=== PATIENT | male | born 1960 | race Caucasian/White ===

== ENCOUNTER 2024-02-26 15:08 | Inpatient (IN) ==
--- NOTE | 2024-02-26 15:24 | Emergency Department Note ---
Impression & Plan Back pain ADMIT ED Provider Note HPI: History obtained from patient. The patient is a 63-year-old gentleman who presents the emergency department with a chief complaint of left lower back pain that radiates down his left leg. Patient states he has had this issue intermittently for years. Patient states that over the past 10 days he has had worsening left lower back pain with some pain that radiates down his left leg and at times he has left leg weakness. Patient states it has become difficult to ambulate. Patient states he was seen in the outpatient setting about 3 days ago and placed on a Medrol Dosepak without much improvement. On arrival here to the ED the patient is mildly tachycardic but otherwise hemodynamically stable. He appears to be in no acute distress on my initial assessment. ROS: - Per HPI Differential Diagnosis: Degenerative disease of the lumbar spine with sciatica, herniated lumbar disc with sciatica, spinal stenosis, neuroforaminal stenosis, cauda equina syndrome, amongst other potential pathologies. *Outpatient medications and allergy history reviewed. PE: General: Alert HEENT: Normocephalic, trachea midline Eyes: Extraocular eye movement is intact, no scleral erythema Pulmonary: Clear to auscultation bilaterally, no wheezing Cardio: Regular rate and rhythm GI: Abdomen is soft to palpation : No suprapubic tenderness MSK: No evidence of trauma or malformation of the extremities, no edema Skin: No evidence of rash Neuro: Alert, no focal deficits, 5 out of 5 strength with dorsiflexion and plantarflexion of the bilateral lower extremities, there is some limitation of flexion at the hip on the left side secondary to pain Psychiatric: Cooperative INDEPENDENT INTERPRETATIONS: monitoring analyst: (As interpreted by myself): - An order was placed for continuous cardiac monitoring - Patient was noted to be in sinus rhythm with a rate of 80 Interventions provided in ED: -IV Toradol, IV morphine, IV Zofran, IV fluid bolus Medical Decision Making: IV was established and lab work obtained, patient was placed on shelter monitor. Lab work shows no leukocytosis, hemoglobin is normal, platelet count is normal, CMP does not show any evidence of any critical findings. CT imaging of the cervical spine was obtained that shows evidence of spinal stenosis as well as neuroforaminal stenosis correlating with the patient's pain. Patient does not have any red flag findings for cauda equina syndrome therefore emergent MRI imaging of the lumbar spine in the ED was not obtained. Patient states he has had these issues chronically, he was with good pain control on my reassessment following IV Toradol and IV morphine however the patient was not able to ambulate and had more pain with movement following my reassessment. Given this, I did discuss the patient's case with on-call spinal surgery, Dr. Leach, who states he would be in agreement for routine consultation to discuss the patient's imaging with him tomorrow and make possible arrangements for surgery if indicated. On my reassessment patient states he would prefer to be admitted to the hospital at this time. Given his ambulatory dysfunction I think this is reasonable. I discussed the patient's presentation with the on-call hospitalist for [facility], Dr. Garrison, and the patient was placed for admission in stable condition. Consultants/Discussions held with other healthcare providers: -Spinal surgery, Dr. Leach -Hospitalist, Dr. Garrison Disposition discussion held by myself with: -Patient Diagnosis: 1. Left lower back pain, acute on chronic, with sciatica, intractable 2. Ambulatory dysfunction, acute 3. Spinal stenosis on CT imaging Disposition: Admission Daniel Phipps DO Emergency Medicine Past Med/Surg History Problem List (Updated 02/26/24 @ 19:48 by Daniel Phipps DO) Back pain (Acute) Dysphagia Hiatal hernia History of PSVT (paroxysmal supraventricular tachycardia) Dyslipidemia Ambulatory dysfunction Lumbosacral radiculopathy Surgical History History of colonoscopy History of esophagogastroduodenoscopy (EGD) Family History Grandmother (Maternal) Stroke Father Heart disease Social History Smoking Status: Never smoker Preferred Language: Indonesian Feels Safe at Home: Yes Allergies Allergies Allergy/AdvReac Type Severity Reaction Status Date / Time No Known Allergies Allergy Unverified 02/26/24 17:01 Home Meds Home Medications Medication Instructions Recorded Confirmed acetaminophen 500 mg tablet 500 - 1,000 mg PO DIRECTED PRN 02/26/24 02/26/24 Pain atorvastatin 40 mg tablet 40 mg PO QAM 02/26/24 02/26/24 diclofenac sodium 50 mg 50 mg PO TID 02/26/24 02/26/24 tablet,delayed release duloxetine 60 mg capsule,delayed 60 mg PO QAM 02/26/24 02/26/24 release famotidine 20 mg tablet 20 mg PO BID 02/26/24 02/26/24 gabapentin 300 mg capsule 300 mg PO DAILY 02/26/24 02/26/24 gabapentin 300 mg capsule 600 mg PO HS 02/26/24 02/26/24 methylprednisolone 4 mg tablets in 4 mg PO DIRECTED 02/26/24 02/26/24 a dose pack metoprolol succinate 25 mg 25 mg PO QAM 02/26/24 02/26/24 tablet,extended release 24 hr omeprazole 40 mg capsule,delayed 40 mg PO QAM 02/26/24 02/26/24 release Results & Data (ED) Vital Signs Vital Signs - 24 hr 02/26/24 15:08 02/26/24 15:21 02/26/24 16:24 Temperature 36.6 C Temperature Source Temporal Artery Scan Pulse Rate 111 H 75 Pulse Rate [Apical] Pulse Rate from SpO2 Sensor 76 Pulse Rhythm Regular Pulse Rhythm [Apical] Pulse Strength [Apical] Respiratory Rate 18 18 8 L Respiratory Effort / Characteristics Respiratory Depth Respiratory Pattern Blood Pressure 132/81 Blood Pressure [Right Arm] Blood Pressure Mean 98 Blood Pressure Mean [Right Arm] Blood Pressure Position [Right Arm] Pulse Oximetry 93 95 91 Oxygen Delivery Method Room Air Sepsis Recent Fever Within 48 Hours No Sepsis New/Unexplained Change in Mental Status N/A Sepsis Action Taken by Nursing No Action Required 02/26/24 16:34 02/26/24 16:51 02/26/24 16:57 Temperature Temperature Source Pulse Rate 75 72 83 Pulse Rate [Apical] Pulse Rate from SpO2 Sensor 73 84 Pulse Rhythm Pulse Rhythm [Apical] Pulse Strength [Apical] Respiratory Rate 14 16 Respiratory Effort / Characteristics Respiratory Depth Respiratory Pattern Blood Pressure Blood Pressure [Right Arm] Blood Pressure Mean Blood Pressure Mean [Right Arm] Blood Pressure Position [Right Arm] Pulse Oximetry 91 92 Oxygen Delivery Method Sepsis Recent Fever Within 48 Hours Sepsis New/Unexplained Change in Mental Status Sepsis Action Taken by Nursing 02/26/24 17:00 02/26/24 17:03 02/26/24 17:30 Temperature Temperature Source Pulse Rate 80 71 Pulse Rate [Apical] Pulse Rate from SpO2 Sensor 82 74 Pulse Rhythm Pulse Rhythm [Apical] Pulse Strength [Apical] Respiratory Rate 13 15 Respiratory Effort / Characteristics Respiratory Depth Respiratory Pattern Blood Pressure 127/76 Blood Pressure [Right Arm] Blood Pressure Mean 92 Blood Pressure Mean [Right Arm] Blood Pressure Position [Right Arm] Pulse Oximetry 95 94 Oxygen Delivery Method Sepsis Recent Fever Within 48 Hours Sepsis New/Unexplained Change in Mental Status Sepsis Action Taken by Nursing 02/26/24 17:30 02/26/24 19:00 Temperature Temperature Source Pulse Rate Pulse Rate [Apical] 78 Pulse Rate from SpO2 Sensor Pulse Rhythm Pulse Rhythm [Apical] Regular Pulse Strength [Apical] Normal Respiratory Rate 18 Respiratory Effort / Characteristics Non-Labored Spontaneous Respiratory Depth Normal Respiratory Pattern Regular Blood Pressure 125/82 Blood Pressure [Right Arm] 134/90 Blood Pressure Mean 96 Blood Pressure Mean [Right Arm] 104 Blood Pressure Position [Right Arm] Lying Pulse Oximetry 98 Oxygen Delivery Method Room Air Sepsis Recent Fever Within 48 Hours Sepsis New/Unexplained Change in Mental Status Sepsis Action Taken by Nursing Laboratory Data 02/26/24 15:30 02/26/24 15:30 Lab Results 02/26/24 Range/Units 15:30 WBC 9.76 (4.8-10.8) K/ul RBC 5.26 (4.70-6.10) M/uL Hgb 16.4 (14.0-18.0) g/dl Hct 46.8 (42.0-52.0) % MCV 89.0 (80.0-100.0) fL MCH 31.2 (25.0-34.0) pg MCHC 35.0 (32.0-36.0) g/dL RDW Std Deviation 39.7 (36.4-46.3) fL RDW Coeff of Marvin 12.2 (11.5-14.5) % Plt Count 291 (130-400) K/uL MPV 8.6 L (9.4-12.4) fL Immature Gran % (Auto) 0.4 % Neut % (Auto) 69.7 % Lymph % (Auto) 21.2 % [place] % (Auto) 7.9 % Eos % (Auto) 0.6 % Baso % (Auto) 0.2 % Neut # (Auto) 6.80 H (1.40-6.50) K/uL Lymph # (Auto) 2.07 (1.20-3.40) K/uL [place] # (Auto) 0.77 H (0.11-0.59) K/uL Eos # (Auto) 0.06 (0.00-0.50) K/uL Baso # (Auto) 0.02 (0.00-0.20) K/uL Immature Gran # (Auto) 0.04 (0.01-0.20) K/uL Sodium 142 (136-145) mmol/L Potassium 3.4 L (3.5-5.1) mmol/L Chloride 108 H (98-107) mmol/L Carbon Dioxide 26 (21-32) mmol/L Anion Gap 8 (3-11) BUN 18 (6-23) mg/dl Creatinine 1.02 (0.6-1.4) mg/dl Est Cr Clr Drug Dosing 84.3 ml/min Est GFR ( Amer) 89.0 ml/min Est GFR (Non-Af Amer) 76.8 ml/min BUN/Creatinine Ratio 17.6 (10-20) Glucose 152 H (70-99(Fasting)) mg/dl Calcium 8.9 (8.6-10.3) mg/dl Total Bilirubin 0.8 (0.2-1.0) mg/dl AST 31 (13-39) U/L ALT 81 H (7-52) U/L Alkaline Phosphatase 52 (34-104) U/L Total Protein 6.9 (6.0-8.3) gm/dl Albumin 4.4 (3.4-5.0) gm/dl Globulin 2.5 (2.5-4.0) gm/dl Albumin/Globulin Ratio 1.8 (0.9-2) Administered Medications Discontinued Medications Sodium Chloride (Nss) 500 mls @ 999 mls/hr IV .Q31M STA Stop: 02/26/24 15:51 Last Infusion: 02/26/24 17:53 Dose: Infused Documented By: Admin: 02/26/24 15:39 Dose: 999 mls/hr Documented By: CATRACHITA Ketorolac Tromethamine (Ketorolac Tromethamine 15 Mg/Ml Vial) 10 mg IV NOW STA Stop: 02/26/24 15:22 Last Admin: 02/26/24 15:37 Dose: 10 mg Documented By: CATRACHITA Morphine Sulfate (Morphine Sulfate 4 Mg/Ml 1 Ml Carp\Vial) 4 mg IV NOW STA Stop: 02/26/24 15:22 Last Admin: 02/26/24 15:36 Dose: 4 mg Documented By: CATRACHITA Ondansetron HCl (Ondansetron Inj 2 Mg/Ml 2 Ml Vial) 4 mg IV NOW STA Stop: 02/26/24 15:22 Last Admin: 02/26/24 15:36 Dose: 4 mg Documented By: CATRACHITA Potassium Chloride (Potassium Chloride Crtab 20 Meq Tabcr) 20 meq PO NOW ONE Stop: 02/26/24 19:28 Last Admin: 02/26/24 19:52 Dose: 20 meq Documented By: IDD Imaging Data Radiologist's Impression: Lumbar Spine CT 02/26/24 15:[address] WITHOUT CONTRAST CLINICAL HISTORY: L sided back pain w/ L leg pain COMPARISON STUDY: Lumbar spine radiographs May 24, 2020. TECHNIQUE: Axial images of the lumbar spine were obtained without IV contrast. Sagittal and coronal reconstructions were viewed. Automated exposure control was utilized for the study. A dose lowering technique was utilized adhering to the principles of ALARA. FINDINGS: For purposes of numbering on this exam, the L5-S1 disc space is assigned to axial image 285 of 362. Moderate dextroscoliosis of the lumbar spine is unchanged. There is slight anterolisthesis of L4 and L5 due to facet arthrosis. There are no acute lumbar spine fractures. There are no osseous lesions within the lumbar spine. There are mild degenerative changes of the sacroiliac joints. Paravertebral soft tissues are unremarkable. Central canal and neural foramen are suboptimally assessed given CT technique. However, there is severe central canal stenosis at L4-L5 due to facet arthrosis, ligamentous hypertrophy and disc bulge. There is suspected moderate central canal stenosis at L3-L4. There is moderate to severe multilevel neural foraminal stenosis. There is severe multilevel facet arthrosis and moderate multilevel degenerative disc disease within the lumbar spine IMPRESSION: 1. No acute lumbar spine fracture or subluxation. 2. Severe multilevel facet arthrosis and moderate degenerative disc disease within the lumbar spine. Severe central canal stenosis at L4-L5. Moderate to severe multilevel neural foraminal stenosis, suboptimally evaluated by CT. 3. Moderate lumbar spine dextroscoliosis. ACT 112: Negative or not required by law. Electronically signed by: Heber Garcia M.D. 02/26/2024 4:20 PM Discharge Plan Visit Data Chief Complaint: Back Injury/Pain Stated Complaint: SCIATICA BACK ED Provider: Daniel Phipps Discharge Problem: Back pain Forms Stand Alone Forms: My [facility] Prescriptions Prescriptions: No Action atorvastatin 40 mg tablet 40 mg PO QAM omeprazole 40 mg capsule,delayed release(DR/EC) 40 mg PO QAM famotidine 20 mg tablet 20 mg PO BID gabapentin 300 mg capsule 300 mg PO DAILY diclofenac sodium 50 mg tablet,delayed release (DR/EC) 50 mg PO TID metoprolol succinate 25 mg tablet extended release 24 hr 25 mg PO QAM methylprednisolone 4 mg tablets,dose pack 4 mg PO DIRECTED Rx Instructions: has 2 more days left directions on package duloxetine 60 mg capsule,delayed release(DR/EC) 60 mg PO QAM acetaminophen [Tylenol Ex Str Rapid Release] 500 mg Tablet 500 - 1,000 mg PO DIRECTED PRN (Reason: Pain) Rx Instructions: per patient, he may do 1 to 2 tablets three times daily. gabapentin 300 mg capsule 600 mg PO HS Referrals Referrals: Tash Maharaj DO [Physician] - Discharge Problem: Back pain Qualifiers: Back pain location: low back pain Chronicity: acute Back pain laterality: left Sciatica presence: with sciatica Sciatica laterality: sciatica of left side Q ualified Code(s): M54.42 - Lumbago with sciatica, left side
[2024-02-26] MEDS: MoRPHine SULFATE 4 MG/ML 1 ML CARP\\VIAL IV STA (15:36)
[2024-02-26] MEDS: ONDANSETRON INJ 2 MG/ML 2 ML VIAL IV STA (15:36)
[2024-02-26] MEDS: KETOROLAC TROMETHAMINE 15 MG/ML VIAL IV STA (15:37)
[2024-02-26] MEDS: SODIUM CHLORIDE 0.9% 500 ML IV STA (15:39)
[2024-02-26 15:57] LABS: Basophils # (auto) 0.02 K/uL (0.00-0.20); Basophils % (auto) 0.2 %; Eosinophils # (auto) 0.06 K/uL (0.00-0.50); Eosinophils % (auto) 0.6 %; Hematocrit (blood only) 46.8 % (42.0-52.0); Hemoglobin 16.4 g/dl (14.0-18.0); Immature Granulocytes # (auto) 0.04 K/uL (0.01-0.20); Immature Granulocytes % (auto) 0.4 %; Lymphocytes # (auto) 2.07 K/uL (1.20-3.40); Lymphocytes % (auto) 21.2 %; Mean Corpuscular Hemoglobin 31.2 pg (25.0-34.0); Mean Platelet Volume 8.6 fL (9.4-12.4); Monocytes # (auto) 0.77 K/uL (0.11-0.59); Monocytes % (auto) 7.9 %; Neutrophils % (auto) 69.7 %; Platelet Count 291 K/uL (130-400); RDW Coefficient of Variation 12.2 % (11.5-14.5); RDW Standard Deviation 39.7 fL (36.4-46.3); Red Blood Count 5.26 M/uL (4.70-6.10); White Blood Count 9.76 K/ul (4.8-10.8)
[2024-02-26 16:14] LABS: Albumin Globulin Ratio 1.8 (0.9-2); Albumin Level 4.4 gm/dl (3.4-5.0); BUN Creatinine Ratio 17.6 (10-20); Bilirubin,Total 0.8 mg/dl (0.2-1.0); Calcium 8.9 mg/dl (8.6-10.3); Creatinine Clr Calc Pharmacy 84.3 ml/min; Est GFR (Non-African American) 76.8 ml/min; Globulin 2.5 gm/dl (2.5-4.0); Potassium 3.4 mmol/L (3.5-5.1); Total Protein 6.9 gm/dl (6.0-8.3)
--- NOTE | 2024-02-26 16:22 | CT Scan Report ---
LUMBAR SPINE CT WITHOUT CONTRAST CLINICAL HISTORY: L sided back pain w/ L leg pain COMPARISON STUDY: Lumbar spine radiographs May 24, 2020. TECHNIQUE: Axial images of the lumbar spine were obtained without IV contrast. Sagittal and coronal r econstructions were viewed. Automated exposure control was utilized for the study. A dose lowering t echnique was utilized adhering to the principles of ALARA. FINDINGS: For purposes of numbering on this exam, the L5-S1 disc space is assigned to axial image 285 of 362. Moderate dextroscoliosis of the lumbar spine is unchanged. There is slight anterolisthesis o f L4 and L5 due to facet arthrosis. There are no acute lumbar spine fractures. There are no osseous l esions within the lumbar spine. There are mild degenerative changes of the sacroiliac joints. Paraver tebral soft tissues are unremarkable. Central canal and neural foramen are suboptimally assessed give n CT technique. However, there is severe central canal stenosis at L4-L5 due to facet arthrosis, liga mentous hypertrophy and disc bulge. There is suspected moderate central canal stenosis at L3-L4. Ther e is moderate to severe multilevel neural foraminal stenosis. There is severe multilevel facet arthro sis and moderate multilevel degenerative disc disease within the lumbar spine IMPRESSION: 1. No acute lumbar spine fracture or subluxation. 2. Severe multilevel facet arthrosis and moderate degenerative disc disease within the lumbar spine. Severe central canal stenosis at L4-L5. Moderate to severe multilevel neural foraminal stenosis, subo ptimally evaluated by CT. 3. Moderate lumbar spine dextroscoliosis. ACT 112: Negative or not required by law. Electronically signed by: Heber Garcia M.D. 02/26/2024 4:20 PM
--- NOTE | 2024-02-26 19:17 | History & Physical Report ---
<Statement entered by Arnold Garrison, - 02/26/24 20:11> I have seen and examined the patient and have discussed the case with the provider above. I have reviewed the advanced practitioner's documentation, and I agree with, and take responsibility for that plan of care. 15 minutes spent in coordination of care with ARTURO Patient seen and examined while still in the ED. Resting comfortably on litter. Significant discomfort with any movement. Patient reports 25 to 30 pound weight gain over the past year. Suspect this may be contributing to some of the increased strain and stress on his lumbar spine exacerbating his symptoms. Plan of care as outlined below Date of Service February 26, 2024 Assessment & Plan (1) Lumbosacral radiculopathy: (2) Ambulatory dysfunction: Plan: Patient is 63 year old male with PMH PSVT, hiatal hernia, dysphagia, dyslipidemia, chronic low back pain presented to ER with complaint of low back pain x 1.5 weeks, now with radiation to LLE aggravated with ambulation. In ER vitals stable. CT Lumbar Spine: No acute lumbar spine fracture or subluxation. Severe multilevel facet arthrosis and moderate degenerative disc disease within the lumbar spine. Severe central canal stenosis at L4-L5. Moderate to severe multilevel neural foraminal stenosis, suboptimally evaluated by CT. Moderate lumbar spine dextroscoliosis. In ER given Toradol, morphine with moderate relief MRI lumbar spine PT/OT eval Fall precautions Ortho spine consult Pain control with scheduled Tylenol, Lidocaine patch, Toradol as needed mild pain, oxycodone as needed moderate-severe pain Decadron IV Plan to continue patient's home gabapentin. Considered increasing home dose of gabapentin however patient reports gets very drowsy with gabapentin. Continue home duloxetine CBC, BMP in a.m. (3) Dyslipidemia: Plan: Continue atorvastatin (4) History of PSVT (paroxysmal supraventricular tachycardia): Plan: Continue metoprolol (5) Hiatal hernia: (6) Dysphagia: Plan: Follows with GI Denies food bolus sensation recently Continue PPI and H2 josh DVT Prophylaxis Lovenox SQ Admit med surg Full Code as per discussion with pt Follows with Dr Brigette Bennett for routine care Pt was seen and care coordinated with Dr Garrison. See addendum I spent a total of 75 minutes reviewing notes, outpatient records, labs, medication, coordinating, documenting and providing care for this patient excluding time spent in the performance of separately billed services. History of Present Illness Chief Complaint: back pain Primary Care Provider: Brigette Bennett MD Patient is 63 year old male with PMH PSVT, hiatal hernia, dysphagia, dyslipidemia, chronic low back pain presented to ER with complaint of low back pain x 1.5 weeks. Patient reports history of chronic intermittent low back pain. States many years ago received steroid injections with temporary relief. Reports considered surgery several years ago. Patient states had been doing fairly well until 1 and half weeks ago when started with low back pain, initially with pain radiating down bilateral legs. States past several days pain now across to low back more to left side radiates down left buttock, down posterior leg to foot. Reports some numbness tingling sensation to left leg. Saw urgent care several days ago and was started on Medrol Dosepak. Patient states today pain is more severe and any attempted weightbearing to left leg and walking causing severe pain. Patient thinks left leg a little weaker today as well. Denies any falls. Taking Tylenol with limited relief. Denies loss of control of bowel or bladder, fever/chills, N/V/D/C, MEDINA, dizziness, syncope, neck pain, CP, SOB, palpitations, cough, sore throat, recent choking, otalgia, rhinorrhea, abdominal pain, extremity edema, rashes, hematuria, dysuria. Allergies Allergy/AdvReac Type Severity Reaction Status Date / Time No Known Allergies Allergy Unverified 02/26/24 17:01 Home Medications Medication Instructions Recorded Confirmed Type acetaminophen 500 mg tablet 500 - 1,000 mg PO DIRECTED PRN 02/26/24 02/26/24 History Pain atorvastatin 40 mg tablet 40 mg PO QAM 02/26/24 02/26/24 History diclofenac sodium 50 mg 50 mg PO TID 02/26/24 02/26/24 History tablet,delayed release duloxetine 60 mg capsule,delayed 60 mg PO QAM 02/26/24 02/26/24 History release famotidine 20 mg tablet 20 mg PO BID 02/26/24 02/26/24 History gabapentin 300 mg capsule 300 mg PO DAILY 02/26/24 02/26/24 History gabapentin 300 mg capsule 600 mg PO HS 02/26/24 02/26/24 History methylprednisolone 4 mg tablets in 4 mg PO DIRECTED 02/26/24 02/26/24 History a dose pack metoprolol succinate 25 mg 25 mg PO QAM 02/26/24 02/26/24 History tablet,extended release 24 hr omeprazole 40 mg capsule,delayed 40 mg PO QAM 02/26/24 02/26/24 History release Past Med/Surg History Problem List (Updated 02/26/24 @ 19:48 by Daniel Phipps DO) Back pain (Acute) Dysphagia Hiatal hernia History of PSVT (paroxysmal supraventricular tachycardia) Dyslipidemia Ambulatory dysfunction Lumbosacral radiculopathy Surgical History History of colonoscopy History of esophagogastroduodenoscopy (EGD) Family History Grandmother (Maternal) Stroke Father Heart disease Social History Smoking Status: Never smoker Preferred Language: Tongan Feels Safe at Home: Yes Review of Systems Review of Systems: All systems reviewed & are unremarkable except as noted in HPI & below Physical Exam Physical Exam: General: no distress, WDWN Head: normocephalic, atraumatic Eyes: conjunctiva non-injected, anicteric ENT: normal inspection external ears, nose, mucous membranes moist Neck: supple, trachea midline Lungs: clear, no respiratory distress, no wheezing/rhonchi/rales CV: RRR, no murmur, no pretibial edema Abd: normal BS, soft, non-tender Back: no discoloration, +tenderness to palpation left lateral lower back into left gluteus, +left straight leg raise to approximately 30 degrees. +sensation to light touch intact with reported slightly decreased sensation to left foot compared to right, pedal pushes and pulls intact, distal pulses intact Ext: no cyanosis, no calf tenderness Neuro: A&O x 3, no focal deficits noted, normal affect Skin: warm, dry Results & Data Results & Data Vital Signs (Past 12 Hours) Vital Signs Temp Pulse Resp BP Pulse Ox O2 Del Method 02/26/24 17:30 125/82 02/26/24 17:30 71 15 94 02/26/24 17:03 80 13 95 02/26/24 17:00 127/76 02/26/24 16:57 83 16 92 02/26/24 16:51 72 14 91 02/26/24 16:34 75 02/26/24 16:24 75 8 L 91 02/26/24 15:21 18 95 Room Air 02/26/24 15:08 36.6 C 111 H 18 132/81 93 Laboratory Results Short CBC 02/26/24 Range/Units 15:30 WBC 9.76 (4.8-10.8) K/ul Hgb 16.4 (14.0-18.0) g/dl Hct 46.8 (42.0-52.0) % Plt Count 291 (130-400) K/uL BMP 02/26/24 15:30 Sodium 142 Potassium 3.4 L Chloride 108 H Carbon Dioxide 26 BUN 18 Creatinine 1.02 Glucose 152 H Calcium 8.9 Liver Function 02/26/24 Range/Units 15:30 Total Bilirubin 0.8 (0.2-1.0) mg/dl AST 31 (13-39) U/L ALT 81 H (7-52) U/L Alkaline Phosphatase 52 (34-104) U/L Albumin 4.4 (3.4-5.0) gm/dl Diagnostic Findings Lumbar Spine CT 02/26/24 15:[address] WITHOUT CONTRAST CLINICAL HISTORY: L sided back pain w/ L leg pain COMPARISON STUDY: Lumbar spine radiographs May 24, 2020. TECHNIQUE: Axial images of the lumbar spine were obtained without IV contrast. Sagittal and coronal reconstructions were viewed. Automated exposure control was utilized for the study. A dose lowering technique was utilized adhering to the principles of ALARA. FINDINGS: For purposes of numbering on this exam, the L5-S1 disc space is assigned to axial image 285 of 362. Moderate dextroscoliosis of the lumbar spine is unchanged. There is slight anterolisthesis of L4 and L5 due to facet arthrosis. There are no acute lumbar spine fractures. There are no osseous lesions within the lumbar spine. There are mild degenerative changes of the sacroiliac joints. Paravertebral soft tissues are unremarkable. Central canal and neural foramen are suboptimally assessed given CT technique. However, there is severe central canal stenosis at L4-L5 due to facet arthrosis, ligamentous hypertrophy and disc bulge. There is suspected moderate central canal stenosis at L3-L4. There is moderate to severe multilevel neural foraminal stenosis. There is severe multilevel facet arthrosis and moderate multilevel degenerative disc disease within the lumbar spine IMPRESSION: 1. No acute lumbar spine fracture or subluxation. 2. Severe multilevel facet arthrosis and moderate degenerative disc disease within the lumbar spine. Severe central canal stenosis at L4-L5. Moderate to severe multilevel neural foraminal stenosis, suboptimally evaluated by CT. 3. Moderate lumbar spine dextroscoliosis. ACT 112: Negative or not required by law. Electronically signed by: Heber Garcia M.D. 02/26/2024 4:20 PM Code Status & VTE Plan VTE Prophylaxis Plan VTE Prophylaxis will be ordered: Yes
[2024-02-26] MEDS: POTASSIUM CHLORIDE CRTAB 20 MEQ TABCR PO ONE (19:52)
[2024-02-26] MEDS ORDERED: DEXAMETHASONE SOD INJ 4 MG/ML VIAL IV SCH (21:01)
--- NOTE | 2024-02-26 21:31 | Magnetic Resonance Report ---
Exam(s): MRI L SPINE Without Contrast EXAM: MR Lumbar Spine Without Intravenous Contrast CLINICAL HISTORY: Reason for exam: radicular pain. TECHNIQUE: Magnetic resonance images of the lumbar spine without intravenous contrast in multiple planes. COMPARISON: CT 02/26/2024 FINDINGS: Vertebrae: No acute fracture. Trace anterolisthesis at L4-5. No suspicious lesion. Degenerative related endplate marrow signal changes at multiple levels. Spinal cord: Terminates at T12. Normal signal. Soft tissues: Unremarkable. DISCS/SPINAL CANAL/NEURAL FORAMINA: T12-L1: Diffuse disc bulge. Mild canal stenosis. Mild right and no left foraminal stenosis. L1-L2: Diffuse disc bulge and mild facet arthropathy. Mild canal stenosis. Mild right and mild left foraminal stenosis. L2-3: Trace diffuse disc bulge and facet arthropathy. Mild to moderate canal stenosis. Mild bilateral foraminal stenosis. L3-4: Diffuse disc bulge and facet arthropathy left greater than right. Moderate stenosis of the left lateral recess. Moderate left and no significant right foraminal stenosis. L4-5: Anterolisthesis with diffuse disc bulge and severe facet hypertrophy. Severe spinal canal stenosis. Moderate bilateral foraminal stenosis. L5-S1: Trace diffuse disc bulge. Facet arthropathy on the right. No canal stenosis. Severe right and no left foraminal stenosis. IMPRESSION: 1. Degenerative spondylosis as described most pronounced at L4-5 and L5- S1. 2. Severe spinal canal stenosis at L4-5. 3. Foraminal stenosis most pronounced on the right at L5-S1 where it is severe. Electronically signed by: Ajay Gerber MD 02/26/24 21:30 PM
[2024-02-26] MEDS: ACETAMINOPHEN 500 MG TAB PO SCH (21:49)
[2024-02-26] MEDS: DOCUSATE SODIUM 100 MG CAP PO SCH (21:49)
[2024-02-26] MEDS: KETOROLAC TROMETHAMINE 15 MG/ML VIAL IV PRN (21:49)
[2024-02-26] MEDS: dexAMETHasone 8 MG in SYRINGE 0 ML IV SCH (21:50)
[2024-02-26] MEDS: LIDOCAINE 5% 1 PATCH TD STA (21:51)
[2024-02-26] MEDS: FAMOTIDINE 20 MG TAB PO SCH (21:51)
[2024-02-26] MEDS: ENOXAPARIN INJ 40 MG/0.4 ML SYR SQ SCH (21:51)
[2024-02-26] MEDS: GABAPENTIN 300 MG CAP PO SCH (21:51)
--- OUTSIDE RECORDS SUMMARY | 2024-02-26 23:54 | External Medical Summary | Summary of Care ---
Author Name Unknown Organization [facility] Address [address] [place] [address] Phone [phone] Care Team Providers Care Esthetician Permanent Makeup Artist Name Role Phone Brigette Bennett MD Primary Care Provider [phone] Reason for Visit * Reason Comments Esophageal Manometry Encounter Details Date Type Department Care Team (Late st Contact Info) Description 01/06/2024 9:00 AM EDT Nurse Only Gastroenterology, [place] [address] [place], [place] [id number] [place], Nurse Gastroenterology [address] [place], [place] [id number] Esophageal Manometry Allergies No known active allergiesdocumented as of this encounter (statuses as of 01/06/2024) Medications Medication Sig Dispensed Refills Start Date End Date Status Acetaminophen 500 MG Oral Tablet (Tylenol Extra Strength) Take 1 Tablet by mouth every 6 hours as needed. Active Atorvastatin Calcium 40 MG Oral Tablet (Lipitor) Take 1 Tablet by mouth in the morning. 90 Tablet 3 06/30/2023 Active Gabapentin 300 MG Oral Capsule (Neurontin) Take 1 Capsule by mouth in the morning and 1 Capsule at noon and 1 Capsule before bedtime. 270 Capsule 3 08/10/2023 Active Metoprolol Succinate ER 25 MG Oral Tablet Extended Release 24 Hour (Toprol XL) Take 1 Tablet by mouth in the morning. 34 Tablet 6 09/21/2023 Active DULoxetine HCl 60 MG Oral Capsule Delayed Release Particles (Cymbalta) Take 1 Capsule by mouth in the morning. 60 Capsule 11 11/13/2023 Active Diclofenac Sodium 50 MG Oral Tablet Delayed Release (Voltaren) TAKE 1 TABLET BY MOUTH THREE TIMES DAILY MORNING NOON AND BEDTIME 90 Tablet 2 11/28/2023 Active Famotidine 20 MG Oral Tablet (Pepcid)Indications :Gastroesophageal reflux disease, unspecified whether esophagitis present TAKE 1 TABLET BY MOUTH IN THE MORNING AND AT BEDTIME 60 Tablet 12/12/2023 Active Terbinafine HCl 250 MG Oral Tablet (Lamisil)Indication s:Onychomycosis Take 1 Tablet by mouth in the morning. For 12 weeks for toenail fungus. 84 Tablet 12/28/2023 03/21/2024 Active documented as of this encounter (statuses as of 01/06/2024) Active Problems Problem Noted Date Diagnosed Date Hiatal hernia 12/28/2023 Food insecurity 07/20/2023 Overview: Per [facility] Protocol documented as of this encounter (statuses as of 01/06/2024) Immunizations Name Administration Dates Next Due Seasonal Influenza Virus Vac cine, Unspecified Formulation 05/29/2023 Seasonal Influenza, Quadrivalent, No Preserve, I M 03/15/2020 TDAP, Age 7 and older, IM (Adacel) 04/05/2020 Zoster Vaccine Recombinant (Shingrix) 03/31/2020 documented as of this encounter Social History Tobacco Use Types Packs/Day Years Used Date Smoking Tobacco: Never Passive Smoke Exposure: Past Smokeless Tobacco: Never Alcohol Use Standard Drinks/Week Comments Yes 0 (1 standard drink = 0.6 oz pur e alcohol) rarely Hunger Vital Sign Answer Date Recorded Within the past 12 months, y ou worried that your food would run out before you got the money to buy more. Sometimes true Within the past 12 months, t he food you bought just didn't last and you didn't have money to get more. Often true Childcare Answer Date Recorded Do you feel overwhelmed with taking care of a child, family member or friend? No 06/24/2023 Does your family need help f inding childcare? (Household - for ages 0-17 years) Not on file 06/24/2023 Clothing Answer Date Recorded Have you been unable to get clothing when it was really needed? No 06/24/2023 Is your family able to get c lothes or diapers when needed? (Household - for ages 0-17 years) Not on file 06/24/2023 Personal Safety Answer Date Recorded Do you feel unsafe or have concerns for your saf ety? No 06/24/2023 Do you have concerns for you r family's safety? (Household - for ages 0-17 years) Not on file 06/24/2023 Utilities Answer Date Recorded Do you have trouble paying y our heating, water, or electric bill? No 06/24/2023 Is your family able to pay t he heat, water, or electric bill? (Household - for ages 0-17 years) Not on file 06/24/2023 Does your family have access to good internet? (Household - for ages 0-17 years) Not on file 06/24/2023 Employment Status Answer Date Recorded Are you unemployed or without regular income? No 06/24/2023 Does the household have a re lar source of income? (Household - for ages 0-17 years) Not on file 06/24/2023 Social Connections Answer Date Recorded How often do you feel lonely or isolated from those around you? Sometimes 06/24/2023 Financial Resource Strain Answer Date R ecorded Do you have any trouble payi ng for your medications, or do you think you might in the future? No 06/24/2023 Does your family have troubl e paying for medicine? (Household - for ages 0-17 years) Not on file 06/24/2023 Transportation Needs Answer Date Record ed READ ONLY Do you have troubl e getting a ride to medical visits or work? Never True 06/24/2023 Does your family have a hard time getting a ride to doctors visits? (Household - for ages 0-17 years) Not on file 06/24/2023 Has lack of transportation k ept you from medical appointments, meetings, work, or from getting things needed for daily living? Check all that apply. (Adult - for ages 18 years and over) Not on file 06/24/2023 Do you (or your family) have trouble finding or paying for a ride (transportation)? (Household - for ages 0-17 years) Not on file 06/24/2023 Housing Stability Answer Date Recorded Do you currently live in a s helter or have no steady place to sleep at night? No 06/24/2023 READ ONLY Do you think you a re at risk of becoming homeless? No 06/24/2023 Does your family worry about paying for your home or becoming homeless? (Household - for ages 0-17 years) Not on file 1 08/25/2022 Are you homeless or worried that you might be in the future? (Adult - for ages 18 years and over) Not on file Are you (or your family) darci eless or worried that you might be in the future? (Household - for ages 0-17 years) Not on file Food Insecurity Answer Date Recorded Do you need food for this week? No 06/24/2023 Are you able to get enough f ood for your family? (Household - for ages 0-17 years) Not on file 06/24/2023 Does your family need food t his week? (Household - for ages 0-17 years) Not on file 06/24/2023 Do you always have enough fo od for your family? (Household - for ages 0-17 years) Not on file 06/24/2023 Sex and Gender Information Value Date Recorded Sex Assigned at Male 06/24/2023 11:54 AM EST Gender Identity Male 06/24/2023 11:54 AM EST Sexual Orientation Straight 06/24/2023 11 :54 AM EST Job Start Date Occupation Industry Not on file Not on file Not on file documented as of this encounter Nursing Notes * Gabriela Li RN - 01/06/2024 9:56 AM EDT Patient referred by [facility] Hooper for manometry because of dysphagia, hiatal hernia, and GERD. Patient followed pre-procedure instructions of [facility]. Procedure, risks and benefits were fully explained and time was given for questions. Informed consent was obtained. Procedure was performed by Gabriela Li RN. Patient tolerated the procedure well. Instructions for post-procedure mild sore throat were given: ice chips, tylenol. Catheter placed in left nares. No blood noted upon removal of catheter. Catheter was not able to be advanced all the way in to the appropriate position. Was meeting resistance, likely patient's hiatal hernia. Multiple attempts were made to advance the catheter all the way in, patient experienced no pain during these attempts. Advanced catheter as fas as I could and completed the study. documented in this encounter Plan of Treatment Upcoming Encounters Date Type Department Care Team (Latest Contact Info) Description 01/19/2024 3:00 PM EDT Office Visit Cardiology, [facility] [address] [place] [address] Lana Sarmiento CRNP [address] [place] [address] 01/21/2024 12:30 PM EDT Office Visit General Surgery, [facility] [address] [facility] [place] [address] Stephon Pollard MD [address] [place] [address] 03/22/2024 8:45 AM EDT Hospital Encounter ENDO [facility], Endoscopy [address] [phone] Nedra Adan, DO [address] [place] [address] 03/22/2024 8:45 AM EDT - 03/22/2024 9:15 AM EDT Surgery ENDO [facility], Endoscopy [address] [phone] Nedra Adan, DO [address] [place] [address] ESOPHAGOGASTRODUODENOSCOPY (EGD), FLEXIBLE, TRANSORAL, DIAGNOSTIC 04/29/2024 1:00 PM EDT [facility] [address] Brigette Bennett MD 200 [facility] [place] [address] 05/06/2024 1:20 PM EDT Office Visit Hepatology, [facility] [place] [address] [place] [address] Lana Braun DO [address] [place] [address] Scheduled Procedures Name Priority Associated Diagnoses Date/Ti me ESOPHAGOGASTRODUODENOSCOPY ( EGD), FLEXIBLE, TRANSORAL, DIAGNOSTIC GERD (gastroesophageal reflux disease) 03/22/2024 8:45 AM EDT GASTRO REFLUX TEST WITH MUCO RAFAELA TELEMETRY PH ELECTRODE GERD (gastroesophageal reflux disease) 03/22/2024 8:45 AM EDT COLONOSCOPY FLEXIBLE PROXIMA L DIAGNOSTIC Recall History of colonic polyps Health Maintenance Due Date Last Done Comments Depression Screening 1970 HIV Screening 1973 Cologuard 2003 Fecal Occult Blood Test 2003 Zoster Vaccines (2 of 2) 05/26/2020 03/31/2020 COVID-19 Vaccine (1 - 2022-2 4 season) 2023 Pneumococcal Vaccine: 65+ Years (1 of 1 - PCV) 2023 Colonoscopy 06/12/2024 06/12/2023, 06/12/2023 Colorectal Cancer Screening 06/12/2024 Diabetes Screening 07/27/2026 07/27/2023, 06/05/2023 Lipid Panel 06/05/2028 06/05/2023 Sigmoidoscopy 07/27/2028 07/27/2023 DTaP,Tdap,and Td Vaccines (2 - Td or Tdap) 04/05/2030 04/05/2020 Influenza Vaccine (FLU shot) Completed , 03/15/2020 RETIRED - COLONOSCOPY-ANNUAL AGES 18-100 Discontinued 07/27/2023, 06/12/2023, 06/12/2023 GARDASIL-HPV IMMUNIZATION SERIES Aged Out No longer eligible based on patient's age to complete this topic Hepatitis B Aged Out No longer eligi ble based on patient's age to complete this topic MENINGOCOCCAL (MENACTRA/MENVEO) Aged Out No longer eligible based on patient's age to complete this topic documented as of this encounter Medical Devices Not on filedocumented as of this encounter Care Teams Esthetician Permanent Makeup Artist Relationship Specialty Start Date End Date Brigette Bennett MD [address] [place] [address] PCP - General Family Medicine 06/05/23 documented as of this encounter
--- OUTSIDE RECORDS SUMMARY | 2024-02-26 23:54 | External Medical Summary | Summary of Care ---
Author Name Unknown Organization [facility] Address [address] [place] [address] Phone [phone] Care Team Providers Care Rubber Compounder Formulator Name Role Phone Brigette Bennett MD Primary Care Provider [phone] Reason for Visit * Reason Comments Outpatient Testing Encounter Details Date Type Department Care Team (Late st Contact Info) Description 01/05/2024 4:10 PM EDT Laboratory Laboratory [facility] [place] [address] [place] [phone] [place], Lab Sc[facility] [address] [place], [place] [address] Onychomycosis; Elevated LFTs Allergies No known active allergiesdocumented as of this encounter (statuses as of 01/05/2024) Medications Medication Sig Dispensed Refills Start Date [...] as of this encounter (statuses as of 01/05/2024) Active Problems Problem Noted Date Diagnosed Date Hiatal hernia 12/28/2023 Food insecurity 07/20/2023 Overview: Per [facility] Protocol documented as of this encounter (statuses as of 01/05/2024) Immunizations Name Administration Dates Next Due Seasonal Influenza Virus Vac cine, Unspecified Formulation 05/29/2023 Seasonal Influenza, Quadrivalent, No Preserve, I M 03/15/2020 TDAP, Age 7 and older, IM (Adacel) 04/05/2020 Zoster Vaccine Recombinant (Shingrix) 03/31/2020 documented as of this encounter Social History Tobacco Use Types Packs/Day Years Used Date Smoking Tobacco: Never Smokeless Tobacco: Never Alcohol Use Standard Drinks/Week [...] No 06/24/2023 Does the household have a [facility] source of income? (Household - for ages [...] on file documented as of this encounter Plan of Treatment Upcoming Encounters Date Type Department Care Team (Latest Contact Info) Description 01/06/2024 9:00 AM EDT Nurse Only Gastroenterology , [place] [address] [place] [address] [place], [facility]ol [facility]gy [address] [facility] [place] [address] 01/19/2024 3:00 PM EDT Office Visit Cardiology, [facility] 132 [facility] [place] [address] Lana Sarmiento CRNP [address] [facility] [place] [address] 01/21/2024 12:30 PM EDT Office Visit General Surgery, [facility] [address] [place] [address] Stephon Pollard MD [address] [place] [address] 03/22/2024 8:45 AM EDT Hospital Encounter ENDO [facility], Endoscopy [address] [phone] Nedra Adan, DO [address] [place] [address] 03/22/2024 8:45 AM EDT - 03/22/2024 9:15 AM EDT Surgery ENDO [facility], Endoscopy [address] [phone] Nedra Adan, DO [address] [place] [address] ESOPHAGOGASTRODUODENOSCOPY (EGD), FLEXIBLE, TRANSORAL, DIAGNOSTIC 04/29/2024 1:00 PM EDT Office Visit [facility] 200 [facility] [place] [address] Brigette Bennett MD 200 [facility], [place] [address] 05/06/2024 1:20 PM EDT Office Visit Hepatology, [facility] [address] [place] [address] Lana Braun, [address] [place] [address] Pending Results Name Type Priority Associated Diagnoses Date /Time HEPATIC FUNCTION PANEL Lab Routine Onychomycosis 01/05/2024 4:10 PM EDT FERRITIN Lab Routine Elevated LFTs 01/05/2024 4:10 PM EDT ANTINUCLEAR ANTIBODY (MINNIE) EIA SCREEN WITH REFLEX AB QUANT Lab Routine Elevated LFTs 01/05/2024 4:10 PM EDT MITOCHONDRIAL ANTIBODY Lab Routine Elevated LFTs 01/05/2024 4:10 PM EDT ANCA REFLEX PANEL Lab Routine Elevated LFTs 01/05/2024 4:10 PM EDT CERULOPLASMIN Lab Routine Elevated LFTs 01/05/2024 4:10 PM EDT ANTINUCLEAR ANTIBODY (MINNIE) SCREEN, SADIQ Lab Routine Elevated LFTs 01/05/2024 4:10 PM EDT ANCA, IFA Lab Routine Elevated LFTs 01/05/2024 4:10 PM EDT Scheduled Procedures Name Priority Associated Diagnoses Date/Ti [...] Not on filedocumented as of this encounter Visit Diagnoses Diagnosis Onychomycosis Dermatophytosis of nail Elevated LFTs Other abnormal blood chemistry GERD (gastroesophageal reflux disease) Esophageal reflux documented in this encounter Care Teams Rubber Compounder Formulator Relationship Specialty Start Date End Date Brigette Bennett MD [address] [place] [address] PCP - General Family Medicine 06/05/23 documented as of this encounter
--- OUTSIDE RECORDS SUMMARY | 2024-02-26 23:54 | External Medical Summary ---
Author Name Unknown Address Unknown Organization [facility] [address] [place] [address] Laboratory Report Ordering Provider Test Date Status EDD PERDOMO 12/29/2023 12:10:25 Final Observation Date Value Abnormality Reference (Units ) Status Hep B surface Ag 12/29/2023 12:10:25 Negative Neg ative Final Performing Location [facility] [address] [place] [address]
--- OUTSIDE RECORDS SUMMARY | 2024-02-26 23:54 | External Medical Summary | Summary of Care ---
Author Name Unknown Organization [facility] Address [address] [place] [address] Phone [phone] Care Team Providers Care City Attorney Name Role Phone Leanne Bennett MD Primary Care Provider [phone] Reason for Visit * Reason Onset Date Comments Medication Refill 01/20/2024 Encounter Details Date Type Department Care Team (Late st Contact Info) Description 01/20/2024 Refill Family Practice [facility] 200 [facility] [place] [address] Leanne Bennett MD [address] [place] [address] Allergies No known active allergiesdocumented as of this encounter (statuses as of 01/21/2024) Medications Medication Sig Dispensed Refills Start Date [...] the morning. 60 Capsule 11 11/13/2023 Active Terbinafine HCl 250 MG Oral Tablet (Lamisil)Indicati ons:Onychomycosis Take 1 Tablet by mouth in the morning. For 12 weeks for toenail fungus. 84 Tablet 12/28/2023 03/21/2024 Active Diclofenac Sodium 50 MG Oral Tablet Delayed Release (Voltaren) Take 1 Tablet by mouth in the morning and 1 Tablet at noon and 1 Tablet before bedtime. 90 Tablet 2 01/21/2024 Active Diclofenac Sodium 50 MG Oral Tablet Delayed Release (Voltaren) TAKE 1 TABLET BY MOUTH THREE TIMES DAILY MORNING NOON AND BEDTIME 90 Tablet 2 11/28/2023 01/20/2024 Discontinued (Refill) documented as of this encounter (statuses as of 01/21/2024) Active Problems Problem Noted Date Diagnosed Date Hiatal hernia 12/28/2023 Food insecurity 07/20/2023 Overview: Per [facility] Protocol documented as of this encounter (statuses as of 01/21/2024) Immunizations Name Administration Dates Next Due Seasonal [...] No 06/24/2023 Does the household have a [facility] source of income? (Household - for ages [...] on file documented as of this encounter Miscellaneous Notes * Telephone Encounter - Leanne Bennett MD - 01/21/2024 4:15 PM EDTSigned Prescriptions: Disp Refills Diclofenac Sodium 50 MG Oral Tablet Delaye*90 Tab*2 Sig: Take 1 Tablet by mouth in the morning and 1 Tablet at noon and 1 Tablet before bedtime. Authorizing Provider: LEANNE BENNETT * Telephone Encounter - Kevin Casanova, [facility] - 01/21/2024 4:08 PM EDT Pending Prescriptions: Disp Refills Diclofenac Sodium 50 MG Oral Tablet Delaye*90 Tab*2 Sig: Take 1 Tablet by mouth in the morning and 1 Tablet at noon and 1 Tablet before bedtime. * Telephone Encounter - Kevin Casanova [facility] - 01/21/2024 4:06 PM EDT Unable to authorize medication refills for pended medication(s) at this time. Part of the protocol criteria used for refill authorization was not satisfied. Patient needs ALT and HGB with in normal limits. Please approve if appropriate. Thank You, Kevin Casanova, Pharm-D Clinical Pharmacist [facility] [phone] 01/21/2024, 4:06 PM Did you pend patient's preferred pharmacy and medication before forwarding?yes Pharmacy: [facility] [address] [place] [address] Pending Prescriptions: Disp Refills Diclofenac Sodium 50 MG Oral Tablet Delay*90 Tab*2 Sig: Take 1 Tablet by mouth in the morning and 1 Tablet at noon and 1 Tablet before bedtime. Last Visit: 12/28/2023 (in office), Visit date not found (telemedicine) Next Visit: 04/29/2024 If no future appointments scheduled, and last appointment is greater than a year ago, please schedule patient for a follow-up appointment Last date the medication was ordered: 11/28/2023 Is this request for a controlled substance?No Urine Drug Screen:No results found for this or any previous visit. Patient Phone Numbers Labs: Lab Results Component Value Date/Time CREAT 1.2 06/05/2023 02:59 PM POTASSIUM 4.3 06/05/2023 02:59 PM TSH 1.24 06/05/2023 02:59 PM LDLCALC 142 (H) 06/05/2023 02:59 PM ALT 185 (H) 01/05/2024 04:10 PM documented in this encounter Plan of Treatment Upcoming Encounters Date Type Department Care Team (Latest Contact Info) Description 02/11/2024 9:00 AM EDT Office Visit [facility] [address] [place] [phone] Lacey Aparicio CRNP [address] [place] [address] 03/22/2024 8:45 AM EDT Hospital Encounter [facility]O [facility] [phone] Nedra [place]an, [address] [place] [address] 03/22/2024 8:45 AM EDT - 03/22/2024 9:15 AM EDT Surgery ENDO [facility], [address] [phone] Nedra [place]an, [address] [place] [address] ESOPHAGOGASTRODUODENOSCOPY (EGD), FLEXIBLE, TRANSORAL, DIAGNOSTIC 04/28/2024 1:15 PM EDT Office Visit General Surgery, [facility] [address] [place] [address] Stephon Pollard MD [address] [place] [address] 04/29/2024 1:00 PM EDT Office Visit [facility] [address] [facility] [place], [place] [address] Leanne Bennett MD [address] [place] [address] 05/06/2024 1:20 PM EDT Office Visit Hepatology, [facility] [address] [facility] [place] [address] Lana Braun DO 132 [facility] [place] [address] 07/22/2024 2:30 PM EST Office Visit Cardiology, [facility] [address] [facility] [place] [address] Lana Sarmiento CRNP [address] [place] [address] Scheduled Procedures Name Priority Associated Diagnoses Date/Ti [...] Years (1 of 1 - PCV) 2023 Influenza Vaccine (FLU shot) (#1) 2024 05/29/2023, 03/15/2020 Colonoscopy 06/12/2024 06/12/2023, 06/12/2023 Colorectal Cancer Screening 06/12/2024 Diabetes Screening 07/27/2026 07/27/2023, 06/05/2023 Lipid Panel 06/05/2028 06/05/2023 Sigmoidoscopy 07/27/2028 07/27/2023 DTaP,Tdap,and Td Vaccines (2 - Td or Tdap) 04/05/2030 04/05/2020 RETIRED - COLONOSCOPY-ANNUAL AGES 18-100 Discontinued 07/27/2023, 06/12/2023, 06/12/2023 HPV (Gardasil) Vaccine Aged Out No lo nger eligible based on patient's age to complete this topic Hepatitis B Vaccine Aged Out No longe r eligible based on patient's age to complete this topic MENINGOCOCCAL (MENACTRA/MENVEO) Aged Out No longer eligible based on patient's age to complete this topic documented as of this encounter Medical Devices Not on filedocumented as of this encounter Care Teams City Attorney Relationship Specialty Start Date End Date Leanne Bennett MD [address] [place] [address] PCP - General Family Medicine 06/05/23 documented as of this encounter
--- OUTSIDE RECORDS SUMMARY | 2024-02-26 23:54 | External Medical Summary ---
Author Name Unknown Address Unknown Organization K01:[facility] - [address] [place] [address] Laboratory Report Ordering Provider Test Date Status EDD PERDOMO 12/29/2023 12:10:25 Final Observation Date Value Abnormality Reference (Units ) Status Hep C Ab 12/29/2023 12:10:25 Negative Negative Final Further HCV quantitative valentin ting not performed per protocol. Performing Location [facility] - [address] [place] [address]
--- OUTSIDE RECORDS SUMMARY | 2024-02-26 23:54 | External Medical Summary | Summary of Care ---
Author Name Unknown Organization [facility] Address [address] [place] [address] Phone [phone] Care Team Providers Care Hearing Screen Coordinator Name Role Phone Brigette Bennett MD Primary Care Provider [phone] Reason for Visit * Reason Comments Esophageal Manometry Encounter Details Date Type Department Care Team (Late st Contact Info) Description 01/06/2024 9:00 AM EDT Nurse Only Gastroenterology, [place] [address] [place], [place] [id number] [place], Nurse Gastroenterology [address] [place], [place] [id number] Esophageal Manometry Allergies No known active allergiesdocumented as of this encounter (statuses as of 01/26/2024) Medications Medication Sig Dispensed Refills Start Date [...] 90 Tablet 2 11/28/2023 01/20/2024 Discontinued (Refill) Famotidine 20 MG Oral Tablet (Pepcid)Indicatio ns:Gastroesophage al reflux disease, unspecified whether esophagitis present TAKE 1 TABLET BY MOUTH IN THE MORNING AND AT BEDTIME 60 Tablet 12/12/2023 01/18/2024 Discontinued (Refill) documented as of this encounter (statuses as of 01/26/2024) Active Problems Problem Noted Date Diagnosed Date Hiatal hernia 12/28/2023 Food insecurity 07/20/2023 Overview: Per [facility] Protocol documented as of this encounter (statuses as of 01/26/2024) Immunizations Name Administration Dates Next Due Seasonal [...] No 06/24/2023 Does the household have a [facility] [employer] source of income? (Household - for [...] on file documented as of this encounter Progress Notes * River De Guzman, DO - 01/26/2024 12:42 PM EDT Images from the original note were not included. Patient: Keshav Varghese [id number] Gender: Male Physician: Dr. River De Guzman / Age: 10 1960 [employer]: Gabriela Li RN Height: 5 ft 11 in Referring Physician: VEE Mejia Procedure: esophageal manometry / Z Examination Date: 01/06/2024 Swallow Composite (mean of 10 swallows) Resting Pressure Profile & Anatomy Basal Pressures* LES, respiratory mean(mmHg) 0.0 (13-43) UES mean(mmHg) 65.0 (34-104) Anatomy* LES proximal(cm) 43.0 LES intraabdominal(cm) 0.0 Esophageal length(cm) 18.9 Hiatal hernia No Motility* LES percent relaxation(%) 100 (>40.0%) Distal contr. integral(mmHg-cm-s) 1251.8 (500-5000) Incomplete bolus clearance(%) 70 Residual Pressures* LES (mean)(mmHg) 0.0 LES (median)(mmHg) 0.0 (<15.0) LES (highest)(mmHg) 0.0 UES (mean)(mmHg) 12.2 (<12.0) *Notes. Motility values are mean among swallows; Normal values in (xxx.x): Simultaneous contractions: Velocity > 8.0 cm/s; eSlv: eSleeve; 3SN, IRP, DCI, IBP - See manual definitions Lower Esophageal Sphincter Region Normal Esophageal Motility Normal Landmarks Number of swallows evaluated 10 Proximal LES (from nares)(cm) 43.0 [place] Classification LES length(cm) 0.0 2.7-4.8 % failed 30 Esophageal length (LES-UES centers)(cm) 18.9 % panesophageal pressurization 0 Intraabdominal LES length(cm) 0.0 % premature contraction 0 Hiatal hernia? No % rapid contraction 0 LES Pressures Additional High Resolution Parameters Pressure heather. method eSleeve,IRP Distal latency 5.7 Basal (respiratory min.)(mmHg) -5.0 4.8-32.0 Distal contractile integral(mean)(mmHg-cm-s) 1251.8 500-5000 Basal (respiratory mean)(mmHg) 0.0 13-43 Contractile front velocity(cm/s) 3.3 <9.0 Residual (mean)(mmHg) 0.0 Impedance analysis Residual (median)(mmHg) 0.0 <15.0 Incomplete bolus clearance(%) 70 Residual (highest)(mmHg) 0.0 Percent relaxation(%) 100 >40.0% Upper Esophageal Sphincter Normal Pharyngeal / UES Motility Normal Mean basal pressure(mmHg) 65.0 34-104 No. swallows evaluated 10 Mean residual pressure(mmHg) 12.2 <12.0 Evaluated @ 3.0 & N/A above UES Mean peak pressure(mmHg) 16.5 [place] Classification Findings* No [place] Classification abnormality found * Findings are based on published [place] Classification scheme and are only intended to serve as aguide for patient diagnosis Procedure After confirmation of potential allergies, a topical analgesic was used to numb the nares followed by trans-nasal insertion of a High Resolution Manometry Catheter. Pressure bands of both UES and LESwere observed on the color contour. Patient instructed to take deep breath to verify placement of catheter; diaphragmatic pinch noted on inspiration. Patient was assisted to supine position and catheter was stabilized by taping at the nares. Patient was encouraged to relax while acclimating to catheter for approximately 5 minutes. A 30 second baseline pressure was obtained to identify the UES andLES followed by a series of wet swallows using 5 ccs room temperature normal saline to assess esophageal motility and bolus transit. At the conclusion of the procedure; the catheter was removed. Indications Dysphagia, hiatal hernia, GERD Interpretation / Findings Upper esophageal sphincter relaxes in response to wet swallows. Esophageal body with peristalsis in response to wet swallows 6/10, 1/10 weak, 3/10 failed. LIMITED STUDY as lower esophageal sphincter could not be assessed. Consider endoscopic placement ofesophageal motility catheter vs endoflip. documented in this encounter Nursing Notes * Gabriela Li RN - 01/06/2024 9:56 AM EDT Patient referred by VEE Hooper for manometry because of dysphagia, hiatal hernia, and GERD. Patient followed pre-procedure instructions of [facility]. Procedure, risks and benefits were fully explained [...] AM EDT Office Visit [facility] [address] [place] [phone] Lacey Aparicio CRNP [address] [place] [address] 03/22/2024 8:45 AM EDT Hospital Encounter ENDO [facility], Endoscopy [address] [phone] Nedra Adan, [address] [place] [address] 03/22/2024 8:45 AM EDT - 03/22/2024 9:15 AM EDT Surgery ENDO [facility], Endoscopy [address] [phone] Nedra Adan, [address] [place] [address] ESOPHAGOGASTRODUODENOSCOPY (EGD), FLEXIBLE, TRANSORAL, DIAGNOSTIC 04/28/2024 1:15 PM EDT Office Visit General Surgery, [facility] [address] [place] [address] Stephon Pollard MD [address] [place] [address] 04/29/2024 1:00 PM EDT [facility] [address] [place] [address] Brigette Bennett MD [address] [place] [address] 05/06/2024 1:20 PM EDT Office Visit Hepatology, [facility] [address] [place] [address] Lana Braun DO [address] [place] [address] 07/22/2024 2:30 PM EST Office Visit Cardiology, [facility] [address] [place] [address] Lana Sarmiento, VEE [address] [facility] [place] [address] Scheduled Procedures Name Priority Associated Diagnoses Date/Ti [...] as of this encounter Visit Diagnoses Diagnosis Esophageal dysphagia [R13.19]- Primary Dysphagia, pharyngoesophageal phase GERD (gastroesophageal reflux disease) Esophageal reflux documented in this encounter Care Teams Hearing Screen Coordinator Relationship Specialty Start Date End Date Brigette Bennett MD 200 [place] [address] PCP - General Family Medicine 06/05/23 documented as of this encounter
--- OUTSIDE RECORDS SUMMARY | 2024-02-26 23:54 | External Medical Summary | Summary of Care ---
Author Name Unknown Organization [facility] Address [address] [place] [address] Phone [phone] Care Team Providers Care Offshore Wind Turbine Technician Name Role Phone Brigette Bennett MD Primary Care Provider Reason for Visit * Reason Comments Esophageal Manometry Encounter Details Date Type Department Care Team (Late st Contact Info) Description 01/06/2024 9:00 AM EDT Nurse Only Gastroenterology, [place] [address] [place], [place] [phone] [place], Nurse Gastroenterology [address] [place], [place] [phone] Esophageal Manometry Allergies No known active allergiesdocumented [...] hernia 12/28/2023 Food insecurity 07/20/2023 Overview: Per [facility] Protocol documented as of this [...] 01/19/2024 3:00 PM EDT Office Visit Cardiology, [facility] [address] [place] [address] Lana Sarmiento CRNP [address] [place] [address] 01/21/2024 12:30 PM EDT Office Visit General Surgery, [facility] [place] [address] Stephon Pollard MD [address] [place] [address] 03/22/2024 8:45 AM EDT Hospital Encounter ENDO [facility], Endoscopy [address] [phone] Nedra Adan, DO [address] [place] [address] 03/22/2024 8:45 AM EDT - 03/22/2024 9:15 AM EDT Surgery ENDO [facility], Endoscopy [address] [phone] Nedra Adan, DO [address] [place] [address] ESOPHAGOGASTRODUODENOSCOPY (EGD), FLEXIBLE, TRANSORAL, DIAGNOSTIC 04/29/2024 1:00 PM EDT [facility] [address] Brigette Bennett MD 200 [facility] [place] [address] 05/06/2024 1:20 PM EDT Office Visit Hepatology, [facility] [place] [address] [place] [address] Lana Braun DO [address] [place] [address] Scheduled Procedures Name Priority Associated Diagnoses Date/Ti [...] filedocumented as of this encounter Care Teams Offshore Wind Turbine Technician Relationship Specialty Start Date End Date Brigette Bennett MD [address] [place] [address] PCP - General Family Medicine 06/05/23 documented as of this encounter
--- OUTSIDE RECORDS SUMMARY | 2024-02-26 23:54 | External Medical Summary ---
Author Name Unknown Address Unknown Organization : Laboratory Report Ordering Provider Test Date Status EDD PERDOMO 01/05/2024 16:10:52 Final Observation Date Value Abnormality Reference (Units ) Status Ceruloplasmin 01/05/2024 16:10:52 24 14-30 (mg/dL) Final
Test Performed at:
[facility]
[address] [facility]
[place] [address]
Lewis Mcnamara M.D., Ph.D.,Director of Laboratories Performing Location
--- OUTSIDE RECORDS SUMMARY | 2024-02-26 23:54 | External Medical Summary | Summary of Care ---
Author Name Unknown Organization [facility] Address [address] [place] [address] Phone [phone] Care Team Providers Care Lay Brother Name Role Phone Brigette Bennett MD Primary Care Provider [phone] Reason for Visit * Reason Comments Outpatient Testing Encounter Details Date Type Department Care Team (Late st Contact Info) Description 12/29/2023 12:10 PM EDT Laboratory Laboratory [facility] [place] [address] [place] [address] [facility] [place], Lab Scenery [address] [place], [place] [address] Elevated LFTs; Encounter for screening for other viral diseases Allergies No known active allergiesdocumented as of this encounter (statuses as of 12/29/2023) Medications Medication Sig Dispensed Refills Start Date [...] as of this encounter (statuses as of 12/29/2023) Active Problems Problem Noted Date Diagnosed Date Hiatal hernia 12/28/2023 Food insecurity 07/20/2023 Overview: Per [facility] Protocol documented as of this encounter (statuses as of 12/29/2023) Immunizations Name Administration Dates Next Due Seasonal [...] No 06/24/2023 Does the household have a [facility] source of income? (Household - for ages [...] Nurse Only Gastroenterology , [place] [address] [facility] [place] [address] [place], Nurse [facility]ol ogy [address] [facility] [place] [address] 01/19/2024 3:00 PM EDT Office Visit Cardiology, [facility] [address] [facility] [place] [address] Lana Sarmiento CRNP [address] [place], [place] [address] [id number] 01/21/2024 12:30 PM EDT Office Visit General Surgery, [facility] [address] [place] [address] Stephon Pollard MD [address] [place] [address] 03/22/2024 8:45 AM EDT Hospital Encounter ENDO [facility], Endoscopy [address] [phone] Nedra Adan, DO [address] [place] [address] 03/22/2024 8:45 AM EDT - 03/22/2024 9:15 AM EDT Surgery ENDO [facility], Endoscopy [address] [phone] Nedra Adan, DO [address] [place] [address] ESOPHAGOGASTRODUODENOSCOPY (EGD), FLEXIBLE, TRANSORAL, DIAGNOSTIC 04/29/2024 1:00 PM EDT Office Visit [facility] [address] [facility], [place] [address] Brigette Bennett MD [address] [facility], [place] [address] Pending Results Name Type Priority Associated Diagnoses Date /Time HEPATITIS C ANTIBODY SCREEN WITH PROGRESSION TO HEPATITIS C RNA QUANTITATIVE Lab Routine Elevated LFTs Encounter for screening for other viral diseases 12/29/2023 12:10 PM EDT HEPATITIS B SURFACE ANTIGEN Lab Routine Elevated LFTs Encounter for screening for other viral diseases 12/29/2023 12:10 PM EDT HEPATITIS B SURFACE ANTIBODY Lab Routine Elevated LFTs Encounter for screening for other viral diseases 12/29/2023 12:10 PM EDT HEPATITIS B CORE ANTIBODIES IGG AND IGM Lab Routine Elevated LFTs Encounter for screening for other viral diseases 12/29/2023 12:10 PM EDT IRON SCREEN, INCLUDING TIBC Lab Routine Elevated LFTs 12/29/2023 12:10 PM EDT HEPATITIS C ANTIBODY Lab Routine Elevated LFTs Encounter for screening for other viral diseases 12/29/2023 12:10 PM EDT HEPATITIS C RNA ADD ON Lab Routine Elevated LFTs Encounter for screening for other viral diseases 12/29/2023 12:10 PM EDT Scheduled Procedures Name Priority Associated [...] Comments Depression Screening 1970 HIV Screening 1973 Hepatitis C Screening 1976 Cologuard 2003 Fecal Occult Blood Test 2003 [...] as of this encounter Visit Diagnoses Diagnosis Elevated LFTs Other abnormal blood chemistry Encounter for screening for other viral diseases GERD (gastroesophageal reflux disease) Esophageal reflux documented in this encounter Care Teams Lay Brother Relationship Specialty Start Date End Date Brigette Bennett MD [address] [place] [address] PCP - General Family Medicine 06/05/23 documented as of this encounter
--- OUTSIDE RECORDS SUMMARY | 2024-02-26 23:54 | External Medical Summary ---
Author Name Unknown Address Unknown Organization K01:[facility] [place] [address] [place] [address] Laboratory Report Ordering Provider Test Date Status EDD PERDOMO 01/05/2024 16:10:52 Final Observation Date Value Abnormality Reference (Units ) Status Nuclear IgG Ab [Ratio] in Serum by Immunoassay 01/05/2024 16:10:52 Negative Negative Final DNA double strand Ab [Presence] in Serum 01/05/2024 16:10:52 Negative Negative Final DOUBLE STRANDED DNA VALUE - [facility] 01/05/2024 16:10:52 1.0 <20 (IU/mL) Final Extractable nuclear Ab [Presence] in Serum 01/05/2024 16:10:52 Negative Negative Final Nuclear IgG Ab [Ratio] in Serum by Immunoassay 01/05/2024 16:10:52 0.2 <0.7 (Ratio) Final Screening is based on detect ion of the following antibodies: dsDNA, U1-VISUAL C DEVELOPER (RNP70, A, C), SS-A/Ro, SS-B / La, Cathy-1, Scl-70, Centromere B proteins and Sm proteins. In conjunction with clinical findings, this can aid in the diagnosis of systemic lupus erythematosous (SLE), mixed connective tissue disease (MCTD), Sjogren's syndrome, scleroderma and polymyositis/dermatomyositis.
However, a negative result does not rule out systemic rheumatic or other autoimmune disease. If clinically suspected, further evaluation and testing may be necessary. Please consult with Rheumatology Department.
Methodology: Fluorescent Enzyme Immunoassay. Performing Location LABORATORY [address] [place] [address]
--- OUTSIDE RECORDS SUMMARY | 2024-02-26 23:54 | External Medical Summary | Summary of Care ---
Author Name Unknown Organization [facility] Address [address] [place] [address] Phone [phone] Care Team Providers Care Brush Hand Name Role Phone Brigette Bennett MD Primary Care Provider [phone] Reason for Visit * Reason Comments eRx-Medication Refill Encounter Details Date Type Department Care Team (Late st Contact Info) Description 01/16/2024 Refill Family Practice [facility] [address] [facility] [place] [address] Brigette Bennett MD [address] [place] [address] Gastroesophageal reflux disease, unspecified whether esophagitis present Allergies No known active allergiesdocumented as of this encounter (statuses as of 01/18/2024) Medications Medication Sig Dispensed Refills Start Date [...] AND BEDTIME 90 Tablet 2 11/28/2023 Active Terbinafine HCl 250 MG Oral Tablet (Lamisil)Indicati ons:Onychomycosis Take 1 Tablet by mouth in the morning. For 12 weeks for toenail fungus. 84 Tablet 12/28/2023 03/21/2024 Active Famotidine 20 MG Oral Tablet (Pepcid)Indicatio ns:Gastroesophage al reflux disease, unspecified whether esophagitis present TAKE 1 TABLET BY MOUTH IN THE MORNING AND AT BEDTIME 60 Tablet 12/12/2023 01/18/2024 Discontinued (Refill) documented as of this encounter (statuses as of 01/18/2024) Active Problems Problem Noted Date Diagnosed Date Hiatal hernia 12/28/2023 Food insecurity 07/20/2023 Overview: Per [facility] Protocol documented as of this encounter (statuses as of 01/18/2024) Immunizations Name Administration Dates Next Due Seasonal [...] No 06/24/2023 Does the [facility] have [facility] source [facility]? (Household - for [...] encounter Miscellaneous Notes * [facility] 11:30 AM EDTRefused Prescriptions: Disp Refills Famotidine 20 MG Oral Tablet (Pepcid) 60 Tab*0 Sig: TAKE 1 TABLET BY MOUTH IN THE MORNING AND AT BEDTIMERefused By: ABISAI BRANTLEY for Refusal: Duplicate Request documented in this encounter Plan of Treatment Upcoming Encounters Date Type Department Care Team (Latest Contact Info) Description 01/19/2024 3:00 PM EDT Office Visit Cardiology, [facility] [address] [place] [address] Lana Sarmiento CRNP [address] [place] [address] 01/21/2024 12:30 PM EDT Office Visit General Surgery, [facility] [address] [place] [address] Stephon Pollard MD [address] [place] [address] 03/22/2024 8:45 AM EDT Hospital Encounter [facility]O [facility], Endoscopy [address] [phone] Nedra Adan, DO [address] [place] [address] 03/22/2024 8:45 AM EDT - 03/22/2024 9:15 AM EDT Surgery ENDO [facility], Endoscopy [address] [phone] Nedra Adan, DO [address] [place] [address] ESOPHAGOGASTRODUODENOSCOPY (EGD), FLEXIBLE, TRANSORAL, DIAGNOSTIC 04/29/2024 1:00 PM EDT Office Visit [facility] [address] [place] [address] [place] [address] Brigette Bennett MD [address] [place] [address] [address] 05/06/2024 1:20 PM EDT Office Visit Hepatology, [facility] [place] [address] [place] [address] Lana Braun, [address] [place] [address] Scheduled Procedures Name Priority Associated Diagnoses Date/Ti [...] as of this encounter Visit Diagnoses Diagnosis Gastroesophageal reflux disease, unspecified whether esophagitis present GERD (gastroesophageal reflux disease) Esophageal reflux documented in this encounter Care Teams Brush Hand Relationship Specialty Start Date End Date Brigette Bennett MD [address] [place] [address] PCP - General Family Medicine 06/05/23 documented as of this encounter
--- OUTSIDE RECORDS SUMMARY | 2024-02-26 23:54 | External Medical Summary | Summary of Care ---
Author Name Unknown Organization [facility] Address [address] [place] [address] Phone [phone] Care Team Providers Care Sand Conditioner Machine Name Role Phone Brigette Bennett MD Primary Care Provider [phone] Reason for Referral * Evaluate & Treat - Unlimited Visits (Within 30 days (routine)) - Authorized Specialty Diagnoses / Procedures Referred By Jose R coello Referred To Contact Sleep Medicine / Sleep Disorders Diagnoses Obstructive sleep apnea syndrome Stephon Pollard MD [address] [place] [address] Referral ID Status Reason Start Date Expiration Date Visits Requested Visits Authorized [id number] Authorized Specialty Services Required 01/21/2024 2 2 Question Answer Referral Priority Within 30 days (routine) Where should this appointment be scheduled? [facility] SLEEP MED ADULT REFERRAL Sleep Apnea Testing and Management Does the patient snore and/or gasp at night or has been told they stop breathing at night? Yes, document patient's symptoms in progress note Reason for Visit * Reason Comments NEW PATIENT HIATAL HERNIA * Evaluate & Treat - Unlimited Visits (Within 30 days (routine)) - Authorized Specialty Diagnoses / Procedures Referred By Jose R coello Referred To Contact General Surgery Diagnoses Hiatal hernia Barb Kc CRNP [address] [place] [address] Referral ID Status Reason Start Date Expiration Date Visits Requested Visits Authorized [id number] Authorized Specialty Services Required 12/04/[phone] Encounter Details Date Type Department Care Team (Latest Contact Info) Description 01/21/2024 12:30 PM EDT Office Visit General Surgery, [facility] [address] [facility] [place] [address] Stephon Pollard MD [address], [place] [id number] Paraesophageal hiatal hernia*; Obstructive sleep apnea syndrome; Gastroesophageal reflux disease without esophagitis Allergies No known active allergiesdocumented as of [...] toenail fungus. 84 Tablet 12/28/2023 03/21/2024 Active Omeprazole 40 MG Oral Capsule Delayed Release (PriLOSEC)Indicat ions:Gastroesopha geal reflux disease without esophagitis Take 1 Capsule by mouth in the morning. 90 Capsule 3 01/21/2024 Active Famotidine 20 MG Oral Tablet (Pepcid)Indicatio ns:Gastroesophage al reflux disease, unspecified whether esophagitis present TAKE 1 TABLET BY MOUTH IN THE MORNING AND AT BEDTIME 60 Tablet 5 01/18/2024 01/21/2024 Discontinued (Discharged) documented as of this encounter (statuses as [...] Passive Smoke Exposure: Past Smokeless Tobacco: Never Tobacco Cessation:Counseling Given: Not Answered Alcohol Use Standard Drinks/Week Comments Yes 0 [...] 06/24/2023 Does the household have a re gular source of income? (Household - for ages [...] on file documented as of this encounter Last Filed Vital Signs Vital Sign Reading Time Taken Comments Blood Pressure 118/70 01/21/2024 12:31 PM EDT Pulse 83 01/21/2024 12:31 PM EDT Temperature 36.4 C (97.6 F) 01/21/2024 1 2:31 PM EDT Respiratory Rate - - Oxygen Saturation - - Inhaled Oxygen Concentration - - Weight 90.1 kg (198 lb 11.2 oz) 024 12:31 PM EDT Height - - Body Mass Index 27.71 11/30/2023 3:24 PM EDT documented in this encounter Progress Notes * Stephon Pollard MD - 01/21/2024 12:30 PM EDT Images from the original note were not included. [facility]" AT [facility] CLINIC VISIT 01/21/2024 Keshav Varghese [id number] 63 year old PCP: Brigette Bennett MD Consult requested by: Barb BAXTER CC: Keshav Varghese comes to see me in [facility] ("[facility]") complaining of refractory gastroesophageal reflux disease. HPI: This patient has suffered from (Associated Signs and Symptoms) Heartburn up to cervical esophagus, Nocturnal heartburn with gagging and/or choking, Dysphagia, Gas bloating, and Regurgitation. These have been present for about 2- 3 years (Duration). Symptoms also include: Heartburn Score: 2 - Moderate - reasonably well controlled with ongoing treatment Gas Bloat Score: 3 - severe - interferes with daily activity Dysphagia Score: 3 - severe, preventing ingestion of solid food Regurgitation Score: 3 - severe - contant regurgitation without or with aspiration Nausea/Vomiting Score: 3 - interferes with daily activity Diarrhea: 0 - none Extra-esophageal Manifestations: Chronic sore throat or mouth: 3 - severe symptoms - interferes with daily life Ear pain: 0 - no symptoms Sinusitis: 1 - mild symptoms Hallitosis: 3 - severe symptoms - interferes with daily life Poor dentition: 1 - mild symptoms Reflux Symptom Index Evaluation (0-5): Hoarseness or problem with voice: 2 Throat Clearin Excess throat mucus/post-nasal drip: 2 Difficulty swallowing food, liquid, pills: 5 Coughing after eating or lying down: 2 Breathing difficulties or choking episodes: 3 Troublesome or annoying cough: 1 Globus sensation: 3 Heartburn, chest pain, indigestion, or stomach acid coming up: 4 RSI Total Score: 24 GERD-HRQL Evaluation (0-5) Global heartburn severity: 4 Supine heartburn: 2 Upright heartburn: 3 Post-parandial heartburn: 5 Does heartburn require dietary modification? 5 Does heartburn awaken from sleep? 2 Difficulty swallowin Pain with swallowin Feelings of gassiness or bloatin Impact of taking medication on daily life:3 GERD-HRQL score: 35 QOLRAD completed: yes Does this patient have a suspected or established diagnosis of Achalasia? NO, Eckardt Score Dysphagia: -3-Every Meal Regurgitation: -3-Every Meal Chest Pain: -2-Daily Weight Loss: -0 None Total Score: 8 Burping or belching YES, Normally Additionally, he experiences Dry cough, Dyspnea at rest, Dyspnea with exertion, Fatigue, and constipation. Most recently, He has been taking (Modifying Factor) Pepcid for 6 months. These medications have resulted in improvement in GERD. Is this patient on PPI therapy and using supplemental Calcium citrate? NO; The symptoms improve when he laying down Risk factors for GERD include Alcohol use Hiatal hernia DIETARY HISTORY: Soft diet. Avoids all meats This patient denies any history of Jaundice, Melena, Manjit colored or light stools, Tea colored or dark urine, Productive cough, Sputum, Wheezing, Pain in the, diarrhea, unexpected weight loss, anorexia, early satiety, exertional chest pain, and chest pain at rest. Previous DIAGNOSTIC TESTS include the followin12/03/23: FLUORO ESOPHAGRAM ENTIREESOPH Lungs well-expanded with mild right hemidiaphragm elevation. There is no pneumothorax or pleural effusion. There is no focal parenchymal consolidation or pulmonary vascular congestion. Mild linear parenchymal density is seen at left lung base suspect for linear atelectasis or scarring. Radiographic appearance cardiomediastinal silhouette within normal limits. Thoracic aorta atherosclerotic and tortuous. There is deformity of left ribs compatible with remote trauma. Probable linear artifact overlies supraclavicular soft tissues and upper lung viera bilaterally Patient swallows the oral contrast materials without difficulty or delay. Occasion patient does swallow in 2 separate swallows. In the cervical esophagus there is no mass or obstructive lesion. Occasional small transient ovoid filling defects are seen in cervical and thoracic portions of the esophagus nonspecific but could reflect oral contrast material artifact. There is slight impression upon posterior cervical esophagus by presumably adjacent cervical vertebral body osteophytes. There is no penetration into laryngeal ventricle or leslie aspiration. There is no significant retention of material in vallecula or piriform sinuses. There is a large hiatal hernia present. There is narrowing of the distal thoracic esophagus just superior or cephalad to the hiatal hernia. There is some mild stasis of the contrast material within the distal aspect of the thoracic esophagus. There is an element of dysmotility with some disruption of primary and secondary peristaltic waves. Course, caliber and contour of thoracic esophagus otherwise maintained. There is no mass or obstructive lesion. IMPRESSION IMPRESSION: Significant finding is large hiatal hernia. There is narrowing of the distal thoracic esophagus just cephalad to the level of hiatal hernia with some transient stasis of contrast material and dysmotility. US ABDOMEN LIMITED-12/29/2023 11:59 am FINDINGS LIVER: Normal echogenicity. Cysts measure 2.1 cm and 2.3 cm. BILE DUCTS: No intrahepatic or extrahepatic duct dilatation. The common bile duct measures 3 mm. GALLBLADDER: No cholelithiasis, gallbladder wall thickening, or pericholecystic fluid. There is a 7mm polyp, as well as additional small polyps. PANCREAS: Limited visualization. RIGHT KIDNEY: 10.2 cm in length. No hydronephrosis, shadowing calculi, or focal lesion. OTHER: No ascites. IMPRESSION IMPRESSION 1. Gallbladder polyps. 2. Hepatic cysts. Patient Name: Keshav Varghese Procedure Date: 06/12/2023 2:12 PM Procedure: Upper GI endoscopy Findings & Specimens: The Z-line was regular and was found 38 cm from the incisors. A medium-sized hiatal hernia was present. The exam of the esophagus was otherwise normal. The entire examined stomach was normal. The duodenal bulb and second portion of the duodenum were normal. Impression: - Z-line regular, 38 cm from the incisors. - Medium-sized hiatal hernia. - Normal stomach. - Normal duodenal bulb and second portion of the duodenum. - No specimens collected. Current Outpatient Medications Medication Sig Dispense Refill Atorvastatin Calcium 40 MG Oral Tablet (Lipitor) Take 1 Tablet by mouth in the morning. 90 Tablet 3 Gabapentin 300 MG Oral Capsule (Neurontin) Take 1 Capsule by mouth in the morning and 1 Capsule at noon and 1 Capsule before bedtime. 270 Capsule 3 Metoprolol Succinate ER 25 MG Oral Tablet Extended Release 24 Hour (Toprol XL) Take 1 Tablet by mouth in the morning. 34 Tablet 6 DULoxetine HCl 60 MG Oral Capsule Delayed Release Particles (Cymbalta) Take 1 Capsule by mouth in the morning. 60 Capsule 11 Diclofenac Sodium 50 MG Oral Tablet Delayed Release (Voltaren) TAKE 1 TABLET BY MOUTH THREE TIMES DAILY MORNING NOON AND BEDTIME 90 Tablet 2 Famotidine 20 MG Oral Tablet (Pepcid) TAKE 1 TABLET BY MOUTH IN THE MORNING AND AT BEDTIME 60 Tablet 5 Acetaminophen 500 MG Oral Tablet (Tylenol Extra Strength) Take 1 Tablet by mouth every 6 hours as needed. Terbinafine HCl 250 MG Oral Tablet (Lamisil) Take 1 Tablet by mouth in the morning. For 12 weeks for toenail fungus. 84 Tablet 0 No current facility-administered medications for this visit. Allergies as of 01/21/2024 (No Known Allergies) No past medical history on file. Past Surgical History: Procedure Laterality Date COLONOSCOPY, DIAGNOSTIC (RECTUM) 06/12/2023 hemorrhoids/biopsies show hypertophied anal papillae/COLONOSCOPY FLEXIBLE PROXIMAL DIAGNOSTIC performed by Lana Braun DO at ENDOSCOPY [facility] EGD, FLEXIBLE, DIAGNOSTIC 06/12/2023 normal/ESOPHAGOGASTRODUODENOSCOPY (EGD), FLEXIBLE, TRANSORAL, DIAGNOSTIC performed by Lana Braun DO at ENDOSCOPY [facility] SIGMOIDOSCOPY, DIAGNOSTIC N/A 07/27/2023 one 25mm polyp anorectum area/hemorrhoids/biopsies show cellular fibroepithelial polyp/recall 1 year/SIGMOIDOSCOPY FLEXIBLE DIAGNOSTIC performed by Sonido Fagan MD at OR [facility] Psychosocial Psychosocial Impairment NO History Depression Moderate, accompanied by some impairment, may require treatment Confirmed Mental Health Diagnosis NO History EtOH Use currently less than 2 drinks per month Tobacco Use Non-smoker Substance Abuse None EMPLOYMENT; Retired.; Family History Problem Relation Name Age of Onset Heart disease Father Stroke Grandmother (Maternal) REVIEW OF SYSTEMS: Complains of ... chronic sore throat, heart racing/arrhythmia, shortness of breath, dyspnea on exertion, productive cough, and depression Does not experience ... hives or skin sensitivity, fevers, chills, rashes/itching, change in hair or nails, changes in vision/double vision, change in hearing or ear pain, dizziness, frequent nosebleeds, postnasal drip, dysarthria, TIA/Stroke, temporary blindness, extremity paresthesia, weakness or paralysis, significant headaches, seizures, chest pain at rest, exertional chest pain, hemoptysis, melanic stool, hematechezia, change in stool caliber, hematemesis, hematuria, dysuria, musculoskeletal pain, anxiety, memory problems, change in mood, diabetes mellitus, thryoid disorders, adrenal disorders, increased appetite or thirst, excessive sweating, blood clotting abnormalities, h/o deep venous thrombosis or pulmonary embolism, and easy bruising or bleeding PHYSICAL EXAM: Blood pressure 118/70, pulse 83, temperature 36.4 C (97.6 F), weight 90.1 kg (198 lb 11.2 oz).,Body mass index is 27.71 kg/m. General: Alert and appropriate. Well-appearing and in no distress Skin: Warm, dry, anicteric Lymphatics: No neither Axillary nor Supraclavicular nor Cervical nor Infraclavicular nor Inguinal nor Umbilical adenopathy HEENT: PERRLA, EOMI, Sclera clear, anicteric, Oropharynx clear, no lesions, Neck supple with midline trachea, and Thyroid without masses Chest/Lungs: Clear Auscultation, No Wheezes, No dullness to percussions, and Chest Wall without masses Scars include None Breast: No Not examined Cardiovascular: Cor RRR and No murmurs Abdomen: No Distention, No Hernias, No Masses, No Organomegaly, No Tenderness, and Wounds well healed Scars include None Rectal/Genital: Not examined Neurologic: No motor abnormalities, No sensory abnormalities, and Cranial Nerves intact Musculoskeletal: Normal ROM and Normal strength and tone Extremities: Warm and well perfused, No cyanosis, No clubbing, and No edema ECOG Performance Status (0) Fully active, able to carry on all predisease performance without restriction Currently lives independently at home Impression: 1) Symptomatic paraesophageal hernia The primary symptoms that this patient would like to see resolution or improvement of are Heartburn, Nocturnal heartburn with gagging and/or choking, Dysphagia, Regurgitation, Water brash, Gas bloating, Chronic cough, Dyspnea, Hoarseness, Excess mucus/post nasal drip, Globus sensation, and Nausea/vomiting Our PLAN is to Recommend the following ... Refrain from ... Alcohol use Caffeine use Medications should include ... Prilosec Do not eat within two hours of bedtime or sleeping Schedule to following diagnostic tests Esophageal manometry- Pending report CARR study- 03/22/24 Path Review: None The following surgical procedure(s)which has/have been scheduled for Laparoscopy, Esophageal Fundoplication; Laparoscopy; Repair Paraesophageal Hernia; for hiatal hernia repair; The following, risks, complications, have been discussed with the patient who seems to understand and agrees to proceed. They are contingent on the safety of the primary surgery as listed above. Allie/Paraesophageal Hernia: Relevant treatment options (medical, endoscopic, and surgical) have been discussed with the patient. The purpose, potential benefits and risks of anti-reflux/hiatal hernia surgery have been extensively discussed with the patient no promises or guarantees have been given regarding improvement or resolution of the patient's symptoms. The following risks have all been addressed with the patient and all questions have been answered at this time: Potential for conversion to open operation Bleeding possibly requiring tranfusion or return to the operating room Infections of the: wounds, bloodstream, abdominal cavity, or pneumonias Esophageal, gastric injury, injury to adjacent structures including spleen (including remote potential for splenectomy) due to trocar placement or surgical manipulation, possibly requiring return to the operating room Vagal nerve injury potentially leading to various gastrointestinal symptoms including nausea, poor stomach emptying, diarrhea, and bloating Potential need for complex procedures in the event that complicated pathology is encountered (i.e. gastroplasty) Post-fundoplication side effects including bloating, diarrhea, inability to vomit, inability to belch or decreased ability to belch, dysphagia requiring endoscopic or surgical treatment. In rare circumstances, post-operative symptoms do not have a readily identifiable cause and can thus be difficult to manage Acute gastric distention after surgery potentially requiring naso-gastric tube placement or gastrostomy tube placement Failure to resolve symptoms and potential for future recurrence of symptoms possibly requiring re-operation Recurrence of Hiatal Hernia/Para-esophageal Hernia, or development of a new hiatal hernia Indication for use and risks associated with prosthetics (biological and non- biologic) including erosion and infection Potential life threatening complications including deep vein thrombosis, pulmonary embolism, myocardial infarction or other serious heart related complication, serious pulmonary complications including pneumothorax, stroke, up to and including related to surgery. The patient voices understanding and all questions have been answered to the patient's satisfaction. Preoperative PROVEN RECOVERY Pathway Instructions and Plan: 1) Diet: Patient should drink a 20-24 oz sports drink the evening before surgery. 2) Medications: Follow instruction from preadmission testing visit. 3) Following prescriptions will be given at preop visit. Acetaminophen Zofran 4) Neela-operative multi-modal pain Control to include: Order APAP (Tylenol) 975mg PO once Celecoxib (Celebrex) 400mg PO once (Do not use if GFR less than 60, ASA Allergy, or if using Ketorolac) Gabapentin as indicated 5) Hold anticoagulants: N/A. 6) PreOp EKG? Yes age >45 7) VTE Risk: Does the patient have any of the following contraindications to VTE Prophylaxis? No contraindications to VTE prophylaxis 8) DVT/PE Risk; The patient has each of the following risk factors: Surgery (anticipated equal to or greater than 2 hours). How many VTE risk factors are present? 0-2 VTE Risk Factors (No indication for extended VTE prophylaxis) 9) If NO contraindications to VTE Prophylaxis then will plan on Lovenox 30 mg prior to Surgery and Knee High SCD's 10) Order Preop DVT Prophylaxis: Knee high teds, SCD Stockings with teds, and Enoxaparin 30 mg subcutaneously on arrival to hospital 11) Order Preop Antibiotics: Ancef 2 gm IV to be infused within one hour of incision time. 12) Is the patient on a Beta Kenrick? Yes metoprolol tartrate (Lopressor). Will plan to have patient take their last scheduled dose prior to surgery. 13) Order Perioperative Stress Dose Steroids: NO 14) Order Perioperative SBE prophylaxis (See Smart Set #[id number]): NO 15) Pacemaker clinic evaluation perioperatively: NO 16) Bring own CPAP/BiPAP mask and tubing from home if desired: NO 17) Clip and prep surgical site: NO 18) Preop orders placed in EPIC with H&P: NO 19) Pre-anesthesia orders placed: NO 20) Consent completed: YES; Date 01/21/2024 21) Patient instruction sheet completed: YES 22) Is the patient being considered for Ambulatory Surgery (Same Day Discharge)? No. Stephon Pollard MD, FACS, [facility] Health And Safety Inspector [facility] Minimally Invasive/ Bariatric Surgery Fellowship documented in this encounter Nursing Notes * Yari Iraheta LPN - 01/21/2024 12:32 PM EDT Chief Complaint Patient presents with NEW PATIENT HIATAL HERNIA Patient has had days that he can get liquids down but not food, it will come right back up. He feels a pain in his chest. He had test where it went up his nose and down and they said they could not get a good reading due to the fact that the tube would not go down the whole way, the hernia was blocking it. documented in this encounter Plan of Treatment Upcoming Encounters Date Type Department Care Team (Latest Contact Info) Description 02/11/2024 9:00 AM EDT Office Visit Sleep Disorders Ctr [facility] [address] [facility] [place] [phone] Lacey Aparicio CRNP [address] [facility] [place] [address] 03/22/2024 8:45 AM EDT Hospital Encounter [facility], Endoscopy [address], [place] [phone] Nedar Adan, DO [address] [place] [address] 03/22/2024 8:45 AM EDT - 03/22/2024 9:15 AM EDT Surgery [facility]O [facility], Endoscopy [address], [place] [phone] Nedra Adan, DO [address] [place] [address] ESOPHAGOGASTRODUODENOSCOPY (EGD), FLEXIBLE, TRANSORAL, DIAGNOSTIC 04/28/2024 1:15 PM EDT Office Visit General Surgery, [facility] [address] [place] [address] Stephon Pollard MD [address] [place] [address] 04/29/2024 1:00 PM EDT Office Visit [facility] [address] [facility] [place] [address] Brigette Bennett MD [address] [facility] [place] [address] 05/06/2024 1:20 PM EDT Office Visit Hepatology, [facility] [address] [place] [address] Lana Braun, [address] [place] [address] 07/22/2024 2:30 PM EST Office Visit Cardiology, [facility] [address] [place] [address] Lana Sarmiento CRNP [address] [place] [id number] Scheduled Procedures Name Priority Associated Diagnoses Date/Ti me ESOPHAGOGASTRODUODENOSCOPY ( EGD), FLEXIBLE, TRANSORAL, DIAGNOSTIC GERD (gastroesophageal reflux disease) 03/22/2024 8:45 AM EDT GASTRO REFLUX TEST WITH MUCO RAFAELA TELEMETRY PH ELECTRODE GERD (gastroesophageal reflux disease) 03/22/2024 8:45 AM EDT COLONOSCOPY FLEXIBLE PROXIMA L DIAGNOSTIC Recall History of colonic polyps Scheduled Referrals Name Type Priority Associated Diagnoses Orde r Schedule SLEEP MEDICINE REFERRAL OP Referral Within 30 days (routine) Obstructive sleep apnea syndrome Ordered: 01/21/2024 Health Maintenance Due Date Last Done Comments [...] as of this encounter Visit Diagnoses Diagnosis Paraesophageal hiatal hernia- Primary Diaphragmatic hernia without mention of obstruction or gangrene Obstructive sleep apnea syndrome Obstructive sleep apnea (adult) (pediatric) Gastroesophageal reflux disease without esophagitis Esophageal reflux GERD (gastroesophageal reflux disease) Esophageal reflux documented in this encounter Care Teams Sand Conditioner Machine Relationship Specialty Start Date End Date Brigette Bennett MD [address] [place] [address] PCP - General Family Medicine 06/05/23 documented as of this encounter
--- OUTSIDE RECORDS SUMMARY | 2024-02-26 23:54 | External Medical Summary | Summary of Care ---
Author Name Unknown Organization [facility] Address [address] [place] [address] Phone [phone] Care Team Providers Care Second Helper Name Role Phone Brigette Bennett MD Primary Care Provider [phone] Reason for Visit * Reason Onset Date Comments Medication Refill 01/18/2024 Encounter Details Date Type Department Care Team (Late st Contact Info) Description 01/18/2024 Refill Family Practice [facility] [address] [place] [address] Brigette Bennett MD [address] [place] [address] Gastroesophageal reflux disease, unspecified whether esophagitis present [...] AND AT BEDTIME 60 Tablet 5 01/18/2024 Active Famotidine 20 MG Oral Tablet (Pepcid)Indicatio ns:Gastroesophage al reflux disease, unspecified whether esophagitis present TAKE 1 TABLET BY MOUTH IN THE MORNING AND AT BEDTIME 60 Tablet 12/12/2023 01/18/2024 Discontinued (Refill) documented as of this encounter (statuses as of 01/18/2024) Active Problems Problem Noted Date Diagnosed Date Hiatal hernia 12/28/2023 Food insecurity 07/20/2023 Overview: Per [facility] Protocol documented as of this encounter [...] Miscellaneous Notes * Telephone Encounter - Abisai Brantley, [facility] - 01/18/2024 11:33 AM EDTSigned Prescriptions: Disp Refills Famotidine 20 MG Oral Tablet (Pepcid) 60 Tab*5 Sig: TAKE 1 TABLET BY MOUTH IN THE MORNING AND AT BEDTIMEAuthorizing Provider: Lloyd BENNETT User: ABISAI BRANTLEY Electronically signed by Abisai Brantley [facility] at 01/18/2024 11:33 AM EDT documented in this encounter Plan of Treatment Upcoming Encounters Date Type Department Care Team (Latest Contact Info) Description 01/19/2024 3:00 PM EDT Office Visit Cardiology, [facility] [address] [place] [address] Lana Sarmiento CRNP [address] [place] [address] 01/21/2024 12:30 PM EDT Office Visit General Surgery, [facility] [address] [place] [address] Stephon Pollard MD [address] [place] [address] 03/22/2024 8:45 AM EDT Hospital Encounter ENDO [facility], Endoscopy [address] [phone] Nedra Adan, DO [address] [place] [address] 03/22/2024 8:45 AM EDT - 03/22/2024 9:15 AM EDT Surgery ENDO [facility], Endoscopy [address] [phone] Nedra Adan, DO [address] [place] [address] ESOPHAGOGASTRODUODENOSCOPY (EGD), FLEXIBLE, TRANSORAL, DIAGNOSTIC 04/29/2024 1:00 PM EDT Office Visit Family Practice [facility] [address] [place] [address] Brigette Bennett MD [address] [facility] [place] [address] 05/06/2024 1:20 PM EDT Office Visit Hepatology, [facility] [address] [place] [address] Lana Braun DO [address] [place] [address] Scheduled Procedures Name Priority Associated Diagnoses Date/Ti [...] reflux documented in this encounter Care Teams Second Helper Relationship Specialty Start Date End Date Brigette Bennett MD [address] [place] [address] PCP - General Family Medicine 06/05/23 documented as of this encounter
--- OUTSIDE RECORDS SUMMARY | 2024-02-26 23:54 | External Medical Summary ---
Author Name Unknown Address Unknown Organization K01:[facility] - [address] [place] [address] [place] [address] Laboratory Report Ordering Provider Test Date Status LASHANDA PERDOMOOLLY 01/05/2024 16:10:52 Final Observation Date Value Abnormality Reference (Units ) Status Mitochondria M2 Ab [Presence] in Serum 01/05/2024 16:10:52 Negative Negative Final Mitochondria M2 Ab [Units/volume] in Serum by Immunoassay 01/05/2024 16:10:52 0.6 <4 (U/mL) Final Performing Location [facility] - [address] [place] [address]
--- OUTSIDE RECORDS SUMMARY | 2024-02-26 23:54 | External Medical Summary | Summary of Care ---
Author Name Unknown Organization [facility] Address [address] [place] [address] Phone [phone] Care Team Providers Care Civilian Jail Officer Name Role Phone Brigette Bennett MD Primary Care Provider [phone] Reason for Visit * Reason Comments NEW PATIENT * Evaluate & Treat - Unlimited Visits (Within 30 days (routine)) - Authorized Specialty Diagnoses / Procedures Referred By Jose R coello Referred To Contact Sleep Medicine / Sleep Disorders Diagnoses Obstructive sleep apnea syndrome Stephon Pollard MD [address] [place] [address] Referral ID Status Reason Start Date Expiration Date Visits Requested Visits Authorized [id number] Authorized Specialty Services Required 01/21/2024 2 2 Encounter Details Date Type Department Care Team (Latest Contact Info) Description 02/11/2024 9:00 AM EDT Office Visit [facility] [address] [facility] [place] [phone] Lacey Aparicio CRNP [address] [facility] [address] Excessive daytime sleepiness*; Loud snoring; Non-restorative sleep; Sleep related headaches; Sleep related gastroesophageal reflux disease; Frequent nocturnal awakening; Nocturia Allergies No known active allergiesdocumented as of this encounter (statuses as of 02/11/2024) Medications Medication Sig Dispensed Refills Start Date [...] before bedtime. 90 Tablet 2 01/21/2024 Active Omeprazole 40 MG Oral Capsule Delayed Release (PriLOSEC)Indicatio ns:Gastroesophageal reflux disease without esophagitis Take 1 Capsule by mouth in the morning. 90 Capsule 3 01/21/2024 Active documented as of this encounter (statuses as of 02/11/2024) Active Problems Problem Noted Date Diagnosed Date Hiatal hernia 12/28/2023 Food insecurity 07/20/2023 Overview: Per [facility] Protocol documented as of this encounter (statuses as of 02/11/2024) Immunizations Name Administration Dates Next Due Seasonal [...] Sign Reading Time Taken Comments Blood Pressure 122/8 02/11/2024 9:09 AM EDT Pulse 83 02/11/2024 9:09 AM EDT Temperature 36 C (96.8 F) 02/11/2024 9:09 AM EDT Respiratory Rate 18 02/11/2024 9:09 AM EDT Oxygen Saturation 92% 02/11/2024 9:09 AM EDT ra, rest Inhaled Oxygen Concentration - - Weight 91.8 kg (202 lb 6.4 oz) 02/11/2024 9:09 A M EDT Height 180.3 cm (5' 11") 02/11/2024 9:09 AM EDT Body Mass Index 28.23 02/11/2024 9:09 AM EDT documented in this encounter Patient Instructions * Patient Instructions* Lacey Aparicio CRNP - 02/11/2024 10:10 AM EDT OBSTRUCTIVE SLEEP APNEA You are being evaluated for obstructive sleep apnea. Obstructive sleep apnea is when someone has difficulties with breathing only during sleep. This typically happens without the individual being aware they are having breathing issues. Obstructive sleep apnea is very common. It can be seen in kids and adults. It can cause symptoms of excessive daytime sleepiness, fatigue, morning headaches, and poor memory and cognition. It can also lead to difficulties at work or school and motor vehicle accidents. If left untreated, it puts people at risk for heart attacks, strokes, and diabetes, among other things. Obstructive sleep apnea is diagnosed through either an in-lab sleep study or a home sleep test. If a home sleep test is done and shows inconclusive results, an in-lab study may be recommended. At [facility], a trained photographic equipment technician will be present to administer and monitor the test. They willbe putting sensors on you that monitor your brain waves, breathing, movements, and respiratory effort. None of the sensors should be painful, though they may be annoying or uncomfortable to some patients when they are trying to sleep. [facility] are accredited by the [place] [employer] (AASM), as they meet or exceed all standards for professional quality sleep medicine care. - Plan to get enough sleep at night. Most adults do best with 7-8 hours a night. - Exercise daily! Aim for 30 minutes per day of moderate-intensity exercise (enough to get your heart rate up and break out into a light sweat). - Losing even a little bit of weight can reduce the severity of sleep apnea and helps overall sleep. - Don't drive when you are sleepy/drowsy. If you become drowsy while driving, pick pulling machine tender, take a quick nap, get some caffeine, or get someone else to drive. More information can be obtained at: SleepEducation.org It may take 2-4 weeks to get the results. Please arrange a follow-up appointment to discuss your test results. documented in this encounter Progress Notes * Lacey Aparicio CRNP - 02/11/2024 9:17 AM EDT [facility] Mr. Keshav Varghese is a 63 year old male with history of hiatal hernia, GERD, DDD, dyslipidemia, SVT seen at the request of Stephon Pollard MD for evaluation of possible sleep disordered breathing. He reports witnessed snoring and has had increased daytime sleepiness since last fall around the time he had covid19 for the second time. No prior sleep testing completed previously. Review of sleep symptoms ("+" indicates reports, "-" indicates denies): (+) Snoring (-) Witnessed apneas (+) Nocturnal choking or gasping (+) Nocturnal gastroesophageal reflux (+) Dry mouth/throat on waking (+) Morning headaches (+) Nocturia, 2-3x/night (+) Non-restorative sleep (+) Daytime sleepiness or fatigue (+) Symptoms of restless legs syndrome- gabapentin 300 mg qam and 600 mg qhs (+) Leg movements of sleep (-) Abnormal sleep behaviors including dream enactment or sleep walking (-) Difficulty with memory or concentration Bedroom environment: Lives alone. Sleeps in bed. Sleeps back to right side. Routine prior to bed: read or watch tv Electronics: none Clock checking: yes Climate: cool and comfortable Lighting: dark Noise: street noise Pets: none Sleep Schedule: Work: retired Hypnotics: gabapentin for back/nerve issues In bed 7579-1059 with lights out, can be as early as 1900 Time to fall asleep 30-60 minutes Nighttime awakenings/ Reason 3-4x Wake after sleep onset unknown Awake Time/Alarm Perceived total sleep time 4556-2960 9-10 hours Naps 2-3x/day 30-60 minutes Cantwell Sleepiness Scale Question 02/10/2024 10:16 AM EDT - Filed by Patient What is the chance you will doze off in the following situation? Sitting and reading Slight chance of dozing Watching TV Moderate chance of dozing Sitting inactive in a public place, such as a theater or meeting No chance of dozing As a passenger in a car for an hour without a break Moderate chance of dozing Lying down to rest in the afternoon when circumstances permit High chance of dozing When sitting and talking to someone No chance of dozing When sitting quietly after lunch without alcohol Moderate chance of dozing In a car, while stopped for a few minutes in traffic No chance of dozing Score (range: 0 - 24) 10 Functional Outcomes Of Sleep Question 02/10/2024 10:18 AM EDT - Filed by Patient Please complete the following questions. Do you have difficulty concentrating because you are sleepy or tired? Yes, moderate Do you have difficulty remembering things because you are sleepy or tired? Yes, extreme Do you have difficulty operating a motor vehicle for short distances (less than 100 miles) because you become sleepy? No Do you have difficulty operating a motor vehicle for long distances (more than 100 miles) because you become sleepy? Yes, a little Do you have difficulty visiting family or friends in their home because you become sleepy or tired?Yes, a little Has your relationship with family, friends, or work colleagues been affected because you are sleepyor tired? Yes, moderate Do you have difficulty watching a movie or video because you become sleepy or tired? Yes, moderate Do you have difficulty being as active as you want to be in the evening because you are tired or sleepy? Yes, moderate Do you have difficulty being as active as you want to be in the morning because you are tired or sleepy? Yes, moderate Has your mood been affected because you are sleepy or tired? Yes, moderate Score (range: 10 - 40) 23 Medical History: Patient Active Problem List Diagnosis Food insecurity Hiatal hernia SVT Dyslipidemia Chronic back pain DDD Surgical History: Past Surgical History: Procedure Laterality Date COLONOSCOPY, DIAGNOSTIC (RECTUM) 06/12/2023 hemorrhoids/biopsies show hypertophied anal papillae/COLONOSCOPY FLEXIBLE PROXIMAL DIAGNOSTIC performed by Lana Braun DO at ENDOSCOPY [facility] EGD, FLEXIBLE, DIAGNOSTIC 06/12/2023 normal/ESOPHAGOGASTRODUODENOSCOPY (EGD), FLEXIBLE, TRANSORAL, DIAGNOSTIC performed by Lana Braun DO at ENDOSCOPY [facility] SIGMOIDOSCOPY, DIAGNOSTIC N/A 07/27/2023 one 25mm polyp anorectum area/hemorrhoids/biopsies show cellular fibroepithelial polyp/recall 1 year/SIGMOIDOSCOPY FLEXIBLE DIAGNOSTIC performed by Sonido Fagan MD at OR [facility] Denies history of upper airway, palate or jaw surgery Current Medications: Current Outpatient Medications Medication Sig Dispense Refill Diclofenac Sodium 50 MG Oral Tablet Delayed Release (Voltaren) Take 1 Tablet by mouth in the morning and 1 Tablet at noon and 1 Tablet before bedtime. 90 Tablet 2 Omeprazole 40 MG Oral Capsule Delayed Release (PriLOSEC) Take 1 Capsule by mouth in the morning. 90Capsule 3 Terbinafine HCl 250 MG Oral Tablet (Lamisil) Take 1 Tablet by mouth in the morning. For 12 weeks for toenail fungus. 84 Tablet 0 DULoxetine HCl 60 MG Oral Capsule Delayed Release Particles (Cymbalta) Take 1 Capsule by mouth in the morning. 60 Capsule 11 Metoprolol Succinate ER 25 MG Oral Tablet Extended Release 24 Hour (Toprol XL) Take 1 Tablet by mouth in the morning. 34 Tablet 6 Gabapentin 300 MG Oral Capsule (Neurontin) Take 1 Capsule by mouth in the morning and 1 Capsule at noon and 1 Capsule before bedtime. 270 Capsule 3 Atorvastatin Calcium 40 MG Oral Tablet (Lipitor) Take 1 Tablet by mouth in the morning. 90 Tablet 3 Acetaminophen 500 MG Oral Tablet (Tylenol Extra Strength) Take 1 Tablet by mouth every 6 hours as needed. No current facility-administered medications for this visit. Social History: Caffeine: occasional ice tea, avoids as impacts sleep Alcohol use: 1 drink on rare social occasions Nicotine use: denies Illicit drug use: denies Routine exercise: stair climbing at apartment Family History: Denies family history of sleep related disorders - paternal grandmother, father and brother snore loudly Review of Systems Constitutional: Positive for fatigue. 175 lb 1 year ago, slowly increasing HENT: Positive for congestion (on waking) and trouble swallowing. Respiratory: Positive for shortness of breath. Cardiovascular: Negative for chest pain. Chest discomfort related to hiatal hernia Musculoskeletal: Positive for back pain. Physical Exam: BP 122/8 | Pulse 83 | Temp 36 C (96.8 F) (Tympanic) | Resp 18 | Ht 1.803 m (5' 11") | Wt 91.8 kg (202 lb 6.4 oz) | SpO2 92% Comment: ra, rest | BMI 28.23 kg/m | BSA 2.14 m Constitutional: No acute distress, accompanied by self Nose: Normal external appearance. Oral: good dentition, tongue with scalloping, hard palate normal, low lying soft palate, Mallampati4, unable to visualize uvula or tonsils Mandible: No retrognathia Neck: Circumference 15 inches Chest: Normal respiratory effort at rest Cardiac: Regular rate and rhythm Neuro: Alert, oriented, fluent/clear speech Psych: Appropriate mood and affect. Component Latest Ref Rng 12/29/2023 01/05/2024 Transferrin Saturation Percent 15 - 55 % 43 Ferritin 30 - 400 ng/mL 121 Impression/Recommendations: 63 year old male with history of hiatal hernia, GERD, DDD, dyslipidemia, SVT who presents with reported loud snoring, choking/gasping arousals, nocturnal SHARDA, difficulty initiating sleep, frequent awakenings, nocturia, morning headaches, non-restorative sleep, excessive daytime sleepiness (Cantwell 10, 2-3 naps per day), RLS and leg movements of sleep. Suspect ALLA, STOP-Bang 4 (snoring, tired, age > 50, and male) -Discussed the pathophysiology, implications on short- and long-term health, diagnostic evaluation,and likely treatment options of ALLA -Schedule a home sleep apnea test to evaluate for ALLA. Discussed that if the HSAT does not show ALLA, an in-lab PSG is recommended. -Discussed the relationship between weight and sleep apnea. Symptoms escalated with weight gain over the past year. Sleep apnea may improve with weight loss. -Iron stores adequate in the setting of RLS/leg movements of sleep -Medications/substances that can induce or worsen RLS include: nicotine, caffeine, alcohol, SSRIs, SNRIs, tricyclic antidepressants, lithium, first degree antihistamines and dopamine D2 receptor antagonists (e.g. neuroleptics and antipsychotics). -Non pharmacological measures for RLS include warm baths, massage, light exercise, elevating extremities, compression stockings, or weighted blanket. -Avoid driving or engaging in any activity that requires full alertness if feeling sleepy, drowsy or otherwise impaired. Return following testing in order to review test results and next steps. [facility] I spent a total of Greater than 55 mins (exact time 60 mins) on the date of service in preparation,delivery, and documentation of the care provided to Keshav Varghese excluding any time spent in the performance of separately billed services or time spent by another provider/QHP. documented in this encounter Nursing Notes * Jeanine Clark LPN - 02/11/2024 9:05 AM EDT New pt referred for sleep evaluation. Neck - 15" Cantwell Sleepiness Scale Question 02/10/2024 10:16 AM EDT - Filed by Patient What is the chance you will doze off in the following situation? Sitting and reading Slight chance of dozing Watching TV Moderate chance of dozing Sitting inactive in a public place, such as a theater or meeting No chance of dozing As a passenger in a car for an hour without a break Moderate chance of dozing Lying down to rest in the afternoon when circumstances permit High chance of dozing When sitting and talking to someone No chance of dozing When sitting quietly after lunch without alcohol Moderate chance of dozing In a car, while stopped for a few minutes in traffic No chance of dozing Score (range: 0 - 24) 10 Functional Outcomes Of Sleep Question 02/10/2024 10:18 AM EDT - Filed by Patient Please complete the following questions. Do you have difficulty concentrating because you are sleepy or tired? Yes, moderate Do you have difficulty remembering things because you are sleepy or tired? Yes, extreme Do you have difficulty operating a motor vehicle for short distances (less than 100 miles) because you become sleepy? No Do you have difficulty operating a motor vehicle for long distances (more than 100 miles) because you become sleepy? Yes, a little Do you have difficulty visiting family or friends in their home because you become sleepy or tired?Yes, a little Has your relationship with family, friends, or work colleagues been affected because you are sleepyor tired? Yes, moderate Do you have difficulty watching a movie or video because you become sleepy or tired? Yes, moderate Do you have difficulty being as active as you want to be in the evening because you are tired or sleepy? Yes, moderate Do you have difficulty being as active as you want to be in the morning because you are tired or sleepy? Yes, moderate Has your mood been affected because you are sleepy or tired? Yes, moderate Score (range: 10 - 40) 23 documented in this encounter Plan of Treatment Upcoming Encounters Date Type Department Care Team (Latest Contact Info) Description 4 1:30 PM EDT PulmDiagnostic Sleep Lab, [facility] [address] [facility] [place] [address] [facility], Sleep Med Home Study [address] [place] [address] 4 8:45 AM EDT Hospital Encounter ENDO [facility], Endoscopy [address] [place] [phone] Nedra Adan, DO [address] [place] [address] 4 8:45 AM EDT - 4 9:15 AM EDT Surgery ENDO [facility] [phone] Nedra Adan, DO [address] [place] [address] ESOPHAGOGASTRODUODENOSCOPY (EGD), FLEXIBLE, TRANSORAL, DIAGNOSTIC 4 1:15 PM EDT Office Visit General Surgery, [facility] [address] [place] [address] Stephon Pollard MD [address] [place] [address] 4 1:00 PM EDT Office Visit Family Practice [facility] [address] [place] [address] Brigette Bennett MD [address] [place] [address] 5 2:30 PM EST Office Visit Cardiology, [facility] [address] [place] [address] Lana Sarmiento CRNP [address] [place], [place] [phone] 5 1:00 PM EST Office Visit [facility] [address] [place] [phone] Lacey Aparicio CRNP [address] [place] [address] Scheduled Orders Name Type Priority Associated Diagnoses Orde r Schedule TIMED SLEEP STUDY, UNATTEND, HR/O2 SAT/RESP Procedures Routine Excessive daytime sleepiness Loud snoring Non-restorative sleep Sleep related headaches Sleep related gastroesophageal reflux disease Frequent nocturnal awakening Nocturia Ordered: 02/11/2024 Scheduled Procedures Name Priority Associated Diagnoses Date/Ti [...] as of this encounter Visit Diagnoses Diagnosis Excessive daytime sleepiness- Primary Loud snoring Non-restorative sleep Other sleep disturbances Sleep related headaches Headache Sleep related gastroesophageal reflux disease Esophageal reflux Frequent nocturnal awakening Other sleep disturbances Nocturia GERD (gastroesophageal reflux disease) Esophageal reflux documented in this encounter Care Teams Civilian Jail Officer Relationship Specialty Start Date End Date Brigette Bennett MD [address] [place] [address] PCP - General Family Medicine 06/05/23 documented as of this encounter
--- OUTSIDE RECORDS SUMMARY | 2024-02-26 23:54 | External Medical Summary | Summary of Care ---
Author Name Unknown Organization [facility] Address [address] [place] [address] Phone [phone] Care Team Providers Care Stapler Coil Unit Name Role Phone Brigette Bennett MD Primary Care Provider [phone] Reason for Visit * Reason Comments Re-Check Encounter Details Date Type Department Care Team (Late st Contact Info) Description 12/28/2023 1:00 PM EDT Office Visit [facility] [address] [place] [address] Brigette Bennett MD [address] [place] [address] Hiatal hernia*; Gastroesophageal reflux disease without esophagitis; Gallbladder polyp; Chronic midline low back pain with bilateral sciatica; Onychomycosis Allergies No known active allergiesdocumented as of [...] Active Terbinafine HCl 250 MG Oral Tablet (Lamisil)Indicat ions:Onychomycos is Take 1 Tablet by mouth in the morning. For 12 weeks for toenail fungus. 84 Tablet 12/28/2023 Active Ibuprofen 200 MG Oral Capsule Take 1 Capsule by mouth every 4 hours as needed. 4 Discontinued Diclofenac Sodium 50 MG Oral Tablet Delayed Release (Voltaren) TAKE 1 TABLET BY MOUTH THREE TIMES DAILY MORNING NOON AND BEDTIME 90 Tablet 2 11/28/2023 4 Discontinued(Ref ill) Famotidine 20 MG Oral Tablet (Pepcid)Indicati ons:Gastroesopha geal reflux disease, unspecified whether esophagitis present TAKE 1 TABLET BY MOUTH IN THE MORNING AND AT BEDTIME 60 Tablet 12/12/2023 4 Discontinued(Ref ill) documented as of this encounter (statuses as of 01/26/2024) Active Problems Problem Noted Date Diagnosed Date Hiatal hernia 12/28/2023 Food insecurity 07/20/2023 Overview: Per [facility] Protocol documented as of this encounter [...] Sign Reading Time Taken Comments Blood Pressure 120/76 12/28/2023 1:06 PM EDT Pulse 84 12/28/2023 1:06 PM EDT Temperature 36.1 C (97 F) 12/28/2023 1:06 PM EDT Respiratory Rate 18 12/28/2023 1:06 PM EDT Oxygen Saturation 98% 12/28/2023 1:06 PM EDT Inhaled Oxygen Concentration - - Weight 90.7 kg (200 lb 0.6 oz) 12/28/2023 1:06 P M EDT Height - - Body Mass Index 27.9 11/30/2023 3:24 PM EDT documented in this encounter Progress Notes * Brigette Bennett MD - 12/28/2023 1:28 PM EDT Subjective Chief Complaint Patient presents with Re-Check HPI: Keshav Varghese is a 63 year old male. Patient is unaccompanied. The following issues were addressed today: Patient presents today for follow-up. Has been having difficulty swallowing and shortness of breath. Waking him up at night. He had a barium swallow 12/03/23 that showed a large hiatal hernia and narrowing of the distal thoracic esophaguswith some transient stasis of contrast material. We reviewed his esophagram images together. Had anendoscopy 06/12/23 that revealed a medium-sized hiatal hernia. He is scheduled to have esophageal manometry with GI. Continues to have severe GERD symptoms. He is also having worsening lower back pain. Taking gabapentin 300mg in the morning and 600mg HS. Has had fungal infection on his toenails for years and would like treated. Due for follow-up ultrasound for surveillance of gallbladder polyp. Review of Systems: See HPI Objective BP 120/76 | Pulse 84 | Temp 36.1 C (97 F) (Tympanic) | Resp 18 | Wt 90.7 kg (200 lb 0.6 oz) | SpO2 98% | BMI 27.90 kg/m | BSA 2.13 m General: Well-appearing, no acute distress Cardiovascular: Regular rate and rhythm, no murmur Respiratory: Good respiratory effort, breath sounds equal and clear to auscultation bilaterally Extremities: No edema, yellow and thickened toenails bilaterally Neurological: Alert and oriented, no focal deficits noted Psychiatric: Appropriate mood and affect Assessment & Plan 1. Hiatal hernia 2. Gastroesophageal reflux disease without esophagitis Images personally reviewed with patient. Suspect this is causing his refractory GERD as well as difficulty swallowing and shortness of breath. He has been referred to general surgery. 3. Gallbladder polyp - US ABDOMEN LIMITED; Future 4. Chronic midline low back pain with bilateral sciatica Continue gabapentin. Will check lumbar spine x-ray. - XR L SPINE AP AND LATERAL 4. Onychomycosis Extensive involvement of toenails. Recommend PO treatment. Will check LFTs, if stable can start 12 week course of Lamisil. Check LFTs 6 weeks into treatment. - Terbinafine HCl 250 MG Oral Tablet (Lamisil); Take 1 Tablet by mouth in the morning. For 12 weeksfor toenail fungus. Dispense: 84 Tablet; Refill: 0 - HEPATIC FUNCTION PANEL; Future - HEPATIC FUNCTION PANEL; Future Return in about 4 months (around 04/28/2024) for routine follow-up. This note was electronically signed by Brigette Bennett MD documented in this encounter Nursing Notes * Sultana Bermudez LPN - 12/28/2023 1:04 PM EDT Keshav Varghese presents for 6 month recheck. Medications & HM reviewed. Still having SOB. Wakes him up at night seeing cardiology Still having difficulty with swallowing but seeing GI States he has a fungus on his toenails that needs treated and wondering if he needs to see podiatry Lower back inflamed and painful documented in this encounter Plan of Treatment Upcoming Encounters Date Type Department Care Team (Latest Contact Info) Description 02/11/2024 9:00 AM EDT Office Visit Sleep Disorders Ctr [facility] [address] [place] [phone] Lacey Aparicio CRNP [address] [place] [address] 03/22/2024 8:45 AM EDT Hospital Encounter ENDO [facility], Endoscopy [address] [place] [phone] Nedra Adan DO [address] [place] [address] 03/22/2024 8:45 AM EDT - 03/22/2024 9:15 AM EDT Surgery ENDO GE, [address]oscopy [address] [phone] Nedra Adan, DO [address] [place] [address] ESOPHAGOGASTRODUODENOSCOPY (EGD), FLEXIBLE, TRANSORAL, DIAGNOSTIC 04/28/2024 1:15 PM EDT Office Visit General Surgery, [facility] 132 [facility] [place] [address] Stephon Pollard MD [address] [place] [address] 04/29/2024 1:00 PM EDT Office Visit Family Practice [facility] [address] [facility] [place] [address] Brigette Bennett MD 200 [facility] [place] [address] 05/06/2024 1:20 PM EDT Office Visit [facility], [facility] [place] [address] Lana Braun, [address] [place] [address] 07/22/2024 2:30 PM EST Office Visit Cardiology, [facility] [address] [facility] [place] [address] Lana Sarmiento CRNP [address] [facility] [place], [place] [phone] Scheduled Procedures Name Priority Associated Diagnoses Date/Ti la ESOPHAGOGASTRODUODENOSCOPY ( EGD), FLEXIBLE, TRANSORAL, DIAGNOSTIC GERD [...] Not on filedocumented as of this encounter Procedures Procedure Name Priority Date/Time Associated Diagnosis Comments XR L SPINE AP AND LATERAL Routine 12/28/2023 2:34 PM EDT Chronic midline low back pain with bilateral sciatica documented in this encounter Results * (ABNORMAL) HEPATIC FUNCTION PANEL (01/05/2024 4:10 PM EDT) Albumin 4.4 3.8 - 5.0 g/dL 01/05/2024 11:16 PM EDT [facility] AST 41 10 - 50 U/L 01/05/2024 11:16 PM EDT [facility] Comment:Result may be falsel y elevated due to hemolysis. Alkaline Phosphatase 69 35 - 130 U/L 01/05/2024 11:16 PM EDT LAB[facility]ORY C ALT 185(H) 10 - 50 U/L 01/05/2024 11:16 PM EDT [facility] Bilirubin, Total 0.6 <=1.2 mg/dL 01/05/2024 11:16 PM EDT [facility] Bilirubin, Direct <0.2 0.0 - 0.3 mg/dL 01/05/2024 11:16 PM EDT [facility] Protein 7.0 6.0 - 8.3 g/dL 01/05/2024 11:16 PM EDT [facility] Blood Venous blood specimen / Unknown Venipuncture / Unknown 01/05/2024 4:10 PM EDT 01/05/2024 4:10 PM EDT Brigette Bennett MD LAB BLOOD ORDERABLES Performing Organization Address City/State/[facility] Co de Phone Number [facility] [address] [place] [address] * US ABDOMEN LIMITED (12/29/2023 11:59 AM EDT) Anatomical Region Laterality Modality Abdomen, Body Ultrasound 12/31/2023 5:31 AM EDT Impressions 12/31/2023 5:29 AM EDT IMPRESSION 1. Gallbladder polyps. 2. Hepatic cysts. Narrative 12/31/2023 5:29 AM EDT EXAM US ABDOMEN LIMITED-12/29/2023 11:59 am HISTORY Surveillance gallbladder polyps TECHNIQUE Sonogram of the right upper quadrant. COMPARISON 07/02/2023 FINDINGS LIVER: Normal echogenicity. Cysts measure 2.1 cm and 2.3 cm. BILE DUCTS: No intrahepatic or extrahepatic duct dilatation. The common bile duct measures 3 mm. GALLBLADDER: No cholelithiasis, gallbladder wall thickening, or pericholecystic fluid. There is a 7 mm polyp, as well as additional small polyps. PANCREAS: Limited visualization. RIGHT KIDNEY: 10.2 cm in length. No hydronephrosis, shadowing calculi, or focal lesion. OTHER: No ascites. Procedure Note Lucas Deutsch MD - 12/31/2023 EXAM US ABDOMEN LIMITED-12/29/2023 11:59 am HISTORY Surveillance gallbladder polyps TECHNIQUE Sonogram of the right upper quadrant. COMPARISON 07/02/2023 FINDINGS LIVER: Normal echogenicity. Cysts measure 2.1 cm and 2.3 cm. BILE DUCTS: No intrahepatic or extrahepatic duct dilatation. The commonbile duct measures 3 mm. GALLBLADDER: No cholelithiasis, gallbladder wall thickening, orpericholecystic fluid. There is a 7 mm polyp, as well as additional smallpolyps. PANCREAS: Limited visualization. RIGHT KIDNEY: 10.2 cm in length. No hydronephrosis, shadowing calculi, orfocal lesion. OTHER: No ascites. IMPRESSION IMPRESSION 1. Gallbladder polyps. 2. Hepatic cysts. Brigette Bennett MD RAD ULTRASOUND * XR L SPINE AP AND LATERAL (12/28/2023 2:34 PM EDT) Anatomical Region Laterality Modality Vertebra, Lspine Computed Radiog sandro 12/30/2023 8:44 AM EDT Impressions 12/30/2023 8:42 AM EDT IMPRESSION 1. No acute findings. 2. Scoliosis and degenerative changes as above. Narrative 12/30/2023 8:42 AM EDT EXAM XR L SPINE AP AND LATERAL,12/28/2023 2:34 pm HISTORY 63 y/owithchronic low back pain, had x-rays with [facility] in 2019. COMPARISON None. TECHNIQUE AP and lateral views of the lumbar spine. FINDINGS No visible fracture. AP alignment is normal. There is moderate rotary dextroscoliosis. Mild rightward transition L4 on L5. Severe multilevel degenerative disc disease with disc space narrowing, subchondral sclerosis and marginal osteophyte formation. Grade 1 anterolisthesis L4 on L5 noted. There is a large amount of stool throughout the colon. Procedure Note Nitin Conner MD - 12/30/2023 EXAM XR L SPINE AP AND LATERAL,12/28/2023 2:34 pm HISTORY 63 y/owithchronic low back pain, had x-rays with [facility] in 2019. COMPARISON None. TECHNIQUE AP and lateral views of the lumbar spine. FINDINGS No visible fracture. AP alignment is normal. There is moderate rotarydextroscoliosis. Mild rightward transition L4 on L5. Severe multileveldegenerative disc disease with disc space narrowing, subchondral sclerosisand marginal osteophyte formation. Grade 1 anterolisthesis L4 on [id number]. There is a large amount of stool throughout the colon. IMPRESSION IMPRESSION 1. No acute findings. 2. Scoliosis and degenerative changes as above. Brigette Bennett MD RADIOLOGY (RAD GENER AL) * (ABNORMAL) HEPATIC FUNCTION PANEL (12/28/2023 2:23 PM EDT) Albumin 4.5 3.8 - 5.0 g/dL 12/28/2023 4:10 PM EDT [facility]- AST 55(H) 10 - 50 U/L 12/28/2023 4:10 PM EDT [facility]- Alkaline Phosphatase 72 35 - 130 U/L 12/28/2023 4:10 PM EDT [facility]- ALT 182(H) 10 - 50 U/L 12/28/2023 4:10 PM EDT [facility]- Bilirubin, Total 0.6 <=1.2 mg/dL 12/28/2023 4:10 PM EDT [facility]- Bilirubin, Direct <0.2 0.0 - 0.3 mg/dL 12/28/2023 4:10 PM EDT [facility]- Protein 7.0 6.0 - 8.3 g/dL 12/28/2023 4:10 PM EDT [facility]- Blood Venous blood specimen / Unknown Venipuncture / Unknown 12/28/2023 2:23 PM EDT 12/28/2023 2:23 PM EDT Brigette Bennett MD LAB BLOOD ORDERABLES [facility]- [address] [place] [address] documented in this encounter Visit Diagnoses Diagnosis Hiatal hernia- Primary Diaphragmatic hernia without mention of obstruction or gangrene Gastroesophageal reflux disease without esophagitis Esophageal reflux Gallbladder polyp Cholesterolosis of 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
--- OUTSIDE RECORDS SUMMARY | 2024-02-26 23:54 | External Medical Summary ---
Author Name Unknown Address Unknown Organization K01:[facility] [address] [place] [address] Laboratory Report Ordering Provider Test Date Status EDD PERDOMO 01/05/2024 16:10:52 Final Observation Date Value Abnormality Reference (Units ) Status Albumin 01/05/2024 16:10:52 4.4 3.8-5.0 (g/dL) Final AST (Aspartate aminotransferase) 01/05/2024 16:10:52 41 10-50 (U/L) Final Result may be falsely elevat ed due to hemolysis. Alk Phos 01/05/2024 16:10:52 69 35-130 (U/ L) Final ALT (Alanine aminotransferase) 01/05/2024 16:10:52 185 Above high normal 10-50 (U/L) Final Bilirubin, Total 01/05/2024 16:10:52 0.6 <=1 .2 (mg/dL) Final Bilirubin, Direct 01/05/2024 16:10:52 <0.2 0. 0-0.3 (mg/dL) Final Protein 01/05/2024 16:10:52 7.0 6.0-8.3 (g /dL) Final Performing Location LABORATORY C - [address] [place] [address]
--- OUTSIDE RECORDS SUMMARY | 2024-02-26 23:54 | External Medical Summary | Summary of Care ---
Author Name Unknown Organization [facility] Address [address] [place] [address] Phone [phone] Care Team Providers Care Special Day Class Teacher Name Role Phone Brigette Bennett MD Primary Care Provider [phone] Reason for Visit * Reason Comments Follow Up Encounter Details Date Type Department Care Team (Late st Contact Info) Description 01/19/2024 3:00 PM EDT Office Visit Cardiology, [facility] 132 [facility] [place] [address] Lana Sarmiento CRNP [address] [place] [address] SVT (supraventricular tachycardia) (HCC)*; Sinus tachycardia; Hiatal hernia; Preoperative cardiovascular examination Allergies No known active allergiesdocumented as of this encounter (statuses as of 02/05/2024) Medications Medication Sig Dispensed Refills Start Date [...] as of this encounter (statuses as of 02/05/2024) Active Problems Problem Noted Date Diagnosed Date Hiatal hernia 12/28/2023 Food insecurity 07/20/2023 Overview: Per [facility] Protocol documented as of this encounter (statuses as of 02/05/2024) Immunizations Name Administration Dates Next Due Seasonal [...] No 06/24/2023 Does the household have a [facility] source of income? (Household - for ages [...] Sign Reading Time Taken Comments Blood Pressure 128/84 01/19/2024 3:07 PM EDT Pulse 76 01/19/2024 3:07 PM EDT Temperature - - Respiratory Rate 16 01/19/2024 3:07 PM EDT Oxygen Saturation - - Inhaled Oxygen Concentration - - Weight 90.3 kg (199 lb 1.6 oz) 01/19/2024 3:07 P M EDT Height - - Body Mass Index 27.77 11/30/2023 3:24 PM EDT documented in this encounter Progress Notes * Natasha Carolina DO - 02/05/2024 5:23 PM EDT I have reviewed the advanced practitioner's documentation on the date of service referenced in note, and I agree with, and take responsibility for the plan of care. Pt seen in 2 month EP f/u due to SVT Pt continues to report palpitations but not very bothersome His hiatal hernia is bother him No change in cardiac medications Unsure reason for elevated LFTs but can stop lipitor and repeat labs in a few months EP f/u 6 months Natasha Carolina DO Department of Cardiology [facility] [place] [address] documented in this encounter Procedure Notes * De Bacon DO - 01/19/2024 3:16 PM EDTAssociated Order(s): EKG REASON FOR STUDY: SVT;SVT CONCLUSIONS: Normal sinus rhythm Normal ECG When compared with ECG of 05-Jun-2023 14:16, Vent. rate has decreased by 50 bpm Ventricular Rate: 72 Atrial Rate: 72 HI Interval: 158 QRS Duration: 84 QT/QTc: 368/402 ms P-R-T [place]: 38 : 39 : 13 degrees documented in this encounter Nursing Notes * Vickie Fraga CMA - 01/19/2024 3:05 PM EDT Examination Room: 17 Name: Keshav Varghese Date of : (1960). Reason for Visit: follow up Interim Hospitalization(s): denies Problems/Concerns: denies Chest Pain/SOB: denies [facility] Discussed: Not applicable [facility] is a way you can talk to your provider online through e-mail. Would you like to sign up? I can activate it for you? ALREADY ACTIVE Patient was instructed to not get up on the exam table until directed and assisted by their provider; patient is to remain seated in the chair/ wheelchair/ exam table for fall prevention and safety reasons. Patient is aware to have assistance to step down off exam table with personnel. Patient voiced full comprehension of instructions. documented in this encounter Plan of Treatment Upcoming Encounters Date Type Department Care Team (Latest Contact Info) Description 02/11/2024 9:00 AM EDT Office Visit Sleep Disorders Ctr [facility] [address] [place] [phone] Lacey Aparicio CRNP [address] [place] [address] 03/22/2024 8:45 AM EDT Hospital Encounter ENDO [facility], Endoscopy [address] [phone] Nedra Adan, DO [address] [place] [address] 03/22/2024 8:45 AM EDT - 03/22/2024 9:15 AM EDT Surgery ENDO [facility], Endoscopy [address] [phone] Nedra Adan, DO [address] [place] [address] ESOPHAGOGASTRODUODENOSCOPY (EGD), FLEXIBLE, TRANSORAL, DIAGNOSTIC 04/28/2024 1:15 PM EDT Office Visit General Surgery, [facility] [address] [place] [address] Stephon Pollard MD [address] [place] [address] 04/29/2024 1:00 PM EDT [facility] [address] [facility] [place] [address] Brigette Bennett MD 200 [facility] [place] [address] 07/22/2024 2:30 PM EST Office Visit Cardiology, [facility] [address] [facility] [place] [address] Lana Sarmiento CRNP [address] [facility] [place] [id number] Scheduled Procedures Name Priority Associated Diagnoses Date/Ti [...] Procedure Name Priority Date/Time Associated Diagnosis Comments HI ECG ROUTINE ECG W/LEAST 12 LDS W/I&R Routine 01/19/2024 3:16 PM EDT SVT (supraventricular tachycardia) (HCC) documented in this encounter Results * EKG (01/19/2024 3:16 PM EDT) 01/19/2024 3:16 PM EDT Narrative Procedure Note De Bacon DO - 01/19/2024 3:16 PM EDT REASON FOR STUDY: SVT;SVT CONCLUSIONS: Normal sinus rhythm Normal ECG When compared with ECG of 05-Jun-2023 14:16, Vent. rate has decreased by 50 bpm Ventricular Rate: 72 Atrial Rate: 72 HI Interval: 158 QRS Duration: 84 QT/QTc: 368/402 ms P-R-T [place]: 38 : 39 : 13 degrees Lana Coronaella Guillermina BAXTER EKG Performing Organization Address City/State/[facility] Co de Phone Number [facility] documented in this encounter Visit Diagnoses Diagnosis SVT (supraventricular tachycardia) (HCC)- Primary Other specified cardiac dysrhythmias Sinus tachycardia Other specified cardiac dysrhythmias Hiatal hernia Diaphragmatic hernia without mention of obstruction or gangrene Preoperative cardiovascular examination Pre-operative cardiovascular examination GERD (gastroesophageal reflux disease) Esophageal reflux documented in this encounter Care Teams Special Day Class Teacher Relationship Specialty Start Date End Date Brigette Bennett MD [address] [facility] [place] [address] PCP - General Family Medicine 06/05/23 documented as of this encounter
--- OUTSIDE RECORDS SUMMARY | 2024-02-26 23:54 | External Medical Summary ---
Author Name Unknown Address Unknown Organization K01:LAB[facility]ATORY [facility] - [address] [place] [address] Laboratory Report Ordering Provider Test Date Status EDD PERDOMO 01/05/2024 16:10:52 Final Observation Date Value Abnormality Reference (Units ) Status Neutrophil cytoplasmic Ab [Presence] in Serum by Immunofluorescence 01/05/2024 16:10:52 Negative Negative Final Neutrophil cytoplasmic Ab [Presence] in Serum by Immunofluorescence 01/05/2024 16:10:52 Negative Negative Final Negative for ANCA. Performing Location [facility] - [address] [place] [address]
--- OUTSIDE RECORDS SUMMARY | 2024-02-26 23:55 | External Medical Summary | Summary of Care ---
Author Name Unknown Organization [facility] Address [address] [place] [address] Phone [phone] Care Team Providers Care Sales Architect Name Role Phone Brigette Bennett MD Primary Care Provider Reason for Visit * Reason Onset Date Comments Scheduling 12/01/2023 EGD w/ Self Encounter Details Date Type Department Care Team (Late st Contact Info) Description 12/01/2023 Telephone Gastroenterology, [facility] [address] [place] [address] Barb Kc CRNP [address] [facility] [place] [place] [address] Scheduling (EGD w/ Self) Allergies No known active allergiesdocumented as of this encounter (statuses as of 12/01/2023) Medications Medication Sig Dispensed Refills Start Date End Date Status Ibuprofen 200 MG Oral Capsule Take 1 Capsule by mouth every 4 hours as needed. Active Acetaminophen 500 MG Oral Tablet (Tylenol Extra [...] before bedtime. 270 Capsule 3 08/10/2023 Active Famotidine 20 MG Oral Tablet (Pepcid)Indications: Gastroesophageal reflux disease, unspecified whether esophagitis present TAKE 1 TABLET BY MOUTH IN THE MORNING AND 1 AT BEDTIME 60 Tablet 3 08/21/2023 Active Metoprolol Succinate ER 25 MG Oral [...] AND BEDTIME 90 Tablet 2 11/28/2023 Active documented as of this encounter (statuses as of 12/01/2023) Active Problems Problem Noted Date Diagnosed Date Food insecurity 07/20/2023 Overview: Per [facility] Protocol documented as of this encounter (statuses as of 12/01/2023) Immunizations Name Administration Dates Next Due Seasonal Influenza Virus Vac cine, Unspecified Formulation 05/29/2023 Seasonal Influenza, Quadrivalent, No Preserve, I M 03/15/2020 TDAP (age 11 and older)(Adacel) 04/05/2020 Zoster Vaccine Recombinant (Shingrix) 03/31/2020 documented [...] have money to get more. Often true Sex and Gender Information Value Date Recorded Sex Assigned at Male 06/24/2023 11:54 AM EST Gender Identity Male 06/24/2023 11:54 AM EST Sexual Orientation Straight 06/24/2023 11 :54 AM EST Job Start Date Occupation Industry Not on file Not on file Not on file documented as of this encounter Miscellaneous Notes * Telephone Encounter - Justine Garcia OSA - 12/01/2023 2:15 PM EDT Patient had a appointment 11/29. Follow up instructions: EGD w/ [facility] ([place]) Please and thank you. 12/01/2023 2:15 PM documented in this encounter Plan of Treatment Upcoming Encounters Date Type Department Care Team (Late st Contact Info) Description 12/03/2023 10:30 AM EDT Appointment Radiology, [facility] [address] [facility] [place] [phone] 12/28/2023 1:00 PM EDT Office Visit Family Practice [facility] 200 [facility] [place] [address] Brigette Bennett MD [address] [facility] [place] [address] 01/19/2024 3:00 PM EDT Office Visit Cardiology, [facility] 132 [facility] [place] [address] Lana Sarmiento CRNP [address] [facility] [place] [address] Scheduled Procedures Name Priority Associated Diagnoses Date/Ti me COLONOSCOPY FLEXIBLE PROXIMA L DIAGNOSTIC Recall History [...] filedocumented as of this encounter Care Teams Sales Architect Relationship Specialty Start Date End Date Brigette Bennett MD [address] [place] [address] PCP - General Family Medicine 06/05/23 documented as of this encounter
--- OUTSIDE RECORDS SUMMARY | 2024-02-26 23:55 | External Medical Summary | Summary of Care ---
Author Name Unknown Organization [facility] Address [address] [place] [address] Phone [phone] Care Team Providers Care Child Care Sitter Name Role Phone Brigette Bennett MD Primary Care Provider [phone] Reason for Visit * Reason Onset Date Comments Scheduling 12/01/2023 EGD w/ [place] Encounter Details Date Type Department Care Team (Late st Contact Info) Description 12/01/2023 Telephone Gastroenterology, [facility] [address] [place] [address] Barb Kc CRNP [address] [facility] [address] Scheduling (EGD w/ [place]) Allergies No known active allergiesdocumented as of this encounter (statuses as of 12/03/2023) Medications Medication Sig Dispensed Refills Start Date [...] as of this encounter (statuses as of 12/03/2023) Active Problems Problem Noted Date Diagnosed Date Food insecurity 07/20/2023 Overview: Per [facility] Protocol documented as of this encounter (statuses as of 12/03/2023) Immunizations Name Administration Dates Next Due Seasonal [...] encounter Miscellaneous Notes * Telephone Encounter - Khadra Barrios OSA - 12/03/2023 11:19 AM EDT Egd w/ [place] keny'd 03/22 * Telephone Encounter - Justine Garcia OSA - 12/01/2023 2:15 PM EDT Patient had a appointment 11/29. Follow up instructions: EGD w/ [place] ([place]) Please and thank you. 12/01/2023 2:15 PM documented in this encounter Plan of Treatment Upcoming Encounters Date Type Department Care Team (Latest Contact Info) Description 12/28/2023 1:00 PM EDT Office Visit [facility] [address] [facility] [place] [address] Brigette Bennett MD [address] [facility] [place] [address] 01/19/2024 3:00 PM EDT Office Visit Cardiology, [facility] [address] [place] [address] Lana Sarmiento CRNP [address] [facility] [place] [address] 03/22/2024 8:45 AM EDT Hospital Encounter ENDO [facility], [address]oscopy [address] [phone] Nedra Adan, DO [address] [place] [address] 03/22/2024 8:45 AM EDT - 03/22/2024 9:15 AM EDT Surgery ENDO [facility], [address]oscopy [address] [place] [phone] Nedra Adan, DO [address] [place] [address] ESOPHAGOGASTRODUODENOSCOPY (EGD), FLEXIBLE, TRANSORAL, DIAGNOSTIC Scheduled Procedures Name Priority Associated Diagnoses Date/Ti [...] filedocumented as of this encounter Care Teams Child Care Sitter Relationship Specialty Start Date End Date Brigette Bennett MD [address] [place] [address] PCP - General Family Medicine 06/05/23 documented as of this encounter
--- OUTSIDE RECORDS SUMMARY | 2024-02-26 23:55 | External Medical Summary ---
Author Name Unknown Address Unknown Organization K01:[facility] [address] [facility] [address] [place] [address] Laboratory Report Ordering Provider Test Date Status LASHANDA PERDOMOOLLY 12/29/2023 12:10:25 Final Observation Date Value Abnormality Reference (Units ) Status Hepatitis B virus core Ab [Presence] in Serum 12/29/2023 12:10:25 Negative Negative Final Performing Location [facility] [address] [place] [address]
--- OUTSIDE RECORDS SUMMARY | 2024-02-26 23:55 | External Medical Summary | Summary of Care ---
Author Name Unknown Organization [facility] Address [address] [place] [address] Phone [phone] Care Team Providers Care Shirt Sewer Name Role Phone Brigette Bennett MD Primary Care Provider [phone] Reason for Visit * Reason Onset Date Comments Scheduling 12/01/2023 EGD w/ Self Encounter Details Date Type Department Care Team (Late st Contact Info) Description 12/01/2023 Telephone Gastroenterology, [facility] [address] [place] [address] Barb Kc CRNP [address] [facility] [place] [address] Scheduling (EGD w/ Self) Allergies No known active allergiesdocumented as of this encounter (statuses as of 12/02/2023) Medications Medication Sig Dispensed Refills Start Date [...] as of this encounter (statuses as of 12/02/2023) Active Problems Problem Noted Date Diagnosed Date Food insecurity 07/20/2023 Overview: Per [facility] Protocol documented as of this encounter (statuses as of 12/02/2023) Immunizations Name Administration Dates Next Due Seasonal [...] 11/29. Follow up instructions: EGD w/ [place] ([place]) Please and thank you. 12/01/2023 2:15 PM documented in this encounter Plan of Treatment Upcoming Encounters Date Type Department Care Team (Late st Contact Info) Description 12/03/2023 10:30 AM EDT Appointment Radiology, [facility] [address] [facility] [place] [address] 12/28/2023 1:00 PM EDT Office Visit Family Practice [facility] [address] [facility] [place] [address] Brigette Bennett MD 200 [facility] [place] [address] 01/19/2024 3:00 PM EDT Office Visit Cardiology, [facility] 132 [facility] [place] [address] Lana Sarmiento CRNP [address] [facility] [place] [address] Scheduled Procedures Name Priority Associated Diagnoses Date/Ti [...] filedocumented as of this encounter Care Teams Shirt Sewer Relationship Specialty Start Date End Date Brigette Bennett MD [address] [place] [address] PCP - General Family Medicine 06/05/23 documented as of this encounter
--- OUTSIDE RECORDS SUMMARY | 2024-02-26 23:55 | External Medical Summary | Summary of Care ---
Author Name Unknown Organization [facility] Address [address] [place] [address] Phone [phone] Care Team Providers Care Utility Bill Complaints Investigator Name Role Phone Brigette Bennett MD Primary Care Provider [phone] Encounter Details Date Type Department Care Team (Latest Contact Info) Description 12/03/2023 10:16 AM EDT - 12/03/2023 11:59 PM EDT Hospital Encounter Radiology, [facility] [address] [place] [phone] Arrived Discharge Disposition: Home - Self Care Allergies No known active allergiesdocumented as of this encounter (statuses as of 12/04/2023) Medications Medication Sig Dispensed Refills Start Date [...] as of this encounter (statuses as of 12/04/2023) Active Problems Problem Noted Date Diagnosed Date Food insecurity 07/20/2023 Overview: Per [facility] Protocol documented as of this encounter (statuses as of 12/04/2023) Immunizations Name Administration Dates Next Due Seasonal [...] 1:00 PM EDT Office Visit [facility] [address] [place], [place] [id number] Brigette Bennett MD [address] [place] [address] 01/19/2024 3:00 PM EDT Office Visit Cardiology, [facility] [address] [place] [address] Lana Sarmiento CRNP [address] [facility] [address] 03/22/2024 8:45 AM EDT Hospital Encounter ENDO [facility], Endoscopy [address], [place] [phone] Nedra Adan, DO [address] [place] [address] 03/22/2024 8:45 AM EDT - 03/22/2024 9:15 AM EDT Surgery ENDO [facility], [address]oscopy [address] [phone] Nedra Adan, [address] [place] [address] ESOPHAGOGASTRODUODENOSCOPY (EGD), FLEXIBLE, TRANSORAL, DIAGNOSTIC Scheduled Procedures [...] (2 of 2) 05/26/2020 03/31/2020 COVID-19 Vaccine (2022-2 4 season) 2023 Pneumococcal Vaccine: 65+ Years [...] Procedure Name Priority Date/Time Associated Diagnosis Comments FLUORO ESOPHAGRAM ENTIRE WO VIDEO Routine 12/03/2023 10:54 AM EDT Dysphagia, unspecified type Hiatal hernia Gastroesophageal reflux disease without esophagitis documented in this encounter Administered Medications Inactive Administered Medications - up to 3 most recent administrations Medication Order MAR Action Action Date Dose Rate Site barium sulfate 60% (Ez Paque) oral susp 355 mL 355 mL, Oral, ONCE, On Lisa 12/03/23 at 1058, For 1 dose, Radiology Medication Routing (Non-IR) Given 12/03/2023 10:58 AM EDT 355 mL barium sulfate 98% (E-Z HD) oral susp 165 mL 165 mL, Oral, ONCE, On Lisa 12/03/23 at 1058, For 1 dose, Radiology Medication Routing (Non-IR) Given 12/03/2023 10:58 AM EDT 140 mL Sod bicarb-citric ac-simeth (E-Z-Gas) oral granules 1 Packet 1 Packet, Oral, ONCE, On Lisa 12/03/23 at 1058, For 1 dose, Radiology Medication Routing (Non-IR) Given 12/03/2023 10:58 AM EDT 1 Packet documented in this encounter Care Teams Utility Bill Complaints Investigator Relationship Specialty Start Date End Date Brigette Bennett MD [address] [facility] [place] [address] PCP - General Family Medicine 06/05/23 documented as of this encounter
--- OUTSIDE RECORDS SUMMARY | 2024-02-26 23:55 | External Medical Summary | Summary of Care ---
Author Name Unknown Organization [facility] Address [address] [place] [address] Phone [phone] Care Team Providers Care French Teacher Name Role Phone Brigette Bennett MD Primary Care Provider [phone] Reason for Referral * Precert (Within 10 days (routine)) - Authorized Specialty Diagnoses / Procedures Referred By Jose R coello Referred To Contact Diagnoses Dysphagia, unspecified type Hiatal hernia Gastroesophageal reflux disease without esophagitis Procedures ESOPHAGEAL MOTILITY STUDY Barb Kc CRNP [address] [place] [address] Referral ID Status Reason Start Date Expiration Date V isits Requested Visits Authorized [id number] Authorized 11/30/2023 1 1 Reason for Visit * Reason Comments NEW PATIENT Pt ref by Dr Winsome wagner for dysphagia. Pt states he has trouble with liquids and solids. Fm hx of esophageal strictures. * Evaluate & Treat - Unlimited Visits (Within 3 days (urgent)) - Authorized Specialty Diagnoses / Procedures Referred By Jose R coello Referred To Contact Gastroenterology Diagnoses Dysphagia, unspecified type Brigette Bennett MD [address] [place] [address] Referral ID Status Reason Start Date Expiration Date Visits Requested Visits Authorized [id number] Authorized Specialty Services Required 11/19/2023 999 [id number] Encounter Details Date Type Department Care Team (Late st Contact Info) Description 11/30/2023 3:30 PM EDT Office Visit Gastroenterology, [facility] [address] [place] [address] Barb Kc CRNP [address] [place] [address] Dysphagia, unspecified type*; Hiatal hernia; Gastroesophageal reflux disease without esophagitis Allergies No known active allergiesdocumented as of this encounter (statuses as of 11/30/2023) Medications Medication Sig Dispensed Refills Start Date [...] as of this encounter (statuses as of 11/30/2023) Active Problems Problem Noted Date Diagnosed Date Food insecurity 07/20/2023 Overview: Per [facility] Protocol documented as of this encounter (statuses as of 11/30/2023) Immunizations Name Administration Dates Next Due Seasonal [...] Sign Reading Time Taken Comments Blood Pressure 133/84 11/30/2023 3:24 PM EDT Pulse 94 11/30/2023 3:24 PM EDT Temperature 36.6 C (97.9 F) 11/30/2023 3:24 PM ED T Respiratory Rate - - Oxygen Saturation - - Inhaled Oxygen Concentration - - Weight 89.4 kg (197 lb) 11/30/2023 3:24 PM EDT Height 180.3 cm (5' 11") 11/30/2023 3:24 PM EDT Body Mass Index 27.48 11/30/2023 3:24 PM EDT documented in this encounter Patient Instructions * Patient Instructions* Barb Kc CRNP - 11/30/2023 3:52 PM EDT Testing: - FLUORO ESOPHAGRAM ENTIRE (barium swallow) - EGD, FLEXIBLE, DIAGNOSTIC (upper scope - had in June this time with [facility] to measure for relux) - ESOPHAGEAL MOTILITY STUDY in [place] (small cathetor down the nose to the stomach that measures how the esophagus muscles Recheck in GI in June 2024 to consider further testing/treatment. I will be in touch w pt w above testing and further recommendations in the interim. If feeling of food being stuck and unable to swallow saliva for more than a few hours -> ED. documented in this encounter Progress Notes * Barb Kc CRNP - 11/30/2023 3:26 PM EDT Consult requested by Ref: BRIGETTE BENNETT[[id number]] [address] [place] [address] (office) [phone] (fax) CC: Dysphagia HPI: 63 year old male pt of Brigette Bennett MD with a hx of presents today for dysphagia. For 10 - 15 yrs, has felt like foods get stuck but was rare a few times a week, now occurring about once a week. Feels like it "gets stuck" in the lower chest. Triggers are chicken, rice, some other foods. If tries to eat or drink when present involuntarily regurgitates that foods w a lot of clear liquid or just the clear liquid. Sometimes able to stretch his torso and it may resolve symptoms. Sometimes lasts for hours and unable to swallow water or saliva then. Had symptoms prior to normal EGD but symptoms are now much more frequent and severe. 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 - Medium- sized hiatal hernia. - Normal stomach. - Normal duodenal bulb and second portion of the duodenum. - No specimens collected. Flex sig Jul 2023 w EMR: - One 25 mm polyp in the anorectum area, removed with mucosal resection. Resected and retrieved. Non-bleeding internal hemorrhoids. Path: Cellular fibroepithelial polyp Colonoscopy Jun 2023: - Hemorrhoids found on perianal exam. - There was a lesion in the rectum. Possibly polyp but unclear at this time. Biopsied. Rec surveillance one year 06/2023: Multiple gallbladder polyps. Hepatic cysts. Meds: Famotidine 20mg BID. ROS: + palpitations/races feels more when resting - worked up by [facility] + as per HPI A total of 12 systems were reviewed, all others (-). ALLERGIES: Review of patient's allergies indicates: No Known Allergies PMH/PSH/Soc Hx reviewed, significant for: No past medical history on file. Past Surgical History: Procedure Laterality Date COLONOSCOPY, DIAGNOSTIC (RECTUM) 06/12/2023 hemorrhoids/biopsies show hypertophied anal papillae/COLONOSCOPY FLEXIBLE PROXIMAL DIAGNOSTIC performed by Lana Braun DO at ENDOSCOPY [facility] EGD, FLEXIBLE, DIAGNOSTIC 06/12/2023 normal/ESOPHAGOGASTRODUODENOSCOPY (EGD), FLEXIBLE, TRANSORAL, DIAGNOSTIC performed by Lana Braun DO at ENDOSCOPY [facility] SIGMOIDOSCOPY, DIAGNOSTIC N/A 07/27/2023 one 25mm polyp anorectum area/hemorrhoids/biopsies show cellular fibroepithelial polyp/recall 1 year/SIGMOIDOSCOPY FLEXIBLE DIAGNOSTIC performed by Sonido Fagan MD at OR [facility] Social History Socioeconomic History Marital status: Single Tobacco Use Smoking status: Never Smokeless tobacco: Never Vaping Use Vaping status: Never Used Substance and Sexual Activity Alcohol use: Yes Comment: rarely Drug use: Never Social Determinants of Health Food Insecurity: Food Insecurity Present (06/24/2023) Hunger Vital Sign Worried About Running Out of Food in the Last Year: Sometimes true Ran Out of Food in the Last Year: Often true Family history reviewed and significant for: Family History Problem Relation Name Age of Onset Heart disease Father Stroke Grandmother (Maternal) Current Outpatient Medications Medication Sig Dispense Refill Diclofenac Sodium 50 MG Oral Tablet Delayed Release (Voltaren) TAKE 1 TABLET BY MOUTH THREE TIMES DAILY MORNING NOON AND BEDTIME 90 Tablet 2 DULoxetine HCl 60 MG Oral Capsule Delayed Release Particles (Cymbalta) Take 1 Capsule by mouth in the morning. 60 Capsule 11 Metoprolol Succinate ER 25 MG Oral Tablet Extended Release 24 Hour (Toprol XL) Take 1 Tablet by mouth in the morning. 34 Tablet 6 Famotidine 20 MG Oral Tablet (Pepcid) TAKE 1 TABLET BY MOUTH IN THE MORNING AND 1 AT BEDTIME 60 Tablet 3 Gabapentin 300 MG Oral Capsule [...] by mouth every 6 hours as needed. Ibuprofen 200 MG Oral Capsule Take 1 Capsule by mouth every 4 hours as needed. No current facility-administered medications for this visit. EXAM: BP 133/84 | Pulse 94 | Temp 36.6 C (97.9 F) | Ht 1.803 m (5' 11") | Wt 89.4 kg (197 lb) | BMI 27.48 kg/m | BSA 2.12 m GENERAL: 63 year old male well developed and well nourished in no acute distress SKIN: no rashes, ulcers, or spider angiomata HEENT: normocephalic, sclera clear, pharynx normal NECK: supple, no lymphadenopathy, no masses or thyroid enlargement LUNGS: clear to auscultation anterior and posterior HEART: regular rate & rhythm, no murmurs and no gallops ABDOMEN: normo-active bowel sounds, soft, non-tender, non-distended no masses, no hepatosplenomegaly, no rebound or guarding, no bruits EXTREMITIES: no palmar erythema, no edema, no skin discoloration, no clubbing, no cyanosis NEURO: no lateralizing findings, Sensory/Motor grossly normal IMPRESSION/RECOMMENDATIONS: 63 year old male with Dysphagia, unspecified type (Primary)/Hiatal Hernia/GERD suspect esophageal dysmotility/spasm - FLUORO ESOPHAGRAM ENTIRE - EGD, FLEXIBLE, DIAGNOSTIC w [facility] - ESOPHAGEAL MOTILITY STUDY (Staff message sent to [facility] to arrange for pt) Continue Famotidine 20mg BID but hold for 5 days prior to EGD w [facility] Recheck in GI in June 2024. I will be in touch w pt w results of above testing withfurther recommendations in the interim. If feeling of food being stuck and unable to swallow saliva for more than a few hours -> ED. I spent a total of 60 minutes on the date of service in review of patient's record, and previously obtained information in person and appropriate medical visit, discussion and education of plan, withpatient and/or caregiver, placing orders for tests/referral/procedures as medically necessary and documentation of pertinent clinical information in patient's medical records for their visit today. VEE [facility] Gastroenterology documented in this encounter Nursing Notes * Arlin Magaña CMA - 11/30/2023 3:24 PM EDT Chief Complaint Patient presents with NEW PATIENT Pt ref by Dr Bennett for dysphagia. Pt states he has trouble with liquids and solids. Fm hx of esophageal strictures. documented in this encounter Plan of Treatment Upcoming Encounters Date Type Department Care Team (Late st Contact Info) Description 12/28/2023 1:00 PM EDT Office Visit [facility] [place] [address] Brigette Bennett MD [address] [facility] [address] 01/19/2024 3:00 PM EDT Office Visit Cardiology, [facility] 132 [facility] [place] [address] Lana Sarmiento CRNP 400 [place] [address] Scheduled Orders Name Type Priority Associated Diagnoses Orde r Schedule FLUORO ESOPHAGRAM ENTIRE Medical Imaging Routine Dysphagia, unspecified type Hiatal hernia Gastroesophageal reflux disease without esophagitis Ordered: 11/30/2023 EGD, FLEXIBLE, DIAGNOSTIC Procedures Routine Dysphagia, unspecified type Hiatal hernia Gastroesophageal reflux disease without esophagitis Ordered: 11/30/2023 ESOPHAGEAL MOTILITY STUDY Procedures Routine Dysphagia, unspecified type Hiatal hernia Gastroesophageal reflux disease without esophagitis Ordered: 11/30/2023 ESOPH FUNCT/REFLUX TEST,MUCOSAL PH Procedures Routine Gastroesophageal reflux disease without esophagitis Ordered: 11/30/2023 Scheduled Procedures Name Priority Associated Diagnoses Date/Ti [...] as of this encounter Visit Diagnoses Diagnosis Dysphagia, unspecified type- Primary Hiatal hernia Diaphragmatic hernia without mention of obstruction or gangrene Gastroesophageal reflux disease without esophagitis Esophageal reflux documented in this encounter Care Teams French Teacher Relationship Specialty Start Date End Date Brigette Bennett MD [address] [place] [address] PCP - General Family Medicine 06/05/23 documented as of this encounter
--- OUTSIDE RECORDS SUMMARY | 2024-02-26 23:55 | External Medical Summary | Summary of Care ---
Author Name Unknown Organization [facility] Address [address] [place] [address] Phone [phone] Care Team Providers Care Assistant Principal Name Role Phone Brigette Bennett MD Primary Care Provider [phone] Reason for Visit * Reason Onset Date Comments Appointment 12/15/2023 Esophageal Manom etry Encounter Details Date Type Department Care Team (Late st Contact Info) Description 12/15/2023 Telephone Gastroenterology, [place] [address] [place] [address] Nurse Appointment (Esophageal Manometry) Allergies No known active allergiesdocumented as of this encounter (statuses as of 12/15/2023) Medications Medication Sig Dispensed Refills Start Date [...] 11/28/2023 Active Famotidine 20 MG Oral Tablet (Pepcid)Indications: Gastroesophageal reflux disease, unspecified whether esophagitis present TAKE 1 TABLET BY MOUTH IN THE MORNING AND AT BEDTIME 60 Tablet 12/12/2023 Active documented as of this encounter (statuses as of 12/15/2023) Active Problems Problem Noted Date Diagnosed Date Food insecurity 07/20/2023 Overview: Per [facility] Protocol documented as of this encounter (statuses as of 12/15/2023) Immunizations Name Administration Dates Next Due Seasonal [...] encounter Miscellaneous Notes * Telephone Encounter - Gabriela Li RN - 12/15/2023 2:02 PM EDT Spoke with patient to review esophageal manometry preparation and date. Reviewed with patient that the preparation is NPO after midnight the night before and no use of muscle relaxers or sleeping pills/sedative medications for 24 hours prior. Reviewed procedure with patient. Patient verbalized understanding and any questions were answered at this time. Verified with patient that he uses MyChart and a [employer] message was sent with the above information. documented in this encounter Plan of Treatment Upcoming Encounters Date Type Department Care Team (Latest Contact Info) Description 12/24/2023 12:30 PM EDT Office Visit General Surgery, [facility] 132 [place] [address] Stephon Pollard MD [address] [place] [address] 12/28/2023 1:00 PM EDT Office Visit [facility] 200 [facility] [place] [address] Brigette Bennett MD 200 [facility] [place] [address] 01/19/2024 3:00 PM EDT Office Visit Cardiology, [facility] [address] [place] [place] [address] Lana Sarmiento CRNP [address] [place] [address] 03/22/2024 8:45 AM EDT Hospital Encounter ENDO [facility], Endoscopy [address] [phone] Nedra Adan, DO [facility] [place] [address] 03/22/2024 8:45 AM EDT - 03/22/2024 9:15 AM EDT Surgery ENDO [facility], Endoscopy [address] [phone] Nedra Adan, DO [address] [place] [address] ESOPHAGOGASTRODUODENOSCOPY (EGD), FLEXIBLE, TRANSORAL, DIAGNOSTIC Scheduled Procedures [...] filedocumented as of this encounter Care Teams Assistant Principal Relationship Specialty Start Date End Date Brigette Bennett MD [address] [place] [address] PCP - General Family Medicine 06/05/23 documented as of this encounter
--- OUTSIDE RECORDS SUMMARY | 2024-02-26 23:55 | External Medical Summary | Summary of Care ---
Author Name Unknown Organization [facility] Address [address] [place] [address] Phone [phone] Care Team Providers Care Ocean Transportation Intermediary Name Role Phone Brigette Bennett MD Primary Care Provider Reason for Visit * Reason Comments eRx-Medication Refill Encounter Details Date Type Department Care Team (Late st Contact Info) Description 12/11/2023 Refill Family Practice [facility] [address] [place] [address] Brigette Bennett MD [address] [place] [address] Gastroesophageal reflux disease, unspecified whether esophagitis present Allergies No known active allergiesdocumented as of this encounter (statuses as of 12/12/2023) Medications Medication Sig Dispensed Refills Start Date [...] 11/28/2023 Active Famotidine 20 MG Oral Tablet (Pepcid)Indicatio ns:Gastroesophage al reflux disease, unspecified whether esophagitis present TAKE 1 TABLET BY MOUTH IN THE MORNING AND AT BEDTIME 60 Tablet 12/12/2023 Active Famotidine 20 MG Oral Tablet (Pepcid)Indicatio ns:Gastroesophage al reflux disease, unspecified whether esophagitis present TAKE 1 TABLET BY MOUTH IN THE MORNING AND 1 AT BEDTIME 60 Tablet 3 08/21/2023 4 Discontinued documented as of this encounter (statuses as of 12/12/2023) Active Problems Problem Noted Date Diagnosed Date Food insecurity 07/20/2023 Overview: Per [facility] Protocol documented as of this encounter (statuses as of 12/12/2023) Immunizations Name Administration Dates Next Due Seasonal [...] encounter Miscellaneous Notes * Telephone Encounter - Therese Olson [facility] - 12/12/2023 9:56 AM EDTSigned Prescriptions: Disp Refills Famotidine 20 MG Oral Tablet (Pepcid) 60 Tab*0 Sig: TAKE 1 TABLET BY MOUTH IN THE MORNING AND AT BEDTIMEAuthorizing Provider: Lloyd BENNETT User: RADHA OLSON documented in this encounter Plan of Treatment Upcoming Encounters Date Type Department Care Team (Latest Contact Info) Description 12/24/2023 12:30 PM EDT Office Visit General Surgery, [facility] [address] [place] [address] Stephon Pollard MD [address] [place] [address] 12/28/2023 1:00 PM EDT Office Visit Family Practice [facility] 200 [facility] [place] [address] Brigette Bennett MD [address] [place] [address] 01/19/2024 3:00 PM EDT Office Visit Cardiology, [facility] 132 [facility] [place] [address] Lana Sarmiento CRNP [address] [place] [address] 03/22/2024 8:45 AM EDT Hospital Encounter ENDO [facility], Endoscopy [address] [place] [place] [address] [phone] Nedra Adan, DO [address] [place] [address] 03/22/2024 8:45 AM EDT - 03/22/2024 9:15 AM EDT Surgery ENDO [facility], Endoscopy [address] [phone] Nedra Adan, DO [address] [place] [address] ESOPHAGOGASTRODUODENOSCOPY (EGD), FLEXIBLE, TRANSORAL, DIAGNOSTIC Scheduled Procedures [...] reflux documented in this encounter Care Teams Ocean Transportation Intermediary Relationship Specialty Start Date End Date Brigette Bennett MD [address] [place] [address] PCP - General Family Medicine 06/05/23 documented as of this encounter
--- OUTSIDE RECORDS SUMMARY | 2024-02-26 23:55 | External Medical Summary | Summary of Care ---
Author Name Unknown Organization [facility] Address [address] [place] [address] Phone [phone] Care Team Providers Care Technical Services Coordinator Name Role Phone Brigette Bennett MD Primary Care Provider [phone] Reason for Visit * Reason Comments Consultation * Evaluate & Treat - Unlimited Visits (Within 10 days (routine)) - Authorized Specialty Diagnoses / Procedures Referred By Contact Referred To Contact Cardiac Electrophysiology / Cardiology Diagnoses PSVT (paroxysmal supraventricular tachycardia) (HCC) De Bacon DO [address] [facility] [place] [address] Natasha Carolina DO [address] [facility] [place] [address] Referral ID Status Reason Start Date Expiration Date Visits Requested Visits Authorized [id number] Authorized Specialty Services Required 09/21/[phone] Encounter Details Date Type Department Care Team (Late st Contact Info) Description 11/13/2023 8:45 AM EDT Office Visit Cardiology, [facility] [address] [place] [address] Natasha Carolina DO 400 [facility] [place] [address] SVT (supraventricular tachycardia) (HCC)*; Sinus tachycardia; Other fatigue Allergies No known active allergiesdocumented as of this encounter (statuses as of 11/22/2023) Medications Medication Sig Dispensed Refills Start Date End Date Status Ibuprofen 200 MG Oral Capsule Take 1 Capsule by mouth every 4 hours as needed. 0 Active Acetaminophen 500 MG Oral Tablet (Tylenol Extra Strength) Take 1 Tablet by mouth every 6 hours as needed. 0 Active Atorvastatin Calcium 40 MG Oral Tablet (Lipitor) Take 1 Tablet by mouth in the morning. 90 Tablet 3 06/30/2023 Active Gabapentin 300 MG Oral Capsule (Neurontin) Take 1 Capsule by mouth in the morning and 1 Capsule at noon and 1 Capsule before bedtime. 270 Capsule 3 08/10/2023 Active Famotidine 20 MG Oral Tablet (Pepcid)Indicatio ns:Gastroesophage al reflux disease, unspecified whether esophagitis present TAKE 1 TABLET BY MOUTH IN THE MORNING AND 1 AT BEDTIME 60 Tablet 3 08/21/2023 Active Diclofenac Sodium 50 MG Oral Tablet Delayed Release (Voltaren) TAKE 1 TABLET BY MOUTH IN THE MORNING, 1 TABLET AT NOON, AND 1 TABLET AT BEDTIME 90 Tablet 2 08/28/2023 Active Metoprolol Succinate ER 25 MG Oral Tablet Extended Release 24 Hour (Toprol XL) Take 1 Tablet by mouth in the morning. 34 Tablet 6 09/21/2023 Active DULoxetine HCl 60 MG Oral Capsule Delayed Release Particles (Cymbalta) Take 1 Capsule by mouth in the morning. 60 Capsule 11 11/13/2023 Active DULoxetine HCl 30 MG Oral Capsule Delayed Release Particles (Cymbalta) Take 1 capsule by mouth once daily in the morning 90 Capsule 1 08/28/2023 4 Discontinued documented as of this encounter (statuses as of 11/22/2023) Active Problems Problem Noted Date Diagnosed Date Food insecurity 07/20/2023 Overview: Per [facility] Protocol documented as of this encounter (statuses as of 11/22/2023) Immunizations Name Administration Dates Next Due Seasonal [...] Sign Reading Time Taken Comments Blood Pressure 128/82 11/13/2023 9:03 AM EDT Pulse 68 11/13/2023 9:03 AM EDT Temperature - - Respiratory Rate 16 11/13/2023 9:03 AM EDT Oxygen Saturation - - Inhaled Oxygen Concentration - - Weight 89.8 kg (198 lb) 11/13/2023 9:03 AM EDT Height - - Body Mass Index 29.24 07/16/2023 10:18 AM EST documented in this encounter Patient Instructions * Patient Instructions* Natasha Carolina DO - 11/13/2023 9:48 AM EDT Try taking higher dose of cymbalta daily 60mg Try decreasing the gabapentin to 1-2 tabs at bed time rather than 3x a day For now continue the metoprolol 25mg daily (either in the morning or bedtime) and you could always take an extra tab daily as needed for a bad day of faster heart rates See if the change in the gabapentin improves some of your fatigue If so yeah:)) Your follow up appointment might be with an Lana del cid she is my nurse practitioner seeing myfollow ups but as long as I am not in the OR or off for the day I will pop in to see you as well documented in this encounter Progress Notes * Natasha Carolina, DO - 11/13/2023 9:21 AM EDT Subjective Keshav Varghese is a 63 year old male. Chief Complaint Patient presents with Consultation Pt referred to EP due to SVT Referring Provider: Dr. Bacon Cardiac Problems: SVT HLD HPI: Pt started noticing sudden onset of palpitations since the fall time for about 6 months now; he gets associated SOB, some chest discomfort, duration of an episode minutes to rare but at times longer longest was in Dec was for an hour. Frequency slightly better since being on metoprolol; but he getsit daily with varying degree of severity. He has been on the metoprolol for about a month He wore a zio patch monitor and tells me he did feel symptoms when wearing it but he did not reportsymptoms on the monitor He reports swallowing problems and often has vomits up some of the food he has eaten-this seems to run in the family-his father and sister had/have similar issues; his sister just had esophageal dilatation but he has not. Daily warm green tea at night decaf Rare caffeine otherwise He feels he might need to drink more than he does He has occasional shingle outbreak on his nose PMH: Patient Active Problem List Diagnosis Code Food insecurity Z59.41 Current Outpatient Medications Medication Sig Dispense Refill Ibuprofen 200 MG Oral Capsule Take 1 Capsule by mouth every 4 hours as needed. Acetaminophen 500 MG Oral Tablet (Tylenol Extra Strength) Take 1 Tablet by mouth every 6 hours as needed. Atorvastatin Calcium 40 MG Oral Tablet (Lipitor) Take 1 Tablet by mouth in the morning. 90 Tablet 3 Gabapentin 300 MG Oral Capsule (Neurontin) Take 1 Capsule by mouth in the morning and 1 Capsule at noon and 1 Capsule before bedtime. 270 Capsule 3 Famotidine 20 MG Oral Tablet (Pepcid) TAKE 1 TABLET BY MOUTH IN THE MORNING AND 1 AT BEDTIME 60 Tablet 3 DULoxetine HCl 30 MG Oral Capsule Delayed Release Particles (Cymbalta) Take 1 capsule by mouth oncedaily in the morning 90 Capsule 1 Diclofenac Sodium 50 MG Oral Tablet Delayed Release (Voltaren) TAKE 1 TABLET BY MOUTH IN THE MORNING, 1 TABLET AT NOON, AND 1 TABLET AT BEDTIME 90 Tablet 2 Metoprolol Succinate ER 25 MG Oral Tablet Extended Release 24 Hour (Toprol XL) Take 1 Tablet by mouth in the morning. 34 Tablet 6 No current facility-administered medications for this visit. No past medical history on file. Past Surgical History: Procedure Laterality Date COLONOSCOPY, DIAGNOSTIC (RECTUM) 06/12/2023 hemorrhoids/biopsies show hypertophied anal papillae/COLONOSCOPY FLEXIBLE PROXIMAL DIAGNOSTIC performed by Lana Braun DO at ENDOSCOPY [facility] EGD, FLEXIBLE, DIAGNOSTIC 06/12/2023 normal/ESOPHAGOGASTRODUODENOSCOPY (EGD), FLEXIBLE, TRANSORAL, DIAGNOSTIC performed by Lana Braun DO at ENDOSCOPY [facility] SIGMOIDOSCOPY, DIAGNOSTIC N/A 07/27/2023 one 25mm polyp anorectum area/hemorrhoids/biopsies show cellular fibroepithelial polyp/recall 1 year/SIGMOIDOSCOPY FLEXIBLE DIAGNOSTIC performed by Sonido Fagan MD at OR [facility] Review of patient's allergies indicates: No Known Allergies Family History Problem Relation Age of Onset Heart disease Father Stroke Grandmother (Maternal) Family Status Relation Status Fa Alive MGMA Social History Socioeconomic History Marital status: Single Spouse name: Not on file Number of children: Not on file Years of education: Not on file Highest education level: Not on file Occupational History Not on file Tobacco Use Smoking status: Never Smokeless tobacco: Never Vaping Use Vaping Use: Never used Substance and Sexual Activity Alcohol use: Yes Comment: rarely Drug use: Never Sexual activity: Not on file Other Topics Concern Not on file Social History Narrative Not on file Social Determinants of Health Financial Resource Strain: Not on file Food Insecurity: Food Insecurity Present (06/24/2023) Hunger Vital Sign Worried About Running Out of Food in the Last Year: Sometimes true Ran Out of Food in the Last Year: Often true Transportation Needs: Not on file Physical Activity: Not on file Stress: Not on file Social Connections: Not on file Intimate Partner Violence: Not on file Housing Stability: Not on file Review of Systems Constitutional: Positive for fatigue. Negative for activity change, chills, fever and unexpected weight change. HENT: Negative for postnasal drip, rhinorrhea and sinus pressure. Eyes: Negative for visual disturbance. +glasses Respiratory: Positive for shortness of breath. Cardiovascular: Positive for chest pain and palpitations. Negative for leg swelling. Gastrointestinal: Positive for nausea and vomiting. Negative for blood in stool, constipation and diarrhea. Genitourinary: Negative for dysuria and hematuria. Musculoskeletal: Negative for gait problem. Skin: Negative for rash. Neurological: Positive for numbness. Negative for dizziness, syncope and light-headedness. Objective BP 128/82 | Pulse 68 | Resp 16 | Wt 89.8 kg (198 lb) | BMI 29.24 kg/m | BSA 2.09 m Physical Exam Vitals and nursing note reviewed. Constitutional: General: He is awake. Appearance: Normal appearance. He is well-developed. HENT: Head: Normocephalic and atraumatic. Eyes: General: No scleral icterus. Extraocular Movements: Extraocular movements intact. Neck: Vascular: Normal carotid pulses. No carotid bruit or JVD. Cardiovascular: Rate and Rhythm: Normal rate and regular rhythm. Pulses: Carotid pulses are 2+ on the right side and 2+ on the left side. Radial pulses are 2+ on the right side and 2+ on the left side. Posterior tibial pulses are 2+ on the right side and 2+ on the left side. Heart sounds: S1 normal and S2 normal. No murmur heard. Pulmonary: Effort: Pulmonary effort is normal. Breath sounds: Normal breath sounds. No decreased breath sounds, wheezing, rhonchi or rales. Abdominal: Palpations: Abdomen is soft. Musculoskeletal: Cervical back: Neck supple. Right lower leg: No edema. Left lower leg: No edema. Skin: General: Skin is warm and dry. Neurological: General: No focal deficit present. Mental Status: He is alert and oriented to person, place, and time. Psychiatric: Attention and Perception: Attention normal. Mood and Affect: Mood normal. Speech: Speech normal. Behavior: Behavior normal. Behavior is cooperative. Thought Content: Thought content normal. Cognition and Memory: Cognition normal. Judgment: Judgment normal. RESULTS: Exercise Echo Stress: 08/21/2023: The echocardiographic images were of excellent technical quality. There is no echocardiographic evidence of inducible ischemia. Equivocal symptoms and equivocal EKG changes observed as described below. Sinus tachycardia noted at rest/baseline, heart rate 133 beats per minute prior to initiating exercise. The exercise capacity is below average having completed 2 minutes 40 seconds on a Jone protocol, 4.6 METs. No significant valvular heart disease is present on the resting study. EC06/05/2023: ST 122bpm Zio Patch: 06/26/2023: CONCLUSIONS: Duration: 11 days, 13 hours. Patient had a min HR of 48 bpm, max HR of 231 bpm, and avg HR of 84 bpm. Predominant underlying rhythm was Sinus Rhythm. 16 Supraventricular Tachycardia runs occurred, the run with the fastest interval lasting 7.7 secs with a max rate of 231 bpm, the longest lasting 1 hour 3 mins with an avg rate of 169 bpm. Isolated SVEs were rare (<1.0%), SVE Couplets were rare (<1.0%), and SVE Triplets were rare (<1.0%). Isolated VEs were rare (<1.0%), VE Couplets were rare (<1.0%), and no VE Triplets were present. MD notification criteria for Supraventricular Tachycardia met - report posted prior to notification per account request (BCR). 16 runs of supraventricular tachycardia recorded including a sustained episode lasting 1 hour and 3minutes. Consider cardiology consultation for further evaluation. No symptoms reported. Lab Work Reviewed: Component Latest Ref Rng 06/05/2023 BUN 6 - 20 mg/dL 15 Creatinine 0.6 - 1.2 mg/dL 1.2 Estimated Glomerular Filtration Rate >=60 mL/min 70 Sodium 135 - 146 mmol/L 143 Potassium 3.5 - 5.1 mmol/L 4.3 Chloride 98 - 107 mmol/L 105 CO2 22 - 32 mmol/L 28 Anion Gap 7 - 15 mmol/L 10 Glucose 70 - 120 mg/dL 95 Albumin 3.8 - 5.0 g/dL 4.4 AST 10 - 50 U/L 43 Alkaline Phosphatase 35 - 130 U/L 62 Bilirubin, Total <=1.2 mg/dL 0.7 Calcium 8.4 - 10.2 mg/dL 9.9 Protein 6.0 - 8.3 g/dL 7.8 ALT 10 - 50 U/L 127 (H) WBC 4.00 - 10.80 K/uL 7.39 Neutrophils % 40.0 - 75.0 % 58.8 Lymphocytes % 18.0 - 42.0 % 26.7 Monocytes % 1.0 - 11.0 % 12.7 (H) Eosinophils % 0.0 - 6.0 % 1.4 Basophils % 0.0 - 2.0 % 0.4 Absolute Neutrophils 1.80 - 7.70 K/uL 4.35 Absolute Lymphocytes 1.00 - 4.80 K/ul 1.97 Absolute Monocytes 0.00 - 1.10 K/uL 0.94 Absolute Eosinophils 0.00 - 0.70 K/uL 0.10 Absolute Basophils 0.00 - 0.20 K/uL 0.03 WBC 4.00 - 10.80 K/uL 7.39 RBC 4.50 - 5.25 M/uL 5.52 HGB 14.0 - 16.8 g/dL 17.3 (H) HCT 40.0 - 48.4 % 51.4 (H) MCV 82.0 - 99.5 fL 93.1 MCH 27.0 - 34.0 pg 31.3 MCHC 32.0 - 36.0 g/dL 33.7 RDW 11.5 - 15.5 % 13.0 PLT 140 - 400 K/uL 293 MPV 6.6 - 11.1 fL 8.6 Triglycerides <=174 mg/dL 229 (H) Cholesterol <200 mg/dL 219 (H) HDL Cholesterol >39 mg/dL 31 (L) Non-HDL Cholesterol <=159 mg/dL 188 (H) LDL Cholesterol <=129 mg/dL 142 (H) TSH 0.27 - 4.20 uIU/mL 1.24 ASSESSMENT: SVT ST HLD Fatigue PLAN: -I reviewed the cardiac conduction system with the patient and how it relates to his condition of SVT -Svt seems to be possibly AT but he does have underlying faster heart rates so could be all ST -given the fatigue I think it is multfactorial we discussed about talking with his PCP to possibly increase cymbalta to 60mg and decrease the gabapentin to maybe night time only with 1 to 2 tabs-and see if this improves his fatigue -We could continue current dose of toprol or take an extra tab as needed vs changing it to verapamil -He will continue the current dose of toprol and take an extra tab as needed for those bad days -I do not think an EPS and possible ablation at this juncture -EP f/u 2 months Natasha Carolina DO documented in this encounter Nursing Notes * Juliette Sanders LPN - 11/13/2023 9:03 AM EDT Examination Room: 11 Name: Keshav Varghese Date of : 1960 Reason for Visit: New pt Problems/Concerns: Here to discuss SVT/Symptoms Interim Hosp(s): denies Chest Pain/SOB: denies MyChart Discussed: ALREADY ACTIVE Patient was instructed to not get up on the exam table until directed and assisted by their provider; patient is to remain seated in the chair/ wheelchair/ exam table for fall prevention and safety reasons. Patient is aware staff will assist stepping down off exam table with personnel. documented in this encounter Plan of Treatment Upcoming Encounters Date Type Department Care Team (Late st Contact Info) Description 11/30/2023 3:30 PM EDT Office Visit Gastroenterology, [facility] 132 [facility] [place] [address] Barb Kc CRNP 132 [facility] [place] [address] 12/28/2023 1:00 PM EDT Office Visit Family Practice [facility] 200 [facility] [place] [address] Brigette Bennett MD 200 [facility] [place] [address] 01/19/2024 3:00 PM EDT Office Visit Cardiology, [facility] [place] [address] Lana Sarmiento CRNP [address] [place] [address] Scheduled Procedures Name Priority Associated Diagnoses Date/Ti [...] as of this encounter Visit Diagnoses Diagnosis SVT (supraventricular tachycardia) (HCC)- Primary Other specified cardiac dysrhythmias Sinus tachycardia Other specified cardiac dysrhythmias Other fatigue documented in this encounter Care Teams Technical Services Coordinator Relationship Specialty Start Date End Date Brigette Bennett MD 200 [place] [address] PCP - General Family Medicine 06/05/23 documented as of this encounter"
--- OUTSIDE RECORDS SUMMARY | 2024-02-26 23:55 | External Medical Summary | Summary of Care ---
Author Name Unknown Organization [facility] Address [address] [place] [address] Phone [phone] Care Team Providers Care Cartographic Drafter Name Role Phone Brigette Bennett MD Primary Care Provider [phone] Reason for Visit * Reason Comments eRx-Medication Refill Encounter Details Date Type Department Care Team (Late st Contact Info) Description 11/27/2023 Refill Family Practice [facility] 200 [facility] [place] [address] Brigette Bennett MD 200 [place] [address] Allergies No known active allergiesdocumented as of this encounter (statuses as of 11/28/2023) Medications Medication Sig Dispensed Refills Start Date [...] AND BEDTIME 90 Tablet 2 11/28/2023 Active Diclofenac Sodium 50 MG Oral Tablet Delayed Release (Voltaren) TAKE 1 TABLET BY MOUTH IN THE MORNING, 1 TABLET AT NOON, AND 1 TABLET AT BEDTIME 90 Tablet 2 08/28/2023 11/28/2023 Discontinued (Refill) documented as of this encounter (statuses as of 11/28/2023) Active Problems Problem Noted Date Diagnosed Date Food insecurity 07/20/2023 Overview: Per [facility] Protocol documented as of this encounter (statuses as of 11/28/2023) Immunizations Name Administration Dates Next Due Seasonal [...] encounter Miscellaneous Notes * Telephone Encounter - Brigette Bennett MD - 11/28/2023 12:16 PM EDTSigned Prescriptions: Disp Refills Diclofenac Sodium 50 MG Oral Tablet Delaye*90 Tab*2 Sig: TAKE 1 TABLET BY MOUTH THREE TIMES DAILY MORNING NOON AND BEDTIME Authorizing Provider: BRIGETTE BENNETT * Telephone Encounter - Adalgisa Hart RP - 11/28/2023 11:56 AM EDTPending Prescriptions: Disp Refills Diclofenac Sodium 50 MG Oral Tablet Delaye*90 Tab*2 Sig: TAKE 1 TABLET BY MOUTH THREE TIMES DAILY MORNING NOON AND BEDTIME * Telephone Encounter - Adalgisa Hart RP - 11/28/2023 11:56 AM EDT Unable to authorize medication refills for pended medication(s) at this time. Part of the protocol criteria used for refill authorization was not satisfied. Patient needs ALT within normal limits. Please approve if appropriate. ALT Date Value Ref Range Status 06/05/2023 127 (H) 10 - 50 U/L Final Thanks, Adalgisa Hart, PharmD Clinical Pharmacist [facility] ([facility]) (formerly [facility]) [phone] 11/28/2023 11:56 AM * Telephone Encounter - Adalgisa Hart RPh - 11/28/2023 11:55 AM EDT Pending Prescriptions: Disp Refills Diclofenac Sodium 50 MG Oral Tablet Delay*90 Tab*2 Sig: TAKE 1 TABLET BY MOUTH THREE TIMES DAILY MORNING NOON AND BEDTIME Last Visit: 06/26/2023 (in office), Visit date not found (telemedicine) Next Visit: 12/28/2023 If no future appointments scheduled, and last appointment is greater than a year ago, please schedule patient for a follow-up appointment Last date the medication was ordered: 08/28/23 [facility] [address] [place] [address] Is this request for a controlled substance? No Urine Drug Screen:No results found for this or any previous visit. Patient Phone Numbers Labs: Lab Results Component Value Date/Time CREAT 1.2 06/05/2023 02:59 PM POTASSIUM 4.3 06/05/2023 02:59 PM TSH 1.24 06/05/2023 02:59 PM LDLCALC 142 (H) 06/05/2023 02:59 PM ALT 127 (H) 06/05/2023 02:59 PM documented in this encounter Plan of Treatment Upcoming Encounters Date Type Department Care Team (Late st Contact Info) Description 11/30/2023 3:30 PM EDT Office Visit Gastroenterology, [facility] [address] [place] [address] Barb Kc CRNP [address] [place] [address] 12/28/2023 1:00 PM EDT Office Visit [facility] [place] [address] [place] [address] Brigette Bennett MD [address] [place] [address] 01/19/2024 3:00 PM EDT Office Visit Cardiology, [facility] [address] [place] [address] Lana Sarmiento CRNP [address] [place] [id number] Scheduled Procedures Name Priority Associated Diagnoses Date/Ti [...] filedocumented as of this encounter Care Teams Cartographic Drafter Relationship Specialty Start Date End Date Brigette Bennett MD [address] [place] [address] PCP - General Family Medicine 06/05/23 documented as of this encounter
--- OUTSIDE RECORDS SUMMARY | 2024-02-26 23:55 | External Medical Summary ---
Author Name Unknown Address Unknown Organization [id number]:[facility] [place] [address] Laboratory Report Ordering Provider Test Date Status EDD PERDOMO 12/28/2023 14:23:18 Final Observation Date Value Abnormality Reference (Units ) Status Albumin 12/28/2023 14:23:18 4.5 3.8-5.0 (g/dL) Final AST (Aspartate aminotransferase) 12/28/2023 14:23:18 55 Above high normal 10-50 (U/L) Final Alk Phos 12/28/2023 14:23:18 72 35-130 (U/L) Final ALT (Alanine aminotransferase) 12/28/2023 14:23:18 182 Above high normal 10-50 (U/L) Final Bilirubin, Total 12/28/2023 14:23:18 0.6 <=1.2 (mg/dL) Final Bilirubin, Direct 12/28/2023 14:23:18 <0.2 0.0-0.3 (mg/dL) Final Protein 12/28/2023 14:23:18 7.0 6.0-8.3 (g/dL) Final Performing Location [facility] [place] [address]
--- OUTSIDE RECORDS SUMMARY | 2024-02-26 23:55 | External Medical Summary | Summary of Care ---
Author Name Unknown Organization [facility] Address [address] [place] [address] Phone [phone] Care Team Providers Care Tube Test Technician Name Role Phone Brigette Bennett MD Primary Care Provider [phone] Reason for Visit * Reason Comments Outpatient Testing Encounter Details Date Type Department Care Team (Late st Contact Info) Description 12/28/2023 2:20 PM EDT Laboratory Laboratory [facility] [place] [address] [place] [id number] [place], [facility] Sc[facility] [place], [place] [address] Onychomycosis Allergies No known active allergiesdocumented as of this encounter (statuses as of 12/28/2023) Medications Medication Sig Dispensed Refills Start Date [...] as of this encounter (statuses as of 12/28/2023) Active Problems Problem Noted Date Diagnosed Date Hiatal hernia 12/28/2023 Food insecurity 07/20/2023 Overview: Per [facility] Protocol documented as of this encounter (statuses as of 12/28/2023) Immunizations Name Administration Dates Next Due Seasonal [...] Department Care Team (Latest Contact Info) Description 12/29/2023 10:45 AM EDT Imaging Radiology [facility] [address] [facility] [place] [address] 01/06/2024 9:00 AM EDT Nurse Only Gastroenterology , [facility] [address] [place] [address] Person, Nurse Gastroenterol ogy [address] [place] [address] 01/19/2024 3:00 PM EDT Office Visit Cardiology, [facility] [address] [facility] [place] [address] Lana Sarimento CRNP [address] [place] [address] 01/21/2024 12:30 PM EDT Office Visit General Surgery, [facility] [address] [facility] [place] [address] Stephon Pollard MD [address] [place] [address] 03/22/2024 8:45 AM EDT Hospital Encounter [facility], Endoscopy [address] [place] [phone] Nedra Adan, DO [address] [place] [address] 03/22/2024 8:45 AM EDT - 03/22/2024 9:15 AM EDT Surgery [facility]O [facility], Endoscopy [address] [id number] Nedra Adan, DO [address] [place] [address] ESOPHAGOGASTRODUODENOSCOPY (EGD), FLEXIBLE, TRANSORAL, DIAGNOSTIC 04/29/2024 1:00 PM EDT Office Visit Family Practice [facility] [address] [place], [place] [address] Brigette Bennett MD [address] [place] [address] [address] Pending Results Name Type Priority Associated Diagnoses Date /Time HEPATIC FUNCTION PANEL Lab Routine Onychomycosis 12/28/2023 2:23 PM EDT Scheduled Procedures Name Priority Associated [...] Visit Diagnoses Diagnosis Onychomycosis Dermatophytosis of nail GERD (gastroesophageal reflux disease) Esophageal reflux documented in this encounter Care Teams Tube Test Technician Relationship Specialty Start Date End Date Brigette Bennett MD [address] [place] [address] PCP - General Family Medicine 06/05/23 documented as of this encounter
--- OUTSIDE RECORDS SUMMARY | 2024-02-26 23:55 | External Medical Summary ---
Author Name Unknown Address Unknown Organization K01:[facility] [address] [place] [address] Laboratory Report Ordering Provider Test Date Status EDD PERDOMO 12/29/2023 12:10:25 Final Observation Date Value Abnormality Reference (Units) Status Hepatitis B virus surface Ab [Units/volume] in Serum or Plasma by Immunoassay 12/29/2023 12:10:25 <3.5 (mIU/mL) Final Hepatitis B virus surface Ab [Presence] in Serum by Immunoassay 12/29/2023 12:10:25 Negative Final HEPATITIS B SURFACE ANTIBODY, INTERPRETATION 12/29/2023 12:10:25 NOT immune to Hepatitis B Virus Final POSITIVE: >=11.5 mIU/mL
INDETERMINATE: 8.5-<11.5 mIU/mL
NEGATIVE: <8.5 mIU/mL Performing Location [facility] [place] [facility][note 3] [place] [address]
--- OUTSIDE RECORDS SUMMARY | 2024-02-26 23:55 | External Medical Summary | Summary of Care ---
Author Name Unknown Organization [facility] Address [address] [place] [address] Phone [phone] Care Team Providers Care Toll Testboard Worker Name Role Phone Brigette Bennett MD Primary Care Provider Reason for Referral * Precert (Within 10 days (routine)) - Authorized Specialty Diagnoses / Procedures Referred By Jose R coello Referred To Contact Diagnoses Dysphagia, unspecified type Hiatal hernia Gastroesophageal reflux disease without esophagitis Procedures ESOPHAGEAL MOTILITY STUDY Barb Kc CRNP [address] [place] [address] Referral ID Status Reason Start Date Expiration Date V isits Requested Visits Authorized [id number] Authorized 11/30/2023 1 1 Reason for Visit [...] unspecified type Brigette Bennett MD [address] [place] [address] Referral ID Status Reason Start Date Expiration Date Visits Requested Visits Authorized [id number] Authorized Specialty Services Required 11/19/[phone] Encounter Details Date Type Department Care Team (Late st Contact Info) Description 11/30/2023 3:30 PM EDT Office Visit Gastroenterology, [facility] [address] [place] [address] Barb Kc CRNP [address] [place] [address] Dysphagia, unspecified type*; Hiatal hernia; Gastroesophageal reflux [...] for relux) - ESOPHAGEAL MOTILITY STUDY in [place] (small cathetor down the nose to the [...] PM EDT Consult requested by Ref: BRIGETTE BENNETT[[id number]] [address] [place] [address] (office) [phone] (fax) CC: Dysphagia HPI: 63 year old [...] 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 Fam hx: father, cousins, sister have needed [...] performed by Lana Braun DO at ENDOSCOPY [facility] EGD, FLEXIBLE, DIAGNOSTIC 06/12/2023 normal/ESOPHAGOGASTRODUODENOSCOPY (EGD), FLEXIBLE, TRANSORAL, DIAGNOSTIC performed by Lana Braun DO at ENDOSCOPY [facility] SIGMOIDOSCOPY, DIAGNOSTIC N/A 07/27/2023 one 25mm polyp anorectum area/hemorrhoids/biopsies show cellular fibroepithelial polyp/recall 1 year/SIGMOIDOSCOPY FLEXIBLE DIAGNOSTIC performed by Sonido Fagan MD at OR [facility] Social History Socioeconomic History Marital status: Single [...] DIAGNOSTIC w CARR - ESOPHAGEAL MOTILITY STUDY Continue Famotidine 20mg BID but hold for [...] records for their visit today. [facility] documented in this encounter Nursing Notes [...] Description 12/28/2023 1:00 PM EDT Office Visit [facility] [address] [facility] [place] [address] Brigette Bennett MD [address] [facility] [place] [address] 01/19/2024 3:00 PM EDT Office Visit Cardiology, [facility] [address] [facility] [place] [address] Lana Sarmiento CRNP [address] [facility] [place] [address] Scheduled Orders Name Type Priority Associated Diagnoses [...] reflux documented in this encounter Care Teams Toll Testboard Worker Relationship Specialty Start Date End Date Brigette Bennett MD [address] [facility] [place] [address] PCP - General Family Medicine 06/05/23 documented as of this encounter
--- OUTSIDE RECORDS SUMMARY | 2024-02-26 23:55 | External Medical Summary | Summary of Care ---
Author Name Unknown Organization [facility] Address [address] [place] [address] Phone [phone] Care Team Providers Care Air Value Tester Name Role Phone Brigette Bennett MD Primary Care Provider [phone] Reason for Referral * Evaluate & Treat - Unlimited Visits (Within 10 days (routine)) - Authorized Specialty Diagnoses / Procedures Referred By Contact Referred To Contact Cardiac Electrophysiology / Cardiology Diagnoses PSVT (paroxysmal supraventricular tachycardia) De Bacon DO [address] [place] [address] Natasha Carolina DO [address] [place] [address] Referral ID Status Reason Start Date Expiration Date Visits Requested Visits Authorized [id number] Authorized Specialty Services Required 09/21/[phone] Question Answer Referral Priority Within 10 days (routine) Where should this appointment be scheduled? Leanne Comments PSVT Reason for Visit * Reason Comments NEW PATIENT Occasional L-sided C P, comes and goes, and often related to laying on L side. Worsening SOB with inclines, steps, talking. Intermittent palpitations, usually after eating. Reports issues with swallowing and GERD, sometimes has to vomit to "clear" esophagus. Reports sister and niece with similar GI issues. * Evaluate & Treat - Unlimited Visits (Within 30 days (routine)) - Pending Review Specialty Diagnoses / Procedures Referred By Contact Referred To Contact Cardiovascular Medicine / Cardiology Diagnoses SVT (supraventricular tachycardia) Brigette Bennett MD [address] [facility] [place] [address] Referral ID Status Reason Start Date Expiration Date Visits Requested Visits Authorized [id number] Pending Review Specialty Services Required 07/16/[phone] Encounter Details Date Type Department Care Team (Latest Contact Info) Description 09/21/2023 11:00 AM EDT Office Visit Cardiology, [facility] [address] [place] [address] De Bacon DO [address] [place] [address] PSVT (paroxysmal supraventricular tachycardia)*; SOB (shortness of breath) Allergies No known active allergiesdocumented as of this encounter (statuses as of 09/21/2023) Medications Medication Sig Dispensed Refills Start Date [...] AT BEDTIME 60 Tablet 3 08/21/2023 Active DULoxetine HCl 30 MG Oral Capsule Delayed Release Particles (Cymbalta) Take 1 capsule by mouth once daily in the morning 90 Capsule 1 08/28/2023 Active Diclofenac Sodium 50 MG Oral Tablet Delayed Release (Voltaren) TAKE 1 TABLET BY MOUTH IN THE MORNING, 1 TABLET AT NOON, AND 1 TABLET AT BEDTIME 90 Tablet 2 08/28/2023 Active Metoprolol Succinate ER 25 MG Oral Tablet Extended Release 24 Hour (Toprol XL) Take 1 Tablet by mouth in the morning. 34 Tablet 6 09/21/2023 Active documented as of this encounter (statuses as of 09/21/2023) Active Problems Problem Noted Date Diagnosed Date Food insecurity 07/20/2023 Overview: Per [facility] Protocol documented as of this encounter (statuses as of 09/21/2023) Immunizations Name Administration Dates Next Due Seasonal Influenza Virus Vac cine, Unspecified Formulation 05/29/2023 Seasonal Influenza, Quadrivalent, No Preserve, I M 03/15/2020 TDAP (age 11 and older)(Adacel) 04/05/2020 Zoster Vaccine Recombinant (Shingrix) 03/31/2020 documented as of this encounter Social History Tobacco Use Types Packs/Day Years Used Date Smoking Tobacco: Never Smokeless Tobacco: Never Tobacco Cessation:Counseling Given: Not [...] Sign Reading Time Taken Comments Blood Pressure 136/88 09/21/2023 10:59 AM EDT Pulse 78 09/21/2023 10:59 AM EDT Temperature - - Respiratory Rate 16 09/21/2023 10:59 AM EDT Oxygen Saturation - - Inhaled Oxygen Concentration - - Weight 89.4 kg (197 lb 3.2 oz) 09/21/2023 10:59 AM EDT Height - - Body Mass Index 29.12 07/16/2023 10:18 AM EST documented in this encounter Progress Notes * De Bacon DO - 09/21/2023 11:06 AM EDT Cardiology Consultation Reason for consult: Supraventricular tachycardia Referring physician: Dr. Brigette Bennett History of Present Illness: 63 year old male presents for evaluation of abnormal Zio monitor noted below. Sixteen runs of supraventricular tachycardia recorded. The longest episode lasting 1 hour and3 minutes. Symptoms have improved somewhat over the past 2 months. He was not prescribed any AV sagar blocking agents. Notes dyspnea on exertion primarily when climbing stairs. Exercise stress echo performed without evidence of inducible ischemia, however, significantly elevated resting heart rate (sinus tachycardia) as well as a accelerated heart rate response to exercise noted. Denies orthopnea, PND, or lower extremity edema. Palpitations occur on a weekly basis without associated lightheadedness, dizziness, syncope, or near syncope. Denies exertional chest discomfort. ECG 06/05/2023: Sinus tachycardia, possible left atrial enlargement Cardiac Studies: Exercise stress echo report August 21, 2023: The echocardiographic images were of excellent technical [...] disease is present on the resting study. ZIO monitor (rhythm strips personally reviewed) 07/16/2023: Patient had a min HR of 48 [...] 1 hour and 3minutes. Consider cardiology consultation fo further evaluation. No symptoms reported. Past Medical History: Patient Active Problem List Diagnosis Code Food insecurity Z59.41 Past Surgical History: Procedure Laterality Date COLONOSCOPY, DIAGNOSTIC (RECTUM) 06/12/2023 hemorrhoids/biopsies show hypertophied anal papillae/COLONOSCOPY FLEXIBLE PROXIMAL DIAGNOSTIC performed by Lana Braun DO at ENDOSCOPY [facility] EGD, FLEXIBLE, DIAGNOSTIC 06/12/2023 normal/ESOPHAGOGASTRODUODENOSCOPY (EGD), FLEXIBLE, TRANSORAL, DIAGNOSTIC performed by Lana Braun DO at ENDOSCOPY [facility] SIGMOIDOSCOPY, DIAGNOSTIC N/A 07/27/2023 one 25mm polyp anorectum area/hemorrhoids/biopsies show cellular fibroepithelial polyp/recall 1 year/SIGMOIDOSCOPY FLEXIBLE DIAGNOSTIC performed by Sonido Fagan MD at OR [facility] Family History: Father living in his 90s. Grandfather lived to [facility]. Denies family history of premature coronary disease or sudden cardiac . Family History Problem Relation Age of Onset Heart disease Father Stroke Grandmother (Maternal) Family Status Relation Status Fa Alive MGMA Social History: Lifelong nonsmoker. Recently retired from working at [employer]. Social History Socioeconomic History Marital status: Single [...] on file Housing Stability: Not on file Social History Social History Narrative Not on file ROS: All others negative other than those noted in the HPI. Review of patient's allergies indicates: No Known Allergies Current Outpatient Medications Medication Sig Dispense Refill [...] 1 TABLET AT BEDTIME 90 Tablet 2 No current facility-administered medications for this visit. OBJECTIVE/PHYSICAL EXAMINATION: BP 136/88 (BP Site: Left Arm, BP Position: Sitting, BP Cuff Size: Large) | Pulse 78 | Resp 16 | Wt 89.4 kg (197 lb 3.2 oz) | BMI 29.12 kg/m | BSA 2.09 m General: NAD, AAO x3, well nourished. HEENT: Normocephalic. Atraumatic. Conjunctiva pink, no scleral icterus. No carotid bruits, the carotid upstrokes are brisk. No JVD. No HJR Heart: Regular normal S-1 and S-2 no S-3 or S-4 gallop. No murmurs or rubs appreciated. PMI is not displaced. No RV heave.Lungs: Clear bilateral without rales , rhonchi, or wheeze. Abdomen: Normal bowel sounds. Soft. Nontender. No masses or organomegaly. No abdominal bruits. Extremities: No clubbing, cyanosis, or edema.Pulses: radial=2/4, Dorsalis pedis =2/4, posterior tibial=2/4. Neuro: No focal deficits. IMPRESSION: 1. Paroxysmal supraventricular tachycardia -mechanism not well defined per Zio 2. Sinus tachycardia with accelerated heart rate response to exercise 3. Borderline elevated blood pressure with a situational component 4. Dyslipidemia - tolerating high-intensity statin therapy RECOMMENDATIONS/PLAN: Electrophysiology referral op Results of Zio monitor and exercise stress echo reviewed. Recommend addition of beta-josh therapy, Toprol-XL 25 mg daily. Consider titration to 50 mg daily pending clinical response. Patient agreeable to electrophysiology consultation. Appropriate use of Valsalva maneuver reviewed. Instructed to maintain adequate hydration and electrolyte replacement. Discontinue all caffeine intake at this time. Thank you for allowing me to participate in the care of your patient. Follow Up: Return in about 6 weeks (around 11/02/2023). De Bacon DO, FACC Associate Cardiology - [facility] Foster documented in this encounter Nursing Notes * Gaby Ritter CMA - 09/21/2023 10:58 AM EDT Chief Complaint Patient presents with NEW PATIENT Occasional L-sided CP, comes and goes, and often related to laying on L side. Worsening SOB with inclines, steps, talking. Intermittent palpitations, usually after eating. Reports issues with swallowing and GERD, sometimes has to vomit to "clear" esophagus. Reports sister and niece with similar GI issues. Examination Room: 11 Name: Keshav Varghese Date of : (1960). Reason for Visit: New patient Interim Hospitalization(s): none Problems/Concerns: see chief complaint Chest Pain/SOB: see chief complaint [facility] Discussed: Not applicable [...] 11/13/2023 8:45 AM EDT [facility] [address] [facility] [place] [address] Natasha Carolina DO [address] [place], [place] [address], [place] [address] 12/28/2023 1:00 PM EDT Office Visit Family Practice [facility] [address] [facility] [place] [address] Brigette Bennett MD 200 [facility] [place] [address] Scheduled Procedures Name Priority Associated Diagnoses Date/Ti me COLONOSCOPY FLEXIBLE PROXIMA L DIAGNOSTIC Recall History of colonic polyps Scheduled Referrals Name Type Priority Associated Diagnoses Orde r Schedule ELECTROPHYSIOLOGY REFERRAL OP Referral Within 10 days (routine) PSVT (paroxysmal supraventricular tachycardia) Ordered: 09/21/2023 Health Maintenance Due Date Last Done Comments Depression Screening 1970 HIV Screening 1973 Hepatitis C Screening 1976 Zoster Vaccines (2 of 2) 05/26/2020 03/31/2020 COVID-19 Vaccine (1 - 2022-2 4 season) 2023 Pneumococcal Vaccine: 65+ Years (1 of 1 - PCV) 2023 COLONOSCOPY-ANNUAL AGES 18-100 07/27/2024 07/27/2023, 06/12/2023, 06/12/2023 Diabetes Screening 07/27/2026 07/27/2023, 06/05/2023 Lipid Panel 06/05/2028 06/05/2023 DTaP,Tdap,and Td Vaccines (2 - Td or Tdap) 04/05/2030 04/05/2020 Influenza Vaccine (FLU shot) Completed , 03/15/2020 Colonoscopy Discontinued 06/12/2023, 06/12/2023 Colorectal Cancer Screening Discontinued Sigmoidoscopy Discontinued 07/27/2023 Cologuard Discontinued Fecal Occult Blood Test Discontinued GARDASIL-HPV IMMUNIZATION SERIES Aged Out No longer [...] as of this encounter Visit Diagnoses Diagnosis PSVT (paroxysmal supraventricular tachycardia)- Primary Paroxysmal supraventricular tachycardia SOB (shortness of breath) Shortness of breath documented in this encounter Care Teams Air Value Tester Relationship Specialty Start Date End Date Brigette Bennett MD [address] [place] [address] PCP - General Family Medicine 06/05/23 documented as of this encounter
[2024-02-27] MEDS: MELATONIN 3 MG TAB PO PRN ×2 (01:00→21:46)
[2024-02-27] MEDS: oxyCODONE HCL IR 5 MG TAB (IMMEDIATE RELEASE) PO PRN ×2 (05:49→05:50)
[2024-02-27 07:00] LABS: Hematocrit (blood only) 44.4 % (42.0-52.0); Mean Corpuscular Hemoglobin 30.6 pg (25.0-34.0); Mean Corpuscular Hgb Conc 33.8 g/dL (32.0-36.0); Mean Corpuscular Volume 90.6 fL (80.0-100.0); Mean Platelet Volume 8.6 fL (9.4-12.4); Platelet Count 272 K/uL (130-400); RDW Coefficient of Variation 11.9 % (11.5-14.5); RDW Standard Deviation 39.3 fL (36.4-46.3); White Blood Count 10.62 K/ul (4.8-10.8)
[2024-02-27 07:35] LABS: BUN Creatinine Ratio 25.6 (10-20); Calcium 8.5 mg/dl (8.6-10.3); Creatinine Clr Calc Pharmacy 95.7 ml/min; Est GFR (African American) 107.6 ml/min; Est GFR (Non-African American) 92.8 ml/min
[2024-02-27] MEDS: DULoxetine HCL 60 MG CAP PO SCH (07:56)
[2024-02-27] MEDS: METOPROLOL SUCC 25MG EXT REL TAB PO SCH (07:57)
[2024-02-27] MEDS: ATORVASTATIN 40 MG TAB PO SCH (07:57)
[2024-02-27] MEDS: PANTOprazole 40 MG TAB PO SCH (07:57)
[2024-02-27] MEDS: GABAPENTIN 300 MG CAP PO SCH (07:58)
--- NOTE | 2024-02-27 10:09 | Orthopedic Consultation ---
Date of Service February 27, 2024 Assessment & Plan (1) Scoliosis of lumbar region due to degenerative disease of spine in adult: (2) Degenerative spondylolisthesis: (3) Low back pain radiating to left lower extremity: (4) Degenerative lumbar spinal stenosis: History of Present Illness Reason for Consultation: Low back pain left leg radicular pain. Requesting Physician: . Attending Physician: Eric Massey MD 63 year old male with PMH PSVT, hiatal hernia, dysphagia, dyslipidemia, chronic low back pain presented to ER with complaint of low back pain x 1.5 weeks. Patient reports history of chronic intermittent low back pain. States many years ago received steroid injections with temporary relief. Reports considered surgery several years ago. Patient states had been doing fairly well until 1 and half weeks ago when started with low back pain, initially with pain radiating down bilateral legs. States past several days pain now across to low back more to left side radiates down left buttock, down posterior leg to foot. Reports some numbness tingling sensation to left leg. Saw urgent care several days ago and was started on Medrol Dosepak. Patient states today pain is more severe and any attempted weightbearing to left leg and walking causing severe pain. Patient thinks left leg a little weaker today as well. Denies any falls. Taking Tylenol with limited relief. Denies loss of control of bowel or bladder, fever/chills, N/V/D/C, MEDINA, dizziness, syncope, neck pain, CP, SOB, palpitations, cough, sore throat, recent choking, otalgia, rhinorrhea, abdominal pain, extremity edema, rashes, hematuria. In talking with the patient, he reports he has had intermittent low back pain problems for a number of years, he has had prior spine evaluations with recommendations of surgery but improved and was doing reasonably well for a couple of years. He does not recall any specific inciting incident with the symptoms really worsening over the past week especially in the last day or 2 with pain in the lumbosacral spine rating to the left buttock with transitions. It is mechanical in nature, and he will get symptoms rating down the posterolateral thigh and into the calf on the left side, only occasionally right leg symptoms. Patient reports that he has been taking acetaminophen as his main medication when the symptoms flareup but he also takes diclofenac at 50 mg twice a day and also gabapentin 300 mg during the day and 600 at nighttime. Exam reveals the patient indicate pain in the areas as noted, he can raise up on toes and heels but it causes pain in the left leg when doing so. No focal motor weakness, ankle extension on the left with worsening of pain, right with just low back pain. LUMBAR SPINE CT WITHOUT CONTRAS February 26, 2024 CLINICAL HISTORY: L sided back pain w/ L leg pain COMPARISON STUDY: Lumbar spine radiographs May 24, 2020. FINDINGS: For purposes of numbering on this exam, the L5-S1 disc space is assigned to axial image 285 of 362. Moderate dextroscoliosis of the lumbar spine is unchanged. There is slight anterolisthesis of L4 and L5 due to facet ar throsis. There are no acute lumbar spine fractures. There are no osseous lesions within the lumbar spine. There are mild degenerative changes of the sacroiliac joints. Paravertebral soft tissues are unremarkable. Central canal and neural foramen are suboptimally assessed given CT technique. However, there is severe central canal stenosis at L4-L5 due to facet arthrosis, ligamentous hypertrophy and disc bulge. There is suspected moderate central canal stenosis at L3-L4. There is moderate to severe multilevel neural foraminal stenosis. There is severe multilevel facet arthrosis and moderate multilevel degenerative disc disease within the lumbar spine IMPRESSION: 1. No acute lumbar spine fracture or subluxation. 2. Severe multilevel facet arthrosis and moderate degenerative disc disease wi thin the lumbar spine. Severe central canal stenosis at L4-L5. Moderate to severe multilevel neural foraminal stenosis, suboptimally evaluated by CT. 3. Moderate lumbar spine dextroscoliosis. EXAM: MR Lumbar Spine Without Intravenous Contrast February 26, 2024 COMPARISON: CT 02/26/2024 FINDINGS: Vertebrae: No acute fracture. Trace anterolisthesis at L4-5. No suspicious lesion. Degenerative related endplate marrow signal changes at multiple levels. Spinal cord: Terminates at T12. Normal signal. Soft tissues: Unremarkable. DISCS/SPINAL CANAL/NEURAL FORAMINA: T12-L1: Diffuse disc bulge. Mild canal stenosis. Mild right and no left foraminal stenosis. L1-L2: Diffuse disc bulge and mild facet arthropathy. Mild canal stenosis. Mild right and mild left foraminal stenosis. L2-3: Trace diffuse disc bulge and facet arthropathy. Mild to moderate canal stenosis. Mild bilateral foraminal stenosis. L3-4: Diffuse disc bulge and facet arthropathy left greater than right.Moderate stenosis of the left lateral recess. Moderate left and no significant right foraminal stenosis. L4-5: Anterolisthesis with diffuse disc bulge and severe facet hypertrophy. Severe spinal canal stenosis. Moderate bilateral foraminal stenosis. L5-S1: Trace diffuse disc bulge. Facet arthropathy on the right. No canal stenosis. Severe right and no left foraminal stenosis. IMPRESSION: 1. Degenerative spondylosis as described most pronounced at L4-5 and L5-S1. 2. Severe spinal canal stenosis at L4-5. 3. Foraminal stenosis most pronounced on the right at L5-S1 where it is severe. Above listed studies, MRI and CT scan of the lumbar spine from February 26, 2024 was reviewed, is my separate interpretation, this reveals the patient to have degenerative changes throughout the lumbar spine, most notably is severe central stenosis at L4-5 along with findings suggestive of degenerative spondylolisthesis, and also foraminal stenosis more so involving the lower 2 lumbar levels. Impression: Multilevel degenerative changes of the lumbar spine along with degenerative scoliosis and findings to suggest degenerative spondylolisthesis at L4-5, high-grade stenosis. Plan: Today at this time in talking with the patient, a week ago he was doing reasonably well taking his usual medications of acetaminophen, diclofenac and gabapentin. The recent flareup is for 1 specific reason, and is improved this morning with the pain medication but still causes severe pain and spasms in the low back and left leg left buttock region and transitions from sitting to standing. Recommend combination of taper dose steroids, appropriate pain medication and to include a muscle relaxer such as tizanidine 4 mg 3 times daily and mobilization with therapy. I related to the patient that once we get his symptoms under control, we can at least discuss options which could include pain management but I did mention to him that I do think he is going to need operative intervention due to the findings as noted on the studies. I have asked him to follow-up my office in the next 2 weeks or so and will have additional discussions about treatment options and he was in agreement this plan. Allergies Allergy/AdvReac Type Severity Reaction Status Date / Time No Known Allergies Allergy Unverified 02/26/24 17:01 Home Medications Medication Instructions Recorded Confirmed Type acetaminophen 500 mg tablet 500 - 1,000 mg PO DIRECTED PRN 02/26/24 02/26/24 History Pain atorvastatin 40 mg tablet 40 mg PO QAM 02/26/24 02/26/24 History diclofenac sodium 50 mg 50 mg PO TID 02/26/24 02/26/24 History tablet,delayed release duloxetine 60 mg capsule,delayed 60 mg PO QAM 02/26/24 02/26/24 History release famotidine 20 mg tablet 20 mg PO BID 02/26/24 02/26/24 History gabapentin 300 mg capsule 300 mg PO DAILY 02/26/24 02/26/24 History gabapentin 300 mg capsule 600 mg PO HS 02/26/24 02/26/24 History methylprednisolone 4 mg tablets in 4 mg PO DIRECTED 02/26/24 02/26/24 History a dose pack metoprolol succinate 25 mg 25 mg PO QAM 02/26/24 02/26/24 History tablet,extended release 24 hr omeprazole 40 mg capsule,delayed 40 mg PO QAM 02/26/24 02/26/24 History release Past Med/Surg History Problem List (Updated 02/27/24 @ 10:28 by Rodriguez Leach MD) Degenerative lumbar spinal stenosis Low back pain radiating to left lower extremity Degenerative spondylolisthesis Scoliosis of lumbar region due to degenerative disease of spine in adult Back pain (Acute) Dysphagia Hiatal hernia History of PSVT (paroxysmal supraventricular tachycardia) Dyslipidemia Ambulatory dysfunction Lumbosacral radiculopathy Surgical History History of colonoscopy History of esophagogastroduodenoscopy (EGD) Family History Grandmother (Maternal) Stroke Father Heart disease Social History Smoking Status: Never smoker Hx Alcohol Use: Yes Alcohol type: beer Hx Substance Use: No Preferred Language: Danish Communication Ability: Effective Medical Technologist Clinical Required: No Beliefs That Will Affect Care: Zoroastrianism Zoroastrianism Beliefs: Religion Current Living Situation: Alone Other Information That Helps Us Care for You: No Feels Safe at Home: Yes Safety Concerns: Feels Safe At This Time Assistive Devices: Walker Review of Systems All systems reviewed & are unremarkable except as noted in HPI & below. Physical Exam . Results & Data Results & Data Laboratory Results . Diagnostic Findings . PG Care Time/CCT Total # of Minutes Spent Total Time Spent with Patient: Total time spent is greater than 50% in coordination of care (as documented) at patient's floor/unit and/or counseling patient: Coding Level of Care Code 06817 IN/OBS CONSULT LVL 3,45M Diagnoses Scoliosis of lumbar region due to degenerative disease of spine in adult M41.56 Degenerative spondylolisthesis M43.10 Low back pain radiating to left lower extremity M54.50; M79.605 Degenerative lumbar spinal stenosis M48.061
--- NOTE | 2024-02-27 14:38 | Hospitalist Progress Note ---
Date of Service February 27, 2024 Assessment & Plan (1) Lumbosacral radiculopathy: (2) Ambulatory dysfunction: Plan: Patient is 63 year old male with PMH PSVT, hiatal hernia, dysphagia, dyslipidemia, chronic low back pain presented to ER with complaint of low back pain x 1.5 weeks, now with radiation to LLE aggravated with ambulation. Lumbosacral radiculopathy Severe spinal canal stenosis --Lumbar Spine MRI:Degenerative spondylosis as described most pronounced at L4-5 and L5-S1. Severe spinal canal stenosis at L4-5. Foraminal stenosis most pronounced on the right at L5-S1 where it is severe. --Continue IV Solu-Medrol Continue gabapentin Pain control Appreciate orthopedics input Continue PT OT (3) Dyslipidemia: Plan: Continue atorvastatin (4) History of PSVT (paroxysmal supraventricular tachycardia): Plan: Continue metoprolol (5) Hiatal hernia: Plan: Continue PPI (6) Dysphagia: Plan: Follows with GI Denies food bolus sensation recently Continue PPI and famotidine Planned for outpatient esophagogastroduodenoscopy and reflux study as outpatient Mood disorder Continue home medications DVT Px Lovenox SQ CODE STATUS Full code Admission and Anticipated Discharge Date Admission Date: February 26, 2024 Subjective Patient is seen and examined at bedside States having neck pain radiating to leg Denies any bowel or bladder incontinence Also denies any chest pain, dyspnea Reports chronic dysphagia No other complaints today Review of Systems Review of Systems: All systems reviewed & are unremarkable except as noted in Subjective Physical Exam Physical Exam: Physical Exam: Vitals signs as noted above General Appearance:Moderately built and nourished, no apparent distress Head: normocephalic, Atraumatic Eyes: normal inspection, EOMI Neck: supple, Trachea midline Respiratory/Chest: Normal breath sounds, CTA, No accessory muscle use Cardiovascular: S1, S2, No murmur Abdomen/GI:Soft, Non tender, Bowel sounds present Back: Lower tempering kiln tender, + straight leg test Extremities/Musculoskeletal:normal inspection, no edema Neurologic/Psych:AAOX3, grossly no focal neurological deficits Skin: normal color, warm Results & Data Results & Data Vital Signs (Past 12 Hours) Vital Signs Temp Pulse Resp BP Pulse Ox O2 Del Method 02/27/24 07:33 36.3 C L 69 16 116/72 97 Room Air Laboratory Results Short CBC 02/26/24 02/27/24 Range/Units 15:30 06:33 WBC 9.76 10.62 (4.8-10.8) K/ul Hgb 16.4 15.0 (14.0-18.0) g/dl Hct 46.8 44.4 (42.0-52.0) % Plt Count 291 272 (130-400) K/uL BMP 02/26/24 02/27/24 15:30 06:33 Sodium 142 140 Potassium 3.4 L 4.0 Chloride 108 H 107 Carbon Dioxide 26 25 BUN 18 21 Creatinine 1.02 0.82 Glucose 152 H 126 H Calcium 8.9 8.5 L Liver Function 02/26/24 Range/Units 15:30 Total Bilirubin 0.8 (0.2-1.0) mg/dl AST 31 (13-39) U/L ALT 81 H (7-52) U/L Alkaline Phosphatase 52 (34-104) U/L Albumin 4.4 (3.4-5.0) gm/dl
[2024-02-27] MEDS: ONDANSETRON INJ 2 MG/ML 2 ML VIAL IV PRN (17:09)
[2024-02-27] MEDS: LIDOCAINE 5% 1 PATCH TD SCH (20:46)
[2024-02-27] MEDS: HYDROmorphone INJ 0.5 MG/0.5 ML SYR IV STA (21:45)
[2024-02-28 06:18] LABS: Hematocrit (blood only) 42.5 % (42.0-52.0); Hemoglobin 14.5 g/dl (14.0-18.0); Mean Corpuscular Hemoglobin 30.8 pg (25.0-34.0); Mean Corpuscular Hgb Conc 34.1 g/dL (32.0-36.0); Mean Corpuscular Volume 90.2 fL (80.0-100.0); Mean Platelet Volume 8.7 fL (9.4-12.4); Platelet Count 296 K/uL (130-400); RDW Coefficient of Variation 11.9 % (11.5-14.5); Red Blood Count 4.71 M/uL (4.70-6.10); White Blood Count 16.74 K/ul (4.8-10.8)
[2024-02-28 06:37] LABS: BUN Creatinine Ratio 31.3 (10-20); Calcium 8.8 mg/dl (8.6-10.3); Est GFR (African American) 108.7 ml/min; Est GFR (Non-African American) 93.7 ml/min; Magnesium 2.1 mg/dl (1.7-2.4); Potassium 4.4 mmol/L (3.5-5.1)
[2024-02-28 07:16] LABS: Estimated Average Glucose 123 mg/dl; Hemoglobin A1C 5.9 % (4.5-5.6)
--- NOTE | 2024-02-28 12:57 | Hospitalist Progress Note ---
Date of Service February 28, 2024 Assessment & Plan (1) Lumbosacral radiculopathy: Plan: Patient is 63 year old male with PMH PSVT, hiatal hernia, dysphagia, dyslipidemia, chronic low back pain presented to ER with complaint of low back pain x 1.5 weeks, now with radiation to LLE aggravated with ambulation. Lumbosacral radiculopathy Severe spinal canal stenosis --Lumbar Spine MRI:Degenerative spondylosis as described most pronounced at L4-5 and L5-S1. Severe spinal canal stenosis at L4-5. Foraminal stenosis most pronounced on the right at L5-S1 where it is severe. --Continue IV Solu-Medrol Continue gabapentin Pain control Appreciate orthopedics input Pain is not relieved with current pain regimen He has been complaining of more pain and cannot participate in physical therapy due to ongoing pain Denies any urinary and/or bowel problem as of yet Sensory impairment and weakness involving the left lower extremity compared to the right Will need reevaluation by spine surgery (2) Ambulatory dysfunction: Plan: Secondary to ongoing back pain and radiculopathy (3) Dyslipidemia: Plan: Continue atorvastatin (4) History of PSVT (paroxysmal supraventricular tachycardia): Plan: Continue metoprolol (5) Hiatal hernia: Plan: Continue PPI (6) Dysphagia: Plan: Follows with GI Denies food bolus sensation recently Continue PPI and famotidine Planned for outpatient esophagogastroduodenoscopy and reflux study as outpatient Has been followed up by outpatient GI for ongoing problem with swallowing Mood disorder Continue home medications DVT Px Lovenox SQ CODE STATUS Full code Admission and Anticipated Discharge Date Admission Date: February 26, 2024 Subjective 02/28/2024 The patient was seen and examined in medical floor He has been complaining of lower back pain with radiation to both the legs down to the feet He denies any bladder and/or bowel problem Has been having difficulty in participating physical therapy Review of Systems Review of Systems: All systems reviewed and are unremarkable except as noted below Physical Exam Physical Exam: Lying in bed without any apparent distress Constitutional: well developed, well nourished and + ill appearing Eyes: PERRL, conjunctivae normal, anicteric sclerae ENMT: external ear and nose normal, oropharynx normal Neck: trachea midline, no thyromegaly Respiratory: no respiratory distress Auscultation: + lungs not clear to auscultation Cardiovascular: Rate/Rhythm: regular rate and regular rhythm; not tachycardic Heart Sounds: normal S1 and normal S2; no murmur Extremities: no edema Gastrointestinal (Abdomen): Inspection/Auscultation: normal bowel sounds; abdomen not distended Percussion/Palpation: abdomen soft; abdomen nontender Musculoskeletal: .No acute arthritis involving any of the joint Has back pain with tenderness Neurologic: Alert, awake and oriented x 3. Impaired sensation on the left lower extremity. Straight leg raising is painful mainly on the left side Psychiatric: A+Ox3, euthymic affect Lymphatic: no cervical or axillary lymphadenopathy Results & Data Results & Data Vital Signs (Past 12 Hours) Vital Signs Temp Pulse Resp BP Pulse Ox O2 Del Method 02/28/24 07:13 36.5 C 79 14 120/72 93 Room Air Laboratory Results Short CBC 02/28/24 Range/Units 05:58 WBC 16.74 H (4.8-10.8) K/ul Hgb 14.5 (14.0-18.0) g/dl Hct 42.5 (42.0-52.0) % Plt Count 296 (130-400) K/uL BMP 02/28/24 05:58 Sodium 138 Potassium 4.4 Chloride 107 Carbon Dioxide 25 BUN 25 H Creatinine 0.80 Glucose 141 H Calcium 8.8 Medications Administered Current Inpatient Medications Acetaminophen (Acetaminophen 500 Mg Tab) 1,000 mg PO BID MARIELY Stop: 03/27/24 21:00 Last Admin: 02/28/24 07:58 Dose: 1,000 mg Atorvastatin Calcium (Atorvastatin 40 Mg Tab) 40 mg PO QAM MARIELY Stop: 03/28/24 08:59 Last Admin: 02/28/24 08:00 Dose: 40 mg Docusate Sodium (Docusate Sodium 100 Mg Cap) 100 mg PO BID MARIELY Stop: 03/27/24 21:00 Last Admin: 02/28/24 07:59 Dose: 100 mg Duloxetine HCl (Duloxetine Hcl 60 Mg Cap) 60 mg PO QAM MARIELY Stop: 03/28/24 08:59 Last Admin: 02/28/24 07:59 Dose: 60 mg Enoxaparin Sodium (Enoxaparin Inj 40 Mg/0.4 Ml Syr) 40 mg SQ Q24H MARIELY Stop: 03/27/24 21:00 Last Admin: 02/27/24 20:46 Dose: 40 mg Famotidine (Famotidine 20 Mg Tab) 20 mg PO BID [facility] Stop: 03/27/24 21:00 Last Admin: 02/28/24 07:58 Dose: 20 mg Gabapentin (Gabapentin 300 Mg Cap) 600 mg PO HS MARIELY Stop: 03/27/24 21:00 Last Admin: 02/27/24 20:41 Dose: 600 mg Gabapentin (Gabapentin 300 Mg Cap) 300 mg PO DAILY MARIELY Stop: 03/28/24 08:59 Last Admin: 02/28/24 08:00 Dose: 300 mg Dexamethasone 8 mg/ Syringe 2 mls @ 1 mls/min IV BID MARIELY Stop: 03/27/24 20:59 Last Admin: 02/28/24 08:00 Dose: 1 mls/min Lidocaine (Lidocaine 5% 1 Patch) 1 patch TD 2100 [facility] Stop: 03/28/24 20:59 Last Admin: 02/27/24 20:46 Dose: 1 patch Magnesium Hydroxide (Magnesium Hydroxide Susp 30 Ml Udc) 30 ml PO Q6H PRN PRN Reason: Constipation Stop: 03/27/24 21:00 Melatonin (Melatonin 3 Mg Tab) 6 mg PO HS PRN PRN Reason: Sleep Stop: 03/28/24 00:45 Last Admin: 02/27/24 21:46 Dose: 6 mg Metoprolol Succinate (Metoprolol Succ 25mg Ext Rel Tab) 25 mg PO QAM [facility] Stop: 03/28/24 08:59 Last Admin: 02/28/24 07:59 Dose: 25 mg Miscellaneous (Remove Lidoderm Patch) 1 each N/A DAILY@0900 [facility] Stop: 03/28/24 08:59 Last Admin: 02/28/24 09:04 Dose: 1 each Ondansetron HCl (Ondansetron Inj 2 Mg/Ml 2 Ml Vial) 4 mg IV Q6H PRN PRN Reason: Nausea Stop: 03/27/24 21:00 Last Admin: 02/27/24 17:09 Dose: 4 mg Oxycodone HCl (Oxycodone Hcl Ir 5 Mg Tab (Immediate Release)) 5 mg PO Q4H PRN PRN Reason: Moderate Pain (Scale 4, 5, 6) Stop: 03/11/24 21:00 Last Admin: 02/28/24 04:38 Dose: 5 mg Oxycodone HCl (Oxycodone Hcl Ir 5 Mg Tab (Immediate Release)) 10 mg PO Q6H PRN PRN Reason: Severe Pain (Scale 7, 8, 9,10) Stop: 03/11/24 21:00 Last Admin: 02/28/24 09:17 Dose: 10 mg Pantoprazole Sodium (Pantoprazole 40 Mg Tab) 40 mg PO QAM [facility]; Protocol Stop: 03/28/24 08:59 Last Admin: 02/28/24 07:59 Dose: 40 mg Polyethylene Glycol (Polyethylene (Miralax) 17 Gm Pack) 17 gm PO DAILY PRN PRN Reason: Constipation Stop: 03/27/24 21:00
[2024-02-28] MEDS: HYDROmorphone INJ 0.5 MG/0.5 ML SYR IV PRN (19:54)
[2024-02-29] MEDS: MAGNESIUM HYDROXIDE SUSP 30 ML UDC PO PRN (06:08)
--- NOTE | 2024-02-29 08:09 | Orthopedic Progress Note ---
Date of Service February 29, 2024 Subjective Patient seen and examined, he notes still pain when doing transitions from lying to standing or sitting to standing. No other new changes. Impression: Degenerative scoliosis with stenosis and degenerative spondylolisthesis. Plan: I discussed with the patient that I do think he will eventually need operative intervention, I recommending continued efforts at pain management mobilization with therapy, the patient will follow-up in the office where further evaluation will then be able to reveal a operative plan on an elective basis in the future. Review of Systems All systems reviewed & are unremarkable except as noted in HPI & below. Physical Exam . Results & Data Results & Data Laboratory Results . Diagnostic Findings . PG Care Time/CCT Total # of Minutes Spent Total Time Spent with Patient: Total time spent is greater than 50% in coordination of care (as documented) at patient's floor/unit and/or counseling patient: Coding Level of Care Code 78567 SUB INP/OBS CARE 235MIN
--- NOTE | 2024-02-29 13:46 | Hospitalist Progress Note ---
Date of Service February 29, 2024 Assessment & Plan (1) Lumbosacral radiculopathy: Plan: Patient is 63 year old male with PMH PSVT, hiatal hernia, dysphagia, dyslipidemia, chronic low back pain presented to ER with complaint of low back pain x 1.5 weeks, now with radiation to LLE aggravated with ambulation. Lumbosacral radiculopathy Severe spinal canal stenosis --Lumbar Spine MRI:Degenerative spondylosis as described most pronounced at L4-5 and L5-S1. Severe spinal canal stenosis at L4-5. Foraminal stenosis most pronounced on the right at L5-S1 where it is severe. --Continue IV Solu-Medrol Continue gabapentin Pain control Appreciate orthopedics input Pain is not relieved with current pain regimen He has been complaining of more pain and cannot participate in physical therapy due to ongoing pain Denies any urinary and/or bowel problem as of yet Sensory impairment and weakness involving the left lower extremity compared to the right Will need reevaluation by spine surgery -appreciate orthospine reevaluation early this morning on 02/29/2024 He remains very apprehensive with increasing pain at the back and radiation of the pain to the legs without any evidence of bowel and/or bladder symptoms His gabapentin will be increased to 600 mg 3 times daily and current oral narcotic pain medication wiil continue as 10 mg Q's 4 hourly as needed If the pain is reasonably controlled we will discharge him to [facility] tomorrow (2) Ambulatory dysfunction: Plan: Secondary to ongoing back pain and radiculopathy (3) Dyslipidemia: Plan: Continue atorvastatin (4) History of PSVT (paroxysmal supraventricular tachycardia): Plan: Continue metoprolol (5) Hiatal hernia: Plan: Continue PPI (6) Dysphagia: Plan: Follows with GI Denies food bolus sensation recently Continue PPI and famotidine Planned for outpatient esophagogastroduodenoscopy and reflux study as outpatient Has been followed up by outpatient GI for ongoing problem with swallowing Mood disorder Continue home medications DVT Px Lovenox SQ CODE STATUS Full code Admission and Anticipated Discharge Date Admission Date: February 26, 2024 Subjective 02/28/2024 The patient was seen and examined in medical floor He has been complaining of lower back pain with radiation to both the legs down to the feet He denies any bladder and/or bowel problem Has been having difficulty in participating physical therapy 02/29/2024 The patient was seen and examined in medical floor He has been complaining of more back pain with radiation down the legs and the condition has been getting worse He was seen by orthospine this morning and was advised to go home with pain medications and see him as an outpatient for possible surgery down the line The patient remains very apprehensive Will adjust pain medications continue PT and OT prior to discharge Review of Systems Review of Systems: All systems reviewed and are unremarkable except as noted below Physical Exam Physical Exam: Lying in bed without any apparent distress Constitutional: well developed, well nourished and + ill appearing Eyes: PERRL, conjunctivae normal, anicteric sclerae ENMT: external ear and nose normal, oropharynx normal Neck: trachea midline, no thyromegaly Respiratory: no respiratory distress Auscultation: + lungs not clear to auscultation Cardiovascular: Rate/Rhythm: regular rate and regular rhythm; not tachycardic Heart Sounds: normal S1 and normal S2; no murmur Extremities: no edema Gastrointestinal (Abdomen): Inspection/Auscultation: normal bowel sounds; abdomen not distended Percussion/Palpation: abdomen soft; abdomen nontender Psychiatric: A+Ox3, euthymic affect Lymphatic: no cervical or axillary lymphadenopathy Results & Data Results & Data Vital Signs (Past 12 Hours) Vital Signs Temp Pulse Resp BP Pulse Ox O2 Del Method 02/29/24 11:42 36.5 C 72 17 116/76 92 Room Air 02/29/24 08:54 Room Air 02/29/24 07:58 36.4 C L 69 18 126/86 93 Room Air Medications Administered Current Inpatient Medications Acetaminophen (Acetaminophen 500 Mg Tab) 1,000 mg PO BID [facility] Stop: 03/27/24 21:00 Last Admin: 02/29/24 08:42 Dose: 1,000 mg Atorvastatin Calcium (Atorvastatin 40 Mg Tab) 40 mg PO QAM [facility] Stop: 03/28/24 08:59 Last Admin: 02/29/24 08:42 Dose: 40 mg Docusate Sodium (Docusate Sodium 100 Mg Cap) 100 mg PO BID [facility] Stop: 03/27/24 21:00 Last Admin: 02/29/24 08:41 Dose: 100 mg Duloxetine HCl (Duloxetine Hcl 60 Mg Cap) 60 mg PO QAM [facility] Stop: 03/28/24 08:59 Last Admin: 02/29/24 08:42 Dose: 60 mg Enoxaparin Sodium (Enoxaparin Inj 40 Mg/0.4 Ml Syr) 40 mg SQ Q24H [facility] Stop: 03/27/24 21:00 Last Admin: 02/28/24 20:08 Dose: 40 mg Famotidine (Famotidine 20 Mg Tab) 20 mg PO BID [facility] Stop: 03/27/24 21:00 Last Admin: 02/29/24 08:41 Dose: 20 mg Gabapentin (Gabapentin 600 Mg Tab) 600 mg PO TID [facility] Stop: 03/30/24 13:59 Hydromorphone HCl (Hydromorphone Inj 0.5 Mg/0.5 Ml Syr) 0.5 mg IV Q3H PRN PRN Reason: Breakthrough Pain Stop: 03/13/24 19:33 Last Admin: 02/29/24 13:42 Dose: 0.5 mg Dexamethasone 8 mg/ Syringe 2 mls @ 1 mls/min IV BID [facility] Stop: 03/27/24 20:59 Last Admin: 02/29/24 08:41 Dose: 1 mls/min Lidocaine (Lidocaine 5% 1 Patch) 1 patch TD 2100 [facility] Stop: 03/28/24 20:59 Last Admin: 02/28/24 20:08 Dose: 1 patch Magnesium Hydroxide (Magnesium Hydroxide Susp 30 Ml Udc) 30 ml PO Q6H PRN PRN Reason: Constipation Stop: 03/27/24 21:00 Last Admin: 02/29/24 06:08 Dose: 30 ml Melatonin (Melatonin 3 Mg Tab) 6 mg PO HS PRN PRN Reason: Sleep Stop: 03/28/24 00:45 Last Admin: 02/28/24 21:04 Dose: 6 mg Metoprolol Succinate (Metoprolol Succ 25mg Ext Rel Tab) 25 mg PO QAM [facility] Stop: 03/28/24 08:59 Last Admin: 02/29/24 08:40 Dose: 25 mg Miscellaneous (Remove Lidoderm Patch) 1 each N/A DAILY@0900 [facility] Stop: 03/28/24 08:59 Last Admin: 02/29/24 09:47 Dose: 1 each Ondansetron HCl (Ondansetron Inj 2 Mg/Ml 2 Ml Vial) 4 mg IV Q6H PRN PRN Reason: Nausea Stop: 03/27/24 21:00 Last Admin: 02/27/24 17:09 Dose: 4 mg Oxycodone HCl (Oxycodone Hcl Ir 5 Mg Tab (Immediate Release)) 5 mg PO Q4H PRN PRN Reason: Moderate Pain (Scale 4, 5, 6) Stop: 03/11/24 21:00 Last Admin: 02/28/24 21:03 Dose: 5 mg Oxycodone HCl (Oxycodone Hcl Ir 5 Mg Tab (Immediate Release)) 10 mg PO Q6H PRN PRN Reason: Severe Pain (Scale 7, 8, 9,10) Stop: 03/11/24 21:00 Last Admin: 02/29/24 07:56 Dose: 10 mg Pantoprazole Sodium (Pantoprazole 40 Mg Tab) 40 mg PO [facility]; Protocol Stop: 03/28/24 08:59 Last Admin: 02/29/24 08:40 Dose: 40 mg Polyethylene Glycol (Polyethylene (Miralax) 17 Gm Pack) 17 gm PO DAILY PRN PRN Reason: Constipation Stop: 03/27/24 21:00
[2024-02-29] MEDS: GABAPENTIN 600 MG TAB PO SCH (14:44)
[2024-03-01] MEDS: POLYETHYLENE (MIRALAX) 17 GM PACK PO PRN (07:48)
[2024-03-01] MEDS: PNEUMOCOCCAL VACCINE (PCV20) 20-VAL CONJ-DIP CRM/PF 0.5 ML SYR IM ONE (09:48)
--- NOTE | 2024-03-01 13:23 | Hospitalist Progress Note ---
Date of Service March 01, 2024 Assessment & Plan (1) Lumbosacral radiculopathy: Plan: Patient is 63 year old male with PMH PSVT, hiatal hernia, dysphagia, dyslipidemia, chronic low back pain presented to ER with complaint of low back pain x 1.5 weeks, now with radiation to LLE aggravated with ambulation. Lumbosacral radiculopathy Severe spinal canal stenosis --Lumbar Spine MRI:Degenerative spondylosis as described most pronounced at L4-5 and L5-S1. Severe spinal canal stenosis at L4-5. Foraminal stenosis most pronounced on the right at L5-S1 where it is severe. --Continue IV Solu-Medrol Continue gabapentin Pain control Appreciate orthopedics input Pain is not relieved with current pain regimen He has been complaining of more pain and cannot participate in physical therapy due to ongoing pain Denies any urinary and/or bowel problem as of yet Sensory impairment and weakness involving the left lower extremity compared to the right Will need reevaluation by spine surgery -appreciate orthospine reevaluation early this morning on 02/29/2024 He remains very apprehensive with increasing pain at the back and radiation of the pain to the legs without any evidence of bowel and/or bladder symptoms His gabapentin will be increased to 600 mg 3 times daily and current oral narcotic pain medication wiil continue as 10 mg Q's 4 hourly as needed His pain seems to be reasonably controlled today Has had physical therapy and did very well Does not have a bed at [facility] today and he will be discharged tomorrow Will need to have an appointment with orthospine as an outpatient as soon as possible (2) Ambulatory dysfunction: Plan: Secondary to ongoing back pain and radiculopathy Has been having difficulty with ambulation due to ongoing back pain and radiation of pain down to the legs No bladder and/or bowel problem (3) Dyslipidemia: Plan: Continue atorvastatin (4) History of PSVT (paroxysmal supraventricular tachycardia): Plan: Continue metoprolol (5) Hiatal hernia: Plan: Continue PPI (6) Dysphagia: Plan: Follows with GI Denies food bolus sensation recently Continue PPI and famotidine Planned for outpatient esophagogastroduodenoscopy and reflux study as outpatient Has been followed up by outpatient GI for ongoing problem with swallowing Mood disorder Continue home medications DVT Px Lovenox SQ CODE STATUS Full code Admission and Anticipated Discharge Date Admission Date: February 26, 2024 Subjective 02/28/2024 The patient was seen and examined in medical floor He has been complaining of lower back pain with radiation to both the legs down to the feet He denies any bladder and/or bowel problem Has been having difficulty in participating physical therapy 02/29/2024 The patient was seen and examined in medical floor He has been complaining of more back pain with radiation down the legs and the condition has been getting worse He was seen by orthospine this morning and was advised to go home with pain medications and see him as an outpatient for possible surgery down the line The patient remains very apprehensive Will adjust pain medications continue PT and OT prior to discharge 03/01/2024 The patient was seen and examined in medical floor He has had physical therapy today and did very well Pain seems to be reasonably controlled and at least decreased the intensity that he can move without it he would more He will go to [facility] tomorrow as there is no bed today Review of Systems Review of Systems: All systems reviewed and are unremarkable except as noted below Physical Exam Physical Exam: Lying in bed without any apparent distress Constitutional: well developed, well nourished and + ill appearing Eyes: PERRL, conjunctivae normal, anicteric sclerae ENMT: external ear and nose normal, oropharynx normal Neck: trachea midline, no thyromegaly Respiratory: no respiratory distress Auscultation: + lungs not clear to auscultation Cardiovascular: Rate/Rhythm: regular rate and regular rhythm; not tachycardic Heart Sounds: normal S1 and normal S2; no murmur Extremities: no edema Gastrointestinal (Abdomen): Inspection/Auscultation: normal bowel sounds; abdomen not distended Percussion/Palpation: abdomen soft; abdomen nontender Psychiatric: A+Ox3, euthymic affect Lymphatic: no cervical or axillary lymphadenopathy Results & Data Results & Data Vital Signs (Past 12 Hours) Vital Signs Temp Pulse Resp BP Pulse Ox O2 Del Method 03/01/24 07:29 36.5 C 69 18 126/85 93 Room Air Medications Administered Current Inpatient Medications Acetaminophen (Acetaminophen 500 Mg Tab) 1,000 mg PO BID [facility] Stop: 03/27/24 21:00 Last Admin: 03/01/24 07:49 Dose: 1,000 mg Atorvastatin Calcium (Atorvastatin 40 Mg Tab) 40 mg PO QAM [facility] Stop: 03/28/24 08:59 Last Admin: 03/01/24 07:50 Dose: 40 mg Docusate Sodium (Docusate Sodium 100 Mg Cap) 100 mg PO BID [facility] Stop: 03/27/24 21:00 Last Admin: 03/01/24 07:50 Dose: 100 mg Duloxetine HCl (Duloxetine Hcl 60 Mg Cap) 60 mg PO QAM [facility] Stop: 03/28/24 08:59 Last Admin: 03/01/24 07:51 Dose: 60 mg Enoxaparin Sodium (Enoxaparin Inj 40 Mg/0.4 Ml Syr) 40 mg SQ Q24H [facility] Stop: 03/27/24 21:00 Last Admin: 02/29/24 21:04 Dose: 40 mg Famotidine (Famotidine 20 Mg Tab) 20 mg PO BID [facility] Stop: 03/27/24 21:00 Last Admin: 03/01/24 07:50 Dose: 20 mg Gabapentin (Gabapentin 600 Mg Tab) 600 mg PO TID [facility] Stop: 03/30/24 13:59 Last Admin: 03/01/24 07:51 Dose: 600 mg Hydromorphone HCl (Hydromorphone Inj 0.5 Mg/0.5 Ml Syr) 0.5 mg IV Q3H PRN PRN Reason: Breakthrough Pain Stop: 03/13/24 19:33 Last Admin: 02/29/24 18:46 Dose: 0.5 mg Dexamethasone 8 mg/ Syringe 2 mls @ 1 mls/min IV BID [facility] Stop: 03/27/24 20:59 Last Admin: 03/01/24 07:49 Dose: 1 mls/min Lidocaine (Lidocaine 5% 1 Patch) 1 patch TD 2100 [facility] Stop: 03/28/24 20:59 Last Admin: 02/29/24 21:03 Dose: 1 patch Magnesium Hydroxide (Magnesium Hydroxide Susp 30 Ml Udc) 30 ml PO Q6H PRN PRN Reason: Constipation Stop: 03/27/24 21:00 Last Admin: 02/29/24 06:08 Dose: 30 ml Melatonin (Melatonin 3 Mg Tab) 6 mg PO HS PRN PRN Reason: Sleep Stop: 03/28/24 00:45 Last Admin: 02/28/24 21:04 Dose: 6 mg Metoprolol Succinate (Metoprolol Succ 25mg Ext Rel Tab) 25 mg PO QAM [facility] Stop: 03/28/24 08:59 Last Admin: 03/01/24 07:50 Dose: 25 mg Miscellaneous (Remove Lidoderm Patch) 1 each N/A DAILY@0900 [facility] Stop: 03/28/24 08:59 Last Admin: 03/01/24 10:15 Dose: 1 each Ondansetron HCl (Ondansetron Inj 2 Mg/Ml 2 Ml Vial) 4 mg IV Q6H PRN PRN Reason: Nausea Stop: 03/27/24 21:00 Last Admin: 02/27/24 17:09 Dose: 4 mg Oxycodone HCl (Oxycodone Hcl Ir 5 Mg Tab (Immediate Release)) 5 mg PO Q4H PRN PRN Reason: Moderate Pain (Scale 4, 5, 6) Stop: 03/11/24 21:00 Last Admin: 02/28/24 21:03 Dose: 5 mg Oxycodone HCl (Oxycodone Hcl Ir 5 Mg Tab (Immediate Release)) 10 mg PO Q6H PRN PRN Reason: Severe Pain (Scale 7, 8, 9,10) Stop: 03/11/24 21:00 Last Admin: 03/01/24 07:40 Dose: 10 mg Pantoprazole Sodium (Pantoprazole 40 Mg Tab) 40 mg PO [facility]; Protocol Stop: 03/28/24 08:59 Last Admin: 03/01/24 07:51 Dose: 40 mg Polyethylene Glycol (Polyethylene (Miralax) 17 Gm Pack) 17 gm PO DAILY PRN PRN Reason: Constipation Stop: 03/27/24 21:00 Last Admin: 03/01/24 07:48 Dose: 17 gm
[2024-03-01 19:51] VITALS: RESP 16; O2SAT 94
[2024-03-02 07:39] VITALS: BP 120/72; PULSE 68; TEMP 97.7
--- NOTE | 2024-03-02 11:17 | Hospitalist Progress Note ---
Date of Service March 02, 2024 Assessment & Plan (1) Lumbosacral radiculopathy: Plan: Patient is 63 year old male with PMH PSVT, hiatal hernia, dysphagia, dyslipidemia, chronic low back pain presented to ER with complaint of low back pain x 1.5 weeks, now with radiation to LLE aggravated with ambulation. Lumbosacral radiculopathy Severe spinal canal stenosis --Lumbar Spine MRI:Degenerative spondylosis as described most pronounced at L4-5 and L5-S1. Severe spinal canal stenosis at L4-5. Foraminal stenosis most pronounced on the right at L5-S1 where it is severe. --Continue IV Solu-Medrol Continue gabapentin Pain control Appreciate orthopedics input Reevaluation by spine surgery -appreciate orthospine reevaluation on 02/29/2024 Continue gabapentin, other pain medications as needed Bowel regimen to prevent constipation Plan to be discharged to Rehab facility today Needs follow-up with orthopedic spine upon discharge (2) Ambulatory dysfunction: Plan: Secondary to ongoing back pain and radiculopathy Has been having difficulty with ambulation due to ongoing back pain and radiation of pain down to the legs No bladder and/or bowel problem Continue PT OT, fall precautions (3) Dyslipidemia: Plan: Continue atorvastatin (4) History of PSVT (paroxysmal supraventricular tachycardia): Plan: Continue metoprolol (5) Hiatal hernia: Plan: Continue PPI (6) Dysphagia: Plan: Follows with GI Denies food bolus sensation recently Continue PPI and famotidine Planned for outpatient esophagogastroduodenoscopy and reflux study as outpatient Has been followed up by outpatient GI for ongoing problem with swallowing Currently tolerating diet with no issues Mood disorder Continue home medications DVT Px Lovenox SQ CODE STATUS Full code Disposition SNF Admission and Anticipated Discharge Date Admission Date: February 26, 2024 Subjective Patient is seen and examined at bedside States having back pain especially with activity Also reports constipation Denies any nausea, vomiting, abdominal pain Also denies any chest pain, dyspnea Plan to be discharged to rehab facility today Review of Systems Review of Systems: All systems reviewed & are unremarkable except as noted in Subjective Physical Exam Physical Exam: Physical Exam: Vitals signs as noted above General Appearance:Moderately built and nourished, no apparent distress Head: normocephalic, Atraumatic Eyes: normal inspection, EOMI Neck: supple, Trachea midline Respiratory/Chest: Normal breath sounds, CTA, No accessory muscle use Cardiovascular: S1, S2, No murmur Abdomen/GI:Soft, Non tender, Bowel sounds present Back: Lower mattress filling machine tender, + straight leg test Extremities/Musculoskeletal:normal inspection, no edema Neurologic/Psych:AAOX3, grossly no focal neurological deficits Skin: normal color, warm Results & Data Results & Data Vital Signs (Past 12 Hours) Vital Signs Temp Pulse Resp BP Pulse Ox O2 Del Method 03/02/24 07:36 36.5 C 68 16 120/72 94 Room Air
--- NOTE | 2024-03-02 11:31 | Discharge Summary ---
Date of Service March 02, 2024 Admission HPI Per Admitting Provider Patient is 63 year old male with PMH PSVT, hiatal hernia, dysphagia, dyslipidemia, chronic low back pain presented to ER with complaint of low back pain x 1.5 weeks. Patient reports history of chronic intermittent low back pain. States many years ago received steroid injections with temporary relief. Reports considered surgery several years ago. Patient states had been doing fairly well until 1 and half weeks ago when started with low back pain, initially with pain radiating down bilateral legs. States past several days pain now across to low back more to left side radiates down left buttock, down posterior leg to foot. Reports some numbness tingling sensation to left leg. Saw urgent care several days ago and was started on Medrol Dosepak. Patient states today pain is more severe and any attempted weightbearing to left leg and walking causing severe pain. Patient thinks left leg a little weaker today as well. Denies any falls. Taking Tylenol with limited relief. Denies loss of control of bowel or bladder, fever/chills, N/V/D/C, MEDINA, dizziness, syncope, neck pain, CP, SOB, palpitations, cough, sore throat, recent choking, otalgia, rhinorrhea, abdominal pain, extremity edema, rashes, hematuria, dysuria. Admission Exam Per Admitting Provider General: no distress, WDWN Head: normocephalic, atraumatic Eyes: conjunctiva non-injected, anicteric ENT: normal inspection external ears, nose, mucous membranes moist Neck: supple, trachea midline Lungs: clear, no respiratory distress, no wheezing/rhonchi/rales CV: RRR, no murmur, no pretibial edema Abd: normal BS, soft, non-tender Back: no discoloration, +tenderness to palpation left lateral lower back into left gluteus, +left straight leg raise to approximately 30 degrees. +sensation to light touch intact with reported slightly decreased sensation to left foot compared to right, pedal pushes and pulls intact, distal pulses intact Ext: no cyanosis, no calf tenderness Neuro: A&O x 3, no focal deficits noted, normal affect Skin: warm, dry Principal Diagnosis Lumbosacral radiculopathy Severe spinal canal stenosis Ambulatory dysfunction Chronic dysphagia Discharge Data Allergies Allergy/AdvReac Type Severity Reaction Status Date / Time No Known Allergies Allergy Unverified 02/26/24 17:01 Consultations 02/26/24 18:16 Consult Orthopedic Spine Surgery Routine 02/26/24 18:25 ED Decision to Admit Stat 02/27/24 08:00 Consult Orthopedic Spine Surgery Routine Procedures Performed Laboratory Results WBC 16.74 K/ul (4.8-10.8) H 02/28/24 05:58 RBC 4.71 M/uL (4.70-6.10) 02/28/24 05:58 Hgb 14.5 g/dl (14.0-18.0) 02/28/24 05:58 Hct 42.5 % (42.0-52.0) 02/28/24 05:58 MCV 90.2 fL (80.0-100.0) 02/28/24 05:58 MCH 30.8 pg (25.0-34.0) 02/28/24 05:58 MCHC 34.1 g/dL (32.0-36.0) 02/28/24 05:58 RDW Std Deviation 39.0 fL (36.4-46.3) 02/28/24 05:58 RDW Coeff of Marvin 11.9 % (11.5-14.5) 02/28/24 05:58 Plt Count 296 K/uL (130-400) 02/28/24 05:58 MPV 8.7 fL (9.4-12.4) L 02/28/24 05:58 Immature Gran % (Auto) 0.4 % 02/26/24 15:30 Neut % (Auto) 69.7 % 02/26/24 15:30 Lymph % (Auto) 21.2 % 02/26/24 15:30 [place] % (Auto) 7.9 % 02/26/24 15:30 Eos % (Auto) 0.6 % 02/26/24 15:30 Baso % (Auto) 0.2 % 02/26/24 15:30 Neut # (Auto) 6.80 K/uL (1.40-6.50) H 02/26/24 15:30 Lymph # (Auto) 2.07 K/uL (1.20-3.40) 02/26/24 15:30 [place] # (Auto) 0.77 K/uL (0.11-0.59) H 02/26/24 15:30 Eos # (Auto) 0.06 K/uL (0.00-0.50) 02/26/24 15:30 Baso # (Auto) 0.02 K/uL (0.00-0.20) 02/26/24 15:30 Immature Gran # (Auto) 0.04 K/uL (0.01-0.20) 02/26/24 15:30 Sodium 138 mmol/L (136-145) 02/28/24 05:58 Potassium 4.4 mmol/L (3.5-5.1) 02/28/24 05:58 Chloride 107 mmol/L (98-107) 02/28/24 05:58 Carbon Dioxide 25 mmol/L (21-32) 02/28/24 05:58 Anion Gap 6 (3-11) 02/28/24 05:58 BUN 25 mg/dl (6-23) H 02/28/24 05:58 Creatinine 0.80 mg/dl (0.6-1.4) 02/28/24 05:58 Est Cr Clr Drug Dosing 98.0 ml/min 02/28/24 05:58 Est GFR ( Amer) 108.7 ml/min 02/28/24 05:58 Est GFR (Non-Af Amer) 93.7 ml/min 02/28/24 05:58 BUN/Creatinine Ratio 31.3 (10-20) H 02/28/24 05:58 Glucose 141 mg/dl (70-99(Fasting)) H 02/28/24 05:58 Estimat Average Glucose 123 mg/dl 02/28/24 05:58 Hemoglobin A1c 5.9 % (4.5-5.6) H 02/28/24 05:58 Calcium 8.8 mg/dl (8.6-10.3) 02/28/24 05:58 Magnesium 2.1 mg/dl (1.7-2.4) 02/28/24 05:58 Total Bilirubin 0.8 mg/dl (0.2-1.0) 02/26/24 15:30 AST 31 U/L (13-39) 02/26/24 15:30 ALT 81 U/L (7-52) H 02/26/24 15:30 Alkaline Phosphatase 52 U/L (34-104) 02/26/24 15:30 Total Protein 6.9 gm/dl (6.0-8.3) 02/26/24 15:30 Albumin 4.4 gm/dl (3.4-5.0) 02/26/24 15:30 Globulin 2.5 gm/dl (2.5-4.0) 02/26/24 15:30 Albumin/Globulin Ratio 1.8 (0.9-2) 02/26/24 15:[address] 02/26/24 15:[address] WITHOUT CONTRAST CLINICAL HISTORY: L sided back pain w/ L leg pain COMPARISON STUDY: Lumbar spine radiographs May 24, 2020. TECHNIQUE: Axial images of the lumbar spine were obtained without IV contrast. Sagittal and coronal reconstructions were viewed. Automated exposure control was utilized for the study. A dose lowering technique was utilized adhering to the principles of ALARA. FINDINGS: For purposes of numbering on this exam, the L5-S1 disc space is assigned to axial image 285 of 362. Moderate dextroscoliosis of the lumbar spine is unchanged. There is slight anterolisthesis of L4 and L5 due to facet arthrosis. There are no acute lumbar spine fractures. There are no osseous lesions within the lumbar spine. There are mild degenerative changes of the sacroiliac joints. Paravertebral soft tissues are unremarkable. Central canal and neural foramen are suboptimally assessed given CT technique. However, there is severe central canal stenosis at L4-L5 due to facet arthrosis, ligamentous hypertrophy and disc bulge. There is suspected moderate central canal stenosis at L3-L4. There is moderate to severe multilevel neural foraminal stenosis. There is severe multilevel facet arthrosis and moderate multilevel degenerative disc disease within the lumbar spine IMPRESSION: 1. No acute lumbar spine fracture or subluxation. 2. Severe multilevel facet arthrosis and moderate degenerative disc disease within the lumbar spine. Severe central canal stenosis at L4-L5. Moderate to severe multilevel neural foraminal stenosis, suboptimally evaluated by CT. 3. Moderate lumbar spine dextroscoliosis. ACT 112: Negative or not required by law. Electronically signed by: Heber Garcia M.D. 02/26/2024 4:20 PM Lumbar Spine MRI 02/26/24 19:09 Exam(s): MRI L SPINE Without Contrast EXAM: MR Lumbar Spine Without Intravenous Contrast CLINICAL HISTORY: Reason for exam: radicular pain. TECHNIQUE: Magnetic resonance images of the lumbar spine without intravenous contrast in multiple planes. COMPARISON: CT 02/26/2024 FINDINGS: Vertebrae: No acute fracture. Trace anterolisthesis at L4-5. No suspicious lesion. Degenerative related endplate marrow signal changes at multiple levels. Spinal cord: Terminates at T12. Normal signal. Soft tissues: Unremarkable. DISCS/SPINAL CANAL/NEURAL FORAMINA: T12-L1: Diffuse disc bulge. Mild canal stenosis. Mild right and no left foraminal stenosis. L1-L2: Diffuse disc bulge and mild facet arthropathy. Mild canal stenosis. Mild right and mild left foraminal stenosis. L2-3: Trace diffuse disc bulge and facet arthropathy. Mild to moderate canal stenosis. Mild bilateral foraminal stenosis. L3-4: Diffuse disc bulge and facet arthropathy left greater than right. Moderate stenosis of the left lateral recess. Moderate left and no significant right foraminal stenosis. L4-5: Anterolisthesis with diffuse disc bulge and severe facet hypertrophy. Severe spinal canal stenosis. Moderate bilateral foraminal stenosis. L5-S1: Trace diffuse disc bulge. Facet arthropathy on the right. No canal stenosis. Severe right and no left foraminal stenosis. IMPRESSION: 1. Degenerative spondylosis as described most pronounced at L4-5 and L5- S1. 2. Severe spinal canal stenosis at L4-5. 3. Foraminal stenosis most pronounced on the right at L5-S1 where it is severe. Electronically signed by: Ajay Gerber MD 02/26/24 21:30 PM Ordered Studies 02/26/24 15:22 CT lumbar spine wo con Stat 02/26/24 19:09 MR lumbar spine wo con Routine Hospital Course (1) Lumbosacral radiculopathy: Patient is 63 year old male with PMH PSVT, hiatal hernia, dysphagia, dyslipidemia, chronic low back pain presented to ER with complaint of low back pain x 1.5 weeks, now with radiation to LLE aggravated with ambulation. Lumbosacral radiculopathy Severe spinal canal stenosis --Lumbar Spine MRI:Degenerative spondylosis as described most pronounced at L4-5 and L5-S1. Severe spinal canal stenosis at L4-5. Foraminal stenosis most pronounced on the right at L5-S1 where it is severe. --Continue IV Solu-Medrol Continue gabapentin Pain control Appreciate orthopedics input Reevaluation by spine surgery -appreciate orthospine reevaluation on 02/29/2024 Continue gabapentin, other pain medications as needed Bowel regimen to prevent constipation Plan to be discharged to Rehab facility today Needs follow-up with orthopedic spine upon discharge (2) Ambulatory dysfunction: Secondary to ongoing back pain and radiculopathy Has been having difficulty with ambulation due to ongoing back pain and radiation of pain down to the legs No bladder and/or bowel problem Continue PT OT, fall precautions (3) Dyslipidemia: Continue atorvastatin (4) History of PSVT (paroxysmal supraventricular tachycardia): Continue metoprolol (5) Hiatal hernia: Continue PPI (6) Dysphagia: Follows with GI Denies food bolus sensation recently Continue PPI and famotidine Planned for outpatient esophagogastroduodenoscopy and reflux study as outpatient Has been followed up by outpatient GI for ongoing problem with swallowing Currently tolerating diet with no issues Mood disorder Continue home medications DVT Px Lovenox SQ CODE STATUS Full code Disposition SNF Total Time Total Time Spent Total Time Spent (In Minutes): 52 minutes Discharge Plan Discharge Items Patient Disposition: Transfer Jail Fac Reason For Visit: BACK PAIN Discharge Diagnosis: Lumbosacral radiculopathy Severe spinal canal stenosis Ambulatory dysfunction Chronic dysphagia Activity: Per Instructions section Exercise/Sports: Gradually increase as tolerated Non-emergency contact: Primary Care Provider and Surgeon Call non-emergency contact if: you have any medication questions, your symptoms worsen, your pain is concerning for you and you have a fever Follow-up/Referrals: Rodriguez Leach MD [Surgeon] - 03/29/24 9:15 am (This will be in the [facility]. [address] [place] [id number]) Brigette Bennett MD [Primary Care Provider] - Diet: Heart Healthy Addtl Attending Provider Instructions: Follow-up with your primary care physician in 1 week upon discharge from rehab facility Follow-up with your orthopedic surgeon on 03/29/2024 at 9:15 AM Follow-up with your vp patient for further evaluation of dysphagia as previously scheduled Seek immediate medical attention if your symptoms reoccur or worsen Please take all medications as instructed on discharge list below. Please call if you have any questions or problems. You can reach a [facility] hospitalist on duty at [facility] 24 hours a day by calling [phone] Pending Studies at Discharge: No Stand-Alone Forms: My [facility] Skilled Items Patient informed of condition?: Yes DNR: No Discharge Level of Care: Skilled Communicable Disease: No Discharge Prognosis: Stable Lines: None Urinary Catheter: No Medications and DC Order Prescriptions: New gabapentin 600 mg Tablet 600 mg PO TID 30 Days Qty: 90 0RF oxycodone 10 mg tablet 10 mg PO Q8H PRN (Reason: pain) Qty: 10 0RF docusate sodium 100 mg Capsule 100 mg PO BID PRN (Reason: constipation) Qty: 30 0RF polyethylene glycol 3350 [Miralax] 17 gram Powder In Packet 17 g PO DAILY PRN (Reason: constipation) Qty: 30 0RF Continued atorvastatin 40 mg tablet 40 mg PO QAM omeprazole 40 mg capsule,delayed release(DR/EC) 40 mg PO QAM famotidine 20 mg tablet 20 mg PO BID diclofenac sodium 50 mg tablet,delayed release (DR/EC) 50 mg PO TID metoprolol succinate 25 mg tablet extended release 24 hr 25 mg PO QAM duloxetine 60 mg capsule,delayed release(DR/EC) 60 mg PO QAM acetaminophen [Tylenol Ex Str Rapid Release] 500 mg Tablet 500 - 1,000 mg PO DIRECTED PRN (Reason: Pain) Rx Instructions: per patient, he may do 1 to 2 tablets three times daily. Discontinued gabapentin 300 mg capsule 300 mg PO DAILY methylprednisolone 4 mg tablets,dose pack 4 mg PO DIRECTED Rx Instructions: has 2 more days left directions on package gabapentin 300 mg capsule 600 mg PO HS Discharge Orders: Discharge Order (Routine); Ordered 03/02/24 Ordered By: Eric Massey Admission Data Admit Date/Time: 02/26/24 18:43 Attending Provider: Eric Massey Admit Provider: Arnold Garrison Primary Care Provider: Brigette Bennett Other Providers: Rodriguez Leach; Arnold Garrison; [place]; [facility]
== END 2024-03-02 13:04 | DRG 552 ==
LOC: ED 15:08 → 3N 18:43 → SUATTDRO 18:43 → 3N 20:40

== ENCOUNTER 2024-03-28 18:54 | Inpatient (IN) ==
[2024-03-28 19:50] LABS: Basophils # (auto) 0.03 K/uL (0.00-0.20); Basophils % (auto) 0.5 %; Eosinophils # (auto) 0.21 K/uL (0.00-0.50); Eosinophils % (auto) 3.3 %; Hematocrit (blood only) 49.3 % (42.0-52.0); Hemoglobin 16.9 g/dl (14.0-18.0); Immature Granulocytes # (auto) 0.03 K/uL (0.01-0.20); Immature Granulocytes % (auto) 0.5 %; Lymphocytes # (auto) 1.48 K/uL (1.20-3.40); Lymphocytes % (auto) 22.9 %; Mean Corpuscular Hemoglobin 30.8 pg (25.0-34.0); Mean Corpuscular Hgb Conc 34.3 g/dL (32.0-36.0); Mean Corpuscular Volume 89.8 fL (80.0-100.0); Mean Platelet Volume 8.4 fL (9.4-12.4); Monocytes # (auto) 0.96 K/uL (0.11-0.59); Monocytes % (auto) 14.9 %; Neutrophils # (auto) 3.74 K/uL (1.40-6.50); Neutrophils % (auto) 57.9 %; Platelet Count 401 K/uL (130-400); RDW Coefficient of Variation 12.1 % (11.5-14.5); RDW Standard Deviation 39.9 fL (36.4-46.3); Red Blood Count 5.49 M/uL (4.70-6.10); White Blood Count 6.45 K/ul (4.8-10.8)
[2024-03-28 20:08] LABS: Alanine Aminotransferase 86 U/L (7-52); Albumin Globulin Ratio 1.6 (0.9-2); Albumin Level 4.4 gm/dl (3.4-5.0); Alkaline Phosphatase 64 U/L (34-104); Anion Gap 10 (3-11); Aspartate Aminotransferase 33 U/L (13-39); BUN Creatinine Ratio 19.8 (10-20); Bilirubin,Total 0.5 mg/dl (0.2-1.0); Blood Urea Nitrogen 18 mg/dl (6-23); Calcium 9.1 mg/dl (8.6-10.3); Carbon Dioxide 23 mmol/L (21-32); Chloride 108 mmol/L (98-107); Est GFR (African American) 102.1 ml/min; Est GFR (Non-African American) 88.1 ml/min; Globulin 2.8 gm/dl (2.5-4.0); Glucose 121 mg/dl (70-99(Fasting)); Potassium 3.9 mmol/L (3.5-5.1); Sodium 141 mmol/L (136-145); Total Protein 7.2 gm/dl (6.0-8.3)
--- NOTE | 2024-03-28 20:43 | Emergency Department Note ---
ED Provider Note History of Present Illness Chief Complaint: Pain (Generalized) Stated Complaint: PAIN Time Seen by Provider: 03/28/24 20:21 Source: patient Mode of arrival: ambulatory Limitations: no limitations This patient is a 63-year-old male who presents to the emergency department for evaluation of back pain and left leg pain. Patient reports a history of significant degenerative disc disease. He was admitted here about a month ago and saw orthopedic spine surgery at that time. He was discharged to [facility] and was there for about a week ago. He is scheduled to have surgery but not until July. He states that since returning home a week ago, he has had a very difficult time getting around. He states there are 27 [address] up to his apartment and he has a lot of difficulty with them, so he has not left the apartment. He has a hard time getting himself up to the bathroom and to make food. He is having a lot of pain and is out of his pain medication. He states that he does not feel like he is safe at home and can make it until his surgery in July. He has been working with a small wind energy installer to try to get rehab placement. He does state that the weakness in his left leg seems to be slightly worse. Otherwise symptoms are the same as they have been. Home Medications Medication Instructions Recorded Confirmed Type atorvastatin 40 mg tablet 40 mg PO DAILY 03/28/24 03/28/24 History diclofenac sodium 50 mg 50 mg PO TID 03/28/24 03/28/24 History tablet,delayed release duloxetine 60 mg capsule,delayed 60 mg PO DAILY 03/28/24 03/28/24 History release gabapentin 600 mg tablet 600 mg PO TID 03/28/24 03/28/24 History metoprolol succinate 25 mg 25 mg PO DAILY 03/28/24 03/28/24 History tablet,extended release 24 hr omeprazole 40 mg capsule,delayed 40 mg PO DAILY 03/28/24 03/28/24 History release Allergies Allergy/AdvReac Type Severity Reaction Status Date / Time No Known Allergies Allergy Unverified 02/26/24 17:01 Past Med/Surg History Problem List (Updated 03/29/24 @ 00:46 by Cass Bernal PA-C) Severe low back pain Degenerative lumbar spinal stenosis Low back pain radiating to left lower extremity Degenerative spondylolisthesis Scoliosis of lumbar region due to degenerative disease of spine in adult Back pain (Acute) Dysphagia Hiatal hernia History of PSVT (paroxysmal supraventricular tachycardia) Dyslipidemia Ambulatory dysfunction (Acute) Lumbosacral radiculopathy (Acute) Surgical History History of colonoscopy History of esophagogastroduodenoscopy (EGD) Family History Grandmother (Maternal) Stroke Father Heart disease Social History Smoking Status: Never smoker Hx Alcohol Use: Yes Alcohol type: beer Hx Substance Use: No Preferred Language: Chilean Communication Ability: Effective School Superintendent Required: No Beliefs That Will Affect Care: Yazidi Yazidi Beliefs: Anglican Current Living Situation: Alone Feels Safe at Home: Yes Assistive Devices: None Physical Exam Vital Signs Vital Signs - 24 hr 03/28/24 19:04 03/28/24 20:48 03/28/24 22:00 Temperature 36.5 C Temperature Source Temporal Artery Scan Pulse Rate 130 H Pulse Rate [Left Finger] 112 H 94 H Respiratory Rate 17 18 18 Respiratory Effort / Characteristics Non-Labored Spontaneous Non-Labored Spontaneous Non-Labored Spontaneous Respiratory Depth Normal Normal Normal Respiratory Pattern Regular Regular Regular Blood Pressure 115/76 Blood Pressure [Left Arm] 113/81 127/75 Blood Pressure Mean 89 Blood Pressure Mean [Left Arm] 91 92 Pulse Oximetry 93 93 94 Oxygen Delivery Method Room Air Room Air Room Air Sepsis Recent Fever Within 48 Hours No Sepsis New/Unexplained Change in Mental Status N/A Sepsis Action Taken by Nursing No Action Required VITALS: Vitals are noted on the nurse's note and reviewed by myself. GENERAL: This is a 63-year-old male, in no acute distress but uncomfortable appearing. SKIN: The skin was without rashes. EYES: Pupils equal round and reactive to light and accommodation. MOUTH: Mucous membranes moist. NECK: Supple without nuchal rigidity. HEART: Regular rate and rhythm without murmurs gallops or rubs. LUNGS: Clear to auscultation bilaterally without wheezes, rales or rhonchi. ABDOMEN: Positive bowel sounds x 4. Soft, nontender to palpation. MUSCULOSKELETAL: Full ROM b/l lower extremities. Decreased strength in the left lower extremity compared to the right. NEURO: Patient was alert and oriented to person place and time. Distal sensation intact. Patellar DTRs 2+ bilaterally. Course Administered Medications Hydromorphone HCl (Hydromorphone Inj 0.5 Mg/0.5 Ml Syr) 0.5 mg IV Q4H PRN PRN Reason: Severe Pain (Scale 7, 8, 9,10) Stop: 04/12/24 00:23 Last Admin: 03/29/24 00:35 Dose: 0.5 mg Documented By: SINA Ondansetron HCl (Ondansetron Inj 2 Mg/Ml 2 Ml Vial) 4 mg IV Q6H PRN PRN Reason: Nausea Stop: 04/28/24 00:23 Last Admin: 03/29/24 00:34 Dose: 4 mg Documented By: SINA Discontinued Medications Dexamethasone Sodium Phosphate (DexamethasonePf 10 Mg/Ml Vial) 10 mg IV NOW ONE Stop: 03/28/24 20:57 Last Admin: 03/28/24 21:03 Dose: 10 mg Documented By: NEISHA Morphine Sulfate (Morphine Sulfate 10 Mg/Ml Carp/Vial) 6 mg IV NOW STA Stop: 03/28/24 20:41 Last Admin: 03/28/24 20:45 Dose: 6 mg Documented By: NEISHA Ondansetron HCl (Ondansetron Inj 2 Mg/Ml 2 Ml Vial) 4 mg IV NOW STA Stop: 03/28/24 20:41 Last Admin: 03/28/24 20:44 Dose: 4 mg Documented By: NEISHA Medical Decision Making Differential Diagnosis Musculoskeletal, disc herniation, fracture, metastatic disease, cord compression, discitis, sciatica, cauda equina, infection, aortic disease, renal colic, gastrointestinal, as well as other pathologies. Laboratory Data Attestation: I reviewed the patient's lab results. 03/28/24 19:31 03/28/24 19:31 Lab Results 03/28/24 Range/Units 19:31 WBC 6.45 (4.8-10.8) K/ul RBC 5.49 (4.70-6.10) M/uL Hgb 16.9 (14.0-18.0) g/dl Hct 49.3 (42.0-52.0) % MCV 89.8 (80.0-100.0) fL MCH 30.8 (25.0-34.0) pg MCHC 34.3 (32.0-36.0) g/dL RDW Std Deviation 39.9 (36.4-46.3) fL RDW Coeff of Marvin 12.1 (11.5-14.5) % Plt Count 401 H (130-400) K/uL MPV 8.4 L (9.4-12.4) fL Immature Gran % (Auto) 0.5 % Neut % (Auto) 57.9 % Lymph % (Auto) 22.9 % [place] % (Auto) 14.9 % Eos % (Auto) 3.3 % Baso % (Auto) 0.5 % Neut # (Auto) 3.74 (1.40-6.50) K/uL Lymph # (Auto) 1.48 (1.20-3.40) K/uL [place] # (Auto) 0.96 H (0.11-0.59) K/uL Eos # (Auto) 0.21 (0.00-0.50) K/uL Baso # (Auto) 0.03 (0.00-0.20) K/uL Immature Gran # (Auto) 0.03 (0.01-0.20) K/uL Sodium 141 (136-145) mmol/L Potassium 3.9 (3.5-5.1) mmol/L Chloride 108 H (98-107) mmol/L Carbon Dioxide 23 (21-32) mmol/L Anion Gap 10 (3-11) BUN 18 (6-23) mg/dl Creatinine 0.91 (0.6-1.4) mg/dl Est Cr Clr Drug Dosing Not Reportable Est GFR ( Amer) 102.1 ml/min Est GFR (Non-Af Amer) 88.1 ml/min BUN/Creatinine Ratio 19.8 (10-20) Glucose 121 H (70-99(Fasting)) mg/dl Calcium 9.1 (8.6-10.3) mg/dl Total Bilirubin 0.5 (0.2-1.0) mg/dl AST 33 (13-39) U/L ALT 86 H (7-52) U/L Alkaline Phosphatase 64 (34-104) U/L Total Protein 7.2 (6.0-8.3) gm/dl Albumin 4.4 (3.4-5.0) gm/dl Globulin 2.8 (2.5-4.0) gm/dl Albumin/Globulin Ratio 1.6 (0.9-2) MDM Narrative This patient is a 63-year-old male who presents to the emergency department for evaluation of chronic low back pain and ambulatory dysfunction. Patient had a recent admission for his back and did have a stay at a rehab facility. He went home about a week ago he reports he has been having a lot of difficulty getting around his house and taking care of himself due to his pain and weakness. Patient's prior records were reviewed. He had a recent hospitalization here with an MRI of his lumbar spine. I do not feel that any additional imaging is necessary at this time. I did speak with the patient's spine surgeon, Dr. Leach. He agreed with admission to the hospital and will consult on the patient tomorrow. Patient was given dexamethasone and morphine for pain. He was admitted to the [facility] service for further care. Impression Lumbosacral radiculopathy, Ambulatory dysfunction Discharge Plan Visit Data Chief Complaint: Pain (Generalized) Stated Complaint: PAIN ED Provider: Daniel Phipps ED Midlevel Provider: Cass Bernal Discharge Problem: Lumbosacral radiculopathy, Ambulatory dysfunction Patient Disposition: Admitted As Inpatient Discharge Instructions Interventions: ED Discharge Assessment Last Done: 03/29/24 00:03
[2024-03-28] MEDS: ONDANSETRON INJ 2 MG/ML 2 ML VIAL IV STA (20:44)
[2024-03-28] MEDS: MoRPHine SULFATE 10 MG/ML CARP/VIAL IV STA (20:45)
[2024-03-28] MEDS: dexAMETHasone**PF** 10 MG/ML VIAL IV ONE (21:03)
--- NOTE | 2024-03-28 21:32 | Emergency Department Note ---
ED Visit Note I was consulted in regards to the patient's presentation and plan of care by the Advanced Practice Provider. I engaged in a detailed/meaningful discussion with the Advanced Practice Provider in regards to this patient's workup and plan of care. I performed a substantiative portion of the medical decision making following discussion with the Advanced Practice Provider. Please see the Advanced Practice Provider's separate documentation for full details of the patient's visit. I agree with the assessment and plan of Cass Bernal PA-C. Daniel Phipps, DO Emergency Medicine .
--- NOTE | 2024-03-28 23:37 | History & Physical Report ---
Date of Service March 28, 2024 Assessment & Plan (1) Severe low back pain: Plan: 63-year-old male with past medical history significant for mixed dyslipidemia, hiatal hernia, spinal stenosis, history of PSVT comes because of severe back pain and ambulatory dysfunction. Patient was admitted last month for lumbosacral radiculopathy and he was discharged to rehab. He stayed at rehab for 1 week and then he stayed at his sisters place for 1 week. Having lot of back pain. He is taking gabapentin and Tylenol. He tapered off himself OxyContin. He is using walker to ambulate. The pain shoots into both legs more in the left leg. He is concerned that he may fall. He has appointment with orthopedics in July 2024. Because ongoing pain and ambulatory dysfunction came to the ER today. Denies any bowel or bladder incontinence. Sometimes has some difficulty micturating but it frees up after moving his bowels. Has some lower abdominal pain. Some nausea. On and off chest pains and palpitations. When the pain is severe he gets short of breath. Some headaches. Vision is not great in the right eye and plan to see ophthalmology. No headaches. Appetite is okay. Currently resting comfortably and hemodynamically stable. Severe low back pain MRI 02/26/24: 1. Degenerative spondylosis as described most pronounced at L4-5 and L5- S1. 2. Severe spinal canal stenosis at L4-5. 3. Foraminal stenosis most pronounced on the right at L5-S1 where it is severe. Ambulatory dysfunction Pain control Ortho consult in am for further recommendations Chest pains Palpitations On and off Continue home metoprolol Monitor in med/telemetry Consult cardiology in a.m. Follow echo Hyperlipidemia On statin GERD Omeprazole DVT prophylaxis SCDs for now Disposition Med/telemetry Full code History of Present Illness Chief Complaint: Severe back pain Primary Care Provider: Brigette Bennett MD 63-year-old male with past medical history significant for mixed dyslipidemia, hiatal hernia, spinal stenosis, history of PSVT comes because of severe back pain and ambulatory dysfunction. Patient was admitted last month for lumbosacral radiculopathy and he was discharged to rehab. He stayed at rehab for 1 week and then he stayed at his sisters place for 1 week. Having lot of back pain. He is taking gabapentin and Tylenol. He tapered off himself OxyContin. He is using walker to ambulate. The pain shoots into both legs more in the left leg. He is concerned that he may fall. He has appointment with orthopedics in July 2024. Because ongoing pain and ambulatory dysfunction came to the ER today. Denies any bowel or bladder incontinence. Sometimes has some difficulty micturating but it frees up after moving his bowels. Has some lower abdominal pain. Some nausea. On and off chest pains and palpitations. When the pain is severe he gets short of breath. Some headaches. Vision is not great in the right eye and plan to see ophthalmology. No headaches. Appetite is okay. Currently resting comfortably and hemodynamically stable. Past medical history. As mentioned above Past surgical history. Colonoscopy. EGD. Sigmoidoscopy. Social history. No smoking. Alcohol rarely. No drug use. Family history. Father had heart disease. Maternal grandmother had stroke. Allergies Allergy/AdvReac Type Severity Reaction Status Date / Time No Known Allergies Allergy Unverified 02/26/24 17:01 Home Medications Medication Instructions Recorded Confirmed Type atorvastatin 40 mg tablet 40 mg PO DAILY 03/28/24 03/28/24 History diclofenac sodium 50 mg 50 mg PO TID 03/28/24 03/28/24 History tablet,delayed release duloxetine 60 mg capsule,delayed 60 mg PO DAILY 03/28/24 03/28/24 History release gabapentin 600 mg tablet 600 mg PO TID 03/28/24 03/28/24 History metoprolol succinate 25 mg 25 mg PO DAILY 03/28/24 03/28/24 History tablet,extended release 24 hr omeprazole 40 mg capsule,delayed 40 mg PO DAILY 03/28/24 03/28/24 History release Past Med/Surg History Problem List (Updated 03/29/24 @ 00:46 by Cass Bernal PA-C) Severe low back pain Degenerative lumbar spinal stenosis Low back pain radiating to left lower extremity Degenerative spondylolisthesis Scoliosis of lumbar region due to degenerative disease of spine in adult Back pain (Acute) Dysphagia Hiatal hernia History of PSVT (paroxysmal supraventricular tachycardia) Dyslipidemia Ambulatory dysfunction (Acute) Lumbosacral radiculopathy (Acute) Surgical History History of colonoscopy History of esophagogastroduodenoscopy (EGD) Family History Grandmother (Maternal) Stroke Father Heart disease Social History Smoking Status: Never smoker Second Hand Exposure: No; Do You Dip or Chew Tobacco: No; Tobacco Cessation Education Requested by Patient: No Hx Alcohol Use: Yes Alcohol type: beer Hx Substance Use: No Preferred Language: German Communication Ability: Effective 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 ENT- oropharynx clear Neck- supple, no JVD. Lungs- clear to auscultation no wheezing or crackles. Heart- regular rate and rhythm; no murmur, no gallop. Abdomen- normal bowel sounds, soft, nontender, no distension. Extremities- trace pretibial edema, no erythema seen. Neuro- alert, oriented PERRL, no facial palsy; no dysarthria; moves extremities Musculoskeletal. b/l SLR test negative Results & Data Results & Data Vital Signs (Past 12 Hours) Vital Signs Temp Pulse Pulse Resp BP BP Pulse Ox 03/28/24 22:00 94 H 18 127/75 94 03/28/24 20:48 112 H 18 113/81 93 03/28/24 19:04 36.5 C 130 H 17 115/76 93 O2 Del Method 03/28/24 22:00 Room Air 03/28/24 20:48 Room Air 03/28/24 19:04 Room Air Diagnostic Findings Laboratory Results WBC 6.45 K/ul (4.8-10.8) 03/28/24 19:31 RBC 5.49 M/uL (4.70-6.10) 03/28/24 19:31 Hgb 16.9 g/dl (14.0-18.0) 03/28/24 19:31 Hct 49.3 % (42.0-52.0) 03/28/24 19:31 MCV 89.8 fL (80.0-100.0) 03/28/24 19: MCH 30.8 pg (25.0-34.0) 03/28/24 19: MCHC 34.3 g/dL (32.0-36.0) 03/28/24: RDW Std Deviation 39.9 fL (36.4-46.3) 03/28/24: RDW Coeff of Marvin 12.1 % (11.5-14.5) 03/28/24: Plt Count 401 K/uL (130-400) H 03/28/24 19: MPV 8.4 fL (9.4-12.4) L 03/28/24: Immature Gran % (Auto) 0.5 % 03/28/24 19: Neut % (Auto) 57.9 % 03/28/24: Lymph % (Auto) 22.9 % 03/28/24: [place] % (Auto) 14.9 % 03/28/24 19: Eos % (Auto) 3.3 % 03/28/24: Baso % (Auto) 0.5 % 03/28/24: Neut # (Auto) 3.74 K/uL (1.40-6.50) 03/28/24: Lymph # (Auto) 1.48 K/uL (1.20-3.40) 03/28/24 19: [place] # (Auto) 0.96 K/uL (0.11-0.59) H 03/28/24: Eos # (Auto) 0.21 K/uL (0.00-0.50) 03/28/24: Baso # (Auto) 0.03 K/uL (0.00-0.20) 03/28/24: Immature Gran # (Auto) 0.03 K/uL (0.01-0.20) 03/28/24 19: Sodium 141 mmol/L (136-145) 03/28/24 19: Potassium 3.9 mmol/L (3.5-5.1) 03/28/24 19: Chloride 108 mmol/L (98-107) H 03/28/24 19:31 Carbon Dioxide 23 mmol/L (21-32) 03/28/24 19:31 Anion Gap 10 (3-11) 03/28/24 19:31 BUN 18 mg/dl (6-23) 03/28/24 19:31 Creatinine 0.91 mg/dl (0.6-1.4) 03/28/24 19:31 Est Cr Clr Drug Dosing Not Reportable 03/28/24 19:31 Est GFR ( Amer) 102.1 ml/min 03/28/24 19:31 Est GFR (Non-Af Amer) 88.1 ml/min 03/28/24 19:31 BUN/Creatinine Ratio 19.8 (10-20) 03/28/24 19:31 Glucose 121 mg/dl (70-99(Fasting)) H 03/28/24 19:31 Calcium 9.1 mg/dl (8.6-10.3) 03/28/24 19:31 Total Bilirubin 0.5 mg/dl (0.2-1.0) 03/28/24 19:31 AST 33 U/L (13-39) 03/28/24 19:31 ALT 86 U/L (7-52) H 03/28/24 19:31 Alkaline Phosphatase 64 U/L (34-104) 03/28/24 19:31 Total Protein 7.2 gm/dl (6.0-8.3) 03/28/24 19:31 Albumin 4.4 gm/dl (3.4-5.0) 03/28/24 19:31 Globulin 2.8 gm/dl (2.5-4.0) 03/28/24 19:31 Albumin/Globulin Ratio 1.6 (0.9-2) 03/28/24 19:31 ECG Additional Comments: ECG. Sinus tachycardia rate of 122. No acute ST changes seen. Code Status & VTE Plan VTE Prophylaxis Plan VTE Prophylaxis will be ordered: Yes
[2024-03-29] MEDS ORDERED: NITROGLYCERIN SL 0.4 MG/TAB TAB SL PRN (00:24)
[2024-03-29] MEDS ORDERED: HYDROmorphone INJ 0.5 MG/0.5 ML SYR IV PRN (00:24)
[2024-03-29] MEDS ORDERED: POLYETHYLENE (MIRALAX) 17 GM PACK PO PRN (00:24)
[2024-03-29] MEDS ORDERED: ACETAMINOPHEN 325 MG TAB PO PRN (00:24)
[2024-03-29] MEDS: ONDANSETRON INJ 2 MG/ML 2 ML VIAL IV PRN (00:34)
[2024-03-29] MEDS: HYDROmorphone INJ 0.5 MG/0.5 ML SYR IV PRN (00:35)
--- OUTSIDE RECORDS SUMMARY | 2024-03-29 03:21 | External Medical Summary | Summary of Care ---
Author Name Unknown Organization [facility] Address [address] [place] [address] Phone [phone] Care Team Providers Care Telephone Diaphragm Assembler Name Role Phone Brigette Bennett MD Primary Care Provider [phone] Reason for Visit * Reason Onset Date Comments FYI 03/28/2024 Encounter Details Date Type Department Care Team (Late st Contact Info) Description 03/28/2024 Telephone Family Practice [facility] [place] [address] [place] [address] Brigette Bennett MD [address] [place] [address] FYI Allergies No known active allergiesdocumented as of this encounter (statuses as of 03/28/2024) Medications Medication Sig Dispensed Refills Start Date End Date Status Acetaminophen 500 MG Oral Tablet (Tylenol Extra Strength) Take 1 Tablet by mouth every 6 hours as needed. Active Atorvastatin Calcium 40 MG Oral Tablet (Lipitor) Take 1 Tablet by mouth in the morning. 90 Tablet 3 06/30/2023 Active Metoprolol Succinate ER 25 MG Oral [...] Omeprazole 40 MG Oral Capsule Delayed Release (PriLOSEC)Indication s:Gastroesophageal reflux disease without esophagitis Take 1 Capsule by mouth in the morning. 90 Capsule 3 01/21/2024 Active Additional Information Patient not taking.Reported on 03/18/2024 oxyCODONE HCl ER 10 MG Oral Tablet ER 12 Hour Abuse-Deterrent (oxyCONTIN) Take 1 Tablet by mouth in the morning and 1 Tablet before bedtime. Active Gabapentin 600 MG Oral Tablet (Neurontin)Indicatio ns:Spinal stenosis of lumbar region with neurogenic claudication,Lumbosa cral radiculopathy Take 1 Tablet by mouth in the morning and 1 Tablet at noon and 1 Tablet before bedtime. 90 Tablet 5 03/18/2024 Active documented as of this encounter (statuses as of 03/28/2024) Active Problems Problem Noted Date Diagnosed Date History of PSVT (paroxysmal supraventricular tac hycardia) 03/18/2024 Mixed dyslipidemia 03/18/2024 Spinal stenosis of lumbar re gion with neurogenic claudication 03/18/2024 Hiatal hernia 12/28/2023 Food insecurity 07/20/2023 Overview: Per [facility] Protocol documented as of this encounter (statuses as of 03/28/2024) Immunizations Name Administration Dates Next Due Seasonal [...] you didn't have money to get more. Sometimes true 12/2023 Childcare Answer Date Recorded Do you feel overwhelmed with taking care of a child, family member or friend? No 03/18/2024 Does your family need help f inding childcare? (Household - for ages 0-17 years) Not on file 03/18/2024 Clothing Answer Date Recorded Have you been unable to get clothing when it was really needed? No 03/18/2024 Is your family able to get c lothes or diapers when needed? (Household - for ages 0-17 years) Not on file 03/18/2024 Personal Safety Answer Date Recorded Do you feel unsafe or have concerns for your saf ety? Yes 03/18/2024 Do you have concerns for you r family's safety? (Household - for ages 0-17 years) Not on file 03/18/2024 Utilities Answer Date Recorded Do you have trouble paying y our heating, water, or electric bill? Yes 03/18/2024 Is your family able to pay t he heat, water, or electric bill? (Household - for ages 0-17 years) Not on file 03/18/2024 Does your family have access to good internet? (Household - for ages 0-17 years) Not on file 03/18/2024 Employment Status Answer Date Recorded Are you unemployed or without regular income? No 03/18/2024 Does the household have a re gular source of income? (Household - for ages 0-17 years) Not on file 03/18/2024 Social Connections Answer Date Recorded How often do you feel lonely or isolated from those around you? Sometimes 03/18/2024 Financial Resource Strain Answer Date R ecorded Do you have any trouble payi ng for your medications, or do you think you might in the future? No 03/18/2024 Does your family have troubl e paying for medicine? (Household - for ages 0-17 years) Not on file 03/18/2024 Transportation Needs Answer Date Record ed READ ONLY Do you have troubl e getting a ride to medical visits or work? Never True 03/18/2024 Does your family have a hard time getting a ride to doctors visits? (Household - for ages 0-17 years) Not on file 03/18/2024 Has lack of transportation k ept you from medical appointments, meetings, work, or from getting things needed for daily living? Check all that apply. Yes, it has kept me from medical appointments 03/18/2024 Do you (or your family) have trouble finding or paying for a ride (transportation)? (Household - for ages 0-17 years) Not on file 03/18/2024 Housing Stability Answer Date Recorded Do you currently live in a s helter or have no steady place to sleep at night? No 03/18/2024 READ ONLY Do you think you a re at risk of becoming homeless? No 03/18/2024 Does your family worry about paying for your home or becoming homeless? (Household - for ages 0-17 years) Not on file 0 03/18/2024 Are you homeless or worried that you might be in the future? No 03/18/2024 Are you (or your family) darci eless or worried that you might be in the future? (Household - for ages 0-17 years) Not on file Food Insecurity Answer Date Recorded Do you need food for this week? Yes 03/18/2024 Are you able to get enough f ood for your family? (Household - for ages 0-17 years) Not on file 03/18/2024 Does your family need food t his week? (Household - for ages 0-17 years) Not on file 03/18/2024 Do you always have enough fo od for your family? (Household - for ages 0-17 years) Not on file 03/18/2024 Sex and Gender Information Value Date Recorded Sex Assigned at Male 06/24/2023 11:54 AM EST Gender Identity Male 06/24/2023 11:54 AM EST Sexual Orientation Straight 06/24/2023 11 :54 AM EST Job Start Date Occupation Industry Not on file Not on file Not on file documented as of this encounter Miscellaneous Notes * Telephone Encounter - Kevin Soto OSA - 03/28/2024 12:55 PM EDT Transfer to spring encaser documented in this encounter Plan of Treatment Upcoming Encounters Date Type Department Care Team (Late st Contact Info) Description 04/04/2024 10:30 AM EDT Home Visit [facility] [address] [place] [address] [facility] Personal Injury Paralegal [address] [place] [address] 04/28/2024 1:15 PM EDT Office Visit General Surgery, [facility] [address] [place] [address] Stephon Pollard MD [address] [place] [address] 04/29/2024 1:00 PM EDT Office Visit Family Practice [facility] [address] [place] [address] Brigette Bennett MD [address] [place] [address] 07/22/2024 2:30 PM EST Office Visit Cardiology, [facility] [address] [place] [address] Lana Sarmiento CRNP [address] [place] [address] 07/26/2024 1:00 PM EST Office Visit Sleep Disorders [facility] [address] [place] [id number] Lacey Aparicio CRNP [address] [place] [address] Scheduled Procedures Name Priority Associated Diagnoses Date/Ti me COLONOSCOPY FLEXIBLE PROXIMA L DIAGNOSTIC Recall History of colonic polyps Health Maintenance Due Date Last Done Comments Depression Screening 1970 HIV Screening 1973 Cologuard 2003 Fecal Occult Blood Test 2003 Zoster Vaccines (2 of 2) 05/26/2020 03/31/2020 COVID-19 Vaccine (2 - 2023-2 5 season) 2024 05/29/2023 Influenza Vaccine (FLU shot) (#1) 2024 05/29/2023, 03/15/2020 Colonoscopy 06/12/2024 06/12/2023, 06/12/2023 Colorectal Cancer Screening 06/12/2024 Diabetes Screening 07/27/2026 07/27/2023, 06/05/2023 Lipid Panel 06/05/2028 06/05/2023 Sigmoidoscopy 07/27/2028 07/27/2023 DTap/Tdap Vaccines (2 - Td o r Tdap) 04/05/2030 04/05/2020 RETIRED - COLONOSCOPY-ANNUAL AGES 18-100 Discontinued 07/27/2023, 06/12/2023, 06/12/2023 Pneumococcal Vaccine: 65+ Years Completed 03/01/2024 HPV (Gardasil) Vaccine Aged Out No lo [...] filedocumented as of this encounter Care Teams Telephone Diaphragm Assembler Relationship Specialty Start Date End Date Brigette Bennett MD [address] [place] [address] PCP - General Family Medicine 06/05/23 documented as of this encounter
--- OUTSIDE RECORDS SUMMARY | 2024-03-29 03:21 | External Medical Summary | Summary of Care ---
Author Name Unknown Organization [facility] Address [address] [place] [address] Phone [phone] Care Team Providers Care Professor Of Music Name Role Phone Brigette Bennett MD Primary Care Provider [phone] Reason for Referral * Evaluate & Treat - Unlimited Visits (Within 10 days (routine)) - Authorized Specialty Diagnoses / Procedures Referred By Jose R coello Referred To Contact [facility] Nurse / Home Care Diagnoses Spinal stenosis of lumbar region with neurogenic claudication Lumbosacral radiculopathy Ambulatory dysfunction Brigette Bennett MD [address] [place] [address] Referral ID Status Reason Start Date Expiration Date Visits Requested Visits Authorized [id number] Authorized Specialty Services Required 03/18/2024 999 999 Question Answer Referral Priority Within 10 days (routine) Where should this appointment be scheduled? robby Comments Referred for Medical Home Care Management Reason for Visit * Reason Onset Date Comments Hospital Follow-Up Hospital Follow-Up 03/18/2024 Encounter Details Date Type Department Care Team (Latest Contact Info) Description 03/18/2024 9:00 AM EDT Office Visit Family Practice [place] [address] [place] [address] Brigette Bennett MD [address] [place] [address] Hospital discharge follow-up*; Spinal stenosis of lumbar region with neurogenic claudication; Lumbosacral radiculopathy; Ambulatory dysfunction; History of PSVT (paroxysmal supraventricular tachycardia); Hiatal hernia; Mixed dyslipidemia Allergies No known active allergiesdocumented as of this encounter (statuses as of 03/18/2024) Medications Medication Sig Dispensed Refills Start Date End Date Status Acetaminophen 500 MG Oral Tablet (Tylenol Extra Strength) Take 1 Tablet by mouth every 6 hours as needed. Active Atorvastatin Calcium 40 MG Oral Tablet (Lipitor) Take 1 Tablet by mouth in the morning. 90 Tablet 3 3 Active Metoprolol Succinate ER 25 MG Oral Tablet Extended Release 24 Hour (Toprol XL) Take 1 Tablet by mouth in the morning. 34 Tablet 6 4 Active DULoxetine HCl 60 MG Oral Capsule Delayed Release Particles (Cymbalta) Take 1 Capsule by mouth in the morning. 60 Capsule 11 4 Active Diclofenac Sodium 50 MG Oral Tablet Delayed Release (Voltaren) Take 1 Tablet by mouth in the morning and 1 Tablet at noon and 1 Tablet before bedtime. 90 Tablet 2 4 Active Omeprazole 40 MG Oral Capsule Delayed Release (PriLOSEC)Indicati ons:Gastroesophage al reflux disease without esophagitis Take 1 Capsule by mouth in the morning. 90 Capsule 3 4 Active Additional Information Patient not taking.Reported on 03/18/2024 oxyCODONE HCl ER 10 MG Oral Tablet ER 12 Hour Abuse-Deterrent (oxyCONTIN) Take 1 Tablet by mouth in the morning and 1 Tablet before bedtime. Active Gabapentin 600 MG Oral Tablet (Neurontin)Indicat ions:Spinal stenosis of lumbar region with neurogenic claudication,Lumbo sacral radiculopathy Take 1 Tablet by mouth in the morning and 1 Tablet at noon and 1 Tablet before bedtime. 90 Tablet 5 4 Active Gabapentin 300 MG Oral Capsule (Neurontin) Take 1 Capsule by mouth in the morning and 1 Capsule at noon and 1 Capsule before bedtime. 270 Capsule 3 4 03/18/20 24 Discontinued Terbinafine HCl 250 MG Oral Tablet (Lamisil)Indicatio ns:Onychomycosis Take 1 Tablet by mouth in the morning. For 12 weeks for toenail fungus. 84 Tablet 4 03/18/20 24 Discontinued documented as of this encounter (statuses as of 03/18/2024) Active Problems Problem Noted Date Diagnosed Date History of PSVT (paroxysmal supraventricular tac hycardia) 03/18/2024 Mixed dyslipidemia 03/18/2024 Spinal stenosis of lumbar re gion with neurogenic claudication 03/18/2024 Hiatal hernia 12/28/2023 Food insecurity 07/20/2023 Overview: Per [facility] Protocol documented as of this encounter (statuses as of 03/18/2024) Immunizations Name Administration Dates Next Due Seasonal [...] Sign Reading Time Taken Comments Blood Pressure 98/72 03/18/2024 8:47 AM EDT Pulse 98 03/18/2024 8:47 AM EDT Temperature 36.4 C (97.5 F) 03/18/2024 8:47 AM ED T Respiratory Rate 16 03/18/2024 8:47 AM EDT Oxygen Saturation - - Inhaled Oxygen Concentration - - Weight 88.9 kg (196 lb) 03/18/2024 8:47 AM EDT Height 180.3 cm (5' 11") 03/18/2024 8:47 AM EDT Body Mass Index 27.34 03/18/2024 8:47 AM EDT documented in this encounter Progress Notes * Brigette Bennett MD - 03/18/2024 9:00 AM EDT Subjective Chief Complaint Patient presents with Hospital Follow-Up Hospital Follow-Up HPI: Keshav Varghese is a 63 year old male. The following issues were addressed today: Date of admission: 02/26/24 Date of discharge: 03/02/24 (hospital), 03/11/24 ([facility]) Hospital course: Patient is 63 year old male with PSVT, hiatal hernia, dysphagia, dyslipidemia, chronic low back pain who presented to the [facility] ER with complaint of low back pain x 1.5 weeks, now with radiation to LLE aggravated with ambulation. MRI showed degenerative spondylosis most pronounced at L4-5 and L5-S1, severe spinal canal stenosis at L4-5, foraminal stenosis most pronounced on the right at L5-S1 where it is severe. Was given IV Solu-Medrol and gabapentin. Ortho-spine consulted and recommended follow-up on discharge. He was discharged to [facility]. Tests/studies pending at time of discharge: None Home/outpatient services ordered: None Course since hospitalization: Patient reports he is continuing to have pain.Left leg is bothering him, still feels numb from his hip to the middle of his calf. Having shooting pains in both legs thatcomes and goes. Needing a walker to ambulate. He is following Dr. Leach and is planning for lumbar fusion potentially this month and no later than May. He has been prescribed gabapentin 600mg TID and oxycodone 10mg, which is he is taking twice a day. Feels like gabapentin is working better than oxycodone. Thinks he is still only taking 300mg. Has been staying with sister but she has company coming soon so he will need to go back to his house in [place]. Wondering if he could get help at home. Review of Systems: See HPI Objective BP 98/72 | Pulse 98 | Temp 36.4 C (97.5 F) | Resp 16 | Ht 1.803 m (5' 11") | Wt 88.9 kg (196 lb) | BMI 27.34 kg/m | BSA 2.11 m Wt Readings from Last 3 Encounters: 03/18/24 88.9 kg (196 lb) 02/11/24 91.8 kg (202 lb 6.4 oz) 01/21/24 90.1 kg (198 lb 11.2 oz) BP Readings from Last 3 Encounters: 03/18/24 98/72 02/11/24 122/8 01/21/24 118/70 General: Well-appearing, no acute distress Neurological: Alert and oriented, no focal deficits noted Psychiatric: Appropriate mood and affect Assessment & Plan 1. Hospital discharge follow-up - DISCH MED RECON CUR MED LIS 2. Spinal stenosis of lumbar region with neurogenic claudication 3. Lumbosacral radiculopathy 4. Ambulatory dysfunction Increase gabapentin to 600mg TID. Continue oxycodone 10mg PRN and stool softener. - Gabapentin 600 MG Oral Tablet (Neurontin); Take 1 Tablet by mouth in the morning and 1 Tablet at noon and 1 Tablet before bedtime. Dispense: 90 Tablet; Refill: 5 - MEDICAL HOME CASE MANAGEMENT REFERRAL OP 5. History of PSVT (paroxysmal supraventricular tachycardia) Stable. Continue Toprol. 6. Hiatal hernia EGD scheduled. 7. Mixed dyslipidemia Stable. Continue Lipitor 40mg. Follow Up: Return for follow-up as scheduled or sooner as needed. This note was electronically signed by Brigette Bennett MD documented in this encounter Nursing Notes * Kenyetta Pino LPN - 03/18/2024 8:46 AM EDT The patient has been properly identified by confirmation of name and date of . Chief Complaint Patient presents with Hospital Follow-Up documented in this encounter Plan of Treatment Upcoming Encounters Date Type Department Care Team (Latest Contact Info) Description 03/22/2024 8:30 AM EDT Hospital Encounter ENDO [facility], Endoscopy [address] [phone] Nedra Adan, [address] [place] [address] 03/22/2024 8:30 AM EDT - 03/22/2024 9:00 AM EDT Surgery ENDO [facility], Endoscopy [address] [place] [phone] Nedra Adan, [address] [place] [address] ESOPHAGOGASTRODUODENOSCOPY (EGD), FLEXIBLE, TRANSORAL, DIAGNOSTIC 04/28/2024 1:15 PM EDT Office Visit General Surgery, [facility] 132 [place] [address] Stephon Pollard MD [address] [place] [address] 04/29/2024 1:00 PM EDT Office Visit [facility] [address] [facility] [place] [address] Brigette Bennett MD [address] [facility] [place] [address] 07/22/2024 2:30 PM EST Office Visit Cardiology, [facility] 132 [facility] [place] [address] Lana Sarmiento CRNP [address] [place] [address] 07/26/2024 1:00 PM EST Office Visit [facility] [phone] Lacey Aparicio CRNP 132 [place] [address] Scheduled Procedures Name Priority Associated Diagnoses Date/Ti me ESOPHAGOGASTRODUODENOSCOPY ( EGD), FLEXIBLE, TRANSORAL, DIAGNOSTIC GERD (gastroesophageal reflux disease) 03/22/2024 8:30 AM EDT GASTRO REFLUX TEST WITH MUCO RAFAELA TELEMETRY PH ELECTRODE GERD (gastroesophageal reflux disease) 03/22/2024 8:30 AM EDT COLONOSCOPY FLEXIBLE PROXIMA L DIAGNOSTIC Recall History of colonic polyps Scheduled Referrals Name Type Priority Associated Diagnoses Orde r Schedule MEDICAL HOME CASE MANAGEMENT REFERRAL OP Referral Within 10 days (routine) Spinal stenosis of lumbar region with neurogenic claudication Lumbosacral radiculopathy Ambulatory dysfunction Ordered: 03/18/2024 Health Maintenance Due Date Last Done Comments Depression Screening 1970 HIV Screening 1973 Cologuard 2003 Fecal Occult Blood Test 2003 Zoster Vaccines (2 of 2) 05/26/2020 03/31/2020 COVID-19 Vaccine (1 - 2022-2 4 season) 2024 05/29/2023 Influenza Vaccine (FLU shot) [...] as of this encounter Visit Diagnoses Diagnosis Hospital discharge follow-up- Primary Other follow-up examination Spinal stenosis of lumbar region with neurogenic claudication Spinal stenosis, lumbar region, with neurogenic claudication Lumbosacral radiculopathy Thoracic or lumbosacral neuritis or radiculitis, unspecified Ambulatory dysfunction History of PSVT (paroxysmal supraventricular tachycardia) Personal history of other diseases of circulatory system Hiatal hernia Diaphragmatic hernia without mention of obstruction or gangrene Mixed dyslipidemia Mixed hyperlipidemia GERD (gastroesophageal reflux disease) Esophageal reflux documented in this encounter Care Teams Professor Of Music Relationship Specialty Start Date End Date Brigette Bennett MD 200 [facility] [place] [address] PCP - General Family Medicine 06/05/23 documented as of this encounter
--- OUTSIDE RECORDS SUMMARY | 2024-03-29 03:21 | External Medical Summary | Summary of Care ---
Author Name Unknown Organization [facility] Address [address] [place] [address] Phone [phone] Care Team Providers Care Administration Clerk Name Role Phone Brigette Bennett MD Primary Care Provider [phone] Reason for Referral * Evaluate & Treat - Unlimited Visits (Within 10 days (routine)) - Authorized Specialty Diagnoses / Procedures Referred By Jose R coello Referred To Contact [facility] Nurse / Home Care Diagnoses Spinal stenosis of lumbar region with neurogenic claudication Lumbosacral radiculopathy Ambulatory dysfunction Brigette Bennett MD [address] [place] [address] Referral ID Status Reason Start Date Expiration Date Visits Requested Visits Authorized [id number] Authorized Specialty Services Required 03/18/2024 999 999 [...] Practice State [place] [address] [place] [address] Brigette Bennett MD [address] [place] [address] [address] Hospital discharge follow-up*; Spinal stenosis of lumbar [...] 02/26/24 Date of discharge: 03/02/24 (hospital), 03/11/24 ([facility]) Hospital course: Patient is 63 year old male with PSVT, hiatal hernia, dysphagia, dyslipidemia, chronic low back pain who presented to the [facility] ER with complaint of low back pain [...] follow-up on discharge. He was discharged to [facility]. Tests/studies pending at time of discharge: None [...] to go back to his house in [place]. Wondering if he could get help at [...] EDT Hospital Encounter ENDO [facility], Endoscopy [address] [phone] Nedra Adan, [address] [place] [address] 03/22/2024 8:30 AM EDT - 03/22/2024 9:00 AM EDT Surgery [facility], Endoscopy [address] [place] [phone] Nedra Adan, [address] [place] [address] ESOPHAGOGASTRODUODENOSCOPY (EGD), FLEXIBLE, TRANSORAL, DIAGNOSTIC 04/28/2024 1:15 PM EDT Office Visit General Surgery, [facility] 132 [place] [address] Stephon Pollard MD [address] [place] [address] 04/29/2024 1:00 PM EDT Office Visit Family Practice [facility] 200 [facility] [place] [address] Brigette Bennett MD 200 [facility] [place] [address] 07/22/2024 2:30 PM EST Office Visit Cardiology, [facility] 132 [place] [address] Lana Sarmiento CRNP [address] [place] [address] 07/26/2024 1:00 PM EST Office Visit [facility] [phone] Lacey Aparicio CRNP 132 [place] [address] Scheduled Procedures Name Priority Associated Diagnoses Date/Ti [...] reflux documented in this encounter Care Teams Administration Clerk Relationship Specialty Start Date End Date Brigette Bennett MD 200 [facility] [place] [address] PCP - General Family Medicine 06/05/23 documented as of this encounter
--- OUTSIDE RECORDS SUMMARY | 2024-03-29 03:21 | External Medical Summary | Summary of Care ---
Author Name Unknown Organization [facility] Address [address] [place] [address] Phone [phone] Care Team Providers Care Intern Retail Name Role Phone Brigette Bennett MD Primary Care Provider [phone] Encounter Details Date Type Department Care Team (Late st Contact Info) Description 03/24/2024 3:00 PM EDT Home Visit [facility] Coordination [facility] Integration [address], [place] [id number] Louise Pearson, Community Health Biological Science Technician [place] [address] [place] [address] Allergies No known active allergiesdocumented as of [...] hernia 12/28/2023 Food insecurity 07/20/2023 Overview: Per [facility] Protocol documented as of this [...] No 03/18/2024 Does the household have a [facility] general hospitallar source of income? (Household - for ages [...] as of this encounter Progress Notes * Louise Pearson, Community Health Biological Science Technician [place] - 03/24/2024 5:08 PM EDT Telemedicine visit: No Community Health Biological Science Technician Fish (TRAV) documentation: Chw delivered emergency food box to patient Completed home safety assessment. Patient is unable to access his bedroom or bathroom due to it being up a flight of steps. Has a bedside commode to use downstairs when not able to get up stairs to bathroom. HH is set up to come in to assist with cleaning etc. Louise Pearson- Community Health Worker 1 Support Services/[facility] [email or web address] Electronically signed by Louise Pearson Community Health Biological Science Technician Fish at 03/28/2024 9:53 AM EDT documented in this encounter Plan of Treatment Upcoming Encounters Date Type Department Care Team (Late st Contact Info) Description 04/04/2024 10:30 AM EDT Home Visit Care Coordination and Integration [address] [place] [address] Tara Hu [facility] Biological Science Technician [place] [address] [place] [address] 04/28/2024 1:15 PM EDT Office Visit General Surgery, [facility] [address] [place] [address] Stephon Pollard MD [address] [place] [address] 04/29/2024 1:00 PM EDT Office Visit Family Practice [facility] 200 [facility] [place] [address] Brigette Bennett MD [address] [facility] [place] [address] 07/22/2024 2:30 PM EST Office Visit Cardiology, [facility] 132 [facility] [place] [address] Lana Sarmiento CRNP 400 [facility] [place] [address] 07/26/2024 1:00 PM EST Office Visit [facility] Disorders [facility] 132 [facility] [place] [phone] Lacey Aparicio CRNP 132 [facility] [place] [address] Scheduled Procedures Name Priority Associated Diagnoses Date/Ti [...] filedocumented as of this encounter Care Teams Intern Retail Relationship Specialty Start Date End Date Brigette Bennett MD [address] [place] [address] PCP - General Family Medicine 06/05/23 documented as of this encounter
--- OUTSIDE RECORDS SUMMARY | 2024-03-29 03:21 | External Medical Summary | Summary of Care ---
Author Name Unknown Organization [facility] Address [address] [place] [address] Phone [phone] Care Team Providers Care Brush Or Broom Cutter Name Role Phone Brigette Bennett MD Primary Care Provider Encounter Details Date Type Department Care Team (Late st Contact Info) Description 03/14/2024 Population Health External Data Unspecified Department Allergies No known active allergiesdocumented as of this encounter (statuses as of 03/14/2024) Medications Medication Sig Dispensed Refills Start Date [...] as of this encounter (statuses as of 03/14/2024) Active Problems Problem Noted Date Diagnosed Date Hiatal hernia 12/28/2023 Food insecurity 07/20/2023 Overview: Per [facility] Protocol documented as of this encounter (statuses as of 03/14/2024) Immunizations Name Administration Dates Next Due Seasonal [...] 9:00 AM EDT Office Visit Family Practice [facility] [place] [address] [facility] [place] [address] Brigette Bennett MD [address] [facility] [place] [address] 03/22/2024 8:30 AM EDT Hospital Encounter [facility]O [facility] [phone] Nedra Adan, DO [address] [place] [address] 03/22/2024 8:30 AM EDT - 03/22/2024 9:00 AM EDT Surgery ENDO [facility], Endoscopy [address] [place] [phone] Nedra Adan DO 132 [facility] [place] [address] ESOPHAGOGASTRODUODENOSCOPY (EGD), FLEXIBLE, TRANSORAL, DIAGNOSTIC 04/28/2024 1:15 PM EDT Office Visit General Surgery, [facility] 132 [place] [address] Stephon Pollard MD [address] [place] [address] 04/29/2024 1:00 PM EDT Office Visit [facility] [address] [facility] [place] [address] Brigette Bennett MD 200 [place] [address] 07/22/2024 2:30 PM EST Office Visit Cardiology, [facility] 132 [place] [address] Lana Sarmiento CRNP [address] [place], [place] [phone] 07/26/2024 1:00 PM EST Office Visit Sleep Disorders [facility] 132 [place] [phone] Lacey Aparicio CRNP [facility] [address] Scheduled Procedures Name Priority Associated Diagnoses Date/Ti [...] filedocumented as of this encounter Care Teams Brush Or Broom Cutter Relationship Specialty Start Date End Date Brigette Bennett MD [address] [place] [address] PCP - General Family Medicine 06/05/23 documented as of this encounter
--- OUTSIDE RECORDS SUMMARY | 2024-03-29 03:21 | External Medical Summary ---
Author Name UNSPECIFIED Address Unknown Organization [facility] History of Encounters Reason for Assessment: Start of care - f urther visits planned Inpatient discharge facility: Past 14 Da ys: Discharged from [facility] Most Recent Inpatient Discharge Date: Functional Assessment Patient Living Situation: Patient lives with other person(s) in the home: Around the clock When Dyspneic: When walking more th an 20 feet, climbing stairs Bowel Incontinence Frequency: Very rarel y or never has bowel incontinence Cognitive and Behavioral and Psychiatric Symptoms: None Current Ability: Bathing: able to partic ipate in bathing self in shower or tub, but requires presence of another person throughout the bath for assistance or supervision. Current Ability: Ambulation: Able to wal k only with the supervision or assistance of another person at all times. 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
--- OUTSIDE RECORDS SUMMARY | 2024-03-29 03:21 | External Medical Summary | Summary of Care ---
Author Name Unknown Organization [facility] Address [address] [place] [address] Phone [phone] Care Team Providers Care Professional Fighter Name Role Phone Brigette Bennett MD Primary Care Provider [phone] Reason for Visit * Reason Onset Date Comments Sleep Apnea Device 03/16/2024 Encounter Details Date Type Department Care Team (Late st Contact Info) Description 03/16/2024 Telephone Sleep Lab, [facility] [address], [place] [id number] Lacey Aparicio CRNP [address] [place] [address] Sleep Apnea Device Allergies No known active allergiesdocumented as of this encounter (statuses as of 03/16/2024) Medications Medication Sig Dispensed Refills Start Date [...] as of this encounter (statuses as of 03/16/2024) Active Problems Problem Noted Date Diagnosed Date Hiatal hernia 12/28/2023 Food insecurity 07/20/2023 Overview: Per [facility] Protocol documented as of this encounter (statuses as of 03/16/2024) Immunizations Name Administration Dates Next Due Seasonal [...] the household [facility] a [facility] source of income? (Household - for ages [...] encounter Miscellaneous Notes * Telephone Encounter - Tash Trinidad RPSGT - 03/16/2024 11:05 AM EDT Contacted the patient to offer an appt to milk pickup driver the [facility] [facility]. He requested that he be scheduled at [facility] as it is closer to his home. documented in this encounter Plan of Treatment Upcoming Encounters Date Type Department Care Team (Latest Contact Info) Description 03/18/2024 9:00 AM EDT Office Visit [facility] [address] [place] [address] Brigette Bennett MD [address] [place] [address] 03/22/2024 8:30 AM EDT Hospital Encounter [facility], Endoscopy [address] [phone] Nedra Adan, DO [address] [place] [address] 03/22/2024 8:30 AM EDT - 03/22/2024 9:00 AM EDT Surgery [facility], Endoscopy [address] [place] [phone] Nedra Adan, DO [address] [place] [address] ESOPHAGOGASTRODUODENOSCOPY (EGD), FLEXIBLE, TRANSORAL, DIAGNOSTIC 04/28/2024 1:15 PM EDT Office Visit General Surgery, [facility] [address] [facility] [place] [address] Stephon Pollard MD [address] [place] [address] 04/29/2024 1:00 PM EDT Office Visit [facility] [address] [place] [address] [place] [address] Brigette Bennett MD [address] [place] [address] 07/22/2024 2:30 PM EST Office Visit Cardiology, [facility] [address] [place] [address] Lana Sarmiento CRNP [address] [place] [phone] 07/26/2024 1:00 PM EST Office Visit [facility] [address] [place] [phone] Lacey Aparicio CRNP [address] [place] [address] Scheduled Procedures Name Priority Associated Diagnoses Date/Ti [...] Zoster Vaccines (2 of 2) 05/26/2020 03/31/2020 Pneumococcal Vaccine: 65+ Years (1 of 1 - PCV) 2023 COVID-19 Vaccine (1 - 2022-2 4 season) 2024 Influenza Vaccine (FLU shot) (#1) 2024 05/29/2023, [...] filedocumented as of this encounter Care Teams Professional Fighter Relationship Specialty Start Date End Date Brigette Bennett MD [address] [place] [address] PCP - General Family Medicine 06/05/23 documented as of this encounter
--- OUTSIDE RECORDS SUMMARY | 2024-03-29 03:21 | External Medical Summary | Summary of Care ---
Author Name Unknown Organization [facility] Address [address] [place] [address] Phone [phone] Care Team Providers Care Post Anesthesia Nurse Name Role Phone Brigette Bennett MD Primary Care Provider [phone] Reason for Visit * Auth/Cert Specialty Diagnoses / Procedures Referred By Jose R coello Referred To Contact Diagnoses GERD (gastroesophageal reflux disease) GERD (gastroesophageal reflux disease) [K21.9] Procedures EGD, FLEXIBLE, DIAGNOSTIC ESOPH FUNCT/REFLUX TEST,MUCOSAL PH ESOPHAGOGASTRODUODENOSCOPY (EGD), FLEXIBLE, TRANSORAL, DIAGNOSTIC GASTRO REFLUX TEST WITH MUCOSAL TELEMETRY PH ELECTRODE Nedra Adan DO [address] [place] [address] [facility] [address] [place] [phone] Referral ID Status Reason Start Date Expiration Date Visits Re quested Visits Authorized [id number] Encounter Details Date Type Department Care Team (Latest Contact Info) Description 03/22/2024 7:48 AM EDT - 03/22/2024 9:45 AM EDT Hospital Encounter [facility], Endoscopy [address] [phone] Nedra Adan DO [address] [place] [address] Upper GI Endoscopy Discharge Disposition: Home - Self Care Allergies No known active allergiesdocumented as of this encounter (statuses as of 03/22/2024) Medications Medication Sig Dispensed Refills Start Date [...] as of this encounter (statuses as of 03/22/2024) Active Problems Problem Noted Date Diagnosed Date History of PSVT (paroxysmal supraventricular tac hycardia) 03/18/2024 Mixed dyslipidemia 03/18/2024 Spinal stenosis of lumbar re gion with neurogenic claudication 03/18/2024 Hiatal hernia 12/28/2023 Food insecurity 07/20/2023 Overview: Per [facility] Protocol documented as of this encounter (statuses as of 03/22/2024) Immunizations Name Administration Dates Next Due Seasonal [...] Sign Reading Time Taken Comments Blood Pressure 101/77 03/22/2024 9:25 AM EDT Pulse 90 03/22/2024 9:25 AM EDT Temperature 35.6 C (96 F) 03/22/2024 8:55 AM EDT Respiratory Rate 14 03/22/2024 9:25 AM EDT Oxygen Saturation 90% 03/22/2024 9:25 AM EDT Inhaled Oxygen Concentration - - Weight 91.6 kg (202 lb) 03/15/2024 2:35 PM EDT Height 180.3 cm (5' 11") 03/15/2024 2:35 PM EDT Body Mass Index 28.17 03/15/2024 2:35 PM EDT documented in this encounter H&P Notes * Nedra Adan, - 03/22/2024 8:17 AM EDT Endoscopy Pre-Procedure Assessment Name: Keshav Varghese Date: 03/22/2024 Time: 8:17 AM Procedure(s): Upper GI Endoscopy; with Indication(s) of dysphagia or odynophagia and upper abdominal symptoms that persist despite an appropriate trial of therapy Endoscopy Pre-Procedure Assessment: Prior to the procedure, the patient is identified. The patient's history, medications and allergieshave been reviewed. The patient is competent. The risks and benefits of the proposed procedure and the planned sedation have been discussed with the patient. All questions have been answered and informed consent for the procedure has been obtained. Prior to Admission medications Medication Sig Last Dose Discont. Gabapentin 600 MG Oral Tablet (Neurontin) Take 1 Tablet by mouth in the morning and 1 Tablet at noon and 1 Tablet before bedtime. 03/21/2024 oxyCODONE HCl ER 10 MG Oral Tablet ER 12 Hour Abuse-Deterrent (oxyCONTIN) Take 1 Tablet by mouth inthe morning and 1 Tablet before bedtime. 03/17/2024 Diclofenac Sodium 50 MG Oral Tablet Delayed Release (Voltaren) Take 1 Tablet by mouth in the morning and 1 Tablet at noon and 1 Tablet before bedtime. 03/22/2024 Omeprazole 40 MG Oral Capsule Delayed Release (PriLOSEC) Take 1 Capsule by mouth in the morning. Patient not taking: Reported on 03/18/2024 DULoxetine HCl 60 MG Oral Capsule Delayed Release Particles (Cymbalta) Take 1 Capsule by mouth in the morning. 03/22/2024 Metoprolol Succinate ER 25 MG Oral Tablet Extended Release 24 Hour (Toprol XL) Take 1 Tablet by mouth in the morning. 03/22/2024 Atorvastatin Calcium 40 MG Oral Tablet (Lipitor) Take 1 Tablet by mouth in the morning. 03/22/2024 Acetaminophen 500 MG Oral Tablet (Tylenol Extra Strength) Take 1 Tablet by mouth every 6 hours as needed. 03/21/2024 Review of patient's allergies indicates: No Known Allergies Ht 1.803 m (5' 11") | Wt 91.6 kg (202 lb) | BMI 28.17 kg/m | BSA 2.14 m Physical Exam: Mental Status Examination: alert and oriented. Airway Examination: normal oropharyngeal airway and neck mobility. Respiratory Examination: clear to auscultation. CV Examination: regular rate and rhythm. ASA Grade: III - A patient with severe systemic disease. Abdomen: soft This patient has undergone a preprocedural evaluation. A determination has been made to proceed with the planned procedure under [facility] procedural guidelines and the [facility] Non-Emergent, Elective Medical Services and Treatment Recommendations (published on 10-18-19). The community and hospital prevalence of COVID-19 has been discussed as well as this patient's specific risks associated with SARS-CoV-19 infection. Based upon the clinical acuity and patient-specific care considerations, this procedure is deemed a Tier II - Intermediate acuity treatment or service with either progression or the threat of progressive disease related to the delay in treatment. Not providing the service has the potential for increasing morbidity or mortality. After reviewing the risks and benefits, the patient is deemed in satisfactory condition to undergo the procedure. The anesthesia plan is to use general anesthesia. We have discussed the risks and benefits of upper endoscopy to include bleeding, infection, perforation, discomfort, aspiration and need for follow-up studies. Nedra Adan DO 03/22/2024 documented in this encounter Procedure Notes * Brigette Bennett MD - 03/22/2024 8:25 AM EDTAssociated Order(s): UPPER GI ENDOSCOPY [facility] Patient Name: Keshav Varghese Procedure Date: 03/22/2024 8:25 AM Date of : 1960 Admit Type: Outpatient Note Status: Finalized Date of : 1960 Admit Type: Outpatient Age: 63 Room: Endo 2 Gender: Male Note Status: Finalized Procedure: Upper GI endoscopy Indications: Dysphagia, Heartburn Providers: Nedra Adan DO (Doctor) Referring MD: Barb Dumont NP Medicines: General Anesthesia Complications: No immediate complications. Estimated blood loss: Minimal. Procedure: Pre-Anesthesia Assessment: - Prior to the procedure, a History and Physical was performed, and patient medications, allergies and sensitivities were reviewed. The patient's tolerance of previous anesthesia was reviewed. - The risks and benefits of the procedure and the sedation options and risks were discussed with the patient. All questions were answered and informed consent was obtained. - Patient identification and proposed procedure were verified prior to the procedure by the physician, the nurse and the rheumatologist. The procedure was verified in the procedure room. - Pre-procedure physical examination revealed no contraindications to sedation. - ASA Grade Assessment: II - A patient with mild systemic disease. - After reviewing the risks and benefits, the patient was deemed in satisfactory condition to undergo the procedure. - The anesthesia plan was to use general anesthesia. - Immediately prior to administration of medications, the patient was re- assessed for adequacy to receive sedatives. - The heart rate, respiratory rate, oxygen saturations, blood pressure, adequacy of pulmonary ventilation, and response to care were monitored throughout the procedure. - The physical status of the patient was re-assessed after the procedure. After obtaining informed consent, the endoscope was passed under direct vision. All instruments were visually inspected immediately before and after removal from the patient to ensure they are fully intact. Throughout the procedure, the patient's blood pressure, pulse, and oxygen saturations were monitored continuously. The was introduced through the mouth, and advanced to the third part of duodenum. The upper GI endoscopy was accomplished without difficulty. The patient tolerated the procedure well. Findings & Specimens: The middle third of the esophagus and lower third of the esophagus were moderately tortuous. The SELF capsule was activated and then calibrated after the esophageal dilation had been performed. The SELF capsule with delivery system was introduced through the mouth and advanced into the esophagus, such that the SELF pH capsule was positioned 30 cm from the incisors, which was 4 cm proximal to the GE junction. Suction was applied to the well of the SELF pH capsule to suck in the adjacent mucosa ofthe esophagus using the external vacuum pump set at a minimum vacuum pressure of 550 mmHg for 45 seconds. The SELF pH capsule was then deployed by depressing the plunger on top of the handle to advance the locking pin into the mucosa, thereby attaching the capsule to the esophagus. The plunger was then rotated a quarter turn clockwise to release the capsule from the delivery system. The delivery system was then withdrawn. Endoscopy was utilized for probe placement and diagnostic evaluation. A moderate Schatzki ring was found at the gastroesophageal junction. A guidewire was placed under fluoroscopic guidance and the scope was withdrawn. Dilation was performed with a Savary dilator with no resistance at 54 Fr. The dilation site was examined following endoscope reinsertion and showed mild mucosal disruption. Estimated blood loss was minimal. A medium-sized hiatal hernia was found. The proximal extent of the gastric folds (end of tubular esophagus) was 34 cm from the incisors. The hiatal narrowing was 39 cm from the incisors. The Z-line was 34 cm from the incisors. Diffuse mild inflammation characterized by congestion (edema), erythema and granularity was found in the entire examined stomach. Biopsies were taken with a cold forceps for histology. The pathology specimen was placed into Bottle A. Estimated blood loss was minimal. The examined duodenum was normal. Impression: - Tortuous esophagus. - Moderate Schatzki ring. Dilated to 54 Fr today. - Medium-sized hiatal hernia (4 to 5 cm). - Diffuse gastritis. Biopsied. - Normal examined duodenum. - The SELF pH capsule was positioned 30 cm from the incisors, which was 4 cm proximal to the GE junction. Recommendation: - The patient will be observed post-procedure, until all discharge criteria are met. - Resume previous diet. - Recommend acid suppression medication. Nedra Adan DO 03/22/2024 9:01:20 AM This report has been signed electronically. Estimated Blood Loss: Estimated blood loss was minimal. documented in this encounter Nursing Notes * Kevin Mata RN - 03/22/2024 9:42 AM EDT Patient is discharged under the care of : friend Report called to N/A Means of transportation: wheelchair Discharge instructions reviewed by: Nurse Special discharge instructions given for: Self Bronchoscopy: N/A Patient verbalized understanding of discharge instructions: YES Pt taken off the floor with nursing staff to private vehicle along with paperwork and belongings * Kevin Mata RN - 03/22/2024 9:35 AM EDT Reviewed discharge instructions and procedure results with pt. Med list and discharge instructions given. Verbalizes understanding and denies any other questions or concerns. Sat up at side of stretcher. * Kevin Mata RN - 03/22/2024 9:18 AM EDT HOB up to 45 degrees, PO fluids given and tolerated. Dr. Adan into see pt * Kevin Mata RN - 03/22/2024 8:59 AM EDT Pt received in recovery S/P EGD with self. Pt resting on left side. Pt denies pain. Abd soft Report received from jose michele. VSS. Airway patent. * Yulisa Burgess RN - 03/22/2024 8:51 AM EDT EGD w/ self completed. Pt stephane procedure well. Sedated by RIVET PASSER. See anesthesia record for VS and medications given. Abd soft. Airway patent. Pt to recovery on L side with HOB elevated. Report to recovery room nurse. Bedside cleaning done. * Diane Winston LPN - 03/22/2024 8:26 AM EDT Pt. Resting quietly,no complaints of voiced at present,waiting on procedure room to become available. documented in this encounter Plan of Treatment Upcoming Encounters Date Type Department Care Team (Late st Contact Info) Description 03/24/2024 3:00 PM EDT Home Visit [facility] Coordination [facility] Integration [address] [place] [address] [facility] Management Administrator [address] [place] [address] 04/28/2024 1:15 PM EDT Office Visit General Surgery, [facility] [address] [facility] [place] [address] Stephon Pollard MD [address] [place] [address] 04/29/2024 1:00 PM EDT Office Visit [facility] [address] [place] [address] Brigette Bennett MD [address] [facility] [place] [address] 07/22/2024 2:30 PM EST Office Visit Cardiology, [facility] [address] [place] [address] Lana Sarmiento CRNP [address] [facility] [place] [address] 07/26/2024 1:00 PM EST Office Visit [facility] [id number] Lacey Aparicio CRNP [address] [place] [address] Pending Results Name Type Priority Associated Diagnoses Date /Time SURGICAL PATHOLOGY Pathology Routine 2023 8:52 AM EDT Scheduled Orders Name Type Priority Associated Diagnoses Orde r Schedule SURGICAL PATHOLOGY Pathology Routine One Ti me for 1 Occurrences starting 03/22/2024 until 03/22/2024, 1 completed Scheduled Procedures Name Priority Associated Diagnoses Date/Ti me ESOPHAGOGASTRODUODENOSCOPY ( EGD), FLEXIBLE, TRANSORAL, DIAGNOSTIC GERD (gastroesophageal reflux disease) 03/22/2024 8:34 AM EDT GASTRO REFLUX TEST WITH MUCO RAFAELA TELEMETRY PH ELECTRODE GERD (gastroesophageal reflux disease) 03/22/2024 8:34 AM EDT COLONOSCOPY FLEXIBLE PROXIMA L DIAGNOSTIC Recall History of colonic polyps Health Maintenance Due Date Last Done Comments Depression Screening 1970 HIV Screening 1973 Cologuard 2003 Fecal Occult Blood Test 2003 Zoster Vaccines (2 of 2) 05/26/2020 03/31/2020 COVID-19 Vaccine (2 - 2022-2 4 season) 2024 05/29/2023 Influenza [...] Procedure Name Priority Date/Time Associated Diagnosis Comments UPPER GI ENDOSCOPY 03/22/2024 8: 25 AM EDT documented in this encounter Results * UPPER GI ENDOSCOPY (03/22/2024 8:25 AM EDT) 03/22/2024 8:25 AM EDT Narrative Procedure Note Brigette Bennett MD - 03/22/2024 8:25 AM EDT [facility] Patient Name: Keshav Varghese Procedure Date: 03/22/2024 8:25 AMMRN: [id number] Date of : 1960 Admit Type: Outpatient Note Status:Finalized Date of : 1960 Admit Type: Outpatient Age: 63 Room: [facility] 2 Gender: Male Note Status: Finalized Procedure: Upper GI endoscopy Indications: Dysphagia, Heartburn Providers: Nedra Adan DO (Doctor) Referring MD: Barb Dumont NP Medicines: General Anesthesia Complications: No immediate complications. Estimated blood loss:Minimal. Procedure: Pre-Anesthesia Assessment: - Prior to the procedure, a History and Physicalwas performed, and patient medications, allergies and sensitivities werereviewed. The patient's tolerance of previous anesthesia was reviewed. - The risks and benefits of the procedure and thesedation options and risks were discussed with the patient. All questions wereanswered and informed consent was obtained. - Patient identification and proposed procedurewere verified prior to the procedure by the physician, the nurse and the rheumatologist.The procedure was verified in the procedure room. - Pre-procedure physical examination revealed nocontraindications to sedation. - ASA Grade Assessment: II - A patient with mildsystemic disease. - After reviewing the risks and benefits, thepatient was deemed in satisfactory condition to undergo the procedure. - The anesthesia plan was to use generalanesthesia. - Immediately prior to administration ofmedications, the patient was re-assessed for adequacy to receive sedatives. - The heart rate, respiratory rate, oxygensaturations, blood pressure, adequacy of pulmonary ventilation, and response to care weremonitored throughout the procedure. - The physical status of the patient wasre-assessed after the procedure. After obtaining informed consent, the endoscope waspassed under direct vision. All instruments were visually inspected immediatelybefore and after removal from the patient to ensure they are fully intact. Throughout the procedure, the patient's bloodpressure, pulse, and oxygen saturations were monitored continuously. The was introducedthrough the mouth, and advanced to the third part of duodenum. The upper GI endoscopywas accomplished without difficulty. The patient tolerated the procedurewell. Findings & Specimens: The middle third of the esophagus and lower third of the esophaguswere moderately tortuous. The SELF capsule was activated and then calibrated after the esophagealdilation had been performed. The SELF capsule with delivery system was introduced through the mouth andadvanced into the esophagus, such that the SELF pH capsule was positioned 30 cm from the incisors,which was 4 cm proximal to the GE junction. Suction was applied to the well of the SELF pH capsule tosuck in the adjacent mucosa of the esophagus using the external vacuum pump set at a minimum vacuumpressure of 550 mmHg for 45 seconds. The SELF pH capsule was then deployed by depressing the plunger ontop of the handle to advance the locking pin into the mucosa, thereby attaching the capsule to theesophagus. The plunger was then rotated a quarter turn clockwise to release the capsule from thedelivery system. The delivery system was then withdrawn. Endoscopy was utilized for probe placement anddiagnostic evaluation. A moderate Schatzki ring was found at the gastroesophageal junction.A guidewire was placed under fluoroscopic guidance and the scope was withdrawn. Dilation wasperformed with a Savary dilator with no resistance at 54 Fr. The dilation site was examined followingendoscope reinsertion and showed mild mucosal disruption. Estimated blood loss was minimal. A medium-sized hiatal hernia was found. The proximal extent of thegastric folds (end of tubular esophagus) was 34 cm from the incisors. The hiatal narrowing was 39cm from the incisors. The Z-line was 34 cm from the incisors. Diffuse mild inflammation characterized by congestion (edema),erythema and granularity was found in the entire examined stomach. Biopsies were taken with a cold forcepsfor histology. The pathology specimen was placed into Bottle A. Estimated blood loss wasminimal. The examined duodenum was normal. Impression: - Tortuous esophagus. - Moderate Schatzki ring. Dilated to 54 Fr today. - Medium-sized hiatal hernia (4 to 5 cm). - Diffuse gastritis. Biopsied. - Normal examined duodenum. - The SELF pH capsule was positioned 30 cm fromthe incisors, which was 4 cm proximal to the GE junction. Recommendation: - The patient will be observed post-procedure,until all discharge criteria are met. - Resume previous diet. - Recommend acid suppression medication. Nedra Adan DO 03/22/2024 9:01:20 AM This report has been signed electronically. Estimated Blood Loss: Estimated blood loss was minimal. Brigette Bennett MD GASTRO UPPER documented in this encounter Administered Medications Inactive Administered Medications - up to 3 most recent administrations Medication Order MAR Action Action Date Dose Rate Site isolyte-S pH 7.4 infusion Intravenous, at 75 mL/hr, Plasma-LYTE 148, isolyte-S, and isolyte-S pH 7.4 are considered equivalent - including for MAR barcode scanning., CONTINUOUS, Starting on Thu03/22/24 at 0845, Until Thu03/22/24 at 1144, Pre-Op Continue from Pre-Op 03/22/2024 8:34 AM EDT 75 mL/hr New Bag 03/22/2024 8:25 AM EDT 75 mL/hr documented in this encounter Active and Recently Administered Medications Times are shown in EDT. Scheduled Medication Order 03/20/2024 03/21/2024 03/22/2024 influenza Vac Split HIGH-DOSE Trivalent(65 years and older) (Fluzone High Dose) inj 0.5 mL 0.5 mL, Intramuscular, ONCE, On Thu03/22/24 at 0930, For 1 dose, Add Lot# and Technologist Infectious Disease in Immunization Info section of MAR ! Store in Refrigerator SHAKE WELL PRIOR TO ADMINISTRATION, Pre-Op 0930 (Due) Continuous Medication Order 03/20/2024 03/21/2024 03/22/2024 isolyte-S pH 7.4 infusion Intravenous, at 75 mL/hr, Plasma-LYTE 148, isolyte-S, and isolyte-S pH 7.4 are considered equivalent - including for MAR barcode scanning., CONTINUOUS, Starting on Thu03/22/24 at 0845, Until Thu03/22/24 at 1144, Pre-Op 0825 (New Bag - Prov ider: Diane Winston LPN)0834 (Continue from Pre-Op - Provider: Suellen Cruz CRNA)0858 (Anes Intra-Op Fluid - Provider: Suellen Cruz CRNA)1345 (Due: Stopped) documented in this encounter Care Teams Post Anesthesia Nurse Relationship Specialty Start Date End Date Brigette Bennett MD [address] [place] [address] PCP - General Family Medicine 06/05/23 documented as of this encounter
[2024-03-29] MEDS: ZOLPIDEM TARTRATE 5 MG TAB PO STA (03:51)
[2024-03-29 06:03] LABS: Basophils # (auto) 0.02 K/uL (0.00-0.20); Basophils % (auto) 0.3 %; Eosinophils # (auto) 0.01 K/uL (0.00-0.50); Eosinophils % (auto) 0.2 %; Hematocrit (blood only) 43.5 % (42.0-52.0); Hemoglobin 14.7 g/dl (14.0-18.0); Immature Granulocytes # (auto) 0.05 K/uL (0.01-0.20); Immature Granulocytes % (auto) 0.8 %; Lymphocytes # (auto) 1.03 K/uL (1.20-3.40); Lymphocytes % (auto) 15.5 %; Mean Corpuscular Hemoglobin 30.6 pg (25.0-34.0); Mean Corpuscular Hgb Conc 33.8 g/dL (32.0-36.0); Mean Corpuscular Volume 90.4 fL (80.0-100.0); Mean Platelet Volume 8.4 fL (9.4-12.4); Monocytes # (auto) 0.15 K/uL (0.11-0.59); Monocytes % (auto) 2.3 %; Neutrophils # (auto) 5.39 K/uL (1.40-6.50); Neutrophils % (auto) 80.9 %; Platelet Count 357 K/uL (130-400); RDW Coefficient of Variation 12.1 % (11.5-14.5); RDW Standard Deviation 39.9 fL (36.4-46.3); Red Blood Count 4.81 M/uL (4.70-6.10); White Blood Count 6.65 K/ul (4.8-10.8)
[2024-03-29 06:17] LABS: Anion Gap 6 (3-11); BUN Creatinine Ratio 21.6 (10-20); Blood Urea Nitrogen 19 mg/dl (6-23); Calcium 8.6 mg/dl (8.6-10.3); Carbon Dioxide 27 mmol/L (21-32); Chloride 108 mmol/L (98-107); Creatinine Clr Calc Pharmacy 89.1 ml/min; Est GFR (African American) 104.5 ml/min; Est GFR (Non-African American) 90.1 ml/min; Glucose 190 mg/dl (70-99(Fasting)); Magnesium 2.2 mg/dl (1.7-2.4); Potassium 4.3 mmol/L (3.5-5.1); Sodium 141 mmol/L (136-145)
[2024-03-29 06:24] LABS: Troponin I High Sensitivity < 2.3 pg/ml (0-20)
--- NOTE | 2024-03-29 07:05 | XRay Report ---
XR chest 1V not portable HISTORY: 63 years-old Male tachycardia COMPARISON: None TECHNIQUE: PA view of the chest FINDINGS: Cardiomediastinal and hilar silhouettes are within normal limits. No pneumothorax, pleural effusion o r airspace consolidation. Chronic fracture of the posterior left eighth rib. Levoscoliosis of the tho racolumbar junction. IMPRESSION: No acute process. ACT 112: Negative or not required by law. The above report was generated using voice recognition software. It may contain grammatical, syntax o r spelling errors. Electronically signed by: Sameer Garland M.D. 03/29/2024 7:03 AM
--- NOTE | 2024-03-29 08:14 | Electrocardiogram Report ---
Test Reason : Blood Pressure : */* mmHG Vent. Rate : 122 BPM Atrial Rate : 122 BPM P-R Int : 168 ms QRS Dur : 78 ms QT Int : 302 ms P-R-T Axes : -12 -6 -11 degrees QTcB Int : 430 ms Sinus tachycardia Possible Old Inferior infarct Nonspecific ST abnormality Anterior leads Abnormal ECG No previous ECGs available Confirmed by Héctor San ([id number]) on 03/29/2024 8:14:28 AM Referred By: REFERRED SELF Confirmed By: Héctor San
--- NOTE | 2024-03-29 08:35 | Electrocardiogram Report ---
Test Reason : Blood Pressure : */* mmHG Vent. Rate : 87 BPM Atrial Rate : 87 BPM P-R Int : 156 ms QRS Dur : 86 ms QT Int : 350 ms P-R-T Axes : 49 42 46 degrees QTcB Int : 421 ms Normal sinus rhythm with sinus arrhythmia Normal ECG When compared with ECG of 28-Mar-2024 19:27, Criteria for Inferior infarct are no longer Present Nonspecific ST abnormality no longer present Confirmed by Héctor San ([id number]) on 03/29/2024 8:35:20 AM Referred By: REFERRED SELF Confirmed By: Héctor San
--- NOTE | 2024-03-29 08:40 | Cardiology Consultation ---
Date of Consultation March 29, 2024 Assessment & Plan (1) Degenerative lumbar spinal stenosis: (2) Sinus tachycardia: (3) History of PSVT (paroxysmal supraventricular tachycardia): (4) Atypical chest pain: Plan Patient admitted for intractable back pain, radiating down left leg with associated weakness. Known severe spinal stenosis for which patient has been evaluated several times over the last month. Plans for future spinal surgery. However due to pain and left foot weakness, patient came to ER for treatment and admitted. HR was elevated on arrival, consistent with sinus tach, likely due to severe pain. He has known history of sinus tach and paroxysmal SVT treated with metoprolol. No arrhythmias on telemetry. HS troponin negative on admission. He had a stress echo in Aug 2023 which was negative for inducible ischemia but poor exercise tolerance (due to back pain). He reported atypical chest pain on admission, but admitted that this was likely due to his GI issues (hiatal hernia, esophageal stricture, gastritis). his CP/dyspnea improved after esophageal dilation last week. Will increase metoprolol to 25 mg BID to aid with sinus tachycardia and palpitations. If patient is requiring spinal surgery, he is considered low risk for perioperat daren cardiac complications. No further cardiac testing warranted at this time based on recent testing/history and current symptoms. Case discussed with Dr. Gaston I spent a total of 60 minutes on the date of service in preparation, delivery, and documentation of the care provided to this patient, excluding any time spent in the performance of separately billed services. Kalie Gregory PA-C Department of Cardiology, [facility] This chart was completed in part utilizing Speech Voice Recognition Software. Grammatical errors, random word insertions, pronoun errors, and incomplete sentences are an occasional consequence of this system due to software limitations, ambient noise, and hardware issues. Any formal questions or concerns about the content, text, or information contained within the body of this dictation should be directly addressed to the provider for clarification. Supervising Physician Co-Signing Physician Notes Attending attestation: Case reviewed with the advanced practitioner. I have personally performed a history and physical examination on the patient. I have reviewed the advanced practitioner's documentation on the date of service referenced in note, and I agree with, and take responsibility for the plan of care. I spent a total of 20 minutes coordinating, documenting, and providing care for this patient excluding time spent in the performance of separately billed services or time spent by another provider. Ever Gaston DO History of Present Illness Reason for Consultation: Severe back pain/Ambulatory dysfunction; Palpitations/CP Requesting Physician: Leanne Hospitalist Attending Physician: Annika Vázquez MD History of Present Illness Patient is a 63 year old male who was admitted to [facility] with intractable back pain and ambulatory dysfunction. Patient is known to Dr. Bacon/Dr. Carolina for history of atypical chest pain, palpitations correlating with sinus tachycardia and SVT on prior outpatient cardiac monitor. He had been started on metoprolol earlier this year with good response. In Aug 2023 he underwent exercise stress echo. unfortunately he was not able to exercise and poor exercise tolerance (due to back pain) but stress test was otherwise negative for inducible ischemia. History includes: 1. SVT 2. Sinus tachycardia 3. Hiatal hernia with diffuse gastritis, tortuous esophagus with moderate Schatzki ring - dilated on 03/22/24 Over the last month, he has been admitted on several occasions with severe back pain radiating down his left leg causing weakness and possible foot drop. Evaluated by spinal surgery and pain management for severe spinal stenosis. Surgery tentatively scheduled for several months from now. Unfortunately over the last week, patient's symptoms worsened and he came back to the ER. upon arrival, HR was mildly elevated, consistent with sinus tachycardia. He reported intermittent chest pain "over his heart" over the last few weeks, but then admits this pain resolved after his esophagus was dilated last week. No exertional chest pain. His SOB also improved after dilation of his esophagus this week. Rare palpitations reported. Taking metoprolol as prescribed. Cardiology was consulted for atypical chest pain, palpitations. EKG on arrival demonstrated Sinus tach at 122 bmp, possible old inferior infarct with mild non specific T wave abnormality. HS troponin negative x1 At time of consult, patient resting in bed feeling well. HR currently around 100, sinus tachycardia. he is asymptomatic from a cardiac standpoint. Allergies Allergy/AdvReac Type Severity Reaction Status Date / Time No Known Allergies Allergy Unverified 02/26/24 17:01 Home Medications Medication Instructions Recorded Confirmed Type atorvastatin 40 mg tablet 40 mg PO DAILY 03/28/24 03/28/24 History diclofenac sodium 50 mg 50 mg PO TID 03/28/24 03/28/24 History tablet,delayed release duloxetine 60 mg capsule,delayed 60 mg PO DAILY 03/28/24 03/28/24 History release gabapentin 600 mg tablet 600 mg PO TID 03/28/24 03/28/24 History metoprolol succinate 25 mg 25 mg PO DAILY 03/28/24 03/28/24 History tablet,extended release 24 hr omeprazole 40 mg capsule,delayed 40 mg PO DAILY 03/28/24 03/28/24 History release Patient History Surgical History History of colonoscopy History of esophagogastroduodenoscopy (EGD) Family History Grandmother (Maternal) Stroke Father Heart disease Social History Smoking Status: Never smoker Second Hand Exposure: No; Do You Dip or Chew Tobacco: No; Tobacco Cessation Education Requested by Patient: No Hx Alcohol Use: Yes Alcohol type: beer Hx Substance Use: No Preferred Language: Lao Communication Ability: Effective Desktop Support Specialist Required: No Beliefs That Will Affect Care: None Current Living Situation: Alone Other Information That Helps Us Care for You: No Feels Safe at Home: Yes Safety Concerns: Feels Safe At This Time Assistive Devices: Walker Review of Systems Review of Systems: All systems reviewed & are unremarkable except as noted in HPI & below Physical Exam Constitutional: WD/WN, vitals as above well developed; no acute distress Neck: trachea midline, no thyromegaly Cardiovascular: Rate/Rhythm: regular rate and regular rhythm Heart Sounds: normal S1 and normal S2; no murmur Vessels: no JVD Extremities: no edema Gastrointestinal (Abdomen): normal bowel sounds, soft, nontender, no hepatosplenomegaly Skin: no rashes, warm and dry Neurologic: PERRL, EOMI, accommodation nl, no face palsy, no dysarthria Results & Data Vital Signs (Past 12 Hours) Vital Signs Temp Pulse Pulse Resp BP Pulse Ox O2 Del Method 03/29/24 07:39 36.6 C 108 H 18 127/77 94 Room Air 03/29/24 07:30 97 H 03/29/24 02:34 36.7 C 108 H 18 117/72 95 Room Air 03/29/24 00:26 104 H 03/29/24 00:24 36.7 C 90 12 115/72 92 Room Air 03/28/24 23:57 94 H 16 111/77 92 Room Air 03/28/24 23:27 100 H 03/28/24 23:21 92 Room Air 03/28/24 22:00 94 H 18 127/75 94 Room Air 03/28/24 20:48 112 H 18 113/81 93 Room Air Laboratory Results Cardiac Enzymes 03/28/24 03/29/24 Range/Units 19:31 05:33 AST 33 (13-39) U/L Troponin I High Sens < 2.3 (0-20) pg/ml CBC 03/28/24 03/29/24 Range/Units 19:31 05:33 WBC 6.45 6.65 (4.8-10.8) K/ul RBC 5.49 4.81 (4.70-6.10) M/uL Hgb 16.9 14.7 (14.0-18.0) g/dl Hct 49.3 43.5 (42.0-52.0) % Plt Count 401 H 357 (130-400) K/uL Neut # (Auto) 3.74 5.39 (1.40-6.50) K/uL Lymph # (Auto) 1.48 1.03 L (1.20-3.40) K/uL [place]iken # (Auto) 0.96 H 0.15 (0.11-0.59) K/uL Eos # (Auto) 0.21 0.01 (0.00-0.50) K/uL Baso # (Auto) 0.03 0.02 (0.00-0.20) K/uL Comprehensive Metabolic Panel 03/28/24 03/29/24 Range/Units 19:31 05:33 Sodium 141 141 (136-145) mmol/L Potassium 3.9 4.3 (3.5-5.1) mmol/L Chloride 108 H 108 H (98-107) mmol/L Carbon Dioxide 23 27 (21-32) mmol/L BUN 18 19 (6-23) mg/dl Creatinine 0.91 0.88 (0.6-1.4) mg/dl Glucose 121 H 190 H (70-99(Fasting)) mg/dl Calcium 9.1 8.6 (8.6-10.3) mg/dl AST 33 (13-39) U/L ALT 86 H (7-52) U/L Alkaline Phosphatase 64 (34-104) U/L Total Protein 7.2 (6.0-8.3) gm/dl Albumin 4.4 (3.4-5.0) gm/dl Intake and Output 03/28/24 03/29/24 03/29/24 22:59 06:59 14:59 Other: Other Intake Source npo Weight 88.5 kg Weight Measurement Method Standing Scale Diagnostic Findings Telemetry reviewed: NSR and Sinus tachycardia with HR ranging 90--110 at rest. No SVT EKG reviewed from admission dated 03/28/24: Sinus tach at 122 bmp Possible old inferior infarct Nonspecific ST wave abnormality compared with prior EKG's in [facility], no significant changes noted Repeat EKG reviewed from 03/29/24: NSR with sinus arrhythmia at 87 bmp Possible old inferior infarct ST wave abnormality improved Chest xray report reviewed dated 03/28: IMPRESSION: No acute process. Outside/prior data reviewed: Exercise stress echo report from Aug 2023: Interpretation Summary The echocardiographic images were of excellent technical quality. There is no echocardiographic evidence of inducible ischemia. Equivocal symptoms and equivocal EKG changes observed as described below. Sinus tachycardia noted at rest/baseline, heart rate 133 beats per minute prior to initiating exercise. The exercise capacity is below average having completed 2 minutes 40 seconds on a Jone protocol, 4.6 METs. No significant valvular heart disease is present on the resting study. ZIo monitor report reviewed dated Jun 2023: CONCLUSIONS: Duration: 11 days, 13 hours. Patient had a min HR of 48 bpm, max HR of 231 bpm, and avg HR of 84 bpm. Predominant underlying rhythm was Sinus Rhythm. 16 Supraventricular Tachycardia runs occurred, the run with the fastest interval lasting 7.7 secs with a max rate of 231 bpm, the longest lasting 1 hour 3 mins with an avg rate of 169 bpm. Isolated SVEs were rare (<1.0%), SVE Couplets were rare (<1.0%), and SVE Triplets were rare (<1.0%). Isolated VEs were rare (<1.0%), VE Couplets were rare (<1.0%), and no VE Triplets were present. notification criteria for Supraventricular Tachycardia met - report posted prior to notification per account request (BCR). 16 runs of supraventricular tachycardia recorded including a sustained episode lasting 1 hour and 3 minutes. Consider cardiology consultation for further evaluation. No symptoms reported. Medications Administered Current Inpatient Medications Acetaminophen (Acetaminophen 325 Mg Tab) 650 mg PO Q6H [facility] Stop: 04/28/24 09:29 Last Admin: 03/29/24 09:53 Dose: 650 mg Atorvastatin Calcium (Atorvastatin 40 Mg Tab) 40 mg PO DAILY [facility] Stop: 04/28/24 08:59 Last Admin: 03/29/24 09:54 Dose: 40 mg Duloxetine HCl (Duloxetine Hcl 60 Mg Cap) 60 mg PO DAILY [facility] Stop: 04/28/24 08:59 Last Admin: 03/29/24 09:54 Dose: 60 mg Gabapentin (Gabapentin 600 Mg Tab) 600 mg PO TID [facility] Stop: 04/28/24 08:59 Last Admin: 03/29/24 09:54 Dose: 600 mg Hydromorphone HCl (Hydromorphone Inj 0.5 Mg/0.5 Ml Syr) 0.25 mg IV Q4H PRN PRN Reason: Moderate Pain (Scale 4, 5, 6) Stop: 04/12/24 00:23 Hydromorphone HCl (Hydromorphone Inj 0.5 Mg/0.5 Ml Syr) 0.5 mg IV Q4H PRN PRN Reason: Severe Pain (Scale 7, 8, 9,10) Stop: 04/12/24 00:23 Last Admin: 03/29/24 09:54 Dose: 0.5 mg Metoprolol Succinate (Metoprolol Succ 25mg Ext Rel Tab) 25 mg PO BID [facility] Stop: 04/28/24 09:59 Last Admin: 03/29/24 10:21 Dose: 25 mg Nitroglycerin (Nitroglycerin Sl 0.4 Mg/Tab Tab) 0.4 mg SL Q5M PRN PRN Reason: Chest Pain Stop: 04/28/24 00:23 Ondansetron HCl (Ondansetron Inj 2 Mg/Ml 2 Ml Vial) 4 mg IV Q6H PRN PRN Reason: Nausea Stop: 04/28/24 00:23 Last Admin: 03/29/24 00:34 Dose: 4 mg Pantoprazole Sodium (Pantoprazole 40 Mg Tab) 40 mg PO DAILY [facility] Stop: 04/28/24 08:59 Last Admin: 03/29/24 09:54 Dose: 40 mg Polyethylene Glycol (Polyethylene (Miralax) 17 Gm Pack) 17 gm PO DAILY PRN PRN Reason: Constipation Stop: 04/28/24 00:23 Tramadol HCl (Tramadol Hcl 50 Mg Tablet) 50 mg PO Q4H PRN PRN Reason: Mild Pain (Scale 1, 2, 3) Stop: 04/28/24 09:19
[2024-03-29] MEDS: METOPROLOL SUCC 25MG EXT REL TAB PO SCH ×2 (09:47→10:21)
[2024-03-29] MEDS: ACETAMINOPHEN 325 MG TAB PO SCH (09:53)
[2024-03-29] MEDS: ATORVASTATIN 40 MG TAB PO SCH (09:54)
[2024-03-29] MEDS: DULoxetine HCL 60 MG CAP PO SCH (09:54)
[2024-03-29] MEDS: PANTOprazole 40 MG TAB PO SCH (09:54)
[2024-03-29] MEDS: GABAPENTIN 600 MG TAB PO SCH (09:54)
--- NOTE | 2024-03-29 10:39 | Hospitalist Progress Note ---
Date of Service March 29, 2024 Assessment & Plan (1) Severe low back pain: Plan: 63-year-old male with past medical history significant for mixed dyslipidemia, hiatal hernia, spinal stenosis, history of PSVT comes because of severe back pain and ambulatory dysfunction. Patient was admitted last month for lumbosacral radiculopathy and he was discharged to rehab. Severe low back pain Lumbosacral radiculopathy Ambulatory dysfunction MRI on 02/26/24 showed degenerative spondylosis as described most pronounced at L4-5 and L5-S1, Severe spinal canal stenosis at L4-5, Foraminal stenosis most pronounced on the right at L5-S1 where it is severe Reports Ortho spine just scheduled his surgery for July 2024 However due to worsening symptoms and ambulatory dysfunction, will appreciate Ortho spine reeval Continue pain control He reported he had weaned himself off oxycontin at some point and was controlled for a short period with tylenol, gabapentin but not anymore Tylenol scheduled Continue gabapentin PT/OT Chest pains Palpitations Chest pain is atypical and likely related to GI pathology EGD on 03/22/24 showed tortuous esophagus, moderate schatzki ring dilated to 54FR, medium sized hiatal hernia, diffuse gastritis. biopsied EKG did not show new ST changes Trop was normal Optimize pain control Continue metoprolol. Increased by Cardiology Hyperlipidemia On statin GERD Omeprazole DVT prophylaxis SCDs for now until Ortho spine eval incase procedure is recommended If no surgery, will need pharmacological DVT ppx Disposition Med/telemetry Full code I spent a total of 50 minutes coordinating, documenting and providing care for this patient excluding time spent in performance of separately billed services Admission and Anticipated Discharge Date Admission Date: March 28, 2024 Subjective Patient seen and examined Reports worsening back pain. Reports pain is usually low back, more to the left going down the LLE associated with left posterior thigh numbness. Reports numbness in groin/perineum Reports occasional pain going down RLE as well but more in LLE Reports worsening ambulatory dysfunction at home Reported chronic intermittent chest pain associated with eating and he relates this to his hernia. He stated this has improved since procedure last week. Denied SOB Denied urinary retention/incontinence, bowel incontinence Denied other complaints on ROS Physical Exam Constitutional: + well hydrated; no acute distress Eyes: PERRL, conjunctivae normal, anicteric sclerae ENMT: external ear and nose normal, oropharynx normal Respiratory: normal respiratory effort, lungs clear to auscultation Cardiovascular: Rate/Rhythm: regular rhythm and + tachycardic S1 S2 Gastrointestinal (Abdomen): normal bowel sounds, soft, nontender, no hepatosplenomegaly Musculoskeletal: No pedal edema Neurologic: PERRL, EOMI, accommodation nl, no face palsy, no dysarthria Power in LLE <RLE Psychiatric: A+Ox3, euthymic affect Results & Data Results & Data Vital Signs (Past 12 Hours) Vital Signs Temp Pulse Pulse Resp BP Pulse Ox O2 Del Method 03/29/24 07:39 36.6 C 108 H 18 127/77 94 Room Air 03/29/24 07:30 97 H 03/29/24 02:34 36.7 C 108 H 18 117/72 95 Room Air 03/29/24 00:26 104 H 03/29/24 00:24 36.7 C 90 12 115/72 92 Room Air 03/28/24 23:57 94 H 16 111/77 92 Room Air 03/28/24 23:27 100 H 03/28/24 23:21 92 Room Air Laboratory Results Abnormal lab results 03/28/24 03/29/24 Range/Units 19:31 05:33 Plt Count 401 H (130-400) K/uL MPV 8.4 L 8.4 L (9.4-12.4) fL Lymph # (Auto) 1.03 L (1.20-3.40) K/uL Dale # (Auto) 0.96 H (0.11-0.59) K/uL Chloride 108 H 108 H (98-107) mmol/L BUN/Creatinine Ratio 21.6 H (10-20) Glucose 121 H 190 H (70-99(Fasting)) mg/dl ALT 86 H (7-52) U/L
[2024-03-30 06:16] LABS: Hematocrit (blood only) 40.1 % (42.0-52.0); Hemoglobin 13.6 g/dl (14.0-18.0); Mean Corpuscular Hemoglobin 30.8 pg (25.0-34.0); Mean Corpuscular Hgb Conc 33.9 g/dL (32.0-36.0); Mean Corpuscular Volume 90.9 fL (80.0-100.0); Mean Platelet Volume 8.6 fL (9.4-12.4); Platelet Count 340 K/uL (130-400); RDW Standard Deviation 39.9 fL (36.4-46.3); Red Blood Count 4.41 M/uL (4.70-6.10); White Blood Count 11.21 K/ul (4.8-10.8)
[2024-03-30 06:35] LABS: BUN Creatinine Ratio 19.1 (10-20); Calcium 8.5 mg/dl (8.6-10.3); Creatinine Clr Calc Pharmacy 83.4 ml/min; Est GFR (African American) 98.2 ml/min; Est GFR (Non-African American) 84.7 ml/min; Potassium 3.7 mmol/L (3.5-5.1)
[2024-03-30] MEDS: traMADol HCL 50 MG TABLET PO PRN (12:38)
[2024-03-30] MEDS: DOCUSATE SODIUM 100 MG CAP PO SCH (12:38)
--- NOTE | 2024-03-30 12:56 | Hospitalist Progress Note ---
Date of Service March 30, 2024 Assessment & Plan (1) Severe low back pain: Plan: 63-year-old male with past medical history significant for mixed dyslipidemia, hiatal hernia, spinal stenosis, PSVT comes because of severe back pain and ambulatory dysfunction. Patient was admitted last month for lumbosacral radiculopathy and he was discharged to rehab. He is being managed for the following: Severe low back pain Lumbosacral radiculopathy Ambulatory dysfunction MRI on 02/26/24 showed degenerative spondylosis as described most pronounced at L4-5 and L5-S1, Severe spinal canal stenosis at L4-5, Foraminal stenosis most pronounced on the right at L5-S1 where it is severe Reports Ortho spine just scheduled his surgery for July 2024. Of note, he reported he had weaned himself off oxycontin at some point and was controlled for a short period with tylenol, gabapentin but not anymore However due to worsening symptoms (numbness in his groin and perineum) and ambulatory dysfunction, await Ortho spine reeval Continue pain control, not much improvement per pt, will consult pain Mx. C/w Pain Mx: Deandre Tylenol, gabapentin, As needed hydromorphone, as needed tramadol. PT/OT. Chest pains Palpitations Chest pain is atypical and likely related to GI pathology EGD on 03/22/24 showed tortuous esophagus, moderate schatzki ring dilated to 54FR, medium sized hiatal hernia, diffuse gastritis. biopsied EKG did not show new ST changes Trop x2 was normal Optimize pain control Continue metoprolol. Increased by Cardiology to 25 mg bid. Hyperlipidemia: c/w statin GERD: c/w Omeprazole DVT prophylaxis: SCDs for now until Ortho spine eval incase procedure is recommended. If no surgery, will need pharmacological DVT ppx Disposition: med/surg Full code Admission and Anticipated Discharge Date Admission Date: March 28, 2024 Subjective Patient seen and examined at bedside. Patient reports no significant improvement in his low back pain and radicular signs and symptoms. Patient does report numbness in his groin and perineum. Pain and numbness along LLE is greater than RLE. Reports continued ambulatory dysfunction. Denies chest pain or shortness of breath. Denies urinary retention/incontinence or bowel incontinence. Reports bowel movement about 3 days ago, will add bowel regimen. Physical Exam Physical Exam: General- Not in distress Head- atraumatic Eyes- PERRL. ENT- oropharynx clear Neck- supple, no JVD. Lungs- clear to auscultation no wheezing or crackles. Heart- regular rate and rhythm; no murmur, no gallop. Abdomen- normal bowel sounds, soft, nontender, no distension. Extremities- trace pretibial edema, no erythema seen. Neuro- alert, oriented PERRL, no facial palsy; no dysarthria; moves extremities No spinal tenderness on exam. Results & Data Results & Data Vital Signs (Past 12 Hours) Vital Signs Temp Pulse Resp BP Pulse Ox O2 Del Method 03/30/24 10:42 36.6 C 86 16 124/78 92 Room Air 03/30/24 07:08 36.4 C L 61 16 105/65 93 Room Air 03/30/24 02:58 36.4 C L 74 18 105/68 93 Room Air
--- NOTE | 2024-03-30 15:12 | Orthopedic Consultation ---
Date of Service March 30, 2024 History of Present Illness Reason for Consultation: Low back pain. Requesting Physician: . Attending Physician: Amira Pierre MD 63-year-old gentleman known to me, with prior admission to the hospital for low back and bilateral lower extremity symptoms from mid February 2024. He returns after having difficulties mobilizing and around his house, he had been at a rehab facility. Past medical history significant for mixed dyslipidemia, hiatal hernia, spinal stenosis, history of PSVT comes because of severe back pain and ambulatory dysfunction. Patient was admitted last month for lumbosacral radiculopathy and he was discharged to rehab. He stayed at rehab for 1 week and then he stayed at his sisters place for 1 week. Having lot of back pain. He is taking gabapentin and Tylenol. He tapered off himself OxyContin. He is using walker to ambulate. The pain shoots into both legs more in the left leg. He is concerned that he may fall. He has appointment with orthopedics in July 2024. Because ongoing pain and ambulatory dysfunction came to the ER today. Denies any bowel or bladder incontinence. Sometimes has some difficulty micturating but it frees up after moving his bowels. Exam reveals the patient indicate pain in the lumbosacral region, he has intact strength in lower extremities. LUMBAR SPINE CT WITHOUT CONTRAS February 26, 2024 CLINICAL HISTORY: L sided back pain w/ L leg pain COMPARISON STUDY: Lumbar spine radiographs May 24, 2020. FINDINGS: For purposes of numbering on this exam, the L5-S1 disc space is assigned to axial image 285 of 362. Moderate dextroscoliosis of the lumbar spine is unchanged. There is slight anterolisthesis of L4 and L5 due to facet arthrosis. There are no acute lumbar spine fractures. There are no osseous lesions within the lumbar spine. There are mild degenerative changes of the sacroiliac joints. Paravertebral soft tissues are unremarkable. Central canal and neural foramen are suboptimally assessed given CT technique. However, there is severe central canal stenosis at L4-L5 due to facet arthrosis, ligamentous hypertrophy and disc bulge. There is suspected moderate central canal stenosis at L3-L4. There is moderate to severe multilevel neural foraminal stenosis. There is severe multilevel facet arthrosis and moderate multilevel degenerative disc disease within the lumbar spine IMPRESSION: 1. No acute lumbar spine fracture or subluxation. 2. Severe multilevel facet arthrosis and moderate degenerative disc disease within the lumbar spine. Severe central canal stenosis at L4-L5. Moderate to severe multilevel neural foraminal stenosis, suboptimally evaluated by CT. 3. Moderate lumbar spine dextroscoliosis. EXAM: MR Lumbar Spine Without Intravenous Contrast February 26, 2024 COMPARISON: CT 02/26/2024 FINDINGS: Vertebrae: No acute fracture. Trace anterolisthesis at L4-5. No suspicious lesion. Degenerative related endplate marrow signal changes at multiple levels. Spinal cord: Terminates at T12. Normal signal. Soft tissues: Unremarkable. DISCS/SPINAL CANAL/NEURAL FORAMINA: T12-L1: Diffuse disc bulge. Mild canal stenosis. Mild right and no left foraminal stenosis. L1-L2: Diffuse disc bulge and mild facet arthropathy. Mild canal stenosis. Mild right and mild left foraminal stenosis. L2-3: Trace diffuse disc bulge and facet arthropathy. Mild to moderate canal stenosis. Mild bilateral foraminal stenosis. L3-4: Diffuse disc bulge and facet arthropathy left greater than right.Moderate stenosis of the left lateral recess. Moderate left and no significant right foraminal stenosis. L4-5: Anterolisthesis with diffuse disc bulge and severe facet hypertrophy. Severe spinal canal stenosis. Moderate bilateral foraminal stenosis. L5-S1: Trace diffuse disc bulge. Facet arthropathy on the right. No canal stenosis. Severe right and no left foraminal stenosis. IMPRESSION: 1. Degenerative spondylosis as described most pronounced at L4-5 and L5-S1. 2. Severe spinal canal stenosis at L4-5. 3. Foraminal stenosis most pronounced on the right at L5-S1 where it is severe. Above listed studies, MRI and CT scan of the lumbar spine from February 26, 2024 was reviewed, is my separate interpretation, this reveals the patient to have degenerative changes throughout the lumbar spine, most notably is severe central stenosis at L4-5 along with findings suggestive of degenerative spondylolisthesis, and also foraminal stenosis more so involving the lower 2 lumbar levels. Impression: Multilevel degenerative changes of the lumbar spine along with degenerative scoliosis and findings to suggest degenerative spondylolisthesis at L4-5, high-grade stenosis. Plan: Today I talked with the patient, I related to him that we will try to move his surgery date from July which we had previously discussed, currently our goal be to achieve reasonable pain medication improvement of his symptoms and mobilization but also get him back to a living situation where he does not have to do his many steps or other activities of daily living. He relates that they are going to work on getting a visiting nurse, and we will try to get him rescheduled for the surgical procedure as stated in the near future. Allergies Allergy/AdvReac Type Severity Reaction Status Date / Time No Known Allergies Allergy Unverified 02/26/24 17:01 Home Medications Medication Instructions Recorded Confirmed Type atorvastatin 40 mg tablet 40 mg PO DAILY 03/28/24 03/28/24 History diclofenac sodium 50 mg 50 mg PO TID 03/28/24 03/28/24 History tablet,delayed release duloxetine 60 mg capsule,delayed 60 mg PO DAILY 03/28/24 03/28/24 History release gabapentin 600 mg tablet 600 mg PO TID 03/28/24 03/28/24 History metoprolol succinate 25 mg 25 mg PO DAILY 03/28/24 03/28/24 History tablet,extended release 24 hr omeprazole 40 mg capsule,delayed 40 mg PO DAILY 03/28/24 03/28/24 History release Past Med/Surg History Problem List (Updated 03/29/24 @ 12:16 by Kalie Gregory PA-C) Atypical chest pain Sinus tachycardia Severe low back pain Degenerative lumbar spinal stenosis Low back pain radiating to left lower extremity Degenerative spondylolisthesis Scoliosis of lumbar region due to degenerative disease of spine in adult Back pain (Acute) Dysphagia Hiatal hernia History of PSVT (paroxysmal supraventricular tachycardia) Dyslipidemia Ambulatory dysfunction (Acute) Lumbosacral radiculopathy (Acute) Surgical History History of colonoscopy History of esophagogastroduodenoscopy (EGD) Family History Grandmother (Maternal) Stroke Father Heart disease Social History Smoking Status: Never smoker Second Hand Exposure: No; Do You Dip or Chew Tobacco: No; Tobacco Cessation Education Requested by Patient: No Hx Alcohol Use: Yes Alcohol type: beer Hx Substance Use: No Preferred Language: Polish Communication Ability: Effective 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 Physical Exam . Results & Data Results & Data Laboratory Results . Diagnostic Findings . PG Care Time/CCT Total # of Minutes Spent Total Time Spent with Patient: Total time spent is greater than 50% in coordination of care (as documented) at patient's floor/unit and/or counseling patient: Coding Level of Care Code 52938 IN/OBS CONSULT LVL 2,35M
[2024-03-30] MEDS: ZOLPIDEM TARTRATE 5 MG TAB PO PRN (22:49)
--- NOTE | 2024-03-31 06:15 | Electrocardiogram Report ---
Test Reason : Blood Pressure : */* mmHG Vent. Rate : 68 BPM Atrial Rate : 68 BPM P-R Int : 166 ms QRS Dur : 86 ms QT Int : 410 ms P-R-T Axes : 27 25 15 degrees QTcB Int : 435 ms Normal sinus rhythm Normal ECG When compared with ECG of 29-Mar-2024 05:51, No significant change was found Confirmed by Brenden Case ([id number]) on 03/31/2024 6:14:53 AM Referred By: REFERRED SELF Confirmed By: Brenden Case
[2024-03-31 06:35] LABS: Hematocrit (blood only) 43.3 % (42.0-52.0); Hemoglobin 14.7 g/dl (14.0-18.0); Mean Corpuscular Hemoglobin 30.9 pg (25.0-34.0); Mean Corpuscular Hgb Conc 33.9 g/dL (32.0-36.0); Mean Platelet Volume 8.5 fL (9.4-12.4); Platelet Count 330 K/uL (130-400); RDW Coefficient of Variation 12.1 % (11.5-14.5); RDW Standard Deviation 40.4 fL (36.4-46.3); Red Blood Count 4.76 M/uL (4.70-6.10)
[2024-03-31 06:59] LABS: BUN Creatinine Ratio 17.8 (10-20); Calcium 8.7 mg/dl (8.6-10.3); Creatinine Clr Calc Pharmacy 77.7 ml/min; Est GFR (Non-African American) 77.7 ml/min; Magnesium 2.2 mg/dl (1.7-2.4); Phosphorus 4.1 mg/dl (2.5-4.9); Potassium 3.9 mmol/L (3.5-5.1)
--- NOTE | 2024-03-31 08:32 | Pain Management Consultation ---
Date of Consultation March 31, 2024 Assessment & Plan (1) Severe low back pain: (2) Degenerative lumbar spinal stenosis: (3) Ambulatory dysfunction: Plan 1. For pain control, recommend he resume Oxycodone 5-10 mg. 2. Will leave Tramadol for patient to take if needed for breakthrough pain. 3. Emphasized the importance to limit use of IV Dilaudid in preparation for future discharge from the hospital. Patient is understanding. 4. With worsening leg weakness and saddle anesthesia Dr. Leach will work towards moving up his surgical date. 5. Would not recommend lumbar epidural injection at this time as it may prolong his future surgical date. History of Present Illness Reason for Consultation: Intractable back pain Attending Physician: Amira Pierre MD History of Present Illness Mr. Hess is a 63 year old male with intractable low back pain. He does have a longstanding history of intermittent low back pain but it significantly worsened early February where he went to the emergency department on 02/26/2024 and was admitted for a few days and discharged to [facility] rehab and then home. He saw Dr. Leach and discussed surgical options. Surgery is not scheduled until July. Dr. Leach is in the process of trying to get the surgical procedure moved up. Pain is located along the low back and down the lateral aspect of the legs, left greater than right. He describes a sharp pain in the low back with any movement. Laying supine does provide the most relief. Pains down the legs are intermittent sharp jolting. He has now developed saddle anesthesia, numbness and tingling around the groin as well as left greater than right leg weakness. No bowel/bladder incontinence, foot drop. Case discussed with Dr. Louise Dockery Allergies Allergy/AdvReac Type Severity Reaction Status Date / Time No Known Allergies Allergy Unverified 02/26/24 17:01 Home Medications Medication Instructions Recorded Confirmed Type atorvastatin 40 mg tablet 40 mg PO DAILY 03/28/24 03/28/24 History diclofenac sodium 50 mg 50 mg PO TID 03/28/24 03/28/24 History tablet,delayed release duloxetine 60 mg capsule,delayed 60 mg PO DAILY 03/28/24 03/28/24 History release gabapentin 600 mg tablet 600 mg PO TID 03/28/24 03/28/24 History metoprolol succinate 25 mg 25 mg PO DAILY 03/28/24 03/28/24 History tablet,extended release 24 hr omeprazole 40 mg capsule,delayed 40 mg PO DAILY 03/28/24 03/28/24 History release Patient History Surgical History History of colonoscopy History of esophagogastroduodenoscopy (EGD) Family History Grandmother (Maternal) Stroke Father Heart disease Social History Smoking Status: Never smoker Second Hand Exposure: No; Do You Dip or Chew Tobacco: No; Tobacco Cessation Education Requested by Patient: No Hx Alcohol Use: Yes Alcohol type: beer Hx Substance Use: No Preferred Language: Togolese Communication Ability: Effective 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 Mood and affect is appropriate. In no acute distress. HEAD: Normocephalic; atraumatic. EYES: No conjunctival injection. EOM intact. ENT: No external ear discharge or lesions. No rhinorrhea or epistaxis. Moist oral mucosa. NECK: Full ROM; trachea is midline; no TTP; no cervical lymphadenopathy. CARDIO: Regular rate and rhythm. No murmurs, rubs, or gallops. PULM: Clear to auscultation. No wheezes, rales, or rhonchi. CHEST: Regular chest respiration and excursion. ABDOMEN: Active bowel sounds throughout; non-tender to palpation. No peritoneal signs. No CVA tenderness bilaterally. EXTREMITIES: Full ROM and +5 strength of upper and lower extremities. No TTP. Distal sensation and pulses intact bilaterally. BACK: Full ROM. No midline or facet tenderness. Negative straight leg raise bilaterally. No SI joint tenderness. NEURO: CN II-XII grossly intact with no focal deficits noted. Normal gait. Biceps reflex L +2 R +2 Triceps reflex L +2 R +2 Brachioradialis Reflex L +2 R +2 Patellar Reflex L +2 R +2 Achilles Reflex L +2 R +2 SKIN: No lesions, erythema, or rashes noted. Results (Pain Clinic) Diagnostic Review MRI Findings: Exam(s): MRI L SPINE Without Contrast EXAM: MR Lumbar Spine Without Intravenous Contrast CLINICAL HISTORY: Reason for exam: radicular pain. TECHNIQUE: Magnetic resonance images of the lumbar spine without intravenous contrast in multiple planes. COMPARISON: CT 02/26/2024 FINDINGS: Vertebrae: No acute fracture. Trace anterolisthesis at L4-5. No suspicious lesion. Degenerative related endplate marrow signal changes at multiple levels. Spinal cord: Terminates at T12. Normal signal. Soft tissues: Unremarkable. DISCS/SPINAL CANAL/NEURAL FORAMINA: T12-L1: Diffuse disc bulge. Mild canal stenosis. Mild right and no left foraminal stenosis. L1-L2: Diffuse disc bulge and mild facet arthropathy. Mild canal stenosis. Mild right and mild left foraminal stenosis. L2-3: Trace diffuse disc bulge and facet arthropathy. Mild to moderate canal stenosis. Mild bilateral foraminal stenosis. L3-4: Diffuse disc bulge and facet arthropathy left greater than right. Moderate stenosis of the left lateral recess. Moderate left and no significant right foraminal stenosis. L4-5: Anterolisthesis with diffuse disc bulge and severe facet hypertrophy. Severe spinal canal stenosis. Moderate bilateral foraminal stenosis. L5-S1: Trace diffuse disc bulge. Facet arthropathy on the right. No canal stenosis. Severe right and no left foraminal stenosis. IMPRESSION: 1. Degenerative spondylosis as described most pronounced at L4-5 and L5- S1. 2. Severe spinal canal stenosis at L4-5. 3. Foraminal stenosis most pronounced on the right at L5-S1 where it is severe. Electronically signed by: Ajay Gerber MD 02/26/24 21:30 PM
[2024-03-31] MEDS: oxyCODONE HCL IR 5 MG TAB (IMMEDIATE RELEASE) PO PRN (11:50)
[2024-03-31] MEDS: dexAMETHasone 4 MG TAB PO SCH (13:10)
--- NOTE | 2024-03-31 14:47 | Hospitalist Progress Note ---
Date of Service March 31, 2024 Assessment & Plan (1) Severe low back pain: Plan: 63-year-old male with past medical history significant for mixed dyslipidemia, hiatal hernia, spinal stenosis, PSVT comes because of severe back pain and ambulatory dysfunction. Patient was admitted last month for lumbosacral radiculopathy and he was discharged to rehab. He is being managed for the following: Severe low back pain Lumbosacral radiculopathy Ambulatory dysfunction MRI on 02/26/24 showed degenerative spondylosis as described most pronounced at L4-5 and L5-S1, Severe spinal canal stenosis at L4-5, Foraminal stenosis most pronounced on the right at L5-S1 where it is severe Reports Ortho spine just scheduled his surgery for July 2024. Of note, he reported he had weaned himself off oxycontin at some point and was controlled for a short period with tylenol, gabapentin but not anymore However due to worsening symptoms (numbness in his groin and perineum) and ambulatory dysfunction, Ortho spine reevaled Continue pain control, not much improvement per pt, Pain Mx was consulted, appreciate recs. d/w Orthospine, plan for conservative Mx until elective sx. Plan to add dexamethasone to help w/ symptom control. C/w Pain Mx: Deandre Tylenol, gabapentin, As needed oxycodone, hydromorphone, as needed tramadol. PT/OT. Chest pains Palpitations Chest pain is atypical and likely related to GI pathology EGD on 03/22/24 showed tortuous esophagus, moderate schatzki ring dilated to 54FR, medium sized hiatal hernia, diffuse gastritis. biopsied EKG did not show new ST changes Trop x2 was normal Optimize pain control Continue metoprolol. Increased by Cardiology to 25 mg bid. Hyperlipidemia: c/w statin GERD: c/w Omeprazole DVT prophylaxis: Hep sc. Disposition: med/surg Full code Admission and Anticipated Discharge Date Admission Date: March 28, 2024 Subjective Patient seen and examined at bedside. Patient reports ongoing low back pain and radicular signs and symptoms. Patient does report ongoing numbness in his groin and perineum. Pain and numbness along LLE is greater than RLE. Reports continued ambulatory dysfunction. Denies chest pain or shortness of breath. Denies urinary retention/incontinence or bowel incontinence. Pt reports moving bowels ok, advised to continue w/ bowel regimen. Physical Exam Physical Exam: General- Not in distress Head- atraumatic Eyes- PERRL. ENT- oropharynx clear Neck- supple, no JVD. Lungs- clear to auscultation no wheezing or crackles. Heart- regular rate and rhythm; no murmur, no gallop. Abdomen- normal bowel sounds, soft, nontender, no distension. Extremities- trace pretibial edema, no erythema seen. Neuro- alert, oriented PERRL, no facial palsy; no dysarthria; moves extremities No spinal tenderness on exam. Results & Data Results & Data Vital Signs (Past 12 Hours) Vital Signs Temp Pulse Resp BP Pulse Ox O2 Del Method 03/31/24 08:15 36.4 C L 66 14 107/72 91 Room Air 03/31/24 07:45 Room Air
[2024-03-31] MEDS: HEPARIN SOD 5,000 UNIT/0.5 ML VIAL SQ SCH (20:09)
[2024-04-01 06:38] LABS: BUN Creatinine Ratio 23.1 (10-20); Calcium 9.1 mg/dl (8.6-10.3); Creatinine Clr Calc Pharmacy 86.2 ml/min; Est GFR (African American) 102.1 ml/min; Est GFR (Non-African American) 88.1 ml/min; Potassium 4.2 mmol/L (3.5-5.1)
[2024-04-01 06:39] LABS: Hematocrit (blood only) 44.1 % (42.0-52.0); Hemoglobin 15.5 g/dl (14.0-18.0); Mean Corpuscular Hgb Conc 35.1 g/dL (32.0-36.0); Mean Corpuscular Volume 88.2 fL (80.0-100.0); Mean Platelet Volume 8.9 fL (9.4-12.4); Platelet Count 389 K/uL (130-400); RDW Coefficient of Variation 11.9 % (11.5-14.5); RDW Standard Deviation 38.4 fL (36.4-46.3); White Blood Count 11.36 K/ul (4.8-10.8)
--- NOTE | 2024-04-01 14:55 | Hospitalist Progress Note ---
Date of Service April 01, 2024 Assessment & Plan (1) Severe low back pain: Plan: 63-year-old male with past medical history significant for mixed dyslipidemia, hiatal hernia, spinal stenosis, PSVT comes because of severe back pain and ambulatory dysfunction. Patient was admitted last month for lumbosacral radiculopathy and he was discharged to rehab. He is being managed for the following: Severe low back pain Lumbosacral radiculopathy Ambulatory dysfunction MRI on 02/26/24 showed degenerative spondylosis as described most pronounced at L4-5 and L5-S1, Severe spinal canal stenosis at L4-5, Foraminal stenosis most pronounced on the right at L5-S1 where it is severe Reports Ortho spine just scheduled his surgery for July 2024. Of note, he reported he had weaned himself off oxycontin at some point and was controlled for a short period with tylenol, gabapentin but not anymore However due to worsening symptoms (numbness in his groin and perineum) and ambulatory dysfunction, Ortho spine reevaled Continue pain control, not much improvement per pt, Pain Mx was consulted, appreciate recs. d/w Orthospine, plan for conservative Mx until elective sx. c/w dexamethasone to help w/ symptom control. For now sx is preponed to May 02. C/w Pain Mx: Deandre Tylenol, gabapentin, As needed oxycodone, hydromorphone, as needed tramadol. PT/OT. Chest pains Palpitations Chest pain is atypical and likely related to GI pathology EGD on 03/22/24 showed tortuous esophagus, moderate schatzki ring dilated to 54FR, medium sized hiatal hernia, diffuse gastritis. biopsied EKG did not show new ST changes Trop x2 was normal Optimize pain control Continue metoprolol. Increased by Cardiology to 25 mg bid. Hyperlipidemia: c/w statin GERD: c/w Omeprazole DVT prophylaxis: Hep sc. Disposition: med/surg Full code Admission and Anticipated Discharge Date Admission Date: March 28, 2024 Subjective Patient seen and examined at bedside. Patient reports ongoing low back pain and radicular signs and symptoms. Patient does report ongoing numbness in his groin and perineum. Pain and numbness along LLE is greater than RLE. Reports continued ambulatory dysfunction. Denies chest pain or shortness of breath. Denies urinary retention/incontinence or bowel incontinence. Pt reports moving bowels ok, advised to continue w/ bowel regimen. Reports pain about the same despite starting him on dexa. Physical Exam Physical Exam: General- Not in distress Head- atraumatic Eyes- PERRL. ENT- oropharynx clear Neck- supple, no JVD. Lungs- clear to auscultation no wheezing or crackles. Heart- regular rate and rhythm; no murmur, no gallop. Abdomen- normal bowel sounds, soft, nontender, no distension. Extremities- trace pretibial edema, no erythema seen. Neuro- alert, oriented PERRL, no facial palsy; no dysarthria; moves extremities No spinal tenderness on exam. Results & Data Results & Data Vital Signs (Past 12 Hours) Vital Signs Temp Pulse Resp BP Pulse Ox O2 Del Method 04/01/24 07:04 36.6 C 91 H 18 121/79 91 Room Air
--- NOTE | 2024-04-02 17:00 | Hospitalist Progress Note ---
Date of Service April 02, 2024 Assessment & Plan (1) Severe low back pain: Plan: 63-year-old male with past medical history significant for mixed dyslipidemia, hiatal hernia, spinal stenosis, PSVT comes because of severe back pain and ambulatory dysfunction. Patient was admitted last month for lumbosacral radiculopathy and he was discharged to rehab. He is being managed for the following: Severe low back pain Lumbosacral radiculopathy Ambulatory dysfunction MRI on 02/26/24 showed degenerative spondylosis as described most pronounced at L4-5 and L5-S1, Severe spinal canal stenosis at L4-5, Foraminal stenosis most pronounced on the right at L5-S1 where it is severe Reports Ortho spine just scheduled his surgery for July 2024. Of note, he reported he had weaned himself off oxycontin at some point and was controlled for a short period with tylenol, gabapentin but not anymore However due to worsening symptoms (numbness in his groin and perineum) and ambulatory dysfunction, Ortho spine reevaled Continue pain control, not much improvement per pt, Pain Mx was consulted, appreciate recs. d/w Orthospine, plan for conservative Mx until elective sx. c/w dexamethasone to help w/ symptom control. Pt wished dr barrios be on his case, dr barrios consulted and updated about pt's choicce. C/w Pain Mx: Deandre Tylenol, gabapentin, As needed oxycodone, hydromorphone, as needed tramadol. PT/OT. Chest pains Palpitations Chest pain is atypical and likely related to GI pathology EGD on 03/22/24 showed tortuous esophagus, moderate schatzki ring dilated to 54FR, medium sized hiatal hernia, diffuse gastritis. biopsied EKG did not show new ST changes Trop x2 was normal Optimize pain control Continue metoprolol. Increased by Cardiology to 25 mg bid. Hyperlipidemia: c/w statin GERD: c/w Omeprazole DVT prophylaxis: Hep sc. Disposition: med/surg Full code Admission and Anticipated Discharge Date Admission Date: March 28, 2024 Subjective Patient seen and examined at bedside. Patient reports ongoing low back pain and radicular signs and symptoms. Patient does report ongoing numbness in his groin and perineum. Pain and numbness along LLE is greater than RLE. Reports continued ambulatory dysfunction. Denies chest pain or shortness of breath. Denies urinary retention/incontinence or bowel incontinence. Pt reports moving bowels ok, advised to continue w/ bowel regimen. Reports pain about the same despite starting him on dexa. Pt declining PT/OT as he is afraid his pain/condition will worsen. Pt wanted to switch to Dr. Barrios. discussed w/ both orthospine sx to update the situation. consult placed per pt's wishes. Physical Exam Physical Exam: General- Not in distress Head- atraumatic Eyes- PERRL. ENT- oropharynx clear Neck- supple, no JVD. Lungs- clear to auscultation no wheezing or crackles. Heart- regular rate and rhythm; no murmur, no gallop. Abdomen- normal bowel sounds, soft, nontender, no distension. Extremities- trace pretibial edema, no erythema seen. Neuro- alert, oriented PERRL, no facial palsy; no dysarthria; moves extremities No spinal tenderness on exam. Results & Data Results & Data Vital Signs (Past 12 Hours) Vital Signs Temp Pulse Resp BP Pulse Ox O2 Del Method 04/02/24 14:38 36.5 C 72 18 123/82 95 Room Air 04/02/24 08:03 36.6 C 86 18 123/75 92 Room Air
--- NOTE | 2024-04-03 10:17 | Orthopedic Consultation ---
Date of Consultation April 03, 2024 Assessment & Plan (1) Cauda equina syndrome due to spinal stenosis: At this time the patient is noting marked decline in status with evidence of progressive neurologic decline affecting his lower extremities and now with perineal numbness and difficulty with urination. I would like to obtain an emergent MRI of the lumbar spine. I will make him n.p.o. after midnight and pending updated MRI plan for a lumbar decompression and fusion L4-L5 to address the severe stenosis. Risk benefits pros cons and alternatives were all in detail. Risk include but not limited to anesthesia blindness stroke paralysis nerve damage blood loss requiring transfusion infection requiring reoperation. History of Present Illness Reason for Consultation: Back pain with lower extremity pain, numbness and weakness Attending Physician: Amira Pierre MD History of Present Illness This is a very pleasant 63-year-old male that is had a history of worsening back pain with bilateral leg pain over the past several weeks. He is now been hospitalized twice secondary to his pain. After his last admission he was taken to a jail as he was not able to return to his home secondary to stairs and living situation. He is now back in the hospital with worsening symptoms. He is now describing perineal numbness. He has a Luna catheter in place secondary to his inability to ambulate and control his urine. He notes pain worse in the left lower extremity extending from the buttock posterior thigh to the bottom of his foot. Standing walking is very limited and requires assistance. He is done very poorly with physical therapy secondary to pain and weakness. He is requiring narcotic medications to control his symptoms. Allergies Allergy/AdvReac Type Severity Reaction Status Date / Time No Known Allergies Allergy Unverified 02/26/24 17:01 Home Medications Medication Instructions Recorded Confirmed Type atorvastatin 40 mg tablet 40 mg PO DAILY 03/28/24 03/28/24 History diclofenac sodium 50 mg 50 mg PO TID 03/28/24 03/28/24 History tablet,delayed release duloxetine 60 mg capsule,delayed 60 mg PO DAILY 03/28/24 03/28/24 History release gabapentin 600 mg tablet 600 mg PO TID 03/28/24 03/28/24 History metoprolol succinate 25 mg 25 mg PO DAILY 03/28/24 03/28/24 History tablet,extended release 24 hr omeprazole 40 mg capsule,delayed 40 mg PO DAILY 03/28/24 03/28/24 History release Patient History Surgical History History of colonoscopy History of esophagogastroduodenoscopy (EGD) Family History Grandmother (Maternal) Stroke Father Heart disease Social History Smoking Status: Never smoker Second Hand Exposure: No; Do You Dip or Chew Tobacco: No; Tobacco Cessation Education Requested by Patient: No Hx Alcohol Use: Yes Alcohol type: beer Hx Substance Use: No Preferred Language: Salvadorean Communication Ability: Effective Fingerprint Clerk Required: No Beliefs That Will Affect Care: None Current Living Situation: Alone Other Information That Helps Us Care for You: No Feels Safe at Home: Yes Safety Concerns: Feels Safe At This Time Assistive Devices: Walker Physical Exam Physical Exam: On exam the patient is in bed at this time he prefers to have his head and legs elevated it is only comfortable position. He exhibits decreased sensation to the left lower extremity compared to the right. He has numbness to palpation of the perineal region. Luna catheter is in place. He exhibits +4+/5 bilateral extensor houses longus dorsiflexion. There is deficits to the left plantarflexion at a 3+/5 compared to 5/5 on the right. He has deficits to quadricep activation on the left compared to the right. Deep tendon reflexes diminished. Results & Data Vital Signs (Past 12 Hours) Vital Signs Temp Pulse Resp BP Pulse Ox O2 Del Method 04/03/24 07:17 36.7 C 83 18 110/74 94 Room Air
[2024-04-03] MEDS: GADOBUTROL 30ML VIAL IV ONE (14:02)
--- NOTE | 2024-04-03 14:36 | Hospitalist Progress Note ---
Date of Service April 03, 2024 Assessment & Plan (1) Severe low back pain: Plan: 63-year-old male with past medical history significant for mixed dyslipidemia, hiatal hernia, spinal stenosis, PSVT comes because of severe back pain and ambulatory dysfunction. Patient was admitted last month for lumbosacral radiculopathy and he was discharged to rehab. He is being managed for the following: Severe low back pain Lumbosacral radiculopathy Ambulatory dysfunction MRI on 02/26/24 showed degenerative spondylosis as described most pronounced at L4-5 and L5-S1, Severe spinal canal stenosis at L4-5, Foraminal stenosis most pronounced on the right at L5-S1 where it is severe Reports Ortho spine just scheduled his surgery for July 2024. Of note, he reported he had weaned himself off oxycontin at some point and was controlled for a short period with tylenol, gabapentin but not anymore [facility] evaled, plan for sx iris. NPO midnight. C/w Pain Mx: Deandre Tylenol, gabapentin, As needed oxycodone, hydromorphone, as needed tramadol. PT/OT. Chest pains Palpitations Chest pain is atypical and likely related to GI pathology EGD on 03/22/24 showed tortuous esophagus, moderate schatzki ring dilated to 54FR, medium sized hiatal hernia, diffuse gastritis. biopsied EKG did not show new ST changes Trop x2 was normal Optimize pain control Continue metoprolol. Increased by Cardiology to 25 mg bid. Hyperlipidemia: c/w statin GERD: c/w Omeprazole DVT prophylaxis: Hep sc. Disposition: med/surg Full code Admission and Anticipated Discharge Date Admission Date: March 28, 2024 Subjective Patient seen and examined at bedside. Patient reports ongoing low back pain and radicular signs and symptoms. Patient does report ongoing numbness in his groin and perineum. Pain and numbness along LLE is greater than RLE. Reports continued ambulatory dysfunction. Reports symptoms gradually getting worse. Denies chest pain or shortness of breath. Denies urinary retention/incontinence or bowel incontinence. Pt reports moving bowels ok, advised to continue w/ bowel regimen. Reports pain about the same despite starting him on dexa. Pt declining PT/OT as he is afraid his pain/condition will worsen. Physical Exam Physical Exam: General- Not in distress Head- atraumatic Eyes- PERRL. ENT- oropharynx clear Neck- supple, no JVD. Lungs- clear to auscultation no wheezing or crackles. Heart- regular rate and rhythm; no murmur, no gallop. Abdomen- normal bowel sounds, soft, nontender, no distension. Extremities- trace pretibial edema, no erythema seen. Neuro- alert, oriented PERRL, no facial palsy; no dysarthria; moves extremities No spinal tenderness on exam. Results & Data Results & Data Vital Signs (Past 12 Hours) Vital Signs Temp Pulse Resp BP Pulse Ox O2 Del Method 04/03/24 07:17 36.7 C 83 18 110/74 94 Room Air
[2024-04-03] MEDS: POLYETHYLENE (MIRALAX) 17 GM PACK PO ONE (14:40)
--- NOTE | 2024-04-03 17:39 | Anesthesiology Consultation ---
Date of Service April 03, 2024 Assessment & Plan Chart Review Chart Review: Acceptable Risk for Surgery and Patient NOT seen in Pre Admission Testing Consults Requested none ASA ASA3 Proposed Anesthesia Anesthesia Type: General History Height/Weight Height: 5 ft 11 in Weight: 89.086 kg Allergies Allergy/AdvReac Type Severity Reaction Status Date / Time No Known Allergies Allergy Unverified 02/26/24 17:01 Medications Home Medications Medication Instructions Recorded Confirmed Last Taken atorvastatin 40 mg tablet 40 mg PO DAILY 03/28/24 03/28/24 Unknown diclofenac sodium 50 mg 50 mg PO TID 03/28/24 03/28/24 Unknown tablet,delayed release duloxetine 60 mg capsule,delayed 60 mg PO DAILY 03/28/24 03/28/24 Unknown release gabapentin 600 mg tablet 600 mg PO TID 03/28/24 03/28/24 Unknown metoprolol succinate 25 mg 25 mg PO DAILY 03/28/24 03/28/24 Unknown tablet,extended release 24 hr omeprazole 40 mg capsule,delayed 40 mg PO DAILY 03/28/24 03/28/24 Unknown release Active Medications Generic Name Dose Route Start Last Admin Trade Name Jeffyq PRN Reason Stop Dose Admin Acetaminophen 650 mg 03/29/24 09:30 04/03/24 14:40 Acetaminophen 325 Mg Tab PO 04/28/24 09:29 650 mg Q6H MARIELY Administration Atorvastatin Calcium 40 mg 03/29/24 09:00 04/03/24 07:40 Atorvastatin 40 Mg Tab PO 04/28/24 08:59 40 mg DAILY MARIELY Administration Dexamethasone 4 mg 03/31/24 12:00 04/03/24 11:24 Dexamethasone 4 Mg Tab PO 04/12/24 11:59 4 mg Q8H MARIELY Administration Taper Docusate Sodium 100 mg 03/30/24 12:15 04/03/24 07:39 Docusate Sodium 100 Mg Cap PO 04/29/24 12:14 100 mg BID MARIELY Administration Duloxetine HCl 60 mg 03/29/24 09:00 04/03/24 07:40 Duloxetine Hcl 60 Mg Cap PO 04/28/24 08:59 60 mg DAILY MARIELY Administration Gabapentin 600 mg 03/29/24 09:00 04/03/24 13:35 Gabapentin 600 Mg Tab PO 04/28/24 08:59 600 mg TID MARIELY Administration Hydromorphone HCl 0.5 mg 03/29/24 00:24 04/02/24 23:09 Hydromorphone Inj 0.5 Mg/0.5 Ml Syr IV 04/12/24 00:23 0.5 mg Q4H PRN Administration Severe Pain (Scale 7, 8, 9,10) Metoprolol Succinate 25 mg 03/29/24 10:00 04/03/24 07:40 Metoprolol Succ 25mg Ext Rel Tab PO 04/28/24 09:59 25 mg BID MARIELY Administration Ondansetron HCl 4 mg 03/29/24 00:24 03/31/24 08:45 Ondansetron Inj 2 Mg/Ml 2 Ml Vial IV 04/28/24 00:23 4 mg Q6H PRN Administration Nausea Oxycodone HCl 5 mg 03/31/24 07:56 04/03/24 13:35 Oxycodone Hcl Ir 5 Mg Tab (Immediate Release) PO 04/14/24 07:55 5 mg Q4H PRN Administration Moderate Pain (Scale 4, 5, 6) Pantoprazole Sodium 40 mg 03/29/24 09:00 04/03/24 07:40 Pantoprazole 40 Mg Tab PO 04/28/24 08:59 40 mg DAILY MARIELY Administration Tramadol HCl 50 mg 03/29/24 09:20 04/03/24 07:39 Tramadol Hcl 50 Mg Tablet PO 04/28/24 09:19 50 mg Q4H PRN Administration Mild Pain (Scale 1, 2, 3) Zolpidem Tartrate 5 mg 03/30/24 22:32 04/02/24 20:42 Zolpidem Tartrate 5 Mg Tab PO 04/29/24 22:31 5 mg HS PRN Administration Sleep Past Medical History HLD Hx/o PSVT GERD H/H Exercise / Class Metabolic Activity III < 4 Walking/Shop/Light housework (ambulatory dysfunction due to back pain) Past Family History Family History Grandmother (Maternal) Stroke Father Heart disease Past Surgical History Surgical History History of colonoscopy History of esophagogastroduodenoscopy (EGD) Past Anesthesia History No Hx of Anesthesia Complications and No Family Hx of Anesthesia Complications History of PONV No Hx of PONV and No Hx of Motion Sickness Social History Smoking Status: Never smoker Do You Dip or Chew Tobacco: No Hx Alcohol Use: Yes Alcohol type: beer alcohol intake frequency: holidays/special occasions only Hx Substance Use: No Physical Exam Vital Signs Last Vital Signs Temp 36.6 C 04/03/24 15:52 Pulse 78 04/03/24 15:52 Resp 18 04/03/24 15:52 BP 115/68 04/03/24 15:52 Pulse Ox 93 04/03/24 15:52 O2 Del Method Room Air 04/03/24 15:52 Testing Laboratory Results 04/01/24 05:36 04/01/24 05:36 Electrocardiogram Date: 03/30/24 Findings: + NSR @ (@ 68) Chest X-Ray Date: 03/28/24 Findings: + NAD Echocardiogram Date: 03/29/24 EF: 60% LV Function: normal RWMA: + none Other Findings: + LVH (mild) Valvular Disease: + no significant valvular disease
[2024-04-04] MEDS: LACTATED RINGER'S 1,000 ML IV SCH ×2 (10:49→15:21)
[2024-04-04] MEDS ORDERED: MIDAZOLAM HCL 1 MG/ML 2ML VIAL ONE (10:57)
[2024-04-04] MEDS ORDERED: ONDANSETRON INJ 2 MG/ML 2 ML VIAL ONE (10:57)
[2024-04-04] MEDS ORDERED: DEXAMETHASONE SOD INJ 4 MG/ML VIAL ONE (10:57)
[2024-04-04] MEDS ORDERED: fentaNYL citrate PF 100 MCG/2 ML VIAL ONE (10:57)
[2024-04-04] MEDS ORDERED: PROPOFOL IV EMULSION 10 MG/ML 20 ML VIAL IV ONE (10:57)
[2024-04-04] MEDS ORDERED: LIDOCAINE 2% 2 ML VIAL/AMP(20MG/ML) INFIL ONE ×2 (10:57→10:58)
[2024-04-04] MEDS ORDERED: ROCURONIUM BROMIDE 10 MG/ML 5 ML VIAL IV ONE ×8 (10:58→12:18)
--- NOTE | 2024-04-04 11:36 | History & Physical Bridge Note ---
Date of Service April 04, 2024 History & Physical Bridge Note I have examined the patient, reviewed the History & Physical and in the interval since the performance of the History & Physical I have noted the following changes of clinical significance: no changes noted Emergent decompression fusion L4-L5
[2024-04-04] MEDS ORDERED: ePHEDrine sulfate 50 MG/ML AMP IV PRN (11:48)
[2024-04-04] MEDS ORDERED: ATROPINE SULFATE 0.1 MG/ML 10ML SYR IV PRN (11:48)
[2024-04-04] MEDS: ceFAZolin 2000MG 2,000 MG/15 ML SYR IV SCH ×2 (11:56→20:50)
[2024-04-04] MEDS ORDERED: SUGAMMADEX SODIUM 200 MG/2 ML VIAL IV ONE (12:16)
[2024-04-04] MEDS ORDERED: MoRPHine SULFATE 2 MG/ML CARP ONE (13:34)
[2024-04-04] MEDS: BUPIVACAINE/EPINEPHRINE 0.25% 1:200,000 30 ML VIAL ONE (13:43)
[2024-04-04] MEDS: ceFAZolin 330 MG/ML 1 GM VIAL ONE (13:43)
--- NOTE | 2024-04-04 13:46 | Operative Report ---
Post Operative Report Pre & Post Diagnosis Operation Date: 04/04/24 07:00 Pre-Op Diagnosis: Cauda equina syndrome due to spinal stenosis Post-Op Diagnosis: Cauda equina syndrome due to spinal stenosis I identified the patient and participated in the time-out.: Yes Procedure Operation Date: 04/04/24 07:00 Actual Procedures #1 lumbar decompression with bilateral medial facetectomies and foraminotomies L3-L4 L4-L5. #2 posterior spinal fusion L4-L5. #3 placement posterior instrumentation L4-L5. #4 interbody fusion L4-L5. #5 placement of Spira 12 x 26 mm x 2 at L4-L5. #6 placement locally harvested morselized autograft in the posterior gutters per #7 placement infuse collagen sponge, with Koros in the posterior lateral gutters and os design bone graft interbody space. #8 application of versa wrap over the exposed dura. Surgeon Kenneth Barrios, Sales Contract Administrator Brigette Rawls Estimated Blood Loss 100 Findings Consistent with Post-Op Diagnosis Specimens None Indications This is a 63-year-old male who presents with marked decline in status perineal numbness lower extremity pain and weakness and here for urgent decompression fusion. Description of Procedure Patient identified informed consent obtained. Patient was then taken to the operative suite underwent ablation placed in a prone position on the Armond table on top of the Carlos frame. All bony promises well-padded eyes inspected to ensure no external precipice spinal. This point lumbar spine was prepped and draped normal sterile fashion. Sharp dissection with the assistance of Bovie cautery form down to and exposing the lamina transverse processes of L4-L5. From caudal to cephalad fashion complete laminectomy of L4 was performed including bilateral medial facetectomies and foraminotomies addressing severe spinal stenosis. There was evidence of coagulated blood within the canal consistent with bleeding in the area of decompression. I performed a partial laminectomy of L3 including bilateral medial facetectomies to address all subarticular stenosis. Pedicle screws were then placed in L4-L5 bilaterally with assistance of fluoroscopy in the process brenna placed. By way of transforaminal approach on the left discectomy of L4-L5 was performed endplates guided to subcortical bleeding bone and 11 x 26 mm spiral cage filled with os design bone graft tapped in position. Then proceeded to the right transforaminal region at L4-5. Discectomy performed endplates guided subcortical bleeding bone and a second 11 x 26 mm spiral cage filled with os design bone graft tapped in position. Rods were then compressed locked in final position bilaterally. The transverse processes of L4-5 burred to subcortical bleeding bone. Infuse collagen sponge combined with Koros and local autograft placed in the posterior lateral gutters. Versa wrap placed over the exposed dura. 15 round MARIE drain inserted. The incision was then closed with 1 Vicryl the fascia 2-0 Vicryl subcutaneously and 4 Monocryl for final skin closure. Steri-Strips sterile dressing placed. Patient waken taken to PACU stable condition. Please note spinal cord monitoring visualized at the procedure no changes noted. Lastly Brigette Rawls was present at the entire surgery and all the patient positioning complex portion of the surgery and final skin closure. I attest to the content of the Intraoperative Record and any orders documented therein. Any exceptions are noted below.
[2024-04-04] MEDS: FLOSEAL HEMOSTATIC MATRIX 10ML TOP ONE (13:47)
[2024-04-04] MEDS: fentaNYL citrate PF 100 MCG/2 ML VIAL IV PRN (14:22)
[2024-04-04] MEDS: ONDANSETRON INJ 2 MG/ML 2 ML VIAL IV PRN (14:27)
[2024-04-04] MEDS: HYDROmorphone INJ 1 MG/ML SYRINGE IV PRN ×2 (14:42→15:40)
--- NOTE | 2024-04-04 14:57 | Fluoroscopy Report ---
INTRAOPERATIVE RADIOGRAPHS CLINICAL HISTORY: L4-L5 spinal fusion. Fluoro time: 16 seconds Ka,r: 11.64 mGy FINDINGS: 2 spot fluoroscopic views of the lumbar spine are presented. There has been discectomy at L 4-L5 with laminectomy and posterior fusion at this level. Interpedicular screws are in place. The ort hopedic hardware appears intact. IMPRESSION: Intraoperative images from lumbar spinal fusion surgery as above. Electronically signed by: Donn Dennis M.D. 04/04/2024 2:55 PM
--- NOTE | 2024-04-04 15:13 | Anesthesiology Progress Note ---
Date of Service April 04, 2024 Anesthesia Post Procedure Vital Signs Vital Signs: Temp Pulse Pulse Resp BP BP Pulse Ox 04/04/24 15:05 36.6 C 86 14 121/82 92 04/04/24 14:55 78 12 118/80 96 04/04/24 14:45 87 17 128/85 97 04/04/24 14:35 76 15 137/81 95 04/04/24 14:25 80 19 136/85 95 04/04/24 14:15 83 12 113/81 97 04/04/24 14:05 76 14 136/89 97 04/04/24 13:56 36.8 C 77 16 132/82 90 04/04/24 10:43 36.6 C 72 18 123/84 94 04/04/24 08:11 36.6 C 65 16 127/78 94 04/03/24 21:03 36.6 C 79 16 108/70 94 04/03/24 15:52 36.6 C 78 18 115/68 93 O2 Del Method O2 Flow Rate 04/04/24 15:05 Nasal Cannula 2 04/04/24 14:55 Nasal Cannula 2 04/04/24 14:45 Nasal Cannula 2 04/04/24 14:35 Nasal Cannula 2 04/04/24 14:25 Nasal Cannula 2 04/04/24 14:15 Oxymask 6 04/04/24 14:05 Oxymask 10 04/04/24 13:56 Oxymask 4 04/04/24 10:43 Room Air 04/04/24 08:11 Room Air 04/03/24 21:03 Room Air 04/03/24 15:52 Room Air Pain Intensity Bilateral Leg: Pain Intensity: 8 Lower Back: Pain Intensity: 9 Transfer of Care Handoff Completed per policy Notes Mental Status: alert / awake / arousable Patient Amnestic to Procedure: Yes Nausea / Vomiting: adequately controlled Pain: adequately controlled Airway Patency, RR, SpO2: stable & adequate BP & HR: stable & adequate Hydration State: stable & adequate Anesthetic Complications: no major complications apparent
[2024-04-04] MEDS ORDERED: NALOXONE HCL 0.4 MG/1 ML VIAL/CARP IV PRN (15:18)
[2024-04-04] MEDS ORDERED: LORazepam 2 MG/1 ML VIAL IV PRN (15:18)
[2024-04-04] MEDS ORDERED: ALUMINUM/MAGNESIUM SUSP 30 ML UDC PO PRN (15:18)
[2024-04-04] MEDS ORDERED: diphenhydrAMINE Capsule 25 MG CAP PO PRN (15:18)
[2024-04-04] MEDS ORDERED: DO NOT ADMINISTER PNEUMOCOCCAL VACCINE PRN (15:18)
[2024-04-04] MEDS ORDERED: METOCLOPRAMIDE HCL INJ 5 MG/ML 2 ML VIAL IV PRN (15:18)
[2024-04-04] MEDS ORDERED: MAGNESIUM HYDROXIDE SUSP 30 ML UDC PO PRN (15:18)
[2024-04-04] MEDS ORDERED: SOD PHOSPHATE/SOD BIPHOSPHATE ENEMA 132 ML BTL PR PRN (15:18)
[2024-04-04] MEDS ORDERED: HYDROmorphone INJ 0.5 MG/0.5 ML SYR IV PRN (15:18)
[2024-04-04] MEDS ORDERED: FAMOTIDINE 20 MG TAB PO PRN (15:18)
[2024-04-04] MEDS ORDERED: DO NOT ADMINISTER FLU VACCINE PRN (15:18)
--- NOTE | 2024-04-04 16:17 | Hospitalist Progress Note ---
Date of Service April 04, 2024 Assessment & Plan (1) Severe low back pain: Plan: 63-year-old male with past medical history significant for mixed dyslipidemia, hiatal hernia, spinal stenosis, PSVT comes because of severe back pain and ambulatory dysfunction. Patient was admitted last month for lumbosacral radiculopathy and he was discharged to rehab. He is being managed for the following: Severe low back pain Lumbosacral radiculopathy Ambulatory dysfunction MRI on 02/26/24 showed degenerative spondylosis as described most pronounced at L4-5 and L5-S1, Severe spinal canal stenosis at L4-5, Foraminal stenosis most pronounced on the right at L5-S1 where it is severe Reports Ortho spine just scheduled his surgery for July 2024. Of note, he reported he had weaned himself off oxycontin at some point and was controlled for a short period with tylenol, gabapentin but not anymore [facility] evaled, s/p sx on 04/04 C/w Pain Mx: Deandre Tylenol, gabapentin, As needed oxycodone, hydromorphone, as needed tramadol. PT/OT. DVT Px when cleared per orthospine sx. Chest pains Palpitations Chest pain is atypical and likely related to GI pathology EGD on 03/22/24 showed tortuous esophagus, moderate schatzki ring dilated to 54FR, medium sized hiatal hernia, diffuse gastritis. biopsied EKG did not show new ST changes Trop x2 was normal Optimize pain control Continue metoprolol. Increased by Cardiology to 25 mg bid. Hyperlipidemia: c/w statin GERD: c/w Omeprazole DVT prophylaxis: Hep sc. Disposition: med/surg Full code Admission and Anticipated Discharge Date Admission Date: March 28, 2024 Subjective Patient seen and examined at bedside. s/p spine sx today, reports improvement in radicular s/s. was still coming off of anesthesia when i examined, on 2L NC O2, not in distress. Physical Exam Physical Exam: General- Not in distress, on 2L NC O2. Head- atraumatic Eyes- PERRL. ENT- oropharynx clear Neck- supple, no JVD. Lungs- clear to auscultation no wheezing or crackles. Heart- regular rate and rhythm; no murmur, no gallop. Abdomen- normal bowel sounds, soft, nontender, no distension. Extremities- trace pretibial edema, no erythema seen. Neuro- alert, oriented PERRL, no facial palsy; no dysarthria; moves extremities Lower back w/ dressing c/d/i. MARIE drain w/ minimal serosanguinous outs. Results & Data Results & Data Vital Signs (Past 12 Hours) Vital Signs Temp Pulse Pulse Resp BP BP Pulse Ox 04/04/24 15:24 36.4 C L 78 16 119/77 95 04/04/24 15:05 36.6 C 86 14 121/82 92 04/04/24 14:55 78 12 118/80 96 04/04/24 14:45 87 17 128/85 97 04/04/24 14:35 76 15 137/81 95 04/04/24 14:25 80 19 136/85 95 04/04/24 14:15 83 12 113/81 97 04/04/24 14:05 76 14 136/89 97 04/04/24 13:56 36.8 C 77 16 132/82 90 04/04/24 10:43 36.6 C 72 18 123/84 94 04/04/24 08:11 36.6 C 65 16 127/78 94 O2 Del Method O2 Flow Rate 04/04/24 15:24 Nasal Cannula 2 04/04/24 15:05 Nasal Cannula 2 04/04/24 14:55 Nasal Cannula 2 04/04/24 14:45 Nasal Cannula 2 04/04/24 14:35 Nasal Cannula 2 04/04/24 14:25 Nasal Cannula 2 04/04/24 14:15 Oxymask 6 04/04/24 14:05 Oxymask 10 04/04/24 13:56 Oxymask 4 04/04/24 10:43 Room Air 04/04/24 08:11 Room Air
[2024-04-04] MEDS: DOCUSATE SODIUM/SENNA 50/8.6MG TAB PO SCH (20:50)
[2024-04-05] MEDS: ACETAMINOPHEN 1,000 MG/100 ML VIAL IV PRN (00:55)
[2024-04-05] MEDS: POLYETHYLENE (MIRALAX) 17 GM PACK PO SCH (05:40)
[2024-04-05 07:04] LABS: Basophils # (auto) 0.07 K/uL (0.00-0.20); Basophils % (auto) 0.3 %; Hematocrit (blood only) 42.1 % (42.0-52.0); Hemoglobin 14.3 g/dl (14.0-18.0); Immature Granulocytes # (auto) 0.69 K/uL (0.01-0.20); Immature Granulocytes % (auto) 3.3 %; Lymphocytes # (auto) 1.68 K/uL (1.20-3.40); Mean Corpuscular Hemoglobin 30.8 pg (25.0-34.0); Mean Corpuscular Volume 90.7 fL (80.0-100.0); Mean Platelet Volume 8.9 fL (9.4-12.4); Monocytes # (auto) 2.61 K/uL (0.11-0.59); Monocytes % (auto) 12.4 %; Neutrophils # (auto) 16.04 K/uL (1.40-6.50); Platelet Count 332 K/uL (130-400); RDW Coefficient of Variation 12.3 % (11.5-14.5); RDW Standard Deviation 40.4 fL (36.4-46.3); Red Blood Count 4.64 M/uL (4.70-6.10); White Blood Count 21.09 K/ul (4.8-10.8)
[2024-04-05 07:21] LABS: BUN Creatinine Ratio 25.3 (10-20); Calcium 8.2 mg/dl (8.6-10.3); Creatinine Clr Calc Pharmacy 82.6 ml/min; Est GFR (Non-African American) 83.7 ml/min; Potassium 4.1 mmol/L (3.5-5.1)
[2024-04-05] MEDS: oxyCODONE HCL IR 5 MG TAB (IMMEDIATE RELEASE) PO PRN (07:40)
--- NOTE | 2024-04-05 08:18 | Orthopedic Progress Note ---
Date of Service April 05, 2024 Assessment & Plan (1) Cauda equina syndrome due to spinal stenosis: Plan: This time initiate physical therapy and Occupational Therapy. Patient is expressing interest in returning to [facility] upon discharge. Admission and Anticipated Discharge Date Admission Date: March 28, 2024 Subjective Back and leg symptoms improved patient has been up and ambulating. Physical Exam Physical Exam: Patient is currently in bed. Sensory still somewhat diminished to lower extremities. Motor is intact. Results & Data Vital Signs (Past 12 Hours) Vital Signs Temp Pulse Resp BP Pulse Ox O2 Del Method 04/05/24 07:47 36.1 C L 74 16 115/75 94 Room Air 04/05/24 03:28 36.3 C L 76 12 100/62 95 Room Air 04/04/24 22:37 36.7 C 78 18 116/79 95 Room Air 04/04/24 20:48 36.7 C 99 H 18 114/72 95 Room Air
[2024-04-05] MEDS: dexAMETHasone 6 MG in SYRINGE 0 ML IV SCH (08:39)
--- NOTE | 2024-04-05 15:16 | Hospitalist Progress Note ---
Date of Service April 05, 2024 Assessment & Plan (1) Severe low back pain: Plan: 63-year-old male with past medical history significant for mixed dyslipidemia, hiatal hernia, spinal stenosis, PSVT comes because of severe back pain and ambulatory dysfunction. Patient was admitted last month for lumbosacral radiculopathy and he was discharged to rehab. He is being managed for the following: Severe low back pain Lumbosacral radiculopathy Ambulatory dysfunction MRI on 02/26/24 showed degenerative spondylosis as described most pronounced at L4-5 and L5-S1, Severe spinal canal stenosis at L4-5, Foraminal stenosis most pronounced on the right at L5-S1 where it is severe Reports Ortho spine just scheduled his surgery for July 2024. Of note, he reported he had weaned himself off oxycontin at some point and was controlled for a short period with tylenol, gabapentin but not anymore [facility]ospine evaled, s/p sx on 04/04 Patient reports improvement in his radicular signs and symptoms. Monitor. C/w Pain Mx PT/OT. DVT Px when cleared per orthospine sx. Chest pains Palpitations Chest pain is atypical and likely related to GI pathology EGD on 03/22/24 showed tortuous esophagus, moderate schatzki ring dilated to 54FR, medium sized hiatal hernia, diffuse gastritis. biopsied EKG did not show new ST changes Trop x2 was normal Optimize pain control Continue metoprolol. Increased by Cardiology to 25 mg bid. Hyperlipidemia: c/w statin GERD: c/w Omeprazole DVT prophylaxis: Hep sc. Disposition: med/surg Full code Admission and Anticipated Discharge Date Admission Date: March 28, 2024 Subjective Patient seen and examined at bedside. s/p spine sx 04/04, reports improvement in radicular s/s. eating ok, passig gas, yet to move bowel. Physical Exam Physical Exam: General- Not in distress, on RA Head- atraumatic Eyes- PERRL. ENT- oropharynx clear Neck- supple, no JVD. Lungs- clear to auscultation no wheezing or crackles. Heart- regular rate and rhythm; no murmur, no gallop. Abdomen- normal bowel sounds, soft, nontender, no distension. Extremities- trace pretibial edema, no erythema seen. Neuro- alert, oriented PERRL, no facial palsy; no dysarthria; moves extremities Lower back w/ dressing c/d/i. MARIE drain w/ minimal serosanguinous outs. Distal neurovascular status WNL. Results & Data Results & Data Vital Signs (Past 12 Hours) Vital Signs Temp Pulse Resp BP Pulse Ox O2 Del Method 04/05/24 14:58 36.5 C 85 18 126/80 96 Room Air 04/05/24 14:54 36.5 C 85 18 126/80 96 Room Air 04/05/24 11:02 36.8 C 80 16 120/78 95 Room Air 04/05/24 07:47 36.1 C L 74 16 115/75 94 Room Air 04/05/24 03:28 36.3 C L 76 12 100/62 95 Room Air
[2024-04-06 08:42] LABS: Hematocrit (blood only) 42.4 % (42.0-52.0); Hemoglobin 14.3 g/dl (14.0-18.0); Mean Corpuscular Hemoglobin 30.3 pg (25.0-34.0); Mean Corpuscular Hgb Conc 33.7 g/dL (32.0-36.0); Mean Corpuscular Volume 89.8 fL (80.0-100.0); Mean Platelet Volume 8.9 fL (9.4-12.4); Platelet Count 284 K/uL (130-400); RDW Coefficient of Variation 12.3 % (11.5-14.5); RDW Standard Deviation 39.9 fL (36.4-46.3); Red Blood Count 4.72 M/uL (4.70-6.10); White Blood Count 17.86 K/ul (4.8-10.8)
[2024-04-06] MEDS: bisacodyL 10 MG SUPP PR PRN (09:02)
--- NOTE | 2024-04-06 09:13 | Orthopedic Progress Note ---
Date of Service April 06, 2024 Assessment & Plan (1) Cauda equina syndrome due to spinal stenosis: Plan: This time we will continue physical therapy. Monitor his MARIE output. Anticipate hopefully removing his drain tomorrow. He be cleared for discharge as soon as tomorrow if bed available. Admission and Anticipated Discharge Date Admission Date: March 28, 2024 Subjective Patient's back pain is controlled leg symptoms steadily improving. Has some residual numbness tingling left lower extremity perineal area. Physical Exam Physical Exam: Patient currently in bed. Is comfortable. Neurologically intact. Results & Data Vital Signs (Past 12 Hours) Vital Signs Temp Pulse Resp BP Pulse Ox O2 Del Method 04/06/24 08:07 36.8 C 76 16 109/69 94 Room Air
--- NOTE | 2024-04-06 15:15 | Hospitalist Progress Note ---
Date of Service April 06, 2024 Assessment & Plan (1) Severe low back pain: Plan: 63-year-old male with past medical history significant for mixed dyslipidemia, hiatal hernia, spinal stenosis, PSVT comes because of severe back pain and ambulatory dysfunction. Patient was admitted last month for lumbosacral radiculopathy and he was discharged to rehab. He is being managed for the following: Severe low back pain Lumbosacral radiculopathy Ambulatory dysfunction MRI on 02/26/24 showed degenerative spondylosis as described most pronounced at L4-5 and L5-S1, Severe spinal canal stenosis at L4-5, Foraminal stenosis most pronounced on the right at L5-S1 where it is severe [facility] just scheduled his surgery for July 2024. Of note, he reported he had weaned himself off oxycontin at some point and was controlled for a short period with tylenol, gabapentin but not anymore [facility] evaled, s/p sx on 04/04 Patient reports gradual improvement in his radicular signs and symptoms. Monitor. C/w Pain Mx and bowel regimen PT/OT. DVT Px when cleared per orthospine sx. Chest pains Palpitations Chest pain is atypical and likely related to GI pathology EGD on 03/22/24 showed tortuous esophagus, moderate schatzki ring dilated to 54FR, medium sized hiatal hernia, diffuse gastritis. biopsied EKG did not show new ST changes Trop x2 was normal Optimize pain control Continue metoprolol. Increased by Cardiology to 25 mg bid. Hyperlipidemia: c/w statin GERD: c/w Omeprazole DVT prophylaxis: SCDs. Chemo DVT Px per orthospine. Disposition: med/surg, awaiting rehab. Full code Admission and Anticipated Discharge Date Admission Date: March 28, 2024 Subjective Patient seen and examined at bedside. s/p spine sx 04/04, reports gradual improvement in radicular s/s. eating ok, pas sing gas, moved bowel. Physical Exam Physical Exam: General- Not in distress, on RA Head- atraumatic Eyes- PERRL. ENT- oropharynx clear Neck- supple, no JVD. Lungs- clear to auscultation no wheezing or crackles. Heart- regular rate and rhythm; no murmur, no gallop. Abdomen- normal bowel sounds, soft, nontender, no distension. Extremities- trace pretibial edema, no erythema seen. Neuro- alert, oriented PERRL, no facial palsy; no dysarthria; moves extremities Lower back w/ dressing c/d/i. MARIE drain w/ minimal serosanguinous outs. Distal neurovascular status WNL. Results & Data Results & Data Vital Signs (Past 12 Hours) Vital Signs Temp Pulse Resp BP Pulse Ox O2 Del Method 04/06/24 08:07 36.8 C 76 16 109/69 94 Room Air
[2024-04-06] MEDS: hydrOXYzine HCl 25 MG TAB PO PRN (20:23)
[2024-04-07] MEDS: traMADol HCL 50 MG TABLET PO PRN (01:37)
[2024-04-07 07:04] LABS: Hematocrit (blood only) 39.5 % (42.0-52.0); Hemoglobin 13.6 g/dl (14.0-18.0); Mean Corpuscular Hemoglobin 31.2 pg (25.0-34.0); Mean Corpuscular Hgb Conc 34.4 g/dL (32.0-36.0); Mean Corpuscular Volume 90.6 fL (80.0-100.0); Mean Platelet Volume 9.2 fL (9.4-12.4); Platelet Count 269 K/uL (130-400); RDW Coefficient of Variation 12.4 % (11.5-14.5); RDW Standard Deviation 40.7 fL (36.4-46.3); Red Blood Count 4.36 M/uL (4.70-6.10); White Blood Count 19.51 K/ul (4.8-10.8)
[2024-04-07 08:55] LABS: Calcium 8.5 mg/dl (8.6-10.3); Potassium 3.9 mmol/L (3.5-5.1)
[2024-04-07 09:01] LABS: BUN Creatinine Ratio 23.4 (10-20); Creatinine Clr Calc Pharmacy 101.9 ml/min; Est GFR (African American) 110.4 ml/min; Est GFR (Non-African American) 95.2 ml/min
--- NOTE | 2024-04-07 10:04 | Orthopedic Progress Note ---
Date of Service April 07, 2024 Assessment & Plan (1) Cauda equina syndrome due to spinal stenosis: Plan: This time we will continue physical therapy. Will discontinue his drain today. He is cleared for discharge to [facility] per orthopedics. Admission and Anticipated Discharge Date Admission Date: March 28, 2024 Subjective Back pain is controlled leg symptoms steadily improving. He is tolerating physical therapy. Physical Exam Physical Exam: Patient is in the chair at the bedside. He is comfortable. Good strength testing. Results & Data Vital Signs (Past 12 Hours) Vital Signs Temp Pulse Resp BP Pulse Ox O2 Del Method 04/07/24 07:23 36.9 C 76 16 112/77 95 Room Air
--- NOTE | 2024-04-07 12:23 | Hospitalist Progress Note ---
Date of Service April 07, 2024 Assessment & Plan (1) Severe low back pain: Plan: 63-year-old male with past medical history significant for mixed dyslipidemia, hiatal hernia, spinal stenosis, PSVT comes because of severe back pain and ambulatory dysfunction. Patient was admitted last month for lumbosacral radiculopathy and he was discharged to rehab. He is being managed for the following: Severe low back pain Lumbosacral radiculopathy Ambulatory dysfunction MRI on 02/26/24 showed degenerative spondylosis as described most pronounced at L4-5 and L5-S1, Severe spinal canal stenosis at L4-5, Foraminal stenosis most pronounced on the right at L5-S1 where it is severe [facility] just scheduled his surgery for July 2024. Of note, he reported he had weaned himself off oxycontin at some point and was controlled for a short period with tylenol, gabapentin but not anymore [facility] evaled, s/p sx on 04/04 Patient reports gradual improvement in his radicular signs and symptoms. Monitor. C/w Pain Mx and bowel regimen PT/OT. DVT Px when cleared per orthospine sx. Chest pains Palpitations Chest pain is atypical and likely related to GI pathology EGD on 03/22/24 showed tortuous esophagus, moderate schatzki ring dilated to 54FR, medium sized hiatal hernia, diffuse gastritis. biopsied EKG did not show new ST changes Trop x2 was normal Optimize pain control Continue metoprolol. Increased by Cardiology to 25 mg bid. Hyperlipidemia: c/w statin GERD: c/w Omeprazole DVT prophylaxis: SCDs. Chemo DVT Px per orthospine. Disposition: med/surg, awaiting rehab. ok for dc. Full code Admission and Anticipated Discharge Date Admission Date: March 28, 2024 Subjective Patient seen and examined at bedside. s/p spine sx 04/04, reports gradual improvement in radicular s/s. eating ok, moving bowels. Physical Exam Physical Exam: General- Not in distress, on RA Head- atraumatic Eyes- PERRL. ENT- oropharynx clear Neck- supple, no JVD. Lungs- clear to auscultation no wheezing or crackles. Heart- regular rate and rhythm; no murmur, no gallop. Abdomen- normal bowel sounds, soft, nontender, no distension. Extremities- trace pretibial edema, no erythema seen. Neuro- alert, oriented PERRL, no facial palsy; no dysarthria; moves extremities Lower back w/ dressing c/d/i. Distal neurovascular status WNL. Results & Data Results & Data Vital Signs (Past 12 Hours) Vital Signs Temp Pulse Resp BP Pulse Ox O2 Del Method 04/07/24 10:48 Room Air 04/07/24 07:23 36.9 C 76 16 112/77 95 Room Air
[2024-04-07] MEDS ORDERED: Nursing to Pharmacy Communication SCH (20:15)
--- NOTE | 2024-04-08 11:37 | Orthopedic Progress Note ---
Date of Service April 08, 2024 Assessment & Plan (1) Cauda equina syndrome due to spinal stenosis: Plan: Patient is progressing well. He is stable from orthopedic standpoint. We are awaiting placement. Admission and Anticipated Discharge Date Admission Date: March 28, 2024 Subjective Back pain controlled leg symptoms improving Physical Exam Physical Exam: Patient is currently in bed having completed physical therapy. He has good strength testing. Results & Data Vital Signs (Past 12 Hours) Vital Signs Temp Pulse Resp BP Pulse Ox O2 Del Method 04/08/24 07:35 36.5 C 78 18 107/68 95 Room Air
--- NOTE | 2024-04-08 15:05 | Hospitalist Progress Note ---
Date of Service April 08, 2024 Assessment & Plan (1) Severe low back pain: Plan: 63-year-old male with past medical history significant for mixed dyslipidemia, hiatal hernia, spinal stenosis, PSVT comes because of severe back pain and ambulatory dysfunction. Patient was admitted last month for lumbosacral radiculopathy and he was discharged to rehab. He is being managed for the following: Severe low back pain Lumbosacral radiculopathy Ambulatory dysfunction MRI on 02/26/24 showed degenerative spondylosis as described most pronounced at L4-5 and L5-S1, Severe spinal canal stenosis at L4-5, Foraminal stenosis most pronounced on the right at L5-S1 where it is severe [facility] just scheduled his surgery for July 2024. Of note, he reported he had weaned himself off oxycontin at some point and was controlled for a short period with tylenol, gabapentin but not anymore [facility] evaled, s/p sx on 04/04 Patient reports gradual improvement in his radicular signs and symptoms. Monitor. C/w Pain Mx and bowel regimen PT/OT. DVT Px when cleared per orthospine sx. Chest pains Palpitations Chest pain is atypical and likely related to GI pathology EGD on 03/22/24 showed tortuous esophagus, moderate schatzki ring dilated to 54FR, medium sized hiatal hernia, diffuse gastritis. biopsied EKG did not show new ST changes Trop x2 was normal Optimize pain control Continue metoprolol. Increased by Cardiology to 25 mg bid. Hyperlipidemia: c/w statin GERD: c/w Omeprazole DVT prophylaxis: SCDs. Chemo DVT Px per orthospine. Disposition: med/surg, awaiting rehab. ok for dc. Full code Admission and Anticipated Discharge Date Admission Date: March 28, 2024 Subjective Patient seen and examined at bedside. s/p spine sx 04/04, reports gradual improvement in radicular s/s. eating ok, moving bowels. ambulating around better w/ PT/OT per pt. Physical Exam Physical Exam: General- Not in distress, on RA Head- atraumatic Eyes- PERRL. ENT- oropharynx clear Neck- supple, no JVD. Lungs- clear to auscultation no wheezing or crackles. Heart- regular rate and rhythm; no murmur, no gallop. Abdomen- normal bowel sounds, soft, nontender, no distension. Extremities- trace pretibial edema, no erythema seen. Neuro- alert, oriented PERRL, no facial palsy; no dysarthria; moves extremities Lower back w/ dressing c/d/i. Distal neurovascular status WNL. Results & Data Results & Data Vital Signs (Past 12 Hours) Vital Signs Temp Pulse Resp BP Pulse Ox O2 Del Method 04/08/24 14:53 36.4 C L 88 18 142/72 H 95 Room Air 04/08/24 07:35 36.5 C 78 18 107/68 95 Room Air
[2024-04-08] MEDS: ACETAMINOPHEN 500 MG TAB PO PRN (19:55)
[2024-04-08] MEDS: LORazepam 0.5 MG TAB PO PRN (21:53)
[2024-04-09 06:13] LABS: Hematocrit (blood only) 43.7 % (42.0-52.0); Hemoglobin 14.5 g/dl (14.0-18.0); Mean Corpuscular Hgb Conc 33.2 g/dL (32.0-36.0); Mean Corpuscular Volume 93.4 fL (80.0-100.0); Mean Platelet Volume 8.8 fL (9.4-12.4); Platelet Count 248 K/uL (130-400); RDW Coefficient of Variation 12.9 % (11.5-14.5); RDW Standard Deviation 43.8 fL (36.4-46.3); Red Blood Count 4.68 M/uL (4.70-6.10); White Blood Count 15.28 K/ul (4.8-10.8)
--- NOTE | 2024-04-09 09:33 | Hospitalist Progress Note ---
Date of Service April 09, 2024 Assessment & Plan (1) Severe low back pain: Plan: 63-year-old male with past medical history significant for mixed dyslipidemia, hiatal hernia, spinal stenosis, PSVT comes because of severe back pain and ambulatory dysfunction. Patient was admitted last month for lumbosacral radiculopathy and he was discharged to rehab. He is being managed for the following: Severe low back pain Lumbosacral radiculopathy Ambulatory dysfunction MRI on 02/26/24 showed degenerative spondylosis as described most pronounced at L4-5 and L5-S1, Severe spinal canal stenosis at L4-5, Foraminal stenosis most pronounced on the right at L5-S1 where it is severe [facility] just scheduled his surgery for July 2024. Of note, he reported he had weaned himself off oxycontin at some point and was controlled for a short period with tylenol, gabapentin but not anymore [facility] evaled, s/p sx on 04/04 Patient reports gradual improvement in his radicular signs and symptoms. Monitor. C/w Pain Mx and bowel regimen PT/OT. DVT Px when cleared per orthospine sx. Chest pains Palpitations Chest pain is atypical and likely related to GI pathology EGD on 03/22/24 showed tortuous esophagus, moderate schatzki ring dilated to 54FR, medium sized hiatal hernia, diffuse gastritis. biopsied EKG did not show new ST changes Trop x2 was normal Optimize pain control Continue metoprolol. Increased by Cardiology to 25 mg bid. Hyperlipidemia: c/w statin GERD: c/w Omeprazole DVT prophylaxis: SCDs. Chemo DVT Px per orthospine. Disposition: med/surg, awaiting rehab. Full code Admission and Anticipated Discharge Date Admission Date: March 28, 2024 Subjective Patient seen and examined at bedside He is comfortable; not in distress He continues to require oxycodone for pain control Review of Systems Review of Systems: All systems reviewed & are unremarkable except as noted in Subjective Physical Exam Physical Exam: General- Not in distress, on RA Lungs- clear to auscultation no wheezing or crackles. Heart- regular rate and rhythm; no murmur, no gallop. Abdomen- normal bowel sounds, soft, nontender, no distension. Extremities- trace pretibial edema, no erythema seen. Neuro- alert, oriented PERRL, no facial palsy; no dysarthria; moves extremities Lower back w/ dressing c/d/i. Distal neurovascular status WNL. Results & Data Results & Data Vital Signs (Past 12 Hours) Vital Signs Temp Pulse Resp BP Pulse Ox O2 Del Method 04/09/24 08:26 37.1 C 83 18 108/72 96 Room Air
[2024-04-09] MEDS: MAGNESIUM HYDROXIDE SUSP 30 ML UDC PO SCH (11:17)
[2024-04-09] MEDS: POLYETHYLENE (MIRALAX) 17 GM PACK PO SCH (11:17)
[2024-04-09] MEDS: ONDANSETRON 4 MG OD TAB PO PRN (20:19)
--- NOTE | 2024-04-10 09:45 | Orthopedic Progress Note ---
Date of Service April 10, 2024 Assessment & Plan (1) Cauda equina syndrome due to spinal stenosis: Plan: This point we will continue physical therapy have encouraged him to ambulate as tolerated. Hopefully placement tomorrow. Admission and Anticipated Discharge Date Admission Date: March 28, 2024 Subjective Patient's back pain is controlled. He feels his leg numbness is improving. Physical Exam Physical Exam: Patient is currently in bed. Comfortable. Good strength testing.
[2024-04-10] MEDS: bisacodyL 10 MG SUPP PR STA (10:48)
--- NOTE | 2024-04-10 11:22 | Hospitalist Progress Note ---
Date of Service April 10, 2024 Assessment & Plan (1) Severe low back pain: Plan: 63-year-old male with past medical history significant for mixed dyslipidemia, hiatal hernia, spinal stenosis, PSVT comes because of severe back pain and ambulatory dysfunction. Patient was admitted last month for lumbosacral radiculopathy and he was discharged to rehab. He is being managed for the following: Severe low back pain Lumbosacral radiculopathy Ambulatory dysfunction MRI on 02/26/24 showed degenerative spondylosis as described most pronounced at L4-5 and L5-S1, Severe spinal canal stenosis at L4-5, Foraminal stenosis most pronounced on the right at L5-S1 where it is severe [facility] just scheduled his surgery for July 2024. Of note, he reported he had weaned himself off oxycontin at some point and was controlled for a short period with tylenol, gabapentin but not anymore [facility] evaled, s/p sx on 04/04 Patient reports gradual improvement in his radicular signs and symptoms. Monitor. C/w Pain Mx and bowel regimen. dulcolax suppository added. PT/OT. DVT Px when cleared per orthospine sx. Chest pains Palpitations Chest pain is atypical and likely related to GI pathology EGD on 03/22/24 showed tortuous esophagus, moderate schatzki ring dilated to 54FR, medium sized hiatal hernia, diffuse gastritis. biopsied EKG did not show new ST changes Trop x2 was normal Optimize pain control Continue metoprolol. Increased by Cardiology to 25 mg bid. Hyperlipidemia: c/w statin GERD: c/w Omeprazole DVT prophylaxis: SCDs. Chemo DVT Px per orthospine. Disposition: med/surg, awaiting rehab. Full code Admission and Anticipated Discharge Date Admission Date: March 28, 2024 Subjective Patient seen and examined at bedside. He is comfortable; not in distress Reports constipation. Reports that the numbness in his legs has improved Review of Systems Review of Systems: All systems reviewed & are unremarkable except as noted in Subjective Physical Exam Physical Exam: General- Not in distress, on RA Lungs- clear to auscultation no wheezing or crackles. Heart- regular rate and rhythm; no murmur, no gallop. Abdomen- normal bowel sounds, soft, nontender, no distension. Extremities- trace pretibial edema, no erythema seen. Neuro- alert, oriented PERRL, no facial palsy; no dysarthria; moves extremities Lower back w/ dressing c/d/i. Distal neurovascular status WNL.
[2024-04-10] MEDS: ONDANSETRON INJ 2 MG/ML 2 ML VIAL IV PRN (15:39)
--- NOTE | 2024-04-11 14:05 | Hospitalist Progress Note ---
Date of Service April 11, 2024 Assessment & Plan (1) Severe low back pain: Plan: 63-year-old male with past medical history significant for mixed dyslipidemia, hiatal hernia, spinal stenosis, PSVT comes because of severe back pain and ambulatory dysfunction. Patient was admitted last month for lumbosacral radiculopathy and he was discharged to rehab. He is being managed for the following: Severe low back pain Lumbosacral radiculopathy Ambulatory dysfunction MRI on 02/26/24 showed degenerative spondylosis as described most pronounced at L4-5 and L5-S1, Severe spinal canal stenosis at L4-5, Foraminal stenosis most pronounced on the right at L5-S1 where it is severe Of note, he reported he had weaned himself off oxycontin at some point and was controlled for a short period with tylenol, gabapentin but not anymore [facility] evaled, s/p sx on 04/04 Patient reports gradual improvement in his radicular signs and symptoms. Monitor. C/w Pain Mx and bowel regimen. dulcolax suppository added. PT/OT. Chest pains Palpitations Chest pain is atypical and likely related to GI pathology EGD on 03/22/24 showed tortuous esophagus, moderate schatzki ring dilated to 54FR, medium sized hiatal hernia, diffuse gastritis. biopsied EKG did not show new ST changes Trop x2 was normal Optimize pain control Continue metoprolol. Increased by Cardiology to 25 mg bid. Hyperlipidemia: c/w statin GERD: c/w Omeprazole DVT prophylaxis: SCDs. Chemo DVT Px per orthospine. Disposition: med/surg, awaiting rehab. Full code Admission and Anticipated Discharge Date Admission Date: March 28, 2024 Subjective Patient seen and examined at bedside. Comfortable; not in distress. Denies fever, chills, chest pain, shortness of breath, abdominal pain or urinary symptoms. No significant overnight events Review of Systems Review of Systems: All systems reviewed & are unremarkable except as noted in Subjective Physical Exam Physical Exam: General- Not in distress, on RA Lungs- clear to auscultation no wheezing or crackles. Heart- regular rate and rhythm; no murmur, no gallop. Abdomen- normal bowel sounds, soft, nontender, no distension. Extremities- trace pretibial edema, no erythema seen. Neuro- alert, oriented PERRL, no facial palsy; no dysarthria; moves extremities Lower back w/ dressing c/d/i. Distal neurovascular status WNL. Results & Data Results & Data Vital Signs (Past 12 Hours) Vital Signs Temp Pulse Resp BP Pulse Ox O2 Del Method 04/11/24 07:06 36.5 C 62 16 110/69 94 Room Air
[2024-04-11] MEDS: PROMETHAZINE 12.5 MG/50.5 ML BAG IV PRN (15:30)
--- NOTE | 2024-04-12 02:42 | Communication Note ---
Date of Service: April 12, 2024 Patient with LGIB as per RN. No pain, no diarrhea as per RN. AP Painless LGIB History internal hemorrhoids as per records CBC now Clear liquid diet, GI consult if with hemoglobin drop from baseline
[2024-04-12 03:22] LABS: Basophils # (auto) 0.02 K/uL (0.00-0.20); Basophils % (auto) 0.2 %; Eosinophils # (auto) 0.34 K/uL (0.00-0.50); Eosinophils % (auto) 3.1 %; Hematocrit (blood only) 38.7 % (42.0-52.0); Immature Granulocytes # (auto) 0.14 K/uL (0.01-0.20); Immature Granulocytes % (auto) 1.3 %; Lymphocytes # (auto) 1.38 K/uL (1.20-3.40); Lymphocytes % (auto) 12.4 %; Mean Corpuscular Hemoglobin 30.6 pg (25.0-34.0); Mean Corpuscular Hgb Conc 33.6 g/dL (32.0-36.0); Mean Corpuscular Volume 91.1 fL (80.0-100.0); Mean Platelet Volume 8.8 fL (9.4-12.4); Monocytes # (auto) 1.46 K/uL (0.11-0.59); Monocytes % (auto) 13.1 %; Neutrophils % (auto) 69.9 %; Platelet Count 239 K/uL (130-400); RDW Coefficient of Variation 12.8 % (11.5-14.5); RDW Standard Deviation 41.6 fL (36.4-46.3); Red Blood Count 4.25 M/uL (4.70-6.10); White Blood Count 11.14 K/ul (4.8-10.8)
[2024-04-12 07:29] LABS: Hematocrit (blood only) 39.2 % (42.0-52.0); Hemoglobin 12.8 g/dl (14.0-18.0)
--- NOTE | 2024-04-12 10:10 | Gastrointestinal Consultation ---
Date of Consultation April 12, 2024 Assessment & Plan (1) Rectal bleedin63 year old male w/ dyslipidemia, hiatal hernia, spinal stenosis, PSVT admitted w/ back pain, cauda equina syndrome due to spinal stenosis s/p lumbar decompression on 04/04/24 who reports painless rectal bleeding for at least 1 we ek. He has remained hemodynamically stable HGB 12.8 w/o BUN elevation. DDX discussed: hemorrhoidal bleeding, infectious colitis, vs other. He had an EGD last month w/ evidence of tortuous esophagus, Schatzki ring, hiatal hernia, gastritis and a colonoscopy 9 moths ago for EMR of a rectal polyp. No acute indication for repeat endoscopic evaluation Consider stool studies, cdiff given report of loose stools w/ hematochezia Consider CT imaging of the abdomen Conservative measures given hemodynamically stable w/ stable HGB Trend H&H Monitor and document GI output Transfuse PRN per primary team As he has known hemorrhoids, consider Anusol suppository HS I spent a total of 60 minutes on the date of service in review of patient's record, and previously obtained information in person and appropriate medical visit, discussion and education of plan, with patient and/or caregiver, placing orders for tests/referral/procedures as medically necessary and documentation of pertinent clinical information in patient's medical records for their visit today. Supervising Physician Co-Signing Physician Notes I examined the patient and reviewed patient's chart , laboratory data and imaging studies. I agree with with assessment and plan of care as suggested by advanced practice provider. Minor rectal bleeding, likely related to hemorrhoids es per recent colonoscopy. The patient will follow with [facility] . Surveillance colonoscopy is planned after mucosal resection of a large rectal polyp in July 2023. This will be arranged by [facility]. The patient will also follow-up with [facility] regarding management of gastroesophageal reflux and hiatal hernia. For the time being would recommend high-fiber diet, Metamucil once or twice a day. No need for endoscopic evaluation at the present moment. History of Present Illness Reason for Consultation: GI bleeding Requesting Physician: William Barnett MD Attending Physician: William Barnett MD History of Present Illness 63 year old male w/ history of mixed dyslipidemia, hiatal hernia, spinal stenosis, PSVT admitted w/ back pain, cauda equina syndrome due to spinal stenosis s/p lumbar decompression on 04/04/24. GI asked to evaluate for bloody stools. Pt was seen evaluated, chart reviewed. Endorses some issues with constipation post-surgery. Has been advised Miralax, MPM, Senna. Notes about one week ago he developed BRBPR with each BM he passed. He notes this is mixed on stool and in toilet bowl. Denies any black stools. Denies any abd pain. HGB has remained stable at 12.8 w/ normal BUN. No stool testing No abd imaging Colonoscopy 2022: Hemorrhoids found on perianal exam. - There was a lesion in the rectum. Possibly polyp but unclear at this time. Biopsied. Flex Sig 07/27/2023: One 25 mm polyp in the anorectum area, removed with mucosal resection. Resected and retrieved. - Non-bleeding internal hemorrhoids. EGD 03/22/2024: Tortuous esophagus. - Moderate Schatzki ring. Dilated to 54 Fr today. - Medium-sized hiatal hernia (4 to 5 cm). - Diffuse gastritis. Biopsied. - Normal examined duodenum. - The CARR pH capsule was positioned 30 cm from the incisors, which was 4 cm proximal to the GE junction. Allergies Allergy/AdvReac Type Severity Reaction Status Date / Time No Known Allergies Allergy Verified 04/04/24 10:41 Home Medications Medication Instructions Recorded Confirmed Type atorvastatin 40 mg tablet 40 mg PO DAILY 03/28/24 03/28/24 History diclofenac sodium 50 mg 50 mg PO TID 03/28/24 03/28/24 History tablet,delayed release duloxetine 60 mg capsule,delayed 60 mg PO DAILY 03/28/24 03/28/24 History release gabapentin 600 mg tablet 600 mg PO TID 03/28/24 03/28/24 History metoprolol succinate 25 mg 25 mg PO DAILY 03/28/24 03/28/24 History tablet,extended release 24 hr omeprazole 40 mg capsule,delayed 40 mg PO DAILY 03/28/24 03/28/24 History release oxycodone 5 mg tablet 5 mg PO Q6H PRN pain #30 tabs 04/05/24 Rx tramadol 50 mg tablet 50 mg PO Q6H PRN pain, moderate 04/05/24 Rx #30 tabs Patient History Surgical History History of colonoscopy History of esophagogastroduodenoscopy (EGD) Family History Grandmother (Maternal) Stroke Father Heart disease Social History Smoking Status: Never smoker Second Hand Exposure: No; Do You Dip or Chew Tobacco: No; Hx Alcohol Use: Yes Alcohol type: beer Hx Substance Use: No Preferred Language: Armenian Communication Ability: Effective [employer] Required: No Beliefs That Will Affect Care: None Current Living Situation: Alone Feels Safe at Home: Yes Assistive Devices: Walker Review of Systems Review of Systems: All other findings negative except as noted in HPI. Physical Exam Constitutional: WD/WN, vitals as above Respiratory: normal respiratory effort, lungs clear to auscultation Cardiovascular: Rate/Rhythm: regular rate and regular rhythm Gastrointestinal (Abdomen): normal bowel sounds, soft, nontender, no hepatosplenomegaly Skin: no rashes, warm and dry Results & Data Vital Signs (Past 12 Hours) Vital Signs Temp Pulse Resp BP Pulse Ox O2 Del Method 04/12/24 07:32 37.3 C 92 H 16 105/68 98 Room Air 04/12/24 06:41 36.5 C 89 16 101/69 92 Room Air Laboratory Results 04/12/24 04/12/24 Range/Units 07:03 03:00 WBC 11.14 H (4.8-10.8) K/ul RBC 4.25 L (4.70-6.10) M/uL Hgb 12.8 L 13.0 L (14.0-18.0) g/dl Hct 39.2 L 38.7 L (42.0-52.0) % MCV 91.1 (80.0-100.0) fL MCH 30.6 (25.0-34.0) pg MCHC 33.6 (32.0-36.0) g/dL RDW Std Deviation 41.6 (36.4-46.3) fL RDW Coeff of Marvin 12.8 (11.5-14.5) % Plt Count 239 (130-400) K/uL MPV 8.8 L (9.4-12.4) fL Immature Gran % (Auto) 1.3 % Neut % (Auto) 69.9 % Lymph % (Auto) 12.4 % [place] % (Auto) 13.1 % Eos % (Auto) 3.1 % Baso % (Auto) 0.2 % Neut # (Auto) 7.80 H (1.40-6.50) K/uL Lymph # (Auto) 1.38 (1.20-3.40) K/uL [place] # (Auto) 1.46 H (0.11-0.59) K/uL Eos # (Auto) 0.34 (0.00-0.50) K/uL Baso # (Auto) 0.02 (0.00-0.20) K/uL Immature Gran # (Auto) 0.14 (0.01-0.20) K/uL Blood Type O Positive Antibody Screen NEGATIVE PG Care Time/CCT Total # of Minutes Spent Total Time Spent with Patient: Total time spent is greater than 50% in coordination of care (as documented) at patient's floor/unit and/or counseling patient: Coding Level of Care Code 27151 INT INP/OBS CARE 2/55MIN Diagnoses Rectal bleeding K62.5
[2024-04-12] MEDS: OPTIRAY 320 100ml IV ONE (11:59)
--- NOTE | 2024-04-12 12:34 | CT Scan Report ---
CT abd pelvis IV con only CLINICAL HISTORY: Lower gi bleed TECHNIQUE: Helical axial images of the abdomen and pelvis were obtained and displayed. Automated dose lowering techniques and/or adjustment according to patient size were utilized for this exam. This e xam was performed with intravenous contrast. CT DOSE: 1393.55 mGy.cm COMPARISON: None available at the time of this dictation. FINDINGS: Lower chest: Bibasilar atelectasis versus scarring is seen. Liver: Numerous hepatic cysts are seen. Gallbladder and biliary tree: No calcified gallstones. Normal caliber wall. No intra- or extrahepatic biliary ductal dilation. Pancreas: Unremarkable, no focal lesions. Spleen: Unremarkable. Adrenals: Unremarkable. Kidneys and ureters: Subcentimeter hypodensities are too small to characterize. Bladder: Unremarkable. Reproductive organs: Unremarkable. Bowel: The appendix is normal. A moderate hiatal hernia is seen. Lymph nodes Retroperitoneal: Unremarkable. Pelvic: Unremarkable. Mesenteric: Unremarkable. Peritoneum: Normal. Vessels: Atherosclerotic calcifications are seen. Retroaortic course of the left renal vein is noted. Abdominal wall: A fat-containing umbilical hernia is seen. Bones: Degenerative changes in the visualized spine. L4-L5 posterior fixation hardware is seen. IMPRESSION: No acute abnormalities are seen in this patient with lower gastrointestinal bleeding. Incidental find ings as above. ACT 112: Negative or not required by law. Electronically signed by: Santos Shaikh M.D. 04/12/2024 12:33 PM
--- NOTE | 2024-04-12 13:43 | Hospitalist Progress Note ---
Date of Service April 12, 2024 Assessment & Plan (1) Severe low back pain: Plan: 63-year-old male with past medical history significant for mixed dyslipidemia, hiatal hernia, spinal stenosis, PSVT comes because of severe back pain and ambulatory dysfunction. Patient was admitted last month for lumbosacral radiculopathy and he was discharged to rehab. He is being managed for the following: Severe low back pain Lumbosacral radiculopathy Ambulatory dysfunction MRI on 02/26/24 showed degenerative spondylosis as described most pronounced at L4-5 and L5-S1, Severe spinal canal stenosis at L4-5, Foraminal stenosis most pronounced on the right at L5-S1 where it is severe Of note, he reported he had weaned himself off oxycontin at some point and was controlled for a short period with tylenol, gabapentin but not anymore Orthospine evaled, s/p sx on 04/04 Patient reports gradual improvement in his radicular signs and symptoms. Monitor. C/w Pain Mx and bowel regimen. PT/OT. Bright red blood per rectum Patient reported blood with bowel movement on the night of April 11, 2024. Hemoglobin is stable around 12-13 GI evaluated the patient; recommend CT abdomen pelvis; no acute finding were seen. C. difficile negative Monitor CBC, monitor for lower GI bleed Chest pains Palpitations Chest pain is atypical and likely related to GI pathology EGD on 03/22/24 showed tortuous esophagus, moderate schatzki ring dilated to 54FR, medium sized hiatal hernia, diffuse gastritis. biopsied EKG did not show new ST changes Trop x2 was normal Optimize pain control Continue metoprolol. Increased by Cardiology to 25 mg bid. Hyperlipidemia: c/w statin GERD: c/w Omeprazole DVT prophylaxis: SCDs. Chemo DVT Px per orthospine. Disposition: Patient initially plan to go to rehab today. However, patient reported new onse bright red blood per rectum; undergoing GI evaluation. Possible discharge in next few days Full code Please note the above document was generated using voice recognition software. It may contain grammatical, syntax or spelling errors. Any formal questions or concerns about the content, text or information contained within the body of this dictation should be directly addressed to the provider for clarification Admission and Anticipated Discharge Date Admission Date: March 28, 2024 Subjective Patient seen and examined at bedside. He had episode of lower GI bleed mixed with blood last night Denies abdomen pain or discomfort No nausea or vomiting Review of Systems Review of Systems: All systems reviewed & are unremarkable except as noted in Subjective Physical Exam Physical Exam: General- Not in distress, on RA Lungs- clear to auscultation no wheezing or crackles. Heart- regular rate and rhythm; no murmur, no gallop. Abdomen- normal bowel sounds, soft, nontender, no distension. Extremities- trace pretibial edema, no erythema seen. Neuro- alert, oriented PERRL, no facial palsy; no dysarthria; moves extremities Lower back w/ dressing c/d/i. Distal neurovascular status WNL. Results & Data Results & Data Vital Signs (Past 12 Hours) Vital Signs Temp Pulse Resp BP Pulse Ox O2 Del Method 04/12/24 07:32 37.3 C 92 H 16 105/68 98 Room Air 04/12/24 06:41 36.5 C 89 16 101/69 92 Room Air
[2024-04-12 14:54] LABS: Basophils # (auto) 0.02 K/uL (0.00-0.20); Basophils % (auto) 0.1 %; Eosinophils # (auto) 0.31 K/uL (0.00-0.50); Eosinophils % (auto) 2.2 %; Hematocrit (blood only) 41.6 % (42.0-52.0); Immature Granulocytes # (auto) 0.15 K/uL (0.01-0.20); Immature Granulocytes % (auto) 1.1 %; Lymphocytes # (auto) 1.45 K/uL (1.20-3.40); Lymphocytes % (auto) 10.4 %; Mean Corpuscular Hemoglobin 31.1 pg (25.0-34.0); Mean Corpuscular Hgb Conc 33.7 g/dL (32.0-36.0); Mean Corpuscular Volume 92.4 fL (80.0-100.0); Mean Platelet Volume 8.6 fL (9.4-12.4); Monocytes # (auto) 1.83 K/uL (0.11-0.59); Monocytes % (auto) 13.1 %; Neutrophils # (auto) 10.24 K/uL (1.40-6.50); Neutrophils % (auto) 73.1 %; Platelet Count 277 K/uL (130-400); RDW Standard Deviation 43.6 fL (36.4-46.3)
[2024-04-13 07:17] LABS: Basophils # (auto) 0.02 K/uL (0.00-0.20); Basophils % (auto) 0.2 %; Eosinophils # (auto) 0.29 K/uL (0.00-0.50); Eosinophils % (auto) 2.9 %; Hematocrit (blood only) 35.3 % (42.0-52.0); Hemoglobin 11.8 g/dl (14.0-18.0); Immature Granulocytes # (auto) 0.07 K/uL (0.01-0.20); Immature Granulocytes % (auto) 0.7 %; Lymphocytes # (auto) 1.16 K/uL (1.20-3.40); Lymphocytes % (auto) 11.7 %; Mean Corpuscular Hemoglobin 30.9 pg (25.0-34.0); Mean Corpuscular Hgb Conc 33.4 g/dL (32.0-36.0); Mean Corpuscular Volume 92.4 fL (80.0-100.0); Mean Platelet Volume 8.6 fL (9.4-12.4); Monocytes # (auto) 1.49 K/uL (0.11-0.59); Neutrophils # (auto) 6.88 K/uL (1.40-6.50); Neutrophils % (auto) 69.5 %; Platelet Count 235 K/uL (130-400); RDW Standard Deviation 43.5 fL (36.4-46.3); Red Blood Count 3.82 M/uL (4.70-6.10); White Blood Count 9.91 K/ul (4.8-10.8)
[2024-04-13 07:24] LABS: BUN Creatinine Ratio 13.5 (10-20); Calcium 8.2 mg/dl (8.6-10.3); Creatinine Clr Calc Pharmacy 75.4 ml/min; Est GFR (African American) 86.9 ml/min; Potassium 4.3 mmol/L (3.5-5.1)
[2024-04-13] MEDS: PSYLLIUM or GUAR GUM FIBER 4GM PACKET PO SCH (11:01)
--- NOTE | 2024-04-13 14:42 | Orthopedic Progress Note ---
Date of Service April 13, 2024 Assessment & Plan (1) Cauda equina syndrome due to spinal stenosis: Plan: Patient is improving substantially. He is stable from an orthopedic standpoint for discharge. Admission and Anticipated Discharge Date Admission Date: March 28, 2024 Subjective Back pain controlled leg symptoms steadily improving. Physical Exam Physical Exam: Patient is in his chair at the bedside. He is comfortable. Is concerned to testing. Results & Data Vital Signs (Past 12 Hours) Vital Signs Temp Pulse Resp BP Pulse Ox O2 Del Method 04/13/24 14:34 36.8 C 76 16 117/69 91 Room Air 04/13/24 07:24 36.4 C L 90 16 103/68 91 Room Air
--- NOTE | 2024-04-13 18:28 | Hospitalist Progress Note ---
Date of Service April 13, 2024 Assessment & Plan (1) Severe low back pain: Plan: 63-year-old male with past medical history significant for mixed dyslipidemia, hiatal hernia, spinal stenosis, PSVT comes because of severe back pain and ambulatory dysfunction. Patient was admitted last month for lumbosacral radiculopathy and he was discharged to rehab. He is being managed for the following: Severe low back pain Lumbosacral radiculopathy Ambulatory dysfunction Cauda equina syndrome due to spinal stenosis --MRI on 02/26/24 showed degenerative spondylosis as described most pronounced at L4-5 and L5-S1, Severe spinal canal stenosis at L4-5, Foraminal stenosis most pronounced on the right at L5-S1 where it is severe Of note, he reported he had weaned himself off oxycontin at some point and was controlled for a short period with tylenol, gabapentin but not anymore --S/P lumbar decompression, fusion surgery on 04/04/2024 -- Appreciate orthopedics input --Gradually improved symptomatically Continue PT OT Bowel regimen to prevent constipation Rehab as able Bright red blood per rectum Patient reported blood with bowel movement on the night of April 11, 2024. Likely due to hemorrhoids Hemoglobin is stable around 12-13 GI evaluated the patient; recommend CT abdomen pelvis; no acute finding were seen. C. difficile negative Monitor H&H Chest pain Palpitations Chest pain is atypical and likely related to GI pathology EGD on 03/22/24 showed tortuous esophagus, moderate schatzki ring dilated to 54FR, medium sized hiatal hernia, diffuse gastritis. biopsied EKG did not show new ST changes Trop x2 was normal Optimize pain control Continue metoprolol. Increased by Cardiology to 25 mg bid. Resolved Hyperlipidemia: c/w statin GERD: c/w PPI DVT Px: SCDs. Re: rectal bleed CODE STATUS Full code Disposition Rehab as able Admission and Anticipated Discharge Date Admission Date: March 28, 2024 Subjective Patient is seen and examined at bedside States feeling a lot better today Back pain is controlled Denies any significant rectal bleed today Also denies any chest pain, dyspnea, nausea, vomiting, abdominal pain No other complaints today Review of Systems Review of Systems: All systems reviewed & are unremarkable except as noted in Subjective Physical Exam Physical Exam: Physical Exam: Vitals signs as noted above General Appearance:Moderately built and nourished, no apparent distress Head: normocephalic, Atraumatic Eyes: normal inspection, EOMI Neck: supple, Trachea midline Respiratory/Chest: Normal breath sounds, CTA, No accessory muscle use Cardiovascular: S1, S2, No murmur Abdomen/GI:Soft, Non tender, Bowel sounds present Extremities/Musculoskeletal:normal inspection, Trace pedal edema Neurologic/Psych:AAOX3, grossly no focal neurological deficits Skin: normal color, warm Results & Data Results & Data Vital Signs (Past 12 Hours) Vital Signs Temp Pulse Resp BP Pulse Ox O2 Del Method 04/13/24 14:34 36.8 C 76 16 117/69 91 Room Air 04/13/24 07:24 36.4 C L 90 16 103/68 91 Room Air Laboratory Results Short CBC 04/13/24 Range/Units 06:19 WBC 9.91 (4.8-10.8) K/ul Hgb 11.8 L (14.0-18.0) g/dl Hct 35.3 L (42.0-52.0) % Plt Count 235 (130-400) K/uL BMP 04/13/24 06:19 Sodium 135 L Potassium 4.3 Chloride 98 Carbon Dioxide 34 H BUN 14 Creatinine 1.04 Glucose 99 Calcium 8.2 L
--- NOTE | 2024-04-14 05:40 | Communication Note ---
Date of Service: April 14, 2024 Patient complaining of dysuria symptoms this a.m. No abdominal or flank pain complaints as per RN. Noted to be febrile and tachycardic last night. AP Sepsis from possible UTI IVF Check UA, blood cultures
[2024-04-14 05:54] LABS: Hematocrit (blood only) 38.9 % (42.0-52.0); Hemoglobin 12.7 g/dl (14.0-18.0); Mean Corpuscular Hemoglobin 30.5 pg (25.0-34.0); Mean Corpuscular Hgb Conc 32.6 g/dL (32.0-36.0); Mean Corpuscular Volume 93.3 fL (80.0-100.0); Mean Platelet Volume 8.4 fL (9.4-12.4); Platelet Count 251 K/uL (130-400); RDW Coefficient of Variation 12.8 % (11.5-14.5); RDW Standard Deviation 43.4 fL (36.4-46.3); Red Blood Count 4.17 M/uL (4.70-6.10); White Blood Count 10.12 K/ul (4.8-10.8)
[2024-04-14 06:07] LABS: BUN Creatinine Ratio 13.6 (10-20); Calcium 8.2 mg/dl (8.6-10.3); Creatinine Clr Calc Pharmacy 76.2 ml/min; Magnesium 2.2 mg/dl (1.7-2.4); Potassium 3.6 mmol/L (3.5-5.1)
[2024-04-14 07:26] LABS: Appearance Urine Clear (Clear); Bilirubin Urine Negative (Negative); Blood Urine Negative (Negative); Color Urine Yellow; Glucose Urine UA Negative (Negative); Ketones Urine Negative (Negative); Leukocyte Esterase Urine Negative (Negative); Nitrite Urine Negative (Negative); Protein Urine Negative (Negative); Urobilinogen Urine Negative (Negative)
[2024-04-14] MEDS: SODIUM CHLORIDE 0.9% 1,000 ML IV ONE (07:38)
--- NOTE | 2024-04-14 15:26 | Hospitalist Progress Note ---
Date of Service April 14, 2024 Assessment & Plan (1) Severe low back pain: Plan: 63-year-old male with past medical history significant for mixed dyslipidemia, hiatal hernia, spinal stenosis, PSVT comes because of severe back pain and ambulatory dysfunction. Patient was admitted last month for lumbosacral radiculopathy and he was discharged to rehab. He is being managed for the following: Severe low back pain Lumbosacral radiculopathy Ambulatory dysfunction Cauda equina syndrome due to spinal stenosis --MRI on 02/26/24 showed degenerative spondylosis as described most pronounced at L4-5 and L5-S1, Severe spinal canal stenosis at L4-5, Foraminal stenosis most pronounced on the right at L5-S1 where it is severe Of note, he reported he had weaned himself off oxycontin at some point and was controlled for a short period with tylenol, gabapentin but not anymore --S/P lumbar decompression, fusion surgery on 04/04/2024 -- Appreciate orthopedics input --Gradually improved symptomatically Continue PT OT Bowel regimen to prevent constipation Likely discharge tomorrow to rehab facility Bright red blood per rectum Patient reported blood with bowel movement on the night of April 11, 2024. Likely due to hemorrhoids Hemoglobin is stable around 12-13 GI evaluated the patient; recommend CT abdomen pelvis; no acute finding were seen. C. difficile negative Monitor H&H Hb Stable Chest pain Palpitations Chest pain is atypical and likely related to GI pathology EGD on 03/22/24 showed tortuous esophagus, moderate schatzki ring dilated to 54FR, medium sized hiatal hernia, diffuse gastritis. biopsied EKG did not show new ST changes Trop x2 was normal Optimize pain control Continue metoprolol. Increased by Cardiology to 25 mg bid. Resolved Hyperlipidemia: c/w statin GERD: c/w PPI DVT Px: SCDs. Re: rectal bleed CODE STATUS Full code Disposition Rehab when arranged Admission and Anticipated Discharge Date Admission Date: March 28, 2024 Subjective Patient is seen and examined at bedside Stated having burning micturition overnight which resolved Urinalysis within normal limits Back pain is controlled No acute bleeding issues currently Also denies any chest pain, dyspnea, nausea, vomiting, abdominal pain Waiting for rehab placement Review of Systems Review of Systems: All systems reviewed & are unremarkable except as noted in Subjective Physical Exam Physical Exam: Physical Exam: Vitals signs as noted above General Appearance:Moderately built and nourished, no apparent distress Head: normocephalic, Atraumatic Eyes: normal inspection, EOMI Neck: supple, Trachea midline Respiratory/Chest: Normal breath sounds, CTA, No accessory muscle use Cardiovascular: S1, S2, No murmur Abdomen/GI:Soft, Non tender, Bowel sounds present Extremities/Musculoskeletal:normal inspection, Trace pedal edema Neurologic/Psych:AAOX3, grossly no focal neurological deficits Skin: normal color, warm Results & Data Results & Data Vital Signs (Past 12 Hours) Vital Signs Temp Pulse Resp BP Pulse Ox O2 Del Method 04/14/24 15:05 37.0 C 88 16 112/72 94 Room Air 04/14/24 07:47 37.0 C 85 16 102/67 95 Room Air 04/14/24 05:48 36.9 C 91 H 18 102/66 94 Room Air Laboratory Results Short CBC 04/14/24 Range/Units 05:20 WBC 10.12 (4.8-10.8) K/ul Hgb 12.7 L (14.0-18.0) g/dl Hct 38.9 L (42.0-52.0) % Plt Count 251 (130-400) K/uL BMP 04/14/24 05:40 Sodium 134 L Potassium 3.6 Chloride 98 Carbon Dioxide 31 BUN 14 Creatinine 1.03 Glucose 97 Calcium 8.2 L Urine 04/14/24 Range/Units 06:05 Urine Color Yellow Urine Appearance Clear (Clear) Urine pH 8.0 H (4.5-7.5) Ur Specific [place] 1.010 (1.000-1.030) Urine Protein Negative (Negative) Urine Glucose (UA) Negative (Negative)
[2024-04-15] MEDS: NSS + 20MEQ KCL 20 MEQ/1,000 ML BAG IV ONE (03:01)
[2024-04-15 07:47] VITALS: BP 110/72; PULSE 79; RESP 14; TEMP 98.4; O2SAT 94
--- NOTE | 2024-04-15 12:35 | Hospitalist Progress Note ---
Date of Service April 15, 2024 Assessment & Plan (1) Severe low back pain: Plan: 63-year-old male with past medical history significant for mixed dyslipidemia, hiatal hernia, spinal stenosis, PSVT comes because of severe back pain and ambulatory dysfunction. Patient was admitted last month for lumbosacral radiculopathy and he was discharged to rehab. He is being managed for the following: Severe low back pain Lumbosacral radiculopathy Ambulatory dysfunction Cauda equina syndrome due to spinal stenosis --MRI on 02/26/24 showed degenerative spondylosis as described most pronounced at L4-5 and L5-S1, Severe spinal canal stenosis at L4-5, Foraminal stenosis most pronounced on the right at L5-S1 where it is severe Of note, he reported he had weaned himself off oxycontin at some point and was controlled for a short period with tylenol, gabapentin but not anymore --S/P lumbar decompression, fusion surgery on 04/04/2024 -- Appreciate orthopedics input --Gradually improved symptomatically Continue PT OT Bowel regimen to prevent constipation Plan to discharge to rehab facility today Bright red blood per rectum Patient reported blood with bowel movement on the night of April 11, 2024. Likely due to hemorrhoids Hemoglobin is stable around 12-13 GI evaluated the patient; recommend CT abdomen pelvis; no acute finding were seen. C. difficile negative Monitor H&H Hb Stable 12.7 today Chest pain Palpitations Chest pain is atypical and likely related to GI pathology EGD on 03/22/24 showed tortuous esophagus, moderate schatzki ring dilated to 54FR, medium sized hiatal hernia, diffuse gastritis. biopsied EKG did not show new ST changes Trop x2 was normal Optimize pain control Continue metoprolol. Increased by Cardiology to 25 mg bid. Resolved Hyperlipidemia: c/w statin GERD: c/w PPI DVT Px: SCDs. Re: rectal bleed CODE STATUS Full code Disposition Rehab Admission and Anticipated Discharge Date Admission Date: March 28, 2024 Subjective Patient is seen and examined at bedside States feeling well today Feels tired but otherwise no complaints No significant back pain today Denies any chest pain, dyspnea, nausea, vomiting, abdominal pain Plan to discharge to rehab facility today Review of Systems Review of Systems: All systems reviewed & are unremarkable except as noted in Subjective Physical Exam Physical Exam: Physical Exam: Vitals signs as noted above General Appearance:Moderately built and nourished, no apparent distress Head: normocephalic, Atraumatic Eyes: normal inspection, EOMI Neck: supple, Trachea midline Respiratory/Chest: Normal breath sounds, CTA, No accessory muscle use Cardiovascular: S1, S2, No murmur Abdomen/GI:Soft, Non tender, Bowel sounds present Extremities/Musculoskeletal:normal inspection, Trace pedal edema Neurologic/Psych:AAOX3, grossly no focal neurological deficits Skin: normal color, warm Results & Data Results & Data Vital Signs (Past 12 Hours) Vital Signs Temp Pulse Resp BP BP Pulse Ox O2 Del Method 04/15/24 11:54 36.9 C 79 14 110/72 100/66 94 04/15/24 07:47 36.9 C 79 14 110/72 94 Room Air
--- NOTE | 2024-04-15 12:40 | Discharge Summary ---
Date of Service April 15, 2024 Admission HPI Per Admitting Provider 63-year-old male with past medical history significant for mixed dyslipidemia, hiatal hernia, spinal stenosis, history of PSVT comes because of severe back pain and ambulatory dysfunction. Patient was admitted last month for lumbosacral radiculopathy and he was discharged to rehab. He stayed at rehab for 1 week and then he stayed at his sisters place for 1 week. Having lot of back pain. He is taking gabapentin and Tylenol. He tapered off himself OxyContin. He is using walker to ambulate. The pain shoots into both legs more in the left leg. He is concerned that he may fall. He has appointment with orthopedics in July 2024. Because ongoing pain and ambulatory dysfunction came to the ER today. Denies any bowel or bladder incontinence. Sometimes has some difficulty micturating but it frees up after moving his bowels. Has some lower abdominal pain. Some nausea. On and off chest pains and palpitations. When the pain is severe he gets short of breath. Some headaches. Vision is not great in the right eye and plan to see ophthalmology. No headaches. Appetite is okay. Currently resting comfortably and hemodynamically stable. Past medical history. As mentioned above Past surgical history. Colonoscopy. EGD. Sigmoidoscopy. Social history. No smoking. Alcohol rarely. No drug use. Family history. Father had heart disease. Maternal grandmother had stroke. Admission Exam Per Admitting Provider General- Not in distress Head- atraumatic Eyes- PERRL. ENT- oropharynx clear Neck- supple, no JVD. Lungs- clear to auscultation no wheezing or crackles. Heart- regular rate and rhythm; no murmur, no gallop. Abdomen- normal bowel sounds, soft, nontender, no distension. Extremities- trace pretibial edema, no erythema seen. Neuro- alert, oriented PERRL, no facial palsy; no dysarthria; moves extremities Musculoskeletal. b/l SLR test negative Principal Diagnosis Lumbosacral radiculopathy Ambulatory dysfunction Cauda equina syndrome due to spinal stenosis Bright red blood per rectum--likely due to hemorrhoids Discharge Data Allergies Allergy/AdvReac Type Severity Reaction Status Date / Time No Known Allergies Allergy Verified 04/04/24 10:41 Consultations 03/28/24 21:27 ED Decision to Admit Stat 03/29/24 07:25 Consult Orthopedic Spine Surgery Routine 03/29/24 08:00 Consult Cardiology Routine 03/30/24 12:49 Consult Pain Management Routine 04/12/24 06:33 Consult Gastroenterology Routine Procedures Performed Operation Date: 04/04/24 07:00 Actual Procedures p L4-L5 Decompression Fusion(Not Applicable) - Kenneth Barrios DO Ordered Studies Laboratory Results WBC 10.12 K/ul (4.8-10.8) 04/14/24 05:20 RBC 4.17 M/uL (4.70-6.10) L 04/14/24 05:20 Hgb 12.7 g/dl (14.0-18.0) L 04/14/24 05:20 Hct 38.9 % (42.0-52.0) L 04/14/24 05:20 MCV 93.3 fL (80.0-100.0) 04/14/24 05:20 MCH 30.5 pg (25.0-34.0) 04/14/24 05:20 MCHC 32.6 g/dL (32.0-36.0) 04/14/24 05:20 RDW Std Deviation 43.4 fL (36.4-46.3) 04/14/24 05:20 RDW Coeff of Marvin 12.8 % (11.5-14.5) 04/14/24 05:20 Plt Count 251 K/uL (130-400) 04/14/24 05:20 MPV 8.4 fL (9.4-12.4) L 04/14/24 05:20 Immature Gran % (Auto) 0.7 % 04/13/24 06:19 Neut % (Auto) 69.5 % 04/13/24 06:19 Lymph % (Auto) 11.7 % 04/13/24 06:19 [place] % (Auto) 15.0 % 04/13/24 06:19 Eos % (Auto) 2.9 % 04/13/24 06:19 Baso % (Auto) 0.2 % 04/13/24 06:19 Neut # (Auto) 6.88 K/uL (1.40-6.50) H 04/13/24 06:19 Lymph # (Auto) 1.16 K/uL (1.20-3.40) L 04/13/24 06:19 [place] # (Auto) 1.49 K/uL (0.11-0.59) H 04/13/24 06:19 Eos # (Auto) 0.29 K/uL (0.00-0.50) 04/13/24 06:19 Baso # (Auto) 0.02 K/uL (0.00-0.20) 04/13/24 06:19 Immature Gran # (Auto) 0.07 K/uL (0.01-0.20) 04/13/24 06:19 Sodium 134 mmol/L (136-145) L 04/14/24 05:40 Potassium 3.6 mmol/L (3.5-5.1) 04/14/24 05:40 Chloride 98 mmol/L (98-107) 04/14/24 05:40 Carbon Dioxide 31 mmol/L (21-32) 04/14/24 05:40 Anion Gap 5 (3-11) 04/14/24 05:40 BUN 14 mg/dl (6-23) 04/14/24 05:40 Creatinine 1.03 mg/dl (0.6-1.4) 04/14/24 05:40 Est Cr Clr Drug Dosing 76.2 ml/min 04/14/24 05:40 eGFR 80.61 04/14/24 05:40 Est GFR ( Amer) 86.9 ml/min 04/13/24 06:19 Est GFR (Non-Af Amer) 75.0 ml/min 04/13/24 06:19 BUN/Creatinine Ratio 13.6 (10-20) 04/14/24 05:40 Glucose 97 mg/dl (70-99(Fasting)) 04/14/24 05:40 Lactate 0.5 mmol/L (0.4-2.0) 04/14/24 07:32 Calcium 8.2 mg/dl (8.6-10.3) L 04/14/24 05:40 Phosphorus 4.1 mg/dl (2.5-4.9) 03/31/24 05:49 Magnesium 2.2 mg/dl (1.7-2.4) 04/14/24 05:40 Total Bilirubin 0.5 mg/dl (0.2-1.0) 03/28/24 19:31 AST 33 U/L (13-39) 03/28/24 19:31 ALT 86 U/L (7-52) H 03/28/24 19:31 Alkaline Phosphatase 64 U/L (34-104) 03/28/24 19:31 Troponin I High Sens < 2.3 pg/ml (0-20) 03/29/24 10:32 Total Protein 7.2 gm/dl (6.0-8.3) 03/28/24 19:31 Albumin 4.4 gm/dl (3.4-5.0) 03/28/24 19:31 Globulin 2.8 gm/dl (2.5-4.0) 03/28/24 19:31 Albumin/Globulin Ratio 1.6 (0.9-2) 03/28/24 19:31 Procalcitonin 0.03 ng/ml (0-0.5) 03/30/24 11:12 Urine Color Yellow 04/14/24 06:05 Urine Appearance Clear (Clear) 04/14/24 06:05 Urine pH 8.0 (4.5-7.5) H 04/14/24 06:05 Ur Specific [place] 1.010 (1.000-1.030) 04/14/24 06:05 Urine Protein Negative (Negative) 04/14/24 06:05 Urine Glucose (UA) Negative (Negative) 04/14/24 06:05 Urine Ketones Negative (Negative) 04/14/24 06:05 Urine Blood Negative (Negative) 04/14/24 06:05 Urine Nitrite Negative (Negative) 04/14/24 06:05 Urine Bilirubin Negative (Negative) 04/14/24 06:05 Urine Urobilinogen Negative (Negative) 04/14/24 06:05 Ur Leukocyte Esterase Negative (Negative) 04/14/24 06:05 Stl C. diff Tox B Gene Negative Cdiff Gene (Neg) 04/12/24 11:26 Blood Type O Positive 04/12/24 07:03 Antibody Screen NEGATIVE 04/12/24 07:03 Impressions Chest X-Ray 03/28/24 19:09 XR chest 1V not portable HISTORY: 63 years-old Male tachycardia COMPARISON: None TECHNIQUE: PA view of the chest FINDINGS: Cardiomediastinal and hilar silhouettes are within normal limits. No pneumothorax, pleural effusion or airspace consolidation. Chronic fracture of the posterior left eighth rib. Levoscoliosis of the thoracolumbar junction. IMPRESSION: No acute process. ACT 112: Negative or not required by law. The above report was generated using voice recognition software. It may contain grammatical, syntax or spelling errors. Electronically signed by: Sameer Garland M.D. 03/29/2024 7:03 AM Lumbar Spine X-Ray 04/04/24 00:00 INTRAOPERATIVE RADIOGRAPHS CLINICAL HISTORY: L4-L5 spinal fusion. Fluoro time: 16 seconds Ka,r: 11.64 mGy FINDINGS: 2 spot fluoroscopic views of the lumbar spine are presented. There has been discectomy at L4-L5 with laminectomy and posterior fusion at this level. Interpedicular screws are in place. The orthopedic hardware appears intact. IMPRESSION: Intraoperative images from lumbar spinal fusion surgery as above. Electronically signed by: Donn Dennis M.D. 04/04/2024 2:55 PM Abdomen/Pelvis CT 04/12/24 10:43 CT abd pelvis IV con only CLINICAL HISTORY: Lower gi bleed TECHNIQUE: Helical axial images of the abdomen and pelvis were obtained and displayed. Automated dose lowering techniques and/or adjustment according to patient size were utilized for this exam. This exam was performed with intravenous contrast. CT DOSE: 1393.55 mGy.cm COMPARISON: None available at the time of this dictation. FINDINGS: Lower chest: Bibasilar atelectasis versus scarring is seen. Liver: Numerous hepatic cysts are seen. Gallbladder and biliary tree: No calcified gallstones. Normal caliber wall. No intra- or extrahepatic biliary ductal dilation. Pancreas: Unremarkable, no focal lesions. Spleen: Unremarkable. Adrenals: Unremarkable. Kidneys and ureters: Subcentimeter hypodensities are too small to characterize. Bladder: Unremarkable. Reproductive organs: Unremarkable. Bowel: The appendix is normal. A moderate hiatal hernia is seen. Lymph nodes Retroperitoneal: Unremarkable. Pelvic: Unremarkable. Mesenteric: Unremarkable. Peritoneum: Normal. Vessels: Atherosclerotic calcifications are seen. Retroaortic course of the left renal vein is noted. Abdominal wall: A fat-containing umbilical hernia is seen. Bones: Degenerative changes in the visualized spine. L4-L5 posterior fixation hardware is seen. IMPRESSION: No acute abnormalities are seen in this patient with lower gastrointestinal bleeding. Incidental findings as above. ACT 112: Negative or not required by law. Electronically signed by: Santos Shaikh M.D. 04/12/2024 12:33 PM Hospital Course (1) Severe low back pain: 63-year-old male with past medical history significant for mixed dyslipidemia, hiatal hernia, spinal stenosis, PSVT comes because of severe back pain and ambu latory dysfunction. Patient was admitted last month for lumbosacral radiculopathy and he was discharged to rehab. He is being managed for the following: Severe low back pain Lumbosacral radiculopathy Ambulatory dysfunction Cauda equina syndrome due to spinal stenosis --MRI on 02/26/24 showed degenerative spondylosis as described most pronounced at L4-5 and L5-S1, Severe spinal canal stenosis at L4-5, Foraminal stenosis most pronounced on the right at L5-S1 where it is severe Of note, he reported he had weaned himself off oxycontin at some point and was controlled for a short period with tylenol, gabapentin but not anymore --S/P lumbar decompression, fusion surgery on 04/04/2024 -- Appreciate orthopedics input --Gradually improved symptomatically Continue PT OT Bowel regimen to prevent constipation Plan to discharge to rehab facility today Bright red blood per rectum Patient reported blood with bowel movement on the night of April 11, 2024. Likely due to hemorrhoids Hemoglobin is stable around 12-13 GI evaluated the patient; recommend CT abdomen pelvis; no acute finding were seen. C. difficile negative Monitor H&H Hb Stable 12.7 today Chest pain Palpitations Chest pain is atypical and likely related to GI pathology EGD on 03/22/24 showed tortuous esophagus, moderate schatzki ring dilated to 54FR, medium sized hiatal hernia, diffuse gastritis. biopsied EKG did not show new ST changes Trop x2 was normal Optimize pain control Continue metoprolol. Increased by Cardiology to 25 mg bid. Resolved Hyperlipidemia: c/w statin GERD: c/w PPI DVT Px: SCDs. Re: rectal bleed CODE STATUS Full code Disposition Rehab Total Time Total Time Spent Total Time Spent (In Minutes): 41 minutes Discharge Plan Discharge Items Patient Disposition: Transfer [facility] Reason For Visit: SEVERE BACK PAIN, CHEST PAIN Discharge Diagnosis: Lumbosacral radiculopathy Ambulatory dysfunction Cauda equina syndrome due to spinal stenosis Bright red blood per rectum--likely due to hemorrhoids Activity: Per Instructions section Exercise/Sports: Gradually increase as tolerated Non-emergency contact: Primary Care Provider, Surgeon and Loom Fixer Helper Call non-emergency contact if: you have any medication questions, your symptoms worsen, your pain is concerning for you and you have a fever Follow-up/Referrals: Brigette Bennett MD [Primary Care Provider] - Diet: Heart Healthy Addtl Attending Provider Instructions: ACTIVITY RECOMMENDATIONS: SELF CARE INSTRUCTIONS AFTER THORACIC/LUMBAR FUSIONS 1. You may walk to your tolerance. It is good exercise for your legs and back. Expect some back and intermittent leg aches and pains. 2. You may perform "counter-top" level activities (make a sandwich, erwin with a project, etc.). 3. No bending or lifting of more than 10 pounds or back twisting of any nature (roll like a log when turning in bed). 4. You may ride in a car for 20-30 minutes at a time. No driving until after your first visit with your doctor. 5. Frequent changes of position and restricting sitting to 30 minutes at a time will help limit the amount of back spasms and stiffness you may experience. 6. You may discontinue the use of ambulatory aids (cane, crutches, etc.) once your strength and confidence allow. 7. You may vibrating screed operator the shower and let water strike your incision when you arrive home at least once daily. Do not take a tub bath, sit in a hot tub or go into a swimming pool until after your first recheck in the office. SPECIAL CARE INSTRUCTIONS: VERY IMPORTANT TO READ AND REVIEW A. Your surgical incision has been closed with a cosmetic suture under the skin that will dissolve in about 6 weeks. In 14 days, you can use a pair of clean scissors and cut the suture that is left outside of the skin at the ends of your incision. 1. The small skin tapes can be removed 7 days after surgery if they have not fallen off by that point. 2. You may keep the wound open to air as much as possible to promote healing after post-op day number 5 unless told otherwise by your doctor. 3. If you think the wound looks like it is becoming infected (redness or wo rsening drainage) and/or you are experiencing fever, chill or worsening back pain and muscle spasms, contact the office so that we may evaluate you as soon as possible. B. Complications are uncommon, but please contact us if you have any signs or symptoms of: 1. wound infection (fever higher than 102.5 degrees F, redness, separation of wound, drainage, or increasing pain from the incision) 2. blood clots in legs (pain, swelling, redness and warmth in legs) 3. urinary tract infection (fever higher than 102.5 degrees F, burning upon urination or increased frequency of urination) 4. nerve problems (inability to walk on your toes or heels, numbness, loss of bowel or bladder control) 5. any other symptoms that concern you C. Please call the office at if you have any concerns or questions about your operation or recovery. D. No smoking! Smoking drastically decreases the chance of a solid fusion. E. Do not take any anti-inflammatory medications (Indocin, Advil, Motrin, Aspirin, Naprosyn, etc.) as these may inhibit the chance of a solid fusion. Tylenol is okay to take for pain. MANAGING PAIN AFTER SPINAL SURGERY 1. Narcotic medication is intended for short-term use and will be provided for surgical pain. Surgical pain usually lasts for a period of 4-6 weeks. Narcotic medication includes Percocet, Vicodin, Darvocet, Tylenol #3 or Lortab. 2. Longer-term pain is more appropriately treated with non-narcotic medication such as Tylenol ES. 3. Muscle spasm is not appropriately treated with narcotics. Muscle relaxers such as Soma, Flexeril or Skelaxin can be used along with Tylenol ES. 4. Remember that we all live with some "aches and pains". This is not unusual or uncommon after an injury or as we get older. a. Back pain is expected and may include muscle spasms for 4 to 6 weeks after surgery. The pain should gradually improve. If the pain worsens for no apparent reason, please contact the office. b. Intermittent leg pain may also be experienced and should not be concerned about unless it worsens for no apparent reason. If so, please contact the office. 5. We will provide appropriate medication within the normal guidelines of their prescribed use. We will also be very cautious and aware of potential abuse and extended duration of patients' medication needs. a. Pain medications are for your comfort and to assist with sleep and rest so that the tissue can heal. They are not provided in order to return to normal activity and should not be used through the day. To do so or worsening pain at night can result from ongoing tissue damage and development of tolerance to the prescribed medicine. 6. Please allow 2-3 days to process refills. Prescriptions will not be mailed but must be picked up at the office. FOLLOW UP VISIT: Keep your scheduled follow-up appointment. Any questions, please call the office at . Addtl [employer] [facility] Director Provider Instructions: Follow-up with your primary care physician in 1 week upon discharge from rehab facility Follow-up with your orthopedic surgeon Dr. Barrios as recommended Follow-up with your excel analyst if you have recurrence of rectal bleed as recommended --Your final blood cultures are pending at the time of discharge. Follow-up with your physician for results. Seek immediate medical attention if your symptoms reoccur or worsen Please take all medications as instructed on discharge list below. Please call if you have any questions or problems. You can reach a [facility] hospitalist on duty at [facility] 24 hours a day by calling [phone] Pending Studies at Discharge: Yes Studies:: Blood cultures Stand-Alone Forms: My [facility] Skilled Items Patient informed of condition?: Yes DNR: No Discharge Level of Care: Skilled Communicable Disease: No Discharge Prognosis: Stable Lines: None Urinary Catheter: No Medications and DC Order Prescriptions: New tramadol 50 mg tablet 50 mg PO Q6H PRN (Reason: pain, moderate) Qty: 30 0RF oxycodone 5 mg tablet 5 mg PO Q6H PRN (Reason: pain) Qty: 30 0RF polyethylene glycol 3350 [Miralax] 17 gram Powder In Packet 17 g PO DAILY PRN (Reason: constipation) Qty: 30 0RF sennosides-docusate sodium [Senokot-S] 8.6-50 mg Tablet 1 tab PO BID PRN (Reason: Constipation) Qty: 30 0RF Psyllium Or Guar Gum Fiber Sup [Metamucil Or Nutrisource Fiber Supplement] 4 g PO QAM Qty: 30 1RF Continued atorvastatin 40 mg tablet 40 mg PO DAILY gabapentin 600 mg tablet 600 mg PO TID omeprazole 40 mg capsule,delayed release(DR/EC) 40 mg PO DAILY metoprolol succinate 25 mg tablet extended release 24 hr 25 mg PO DAILY duloxetine 60 mg capsule,delayed release(DR/EC) 60 mg PO DAILY Discontinued diclofenac sodium 50 mg tablet,delayed release (DR/EC) 50 mg PO TID Discharge Orders: Discharge Order (Routine); Ordered 04/15/24 Ordered By: Eric Massey Admission Data Admit Date/Time: 03/28/24 23:08 Attending Provider: Eric Massey Admit Provider: Ayan Sprague Primary Care Provider: Brigette Bennett Other Providers: [facility]; Ayan Sprague; Kenneth Barrios; Jaime Andujar; Barb Kc; Miguel Brandt; Hayley Ingram; Macrina Alanis; Sultana Gomes; Kristen Burger; April Black; Ahsan Hanley; Ganga Garcia; Nedra Adan; Brian Townsend; Leti Mills S; Quita Verma; Elham Rivera; May Olguin; Alana Esteves; Sonido Fagan; Leandro Giang; Lana Braun; Jung Butler Jr; Jason Beltrán.; Preston Ghosh; Federico Kahn; Bryant Nichols; Mary Carbajal; Burak Weaver I; Rosa Bourne Other Interventions: Discharge Summary Assessment (RN) Last Done: 04/15/24 11:54
== END 2024-04-15 13:54 | DRG 402 ==
LOC: ED 18:54 → SUATTDRO 23:08 → 2N 23:08 → 3W 03-31 22:34